=== PATIENT | female | born 1945 | race Caucasian/White ===

== ENCOUNTER → 2018-01-02 09:42 | Outpatient (CLI) | payer MEDICARE, BC, SELFPAY ==
--- NOTE | 2018-01-02 09:55 | RAD_ITS ---
STUDY: X-RAY CHEST REASON FOR EXAM: Female, 72 years old. COPD. TECHNIQUE: PA and lateral chest. COMPARISON: None. FINDINGS: Lungs are hyperinflated. No focal infiltrates or effusions. Normal size heart. Normal mediastinum and andre. Normal visualized pulmonary arteries. Normal visualized aortic arch and descending thoracic aorta. Normal visualized thoracic spine. Normal visualized ribs, clavicles, and shoulders. There is no demonstrated abnormality of the visualized soft tissue structures of the upper abdomen. RAD/Chest PA and Lateral IMPRESSION: COPD. Electronically Signed: Gabriel Etienne MD at 4:43 EDT , Service support ,
[2018-01-02 12:16] LABS: Hematocrit 40.8 % (37-47); Hemoglobin 13.5 g/dl (12.0-15.0); Mean Corp Hgb Conc 33.1 g/gl (32-36); Mean Corpuscular Hgb 34.2 pg (27.0-32.0); Mean Corpuscular Volume 103.3 fL (81-99); Mean Platelet Vol. 9.5 fl (6.2-12.0); Platelet Count 277 K/mm3 (150-450); RBC Distribution Width CV 14.7 % (11.6-14.6); RBC Distribution Width SD 56.4 fl (35.1-43.9); Red Blood Count 3.95 M/mm3 (4.2-5.4); White Blood Count 4.1 K/mm3 (4.4-11.0)
[2018-01-02 12:18] LABS: Scan Indicated on CBC? Y/N NO
[2018-01-02 12:36] LABS: Hemoglobin A1c 4.7 % (4.2-6.3)
[2018-01-02 12:43] LABS: ALB/GLOB Ratio 1.1 RATIO (0.9-2.4); AST(SGOT) 18 U/L (15-37); Alanine Aminotransfer ALT/SGPT 18 U/L (13-56); Albumin, Serum 3.5 g/dL (3.2-5.0); Alkaline Phosphatase 63 U/L (45-117); Anion Gap 11 (5-15); BUN 13 mg/dL (7-18); BUN/Creat Ratio 18.3 RATIO (10-20); Calcium,Total 8.7 mg/dL (8.5-10.1); Chloride 105 mmol/L (98-107); Cholesterol 204 mg/dL (200); Creatinine, Serum 0.71 mg/dL (0.55-1.02); EST Glomerular Filtration Rate 86 mL/min (>60); Est Glom Filt Rate - Afr Amer 104 mL/min (>60); Globulin 3.1 g/dL (2.2-4.2); Glucose 66 mg/dL (74-106); High Density Lipoprotein 94 mg/dL; Protein, Total 6.6 g/dL (6.4-8.2); Sodium Level 142 mmol/L (136-145); Thyroid Stim Hormone (TSH) 1.11 uIU/mL (0.358-3.74); Triglycerides 67 mg/dL; Very Low Density Lipoprotein 13 mg/dL (5-40)
[2018-01-03 08:19] LABS: Vitamin B12 357 pg/mL (211-911); Vitamin D,25 Hydroxy 17.4 ng/mL (29.95-100.01)
== END ==
PROVIDERS: Family Provider Internal Medicine; PCP Internal Medicine; Visit Provider Internal Medicine
DX: E11.9 Type 2 diabetes mellitus without complications (principal); E78.4 Other hyperlipidemia; E55.9 Vitamin D deficiency, unspecified; E03.9 Hypothyroidism, unspecified; E53.8 Deficiency of other specified B group vitamins; J44.9 Chronic obstructive pulmonary disease, unspecified
CPT/HCPCS: 36415; 71046; 80053; 80061; 82306; 82607; 82746; 83036; 84443; 85027

== ENCOUNTER 2018-01-16 13:24 | Emergency (ER) | payer MEDICARE, BC, SELFPAY ==
[2018-01-16 13:25] VITALS: BP 157/70; PULSE 140; RESP 22; TEMP 36.8; O2SAT 97; BMI 27.5
[2018-01-16 13:28] VITALS: PULSE 132; RESP 20; O2SAT 99
[2018-01-16] MEDS: MethylPREDNISolone 125 MG/2 ML Vial IV (14:01)
[2018-01-16] MEDS: DiphenhydrAMINE 50 MG/ML Syringe 25 MG IV (14:01)
--- NOTE | 2018-01-16 14:31 | ED.DCSUM_ITS ---
- ER Visit Summary Date of Service: 01/16/18 Chief Complaint: Bee sting History of Present Illness: The patient is a 72 F who got stung by a bee 30 minutes ago. She states that she took a prednisone pill and used her EpiPen afterwards. She felt shaky and found it hard to breathe so she came in. Her mouth also feels dry. She denies any other symptoms. No tongue swelling. Physical Examination: Vital signs reviewed. HEENT exam unremarkable. There is no tongue or uvular swelling. Heart is tachycardic and regular rhythm without murmurs. Lungs are clear to auscultation. Abdomen is soft and nontender. Extremities reveal no edema. Skin exam normal. Neurologic exam normal. Test Results: None indicated Emergency Department Course and Treatment: Patient was given Solu-Medrol, Benadryl and Pepcid. She feels much better. Her repeat heart rate is down to 95. We will give her a couple more days of prednisone to take at home. She will continue Benadryl. I will refill her EpiPen. She will follow up with her PCP Treatment Plan: [] Disposition: Discharge Impression: Bee sting reaction This note was generated with [employer] dictation software. It may contain incorrect words, spelling, and punctuation that were not noted in review of the chart prior to signing ED Disposition - Plan for ED Patient: Chief Complaint: Allergic Reaction Referrals: Ned Velazquez [Primary Care Provider] -
--- NOTE | 2018-01-16 14:31 | ED.DEP ---
ED Disposition - Plan for ED Patient: Disposition: Home or Assisted Living Chief Complaint: Allergic Reaction Instructions: ED Bite Sting Insect Gen Allergic React Prescriptions: Epinephrine [Epipen] 0.3 mg IJ X1 #2 auto.injct Prednisone [Deltasone] 40 mg PO DAILY #4 tab Referrals: Ned Velazquez [Primary Care Provider] -
[2018-01-16 14:52] VITALS: BP 132/74; PULSE 92; RESP 17; O2SAT 96
[2018-01-16 15:18] VITALS: BP 135/74; PULSE 75; RESP 18; O2SAT 95
== END 2018-01-16 15:32 | disposition home or self-care (01) ==
PROVIDERS: Emergency Provider Emergency Medicine; Family Provider Internal Medicine; PCP Internal Medicine
DX: T63.441A Toxic effect of venom of bees, accidental (unintentional), initial encounter (principal); R06.00 Dyspnea, unspecified; K21.9 Gastro-esophageal reflux disease without esophagitis; I10 Essential (primary) hypertension; Z72.0 Tobacco use; Z79.82 Long term (current) use of aspirin; Z79.899 Other long term (current) drug therapy; Y92.007 Garden or yard of unspecified non-institutional (private) residence as the place of occurrence of the external cause
CPT/HCPCS: 96365; 96375; 99282; J7030; A4216; J3490

== ENCOUNTER → 2018-06-02 10:45 | Outpatient (CLI) | payer MEDICARE, BC, SELFPAY ==
--- NOTE | 2018-06-02 10:52 | RAD_ITS ---
STUDY: X-RAY - RIGHT CLAVICLE REASON FOR EXAM: Female, 72 years old. Clavicle pain TECHNIQUE: 2 view(s) of the clavicle. COMPARISON: None. FINDINGS: Normal clavicle. Normal acromioclavicular articulation. Normal visualized sternoclavicular articulation. Normal visualized pulmonary apex. RAD/Clavicle IMPRESSION: Normal x-ray examination of the clavicle. Electronically Signed: Arun Samuel DO at 12:00 EDT Tel , Service support ,
--- NOTE | 2018-06-02 10:53 | RAD_ITS ---
STUDY: X-RAY STERNUM REASON FOR EXAM: Female, 72 years old. Chest pain with deep inspiration. No known injury TECHNIQUE: 3 view(s) of the sternum were obtained. COMPARISON: None. FINDINGS: On the true lateral radiograph, there is questionable cortical irregularity of the mid sternal region which could represent nondisplaced fracture. If there is high clinical concern, consider CT chest. Visualized lung chicas are clear RAD/Sternum min 2 Views IMPRESSION: As above Electronically Signed: Arun Samuel DO at 12:00 EDT Tel , Service support ,
--- NOTE | 2018-06-02 10:53 | RAD_ITS ---
STUDY: X-RAY - LEFT CLAVICLE REASON FOR EXAM: Female, 72 years old. Pain anterior chest pain hurts to breathe TECHNIQUE: 2 view(s) of the clavicle. COMPARISON: None. FINDINGS: Normal clavicle. There is degenerative arthrosis of the acromioclavicular joint without inferior osseous prominence. Normal visualized sternoclavicular articulation. There is a thickened appearance of the life apex. There is focal hazy appearance of the bilateral apices. RAD/Clavicle IMPRESSION: Degenerative change no visualized fracture. Recommend follow-up chest x-ray given clinical history. Electronically Signed: Smitha Talavera MD at 15:44 EDT Tel , Service support ,
== END ==
PROVIDERS: Family Provider Internal Medicine; PCP Internal Medicine; Visit Provider Internal Medicine
DX: R07.9 Chest pain, unspecified (principal)
CPT/HCPCS: 71120; 73000

== ENCOUNTER 2019-02-23 12:37 | Emergency (ER) | payer MEDICARE, BC, SELFPAY ==
[2019-02-23 12:38] VITALS: BP 133/71; PULSE 95; RESP 18; TEMP 36.3; O2SAT 96; BMI 22.7
[2019-02-23] MEDS: Famotidine 20 MG Tablet 40 MG PO (13:11)
[2019-02-23] MEDS: DiphenhydrAMINE 50 MG/ML Syringe 25 MG IV (13:12)
[2019-02-23] MEDS: MethylPREDNISolone 125 MG/2 ML Vial IV (13:12)
--- NOTE | 2019-02-23 14:38 | ED.VIS.GEN ---
History of Present Illness Chief Complaint: Allergic Reaction Informant: Patient, Family Onset: Today Context: Sudden Onset Timing: Continuous Quality: burning Location: right thigh Current Severity: Mild Maximum Severity: Severe Worsened by: nothing Relieved by: epi pen Narrative: 33-year-old female presents from home with allergic reaction. Patient was working outside in her garden was stung by bee on her right thigh began to feel short of breath lightheaded and began to choke her immediately gave her EpiPen right thigh symptoms resolved. On arrival she feels tired but has no other complaints. She did not pass out. She has no throat swelling chest pain shortness of breath or difficulty breathing or swallowing. She is not lightheaded or dizzy. She has not had any nausea or vomiting. No rash. She denies any other review of systems. Prior similar symptoms: Yes Recent Illness/Hospitalization: No Past Medical History - Allergies and Home Meds Allergies/Adverse Reactions: Allergies iodine Allergy (Verified 02/23/19 12:39) Hives venom-honey bee [bee venom (honey bee)] Allergy (Verified 02/23/19 12:39) Shortness of breath Primary Care Physician: Ned Velazquez [Primary Care Provider] - Prior records reviewed: Yes Smoking Status: Current every day smoker Review of Systems All systems negative except as indicated Skin: Reports: Rash Physical Exam Vital Signs/Narrative: Vital Signs Temp Pulse Resp BP Pulse Ox 02/23/19 12:38 97.4 F L 95 18 133/71 H 96 Inital Vital Signs reviewed: Yes General: Well nourished, Well developed, No Acute Distress Head: Normocephalic, Atraumatic Eyes: Perrl, EOMI ENT: Moist mucous membranes Neck: Supple, Nontender Cardiovascular: Regular rate, Regular rhythm Respiratory: No distress, CTA bilaterally Abdomen: Soft, Nontender, Nondistended, Normal bowel sounds, No masses Back: Nontender Extremities: Nontender, No edema Skin: Normal color, No rash, Trauma - Site right thigh with very mild surrounding redness. Patient does not have a rash. She has no hives. There is a puncture wound right thigh from EpiPen. Neurological: Alert, Oriented x3 Psychological: Normal affect Diagnostic/Tx/Re-eval - Medical Decision Making On arrival patient has no signs of anaphylaxis. Patient was given Pepcid Benadryl and Solu-Medrol. She was monitored for over 1 hour. She had no worsening of her symptoms. Patient is requesting discharge at this time. Her vital signs are stable. Repeat exam not unchanged. Will refill her EpiPen. She will follow-up with her primary care physician. We discussed return precautions and symptoms that should prompt EpiPen usage. She is agreeable. She was discharged. ED Disposition - Plan for ED Patient: Disposition: Home or Assisted Living Diagnosis: Allergic reaction to bee sting Instructions: ED Bite Sting Insect Gen Allergic React Prescriptions: Epi Pen (for allergic rxn) 0.3 mg IM X1 PRN #1 syringe PRN Reason: Allergies Referrals: Ned Velazquez [Primary Care Provider] -
[2019-02-23 14:52] VITALS: BP 141/79; PULSE 69; RESP 16; O2SAT 96
== END 2019-02-23 14:53 | disposition home or self-care (01) ==
PROVIDERS: Emergency Provider Physician Assistant Medical; Family Provider Internal Medicine; PCP Internal Medicine
DX: T63.441A Toxic effect of venom of bees, accidental (unintentional), initial encounter (principal); R06.02 Shortness of breath; R42 Dizziness and giddiness; F17.200 Nicotine dependence, unspecified, uncomplicated; K21.9 Gastro-esophageal reflux disease without esophagitis; I10 Essential (primary) hypertension; Z79.899 Other long term (current) drug therapy
CPT/HCPCS: 96361; 96374; 96375; 99282; J7030; J7040; A4216

== ENCOUNTER → 2019-04-25 13:24 | Outpatient (CLI) | payer MEDICARE, BC, SELFPAY ==
[2019-04-25 15:39] LABS: Hematocrit 40.8 % (37-47); Hemoglobin 14.1 g/dL (12.0-15.0); Mean Corp Hgb Conc 34.6 g/dL (32-36); Mean Corpuscular Hgb 34.7 pg (27.0-32.0); Mean Corpuscular Volume 100.5 fL (81-99); Platelet Count 234 K/mm3 (150-450); RBC Distribution Width CV 14.2 % (11.6-14.6); RBC Distribution Width SD 52.4 fl (35.1-43.9); Red Blood Count 4.06 M/mm3 (4.2-5.4); White Blood Count 5.3 K/mm3 (4.4-11.0)
[2019-04-25 15:52] LABS: Hemoglobin A1c 5.1 % (4.2-6.3)
[2019-04-25 15:54] LABS: Vitamin B12 566 pg/mL (211-911); Vitamin D,25 Hydroxy 15.4 ng/mL (29.95-100.01)
[2019-04-25 16:07] LABS: ALB/GLOB Ratio 1.3 RATIO (0.9-2.4); AST(SGOT) 19 U/L (15-37); Alanine Aminotransfer ALT/SGPT 25 U/L (13-56); Albumin, Serum 3.9 g/dL (3.2-5.0); Alkaline Phosphatase 66 U/L (45-117); Anion Gap 8 (5-15); BUN 7 mg/dL (7-18); BUN/Creat Ratio 11.7 RATIO (10-20); Chloride 100 mmol/L (98-107); Cholesterol 223 mg/dL (200); EST Glomerular Filtration Rate 105 mL/min (>60); Est Glom Filt Rate - Afr Amer 127 mL/min (>60); Glucose 90 mg/dL (74-106); High Density Lipoprotein 111 mg/dL; Potassium 3.7 mmol/L (3.5-5.1); Protein, Total 6.9 g/dL (6.4-8.2); Sodium Level 136 mmol/L (136-145); Thyroid Stim Hormone (TSH) 0.93 uIU/mL (0.358-3.74); Triglycerides 64 mg/dL; Very Low Density Lipoprotein 13 mg/dL (5-40)
== END ==
PROVIDERS: Family Provider Internal Medicine; PCP Internal Medicine; Referring Provider Internal Medicine; Visit Provider Internal Medicine
DX: E11.9 Type 2 diabetes mellitus without complications (principal); E55.9 Vitamin D deficiency, unspecified; E03.9 Hypothyroidism, unspecified; E53.8 Deficiency of other specified B group vitamins; E78.5 Hyperlipidemia, unspecified
CPT/HCPCS: 36415; 80053; 80061; 82306; 82607; 82746; 83036; 84443; 85027

== ENCOUNTER → 2019-10-28 | Outpatient (CLI) | payer MEDICARE, BC, SELFPAY ==
[2019-10-28 18:35] LABS: ALB/GLOB Ratio 1.3 RATIO (0.9-2.4); AST(SGOT) 19 U/L (15-37); Alanine Aminotransfer ALT/SGPT 29 U/L (13-56); Alkaline Phosphatase 60 U/L (45-117); Anion Gap 5 (5-15); BUN 8 mg/dL (7-18); Calcium,Total 9.5 mg/dL (8.5-10.1); Chloride 99 mmol/L (98-107); Creatinine, Serum 0.62 mg/dL (0.55-1.02); EST Glomerular Filtration Rate 101 mL/min (>60); Est Glom Filt Rate - Afr Amer 122 mL/min (>60); Globulin 3.1 g/dL (2.2-4.2); Glucose 77 mg/dL (74-106); Potassium 3.3 mmol/L (3.5-5.1); Protein, Total 7.1 g/dL (6.4-8.2); Sodium Level 134 mmol/L (136-145)
== END | disposition home or self-care (01) ==
LOC: MTLAB 16:00
PROVIDERS: PCP Internal Medicine; Referring Provider Internal Medicine; Visit Provider Internal Medicine
DX: I10 Essential (primary) hypertension (principal)
CPT/HCPCS: 36415; 80053

== ENCOUNTER → 2019-11-05 | Outpatient (CLI) | payer MEDICARE, BC, SELFPAY ==
--- NOTE | 2019-11-05 15:37 | CT_ITS ---
STUDY: CT ABDOMEN AND PELVIS WITHOUT CONTRAST REASON FOR EXAM: Female, 74 years old. RUQ PAIN -- KNOWN RIGHT SIDE RIB FX -- SURG-HYST -- HTN RADIATION DOSAGE (If Supplied By Facility): CTDIvol = ( 11.68 ) mGy, DLP = ( 534.80 ) mGycm TECHNIQUE: Transaxial images were obtained from the dome of the diaphragm to the symphysis pubis with oral contrast, and without intravenous contrast. Sagittal and coronal images were reconstructed. Individualized dose optimization techniques were used for this CT. COMPARISON: None. FINDINGS: The visualized lung bases are unremarkable. The visualized portions of the heart are within normal limits. Normal liver. Normal gallbladder and extrahepatic biliary system. Normal spleen. Normal pancreas. There is a small, circumscribed, smooth, low attenuation right adrenal mass, consistent with an adrenal adenoma. Normal left adrenal gland. Normal right kidney. There is 3.7 cm cyst of the left kidney. Normal visualized stomach. Normal small intestine. There are multiple colonic diverticula consistent with diverticulosis. There is moderate stool. The appendix is visualized and appears normal. There is diffuse atherosclerotic calcification of the abdominal aorta, without a demonstrated aneurysm. Normal inferior vena cava. Normal retroperitoneum. Normal urinary bladder. There is absence of the uterus consistent with a prior hysterectomy. Normal abdominal wall. There are diffuse degenerative changes of the visualized lumbar spine. Right sixth and seventh anterior rib fractures. CT/Abdomen/Pelvis without Cont IMPRESSION: Colonic diverticulosis. No obstruction or abscess. Right rib fractures. No solid organ injury. Electronically Signed: Alf Telles MD at 16:51 EST , Service support ,
== END | disposition home or self-care (01) ==
LOC: CT 15:26
PROVIDERS: PCP Internal Medicine; Referring Provider Internal Medicine; Visit Provider Internal Medicine
DX: R10.11 Right upper quadrant pain (principal)
CPT/HCPCS: 74176

== ENCOUNTER → 2020-05-12 | Outpatient (CLI) | payer MEDICARE, BC, SELFPAY ==
[2020-05-12 10:25] LABS: Hemoglobin 13.8 g/dL (12.0-15.0); Mean Corp Hgb Conc 33.7 g/dL (32-36); Mean Corpuscular Hgb 34.6 pg (27.0-32.0); Mean Corpuscular Volume 102.8 fL (81-99); Mean Platelet Vol. 9.9 fl (6.2-12.0); Platelet Count 297 K/mm3 (150-450); RBC Distribution Width SD 49.4 fl (35.1-43.9); Red Blood Count 3.99 M/mm3 (4.2-5.4); White Blood Count 5.9 K/mm3 (4.4-11.0)
[2020-05-12 10:50] LABS: Vitamin B12 659 pg/mL (211-911); Vitamin D,25 Hydroxy 21.4 ng/mL
[2020-05-12 11:09] LABS: Hemoglobin A1c 5.2 % (3.8-5.6)
[2020-05-12 11:58] LABS: ALB/GLOB Ratio 1.3 RATIO (0.9-2.4); AST(SGOT) 15 U/L (15-37); Alanine Aminotransfer ALT/SGPT 21 U/L (13-56); Albumin, Serum 3.9 g/dL (3.2-5.0); Alkaline Phosphatase 62 U/L (45-117); Anion Gap 5 (5-15); BUN 7 mg/dL (7-18); BUN/Creat Ratio 12.5 RATIO (10-20); Chloride 105 mmol/L (98-107); Cholesterol 209 mg/dL (200); Creatinine, Serum 0.56 mg/dL (0.55-1.02); EST Glomerular Filtration Rate 113 mL/min (>60); Est Glom Filt Rate - Afr Amer 136 mL/min (>60); Glucose 88 mg/dL (74-106); High Density Lipoprotein 108 mg/dL; Potassium 3.6 mmol/L (3.5-5.1); Protein, Total 6.9 g/dL (6.4-8.2); Sodium Level 139 mmol/L (136-145); Thyroid Stim Hormone (TSH) 1.21 uIU/mL (0.358-3.74); Triglycerides 69 mg/dL; Very Low Density Lipoprotein 14 mg/dL (5-40)
== END | disposition home or self-care (01) ==
LOC: MTLAB 08:46
PROVIDERS: PCP Internal Medicine; Referring Provider Internal Medicine; Visit Provider Internal Medicine
DX: E11.9 Type 2 diabetes mellitus without complications (principal); E55.9 Vitamin D deficiency, unspecified; E03.9 Hypothyroidism, unspecified; E53.8 Deficiency of other specified B group vitamins; E78.5 Hyperlipidemia, unspecified
CPT/HCPCS: 36415; 80053; 80061; 82306; 82607; 82746; 83036; 84443; 85027

== ENCOUNTER → 2021-05-21 08:40 | Outpatient (CLI) | payer MEDICARE, BC, SELFPAY ==
[2021-05-21 10:20] LABS: Hematocrit 40.1 % (37-47); Hemoglobin 13.5 g/dL (12.0-15.0); Mean Corp Hgb Conc 33.7 g/dL (32-36); Mean Corpuscular Hgb 34.2 pg (27.0-32.0); Mean Corpuscular Volume 101.5 fL (81-99); Mean Platelet Vol. 9.9 fl (6.2-12.0); Platelet Count 319 K/mm3 (150-450); RBC Distribution Width CV 14.4 % (11.6-14.6); RBC Distribution Width SD 54.3 fl (35.1-43.9); Red Blood Count 3.95 M/mm3 (4.2-5.4); White Blood Count 6.7 K/mm3 (4.4-11.0)
[2021-05-21 10:43] LABS: Vitamin B12 704 pg/mL (211-911); Vitamin D,25 Hydroxy 29.1 ng/mL
[2021-05-21 11:01] LABS: Hemoglobin A1c 4.9 % (3.8-5.6)
[2021-05-21 11:24] LABS: ALB/GLOB Ratio 1.1 RATIO (0.9-2.4); AST(SGOT) 11 U/L (15-37); Alanine Aminotransfer ALT/SGPT 14 U/L (13-56); Albumin, Serum 3.6 g/dL (3.2-5.0); Alkaline Phosphatase 55 U/L (45-117); Anion Gap 3 (5-15); BUN 15 mg/dL (7-18); BUN/Creat Ratio 30.6 RATIO (10-20); Calcium,Total 9.6 mg/dL (8.5-10.1); Chloride 106 mmol/L (98-107); Cholesterol 185 mg/dL (200); Creatinine, Serum 0.49 mg/dL (0.55-1.02); EST Glomerular Filtration Rate 131 mL/min (>60); Est Glom Filt Rate - Afr Amer 158 mL/min (>60); Globulin 3.4 g/dL (2.2-4.2); Glucose 95 mg/dL (74-106); High Density Lipoprotein 85 mg/dL; Potassium 3.4 mmol/L (3.5-5.1); Sodium Level 137 mmol/L (136-145); Thyroid Stim Hormone (TSH) 0.42 uIU/mL (0.358-3.74); Triglycerides 64 mg/dL; Very Low Density Lipoprotein 13 mg/dL (5-40)
== END ==
PROVIDERS: PCP Internal Medicine; Referring Provider Internal Medicine; Visit Provider Internal Medicine
DX: E03.9 Hypothyroidism, unspecified (principal); E11.9 Type 2 diabetes mellitus without complications; E55.9 Vitamin D deficiency, unspecified; E78.5 Hyperlipidemia, unspecified; E53.8 Deficiency of other specified B group vitamins
CPT/HCPCS: 36415; 80053; 80061; 82306; 82607; 82746; 83036; 84443; 85027

== ENCOUNTER → 2022-06-02 | Outpatient (CLI) | payer MEDICARE, BC, SELFPAY ==
--- NOTE | 2022-06-02 14:55 | CT_ITS ---
EXAM: CT CHEST, LUNG CANCER SCREENING WITHOUT INTRAVENOUS CONTRAST CLINICAL INDICATION: TOBACCO USE TECHNIQUE: Helically acquired images were obtained of the chest without intravenous contrast using low dose (LDCT) lung cancer screening protocol. This CT exam was performed using one or more of the following dose reduction techniques: automated exposure control, adjustment of the mA and/or kV according to patient size, and/or use of iterative reconstruction technique. This report was created using [employer] report generation technology. COMPARISON: None. FINDINGS: LUNGS AND PLEURAL SPACES: There is minimal scarring in the lung apices. There is a nodular opacity with minimal central cavitation in the right lower lobe that measures 9 x 5 mm. No mass. No pleural effusion or thickening. No pneumothorax. HEART: Unremarkable. Heart size is normal. No pericardial effusion. No significant coronary artery calcifications. MEDIASTINUM: Unremarkable. No mediastinal or hilar adenopathy. Esophagus is unremarkable. No hiatal hernia. THYROID: Unremarkable. No thyroid lesions. BONES/JOINTS: Unremarkable. No suspicious lytic or blastic abnormality. VASCULATURE: Unremarkable. Thoracic aorta is non-dilated. LYMPH NODES: Unremarkable. No enlarged lymph nodes. CT/Low Dose CT Lung Screening IMPRESSION: Slightly irregular nodule with central cavitation at the right base. This is compatible with Lung RADS category 4A. Three-month follow-up CT scan is recommended. Electronically Signed: Luisito You MD at 3:17 EDT ,
== END | disposition home or self-care (01) ==
PROVIDERS: PCP Internal Medicine; Visit Provider Family Medicine
DX: Z87.891 Personal history of nicotine dependence (principal)
CPT/HCPCS: 71271

== ENCOUNTER → 2022-08-10 | Outpatient (CLI) | payer MEDICARE, BC, SELFPAY ==
[2022-08-10 15:26] LABS: Absolute Lymphocyte Count 1.46 X10^3/uL (0.83-4.51); Basophil# 0.08 X10^3/uL; Basophil% 1.3 % (0-1); Eosinophil# 0.02 X10^3/uL; Eosinophils% 0.3 % (0-5); Hematocrit 42.7 % (37-47); Hemoglobin 14.9 g/dL (12.0-15.0); Lymphocyte # 1.46 X10^3/ul (0.83-4.51); Lymphocyte % 22.9 % (19-41); Mean Corp Hgb Conc 34.9 g/dL (32-36); Mean Corpuscular Hgb 35.5 pg (27.0-32.0); Mean Corpuscular Volume 101.7 fL (81-99); Mean Platelet Vol. 9.6 fl (6.2-12.0); Monocyte# 0.76 X10^3/uL; Monocyte% 11.9 % (0-10); NRBC Flagged by Analyzer 0 % (0-5); Neutrophil # 4.04 X10^3/uL (2.7-7.7); Neutrophil % 63.3 % (47-70); Platelet Count 328 K/mm3 (150-450); RBC Distribution Width CV 14.6 % (11.6-14.6); RBC Distribution Width SD 54.2 fl (35.1-43.9); White Blood Count 6.4 K/mm3 (4.4-11.0)
[2022-08-10 15:47] LABS: Vitamin D,25 Hydroxy 27.6 ng/mL
[2022-08-10 15:56] LABS: Anion Gap 6 (5-15); BUN 8 mg/dL (7-18); BUN/Creat Ratio 13.8 RATIO (10-20); Calcium,Total 9.5 mg/dL (8.5-10.1); Chloride 100 mmol/L (98-107); Creatinine, Serum 0.58 mg/dL (0.55-1.02); EST Glomerular Filtration Rate 108 mL/min (>60); Est Glom Filt Rate - Afr Amer 130 mL/min (>60); Glucose 134 mg/dL (74-106); Potassium 3.8 mmol/L (3.5-5.1); Sodium Level 135 mmol/L (136-145)
== END | disposition home or self-care (01) ==
LOC: MTLAB 12:58
PROVIDERS: PCP Internal Medicine; Referring Provider Family Medicine; Visit Provider Family Medicine
DX: I10 Essential (primary) hypertension (principal)
CPT/HCPCS: 36415; 80048; 82306; 85025

== ENCOUNTER → 2023-02-27 | Outpatient (CLI) | payer MEDICARE, BC, SELFPAY ==
--- NOTE | 2023-02-27 11:30 | RAD_ITS ---
EXAM: XR LUMBOSACRAL SPINE, 2 OR 3 VIEWS CLINICAL INDICATION: LOW BACK PAIN TECHNIQUE: Frontal and lateral views of the lumbar spine and sacrum. COMPARISON: No relevant prior studies available. FINDINGS: VERTEBRAE: Mild dextroscoliosis. Bilateral multilevel vertebral facet arthropathy. Preserved vertebral body height. No fracture. No spondylolisthesis. No lytic or sclerotic lesions identified. DISC SPACES: Diffuse disc space narrowing and marginal osteophytes. GASTROINTESTINAL TRACT: Unremarkable as visualized. Included bowel gas pattern is non-obstructive. OTHER FINDINGS: Hip joint space narrowing bilaterally. RAD/Lumbar Spine 2 or 3 Views IMPRESSION: 1. Diffuse degenerative changes. No lytic or sclerotic lesions identified. 2. Hip joint space narrowing bilaterally. Electronically Signed: Arron Hall MD at 1:51 EDT ,
[2023-02-27 11:50] LABS: Ammonia < 10.0 umol/L (11-32)
[2023-02-27 11:56] LABS: Hemoglobin A1c 4.9 % (3.8-5.6)
[2023-02-27 12:00] LABS: ALB/GLOB Ratio 1.1 RATIO (0.9-2.4); AST(SGOT) 21 U/L (15-37); Alanine Aminotransfer ALT/SGPT 26 U/L (13-56); Albumin, Serum 3.7 g/dL (3.2-5.0); Alkaline Phosphatase 65 U/L (45-117); Anion Gap 6 (5-15); BUN 11 mg/dL (7-18); BUN/Creat Ratio 16.8 RATIO (10-20); Calcium,Total 9.8 mg/dL (8.5-10.1); Chloride 101 mmol/L (98-107); Creatinine, Serum 0.66 mg/dL (0.55-1.02); EST Glomerular Filtration Rate 93 mL/min (>60); Est Glom Filt Rate - Afr Amer 113 mL/min (>60); Globulin 3.5 g/dL (2.2-4.2); Glucose 102 mg/dL (74-106); Potassium 3.6 mmol/L (3.5-5.1); Protein, Total 7.2 g/dL (6.4-8.2); Sodium Level 135 mmol/L (136-145); Thyroid Stim Hormone (TSH) 1.63 uIU/mL (0.358-3.74)
[2023-02-27 12:13] LABS: Vitamin B12 526 pg/mL (211-911)
== END | disposition home or self-care (01) ==
LOC: RAD 11:08
DX: I10 Essential (primary) hypertension (principal); L29.9 Pruritus, unspecified; M54.50 Low back pain, unspecified
CPT/HCPCS: 36415; 72100; 80053; 82140; 82607; 82746; 83036; 84443

== ENCOUNTER 2023-11-27 17:35 | Inpatient (IN) | payer MEDICARE, BC, SELFPAY ==
[2023-11-27] VITALS (10 sets, daily range): BP systolic 98–153; BP diastolic 76–110; PULSE 66–139; RESP 14–22; TEMP 36.4–36.6; O2SAT 94–98; BMI 27.1; BMI 25.7
--- NOTE | 2023-11-27 18:43 | EKG12_ITS ---
Test Reason : DYSRHYTHMIA Blood Pressure : / mmHG Vent. Rate : 129 BPM Atrial Rate : 000 BPM P-R Int : 000 ms QRS Dur : 098 ms QT Int : 272 ms P-R-T Axes : 000 002 001 degrees QTc Int : 398 ms Atrial fibrillation with rapid ventricular response Incomplete right bundle branch block Nonspecific T wave abnormality Abnormal ECG Confirmed by Arron Jay ([id number]), associate entertainment editor RADHA MEZA ([id number]) on 11/28/2023 11:19:36 AM Referred By: Confirmed By:Arron Jay
--- NOTE | 2023-11-27 18:52 | EDS_ITS ---
HPI <Meka Dougherty RN - Last Filed: 11/27/23 21:24> History of Present Illness Chief Complaint: Abn Labs Informant: patient and spouse/S.O. Onset/Context/Timing Onset: Today Narrative Narrative: Patient is a 78-year-old female with past medical history significant for hypertension, acid reflux, hearing and vision impairments, and lower back pain due to sciatic nerve issues. She presents to the ER after being contacted by the [facility] for abnormal lab work. Patient reports chronic fatigue. She reports she tires quicker now than she has in the past. She denie s chest pain. She reports chronic shortness of breath for the past 7 to 8 years which has become worse over the past few weeks. She does have a productive cough with clear sputum for the past year. She denies nausea, vomiting, or diarrhea. She denies pain. She denies any recent travel, hospitalizations, or surgeries. She reports she had been at the clinic for her usual check up and medication refill in which they bulmaro lab work. Today they contacted her telling her they were abnormal and she should report to the ED. when patient was seen by ED attending, she admitted she was at the clinic for shortness of breath and increased lower extremity weakness. She reports that she is unable to get out of her 's car unless he pulls her up. Prior similar symptoms: No Recent Illness/Hospitalization: No PFSH <Meka Dougherty RN - Last Filed: 11/27/23 21:24> PFSH Medical History Acid reflux Back pain Hearing difficulty Hypertension Vision impairment Home Medications epinephrine 0.3 mg/0.3 mL injection, auto-injector 0.3 mg (0.3 mL) IM X1 ##2 05/03/15 [Rx Last Taken 01/16/18] olmesartan 20 mg-hydrochlorothiazide 12.5 mg tablet (Benicar HCT) 1 tab PO DAILY 01/16/18 [History Last Taken 01/16/18] pantoprazole 40 mg tablet,delayed release 40 mg PO DAILY 01/16/18 [History Last Taken 01/16/18] epinephrine 0.3 mg/0.3 mL injection, auto-injector 0.3 mg (0.3 mL) IM X1 PRN Allergies ##1 02/23/19 [Rx Last Taken Unknown] Allergy/AdvReac Type Severity Reaction Status Date / Time iodine Allergy Hives Verified 11/27/23 17:40 venom-honey bee Allergy Shortness Verified 11/27/23 17:40 [bee venom (honey bee)] of breath Social History Smoking Status: Current every day smoker tobacco type: cigarettes ROS <Meka Dougherty RN - Last Filed: 11/27/23 21:24> ROS ED Constitutional Constitutional ED: Denies chills, fever(s) or sweats Eyes Eyes: Denies change in vision ENT ENT ED: Denies ear pain, rhinorrhea or sore throat Cardiovascular Cardiovascular: Denies chest pain, orthopnea or palpitations Respiratory/Chest Respiratory/Chest: Reports cough, dyspnea, dyspnea on exertion, sputum and other Details: Chronic cough with clear sputum x 1 year ; Denies orthopnea Gastrointestinal Gastrointestinal: Denies abdominal pain, constipation, diarrhea, melena, nausea or vomiting Genitourinary Genitourinary ED: Denies dysuria, hematuria or urinary frequency Musculoskeletal Musculoskeletal: Reports other Details: Chronic lower back pain ; Denies back pain Integumentary Denies rash Neurologic Neurologic: Denies headache(s), paresthesias or weakness Psychiatric Psychiatric: Denies anxiety or depression Hematologic/Lymphatic Hematologic/Lymphatic: Denies systems reviewed and no addt'l complaints, except as documented EXAM <Meka Dougherty RN - Last Filed: 11/27/23 21:24> Physical Exam Narrative Exam Narrative: Patient has been at bedside. Patient awake and alert. No acute distress. Const Vital Signs: 11/27/23 17:36 11/27/23 19:00 11/27/23 19:02 Temperature 97.7 F L Temperature Source Temporal Pulse Rate 66 139 H Respiratory Rate 14 20 H Respiratory Effort Normal Respiratory Pattern Normal Blood Pressure 103/86 H 153/110 H Blood Pressure Mean 91 124 Pulse Ox 98 96 Oxygen Delivery Method Room Air Room Air 11/27/23 20:33 11/27/23 21:06 Temperature 97.8 F Temperature Source Pulse Rate 118 H 117 H Respiratory Rate 18 22 H Respiratory Effort Respiratory Pattern Blood Pressure 120/90 H 129/76 H Blood Pressure Mean 100 93 Pulse Ox 96 97 Oxygen Delivery Method Room Air Positive well nourished and well developed General Appearance ED: well developed and NAD HEENT Reports moist mucous membranes Eyes PERRL and EOMs intact bilaterally Neck no lymphadenopathy, supple and no JVD Chest Wall inspection of chest normal and palpation of chest normal Resp normal respiratory effort Resp Narrative: Crackles to right lung base anterior. Auscultation: Negative for rales, wheezes or diminished lung sounds Cardio S1 normal heart sound and S2 normal heart sound Rate: tachycardic GI normal to inspection, nondistended, normoactive bowel sounds, non-tender and non-distended Auscultation: normoactive bowel sounds Palpation: soft Extremity Extremity Narrative: Mild nonpitting edema to right lower extremity. General Extremety ED: Yes edema General Extremity: edema Neuro oriented x3 Sensorium / Orientation: alert Sensory Exam: sensory level loss detected Motor Exam: strength 5/5 throughout Psych mental status grossly normal Skin no rashes or lesions noted, no wounds and skin turgor normal <Dr. Mell Koenig MD - Last Filed: 11/27/23 20:58> Physical Exam Const Vital Signs: 11/27/23 17:36 11/27/23 19:00 11/27/23 19:02 Temperature 97.7 F L Temperature Source Temporal Pulse Rate 66 139 H Respiratory Rate 14 20 H Respiratory Effort Normal Respiratory Pattern Normal Blood Pressure 103/86 H 153/110 H Blood Pressure Mean 91 124 Pulse Ox 98 96 Oxygen Delivery Method Room Air Room Air 11/27/23 20:33 11/27/23 21:06 Temperature 97.8 F Temperature Source Pulse Rate 118 H 117 H Respiratory Rate 18 22 H Respiratory Effort Respiratory Pattern Blood Pressure 120/90 H 129/76 H Blood Pressure Mean 100 93 Pulse Ox 96 97 Oxygen Delivery Method Room Air MDM <Meka Dougherty RN - Last Filed: 11/27/23 21:24> [facility] MDM Narrative Medical decision making narrative: Lab work that was ordered from [facility] was reviewed. CBC shows a normal white blood cell count of 7.1, normal hemoglobin 13.2, normal platelets at 194. D-dimer is elevated at 1.2. Chemistry shows a sodium that is 135 which is patient's baseline. Hypokalemia at 2.8. Total bilirubin is up to 1.4 from 0.8 in February 2023. BNP is elevated at 849. Repeat lab work is ordered to evaluate for leukocytosis, anemia, and electrolyte derangement. EKG obtained to evaluate for cardiac arrhythmia/ischemia. CTA of the chest is ordered to evaluate for pulmonary embolism. Patient reports an allergy to topical iodine only. She has had IV contrast prior to this visit without any signs or symptoms of an allergic reaction. History & Record Review Discussion w/independent historian: Patient and Significant other Lab Data Attestation: I reviewed the patient's lab results. Labs: Laboratory Results - last 24 hr 11/27/23 19:05 WBC 6.3 RBC 3.66 L Hgb 13.0 Hct 37.8 MCV 103.3 H MCH 35.5 H MCHC 34.4 RDW Std Deviation 56.1 H RDW Coeff of Bessie 15.0 H Plt Count 191 MPV 10.5 Immature Gran % (Auto) 0.200 Neut % (Auto) 55.2 Lymph % (Auto) 32.0 Benzie % (Auto) 10.3 H Eos % (Auto) 1.7 Baso % (Auto) 0.6 Absolute Neuts (auto) 3.5 Absolute Lymphs (auto) 2.02 Nucleated RBC % 0 Sodium 137 Potassium 2.7 L* Chloride 101 Carbon Dioxide 24.0 Anion Gap 12 BUN 16 Creatinine 0.64 Estim Creat Clear Calc 60.40 Est GFR (MDRD) Af Amer 116 Est GFR (MDRD) Non-Af 96 BUN/Creatinine Ratio 25.2 H Glucose 82 Calcium 9.1 Total Bilirubin 1.30 H AST 31 ALT 38 Alkaline Phosphatase 58 Troponin I High Sens 34 B-Natriuretic Peptide 1040.3 H Total Protein 5.9 L Albumin 3.3 Globulin 2.6 Albumin/Globulin Ratio 1.3 Radiography Diagnostic Testing: Clinical Impression(s) from Imaging Studies Chest CTA 11/27/23 19:02 IMPRESSION: 1. Bilateral pleural effusions and cardiomegaly suggest congestive heart failure exacerbation in the appropriate clinical setting. 2. No PE. AIDOC program was used to assist in the detection of abnormal findings. Electronically Signed: Bernard Navas MD at 20:39 EDT , EKG Initial EKG: Attestation: I personally reviewed and interpreted this EKG as follows: Interpretation: Atrial Fibrillation Comments: A-fib RVR with a rate of 129. Differential Diagnosis Chest pain/SOB: pulmonary embolism, ACS and CHF Management Discussion w/another healthcare provider: Other (Dr. Koenig, ED provider) Treatment and Re-Evaluation :: Repeat lab work and imaging reviewed. CBC shows a normal white blood cell count of 6.3 with neutrophils 55.2%. Chemistry shows hypokalemia at 2.7. Total bilirubin is 1.3. High-sensitivity troponin is 34. BNP is elevated at 1040.3. EKG shows A-fib RVR with a rate of 129. CTA of the chest showed bilateral pleural effusions and cardiomegaly suggesting congestive heart failure. CTA chest negative for PE. Patient did experience itching after CT dye. She was given Benadryl 25 mg with relief of symptoms. Patient was given 40 mill equivalents of potassium chloride IV for hypokalemia. She was given 40 mg furosemide IV for increased BNP of 1040.3. She was also given Cardizem bolus 10 mg each x 2 for increased heart rate. This decreased heart rate to low 100s. After Dr. Koenig discussed patient with hospitalist, it was determined that patient will be placed on Cardizem drip due to continued increased heart rate. Lab work and imaging reviewed with patient and her . Patient and her are both agreeable to admission for A-fib RVR, hypokalemia, and CHF. Patient seen and evaluated with DARYN student. I personally interviewed and examined the patient. I was involved in all aspects of patient's orders, interpretation of results, and treatment. Patient presents secondary to abnormal labs. [facility] states she told him that she had been having shortness of breath and leg weakness for quite some time. They did outpatient labs that revealed an elevated D-dimer and a low potassium level. They encouraged her to come to the emergency room. Patient denies any chest pain. She denies palpitations. She denies any recent fall or injury. Patient sitting upright in bed no acute distress. She is alert and talkative. Head and neck examination unremarkable. Heart is tachycardic and irregular. Lung sounds reveal diminished breath sounds at the bilateral bases. Abdomen is soft and nontender. Lower extremity examination reveals 2+ edema bilateral, symmetric. Patient placed on corporate administrative assistant. IV line initiated. Labs were repeated. EKG here reveals A-fib RVR with a ventricular rate of 129. She has nonspecific T wave changes noted. Patient denies any known history of atrial fibrillation. CBC significant for normal white count at 6.3 with a hemoglobin of 13. Chemistry studies significant for a potassium of 2.7. This is replaced with IV potassium chloride. LFTs significantly for a total bili of 1.3. BNP is 1040. Troponin is normal at 34. Patient is given 10 mg of IV Cardizem. Heart rate improved to around 118. She is given a second dose of Cardizem. Given her elevated D-dimer, CTA of the chest is obtained. Although patient has a documented allergy to iodine, she states this was topical iodine. She tells me that she has had IV contrast previously with no difficulty. CTA of the chest is obtained that reveals cardiomegaly and bilateral pleural effusions. No evidence of pulmonary embolism. After returning from CT patient does develop some itching but no throat tightness or shortness of breath. She is given a dose of Benadryl. At this time patient is receiving her potassium chloride. She has just been given her second dose of Cardizem and heart rate is still tween 110 and 120 at this time. A dose of Lovenox will be given and she has been given 40 mg of IV Lasix. I will speak with hospitalist regarding admission. <Dr. Mell Koenig MD - Last Filed: 11/27/23 20:58> [facility] Lab Data Labs: Laboratory Results - last 24 hr 11/27/23 19:05 WBC 6.3 RBC 3.66 L Hgb 13.0 Hct 37.8 MCV 103.3 H MCH 35.5 H MCHC 34.4 RDW Std Deviation 56.1 H RDW Coeff of Bessie 15.0 H Plt Count 191 MPV 10.5 Immature Gran % (Auto) 0.200 Neut % (Auto) 55.2 Lymph % (Auto) 32.0 Benzie % (Auto) 10.3 H Eos % (Auto) 1.7 Baso % (Auto) 0.6 Absolute Neuts (auto) 3.5 Absolute Lymphs (auto) 2.02 Nucleated RBC % 0 Sodium 137 Potassium 2.7 L* Chloride 101 Carbon Dioxide 24.0 Anion Gap 12 BUN 16 Creatinine 0.64 Estim Creat Clear Calc 60.40 Est GFR (MDRD) Af Amer 116 Est GFR (MDRD) Non-Af 96 BUN/Creatinine Ratio 25.2 H Glucose 82 Calcium 9.1 Total Bilirubin 1.30 H AST 31 ALT 38 Alkaline Phosphatase 58 Troponin I High Sens 34 B-Natriuretic Peptide 1040.3 H Total Protein 5.9 L Albumin 3.3 Globulin 2.6 Albumin/Globulin Ratio 1.3 Radiography Diagnostic Testing: Clinical Impression(s) from Imaging Studies Chest CTA 11/27/23 19:02 IMPRESSION: 1. Bilateral pleural effusions and cardiomegaly suggest congestive heart failure exacerbation in the appropriate clinical setting. 2. No PE. AIDOC program was used to assist in the detection of abnormal findings. Electronically Signed: Bernard Navas MD at 20:39 EDT , Treatment and Re-Evaluation :: Repeat lab work and imaging reviewed. CBC shows a normal white blood cell count of 6.3 with neutrophils 55.2%. Chemistry shows hypokalemia at 2.7. Total bilirubin is 1.3. High-sensitivity troponin is 34. BNP is elevated at 1040.3. EKG shows A-fib RVR with a rate of 129. CTA of the chest showed bilateral pleural effusions and cardiomegaly suggesting congestive heart failure. CTA chest negative for PE. Patient did experience itching after CT dye. She was given Benadryl 25 mg with relief of symptoms. Patient was given 40 mill equivalents of potassium chloride IV for hypokalemia. She was given 40 mg furosemide IV for increased BNP of 1040.3. She was also given Cardizem bolus 10 mg each x 2 for increased heart rate. This decreased heart rate to low 100s. Lab work and imaging reviewed with patient and her . Patient and her are both agreeable to admission for A-fib RVR, hypokalemia, and CHF. Patient seen and evaluated with DARYN student. I personally interviewed and examined the patient. I was involved in all aspects of patient's orders, interpretation of results, and treatment. Patient presents secondary to abnormal labs. She followed up with [facility] and states she told him that she had been having shortness of breath and leg weakness for quite some time. They did outpatient labs that revealed an elevated D-dimer and a low potassium level. They encouraged her to come to the emergency room. Patient denies any chest pain. She denies palpitations. She denies any recent fall or injury. Patient sitting upright in bed no acute distress. She is alert and talkative. Head and neck examination unremarkable. Heart is tachycardic and irregular. Lung sounds reveal diminished breath sounds at the bilateral bases. Abdomen is soft and nontender. Lower extremity examination reveals 2+ edema bilateral, symmetric. Patient placed on corporate administrative assistant. IV line initiated. Labs were repeated. EKG here reveals A-fib RVR with a ventricular rate of 129. She has nonspecific T w ave changes noted. Patient denies any known history of atrial fibrillation. CBC significant for normal white count at 6.3 with a hemoglobin of 13. Chemistry studies significant for a potassium of 2.7. This is replaced with IV potassium chloride. LFTs significantly for a total bili of 1.3. BNP is 1040. Troponin is normal at 34. Patient is given 10 mg of IV Cardizem. Heart rate improved to around 118. She is given a second dose of Cardizem. Given her elevated D-dimer, CTA of the chest is obtained. Although patient has a documented allergy to iodine, she states this was topical iodine. She tells me that she has had IV contrast previously with no difficulty. CTA of the chest is obtained that reveals cardiomegaly and bilateral pleural effusions. No evidence of pulmonary embolism. After returning from CT patient does develop some itching but no throat tightness or shortness of breath. She is given a dose of Benadryl. At this time patient is receiving her potassium chloride. She has just been given her second dose of Cardizem and heart rate is still tween 110 and 120 at this time. A dose of Lovenox will be given and she has been given 40 mg of IV Lasix. I will speak with hospitalist regarding admission. Discharge Plan Dx/Rx/DC Orders Clinical Impression: Congestive heart failure, Atrial fibrillation with RVR, Acute hypokalemia Disposition Disposition: Acute Care [facility]
--- NOTE | 2023-11-27 19:02 | CT_ITS ---
EXAM: CT ANGIOGRAPHY CHEST WITHOUT AND WITH INTRAVENOUS CONTRAST CLINICAL INDICATION: SOB, elevated d-dimer TECHNIQUE: Helically acquired angiography images were obtained of the chest without and with intravenous contrast. CTDIvol = ( 8.52 ) mGy, DLP = ( 171.65 ) mGycm This CT exam was performed using one or more of the following dose reduction techniques: automated exposure control, adjustment of the mA and/or kV according to patient size, and/or use of iterative reconstruction technique. MIP reconstructed images were created and reviewed. CONTRAST: IV 100mL [id number] COMPARISON: No relevant prior studies available. FINDINGS: PULMONARY ARTERIES: Unremarkable. No evidence of pulmonary embolism. No PE. No aortic aneurysm. AORTA: The aorta is not well opacified and therefore evaluation for dissection is difficult. GREAT VESSELS OF AORTIC ARCH: Unremarkable. Normal in caliber. No evidence of dissection. INFERIOR VENA CAVA: Reflux of contrast into the IVC and hepatic veins is indicative of cardiac pathology. LUNGS AND PLEURAL SPACES: Groundglass opacities at the posterior aspect of the right upper lobe may be infectious or inflammatory and do not have the typical appearance of dependent atelectasis. Moderate centrilobular emphysema. Bilateral pleural effusions, left larger than right. No mass. No pneumothorax. HEART: Cardiomegaly but no pericardial effusion. MEDIASTINUM: Esophagus and trachea unremarkable. No mediastinal or hilar adenopathy by CT size criteria. No hiatal hernia. THYROID: Thyroid is unremarkable. BONES/JOINTS: Unremarkable. No suspicious lytic or blastic abnormality. SOFT TISSUES: Anasarca. KIDNEYS AND URETERS: Exophytic left renal cys, t. CT/CTA Chest W/WO Contrast IMPRESSION: 1. Bilateral pleural effusions and cardiomegaly suggest congestive heart failure exacerbation in the appropriate clinical setting. 2. No PE. AIDOC program was used to assist in the detection of abnormal findings. Electronically Signed: Bernard Navas MD at 20:39 EDT ,
[2023-11-27] MEDS: dilTIAZem 25 MG/5 ML Vial 10 MG IV BOLUS ×2 (19:09→20:23)
[2023-11-27 19:17] LABS: Absolute Lymphocyte Count 2.02 X10^3/uL (0.83-4.51); Absolute Neutrophil Count 3.5 X10^3/uL (2.0-7.7); Basophil# 0.04 X10^3/uL; Basophil% 0.6 % (0-1); Eosinophil# 0.11 X10^3/uL; Eosinophils% 1.7 % (0-5); Hematocrit 37.8 % (37-47); Lymphocyte # 2.02 X10^3/ul (0.83-4.51); Mean Corp Hgb Conc 34.4 g/dL (32-36); Mean Corpuscular Hgb 35.5 pg (27.0-32.0); Mean Corpuscular Volume 103.3 fL (81-99); Mean Platelet Vol. 10.5 fl (6.2-12.0); Monocyte# 0.65 X10^3/uL; Monocyte% 10.3 % (0-10); NRBC Flagged by Analyzer 0 % (0-5); Neutrophil # 3.48 X10^3/uL (2.7-7.7); Neutrophil % 55.2 % (47-70); Platelet Count 191 K/mm3 (150-450); RBC Distribution Width SD 56.1 fl (35.1-43.9); Red Blood Count 3.66 M/mm3 (4.2-5.4); White Blood Count 6.3 K/mm3 (4.4-11.0)
[2023-11-27 19:42] LABS: BNP,B-Type NATRIURETIC PEPTIDE 1040.3 pg/mL (0-100)
[2023-11-27 19:47] LABS: ALB/GLOB Ratio 1.3 RATIO (0.9-2.4); AST(SGOT) 31 U/L (15-37); Alanine Aminotransfer ALT/SGPT 38 U/L (13-56); Albumin, Serum 3.3 g/dL (3.2-5.0); Alkaline Phosphatase 58 U/L (45-117); Anion Gap 12 (5-15); BUN 16 mg/dL (7-18); BUN/Creat Ratio 25.2 RATIO (10-20); Calcium,Total 9.1 mg/dL (8.5-10.1); Chloride 101 mmol/L (98-107); Creatinine, Serum 0.64 mg/dL (0.55-1.02); EST Glomerular Filtration Rate 96 mL/min (>60); Est Glom Filt Rate - Afr Amer 116 mL/min (>60); Globulin 2.6 g/dL (2.2-4.2); Glucose 82 mg/dL (74-106); Potassium 2.7 mmol/L (3.5-5.1); Protein, Total 5.9 g/dL (6.4-8.2); Sodium Level 137 mmol/L (136-145); Troponin-I HS (w/2H Reflex) 34 pg/mL (3.0-54.0)
[2023-11-27] MEDS: Furosemide 40 MG/4 ML Vial IV (20:17)
[2023-11-27] MEDS: Potassium Chloride 10mEq/100mL 10 MEQ/100 ML IV.SOLN. 100 MEQ IV BOLUS ×4 (20:17→23:28)
[2023-11-27] MEDS: DiphenhydrAMINE 50 MG/ML Syringe 25 MG IV (20:23)
[2023-11-27] MEDS: Enoxaparin 80 MG/0.8 ML Syringe 70 MG SC (21:02)
[2023-11-27 21:10] LABS: Reflex Troponin-HS? (from REC) Y
--- NOTE | 2023-11-27 21:19 | HP.PCM.HOS_ITS ---
[facility] - General General Date of Admission: 11/27/23 Date of Service: 11/27/23 Chief Complaint: SOB and Palpitations. HPI Narrative JULIO HERNANDEZ, is a 78 F with a past medical history of essential hypertension, overweight; with BMI of 27.2 this admission, GERD, chronic vision/hearing impairment and OA; with Chronic Low Back Pain and Sciatica who presents to [facility] ER complaining of SOB. Ms. Hernandez reports her symptoms began earlier today when she went to the [facility] for abnormal lab work done for chronic fatigue. She admits to NICE over the past 7-8 years that is worse over the past few weeks with her being unable to get out of the car unless her pulls her up. She also admits to a productive cough with clear sputum along with palpitations with an elevated BNP > 1K. She denies associated fever, chills, nausea, vomiting, diarrhea, constipation, history of atrial fibrillation or similar previous episodes but she does admit to increasing ~2+ LE edema. In the ER she was diagnosed with apparently new-onset Atrial Fibrillation with RVR complicated by an elevated BNP of 1,043 pg/mL pre sent on admission along with laboratory evidence of Severe Hypokalemia of 2.7 mmol/L present on admission compounded by clinical evidence of generalized weakness with ambulatory dysfunction and she was then admitted to the PCU for ongoing care for a stay that is expected to be greater than 48 hours. [facility] Medical History Acid reflux Back pain Hearing difficulty Hypertension Vision impairment Home Medications epinephrine 0.3 mg/0.3 mL injection, auto-injector 0.3 mg (0.3 mL) IM X1 BEE STINGS #2 syringes 05/03/15 [Rx Last Taken 01/16/18] olmesartan 20 mg-hydrochlorothiazide 12.5 mg tablet (Benicar HCT) 1 tab PO DAILY HTN 01/16/18 [History Last Taken 01/16/18] pantoprazole 40 mg tablet,delayed release 40 mg PO DAILY GERD 01/16/18 [History Last Taken 01/16/18] epinephrine 0.3 mg/0.3 mL injection, auto-injector 0.3 mg (0.3 mL) IM X1 PRN Allergies ##1 02/23/19 [Rx Last Taken Unknown] fexofenadine 60 mg tablet (Judith Allergy) 60 mg PO Q24H ALLERGY 11/27/23 [History Last Taken Unknown] Allergy/AdvReac Type Severity Reaction Status Date / Time iodine Allergy Hives Verified 11/27/23 17:40 venom-honey bee Allergy Shortness Verified 11/27/23 17:40 [bee venom (honey bee)] of breath Family History no significant family his Social History Smoking Status: Current every day smoker tobacco type: cigarettes ROS ROS Narrative Review of systems: Constitutional: Patient denies fever or chills. Eyes: Patient denies blurry vision, change in vision or diplopia. ENT: Patient denies runny nose, sore throat or ear pain but she is [id number]. Resp: Patient admits to SOB and cough with clear sputum production for the past year. CV: Patient admits to palpitations but she denies chest pain. GI: Patient denies abdominal pain, nausea or vomiting. : Patient denies dysuria, hematuria or urinary frequency. MSK: Patient admits to chronic low back pain. Skin: Patient denies abscess or rash. Neuro: Patient denies headache, paresthesias or focal neurologic weakness. Psych: Patient denies uncontrolled depression or anxiety. Endo: Patient denies polyuria, polydipsia or polyphagia. Hematology: Patient denies easy bleeding or easy bruisability. Allergic: Patient denies mouth swelling, tongue swelling or urticaria. 14 point ROS otherwise negative except for positives noted above in HPI. Vital Signs Vital Signs Vital Signs: 11/27/23 17:36 11/27/23 19:00 11/27/23 19:02 Temperature 97.7 F L Temperature Source Temporal Pulse Rate 66 139 H Respiratory Rate 14 20 H Respiratory Effort Normal Respiratory Pattern Normal Blood Pressure 103/86 H 153/110 H Blood Pressure Mean 91 124 Pulse Ox 98 96 Oxygen Delivery Method Room Air Room Air 11/27/23 20:33 11/27/23 21:06 Temperature 97.8 F Temperature Source Pulse Rate 118 H 117 H Respiratory Rate 18 22 H Respiratory Effort Respiratory Pattern Blood Pressure 120/90 H 129/76 H Blood Pressure Mean 100 93 Pulse Ox 96 97 Oxygen Delivery Method Room Air Weight Weight: 167 lb 12.348 oz Body Mass Index (BMI) 27.1 Physical Exam Const alert, oriented x3, no apparent distress and average body habitus General Appearance: cooperative HEENT normocephalic, head/scalp atraumatic, hearing grossly normal bilaterally and moist oral mucous membranes HEENT Narrative: [id number]. Eyes PERRL and EOMs intact bilaterally Neck no lymphadenopathy and supple Resp Resp Narrative: Diminished breath sounds throughout. Cardio Cardio Narrative: Irregularly irregular @ ~120-130 bpm. GI normal to inspection, nondistended, normoactive bowel sounds, soft to palpation, non-tender and non-distended Extremity Extremity Narrative: ~2+ LE pitting edema. Skin Skin Narrative: Patient has no evidence of rash. Neuro oriented x3, CN's II-XII intact bilaterally, moves all extremities and no focal motor deficits Sensorium / Orientation: awake, alert, oriented to person, oriented to place and oriented to time Speech: speech normal Motor Exam: strength 5/5 throughout Psych affect normal Results Medical Records Data Attestation: I reviewed the patient's medical records Lab / Micro Data Attestation: I reviewed the patient's lab results. 11/27/23 19:05 11/27/23 19:05 Labs: Laboratory Results - last 24 hr 11/27/23 19:05: WBC 6.3, RBC 3.66 L, Hgb 13.0, Hct 37.8, MCV 103.3 H, MCH 35.5 H , MCHC 34.4, RDW Std Deviation 56.1 H, RDW Coeff of Bessie 15.0 H, Plt Count 191, MPV 10.5, Immature Gran % (Auto) 0.200, Neut % (Auto) 55.2, Lymph % (Auto) 32.0, Mccone % (Auto) 10.3 H, Eos % (Auto) 1.7, Baso % (Auto) 0.6, Absolute Neuts (auto) 3.5, Absolute Lymphs (auto) 2.02, Nucleated RBC % 0, Sodium 137, Potassium 2.7 L*, Chloride 101, Carbon Dioxide 24.0, Anion Gap 12, BUN 16, Creatinine 0.64, Estim Creat Clear Calc 60.40, Est GFR (MDRD) Af Amer 116, Est GFR (MDRD) Non-Af 96, BUN/Creatinine Ratio 25.2 H, Glucose 82, Calcium 9.1, Total Bilirubin 1.30 H , AST 31, ALT 38, Alkaline Phosphatase 58, Troponin I High Sens 34, B- Natriuretic Peptide 1040.3 H, Total Protein 5.9 L, Albumin 3.3, Globulin 2.6, Albumin/Globulin Ratio 1.3 Imaging Radiology Impression Chest CTA 11/27/23 19:02 IMPRESSION: 1. Bilateral pleural effusions and cardiomegaly suggest congestive heart failure exacerbation in the appropriate clinical setting. 2. No PE. AIDOC program was used to assist in the detection of abnormal findings. Electronically Signed: Bernard Navas MD at 20:39 EDT , Assessment & Plan Assessment/Plan (1) Congestive heart failure: QUALIFIERS: Heart failure type: unspecified Heart failure chronicity: unspecified Qualified Code(s): I50.9 - Heart failure, unspecified (2) Atrial fibrillation with RVR: (3) Acute hypokalemia: (4) Generalized weakness: PLAN: Plan 1. AE CHF; evidenced by elevated BNP of 1,043 pg/mL with CXR + for pulmonary congestion - Admit to PCU. Continue IV Lasix begun in the ER along with supplemental KCl and magnesium. Check echocardiogram to evaluate LVEF and identify primary type of CHF. Serialize troponin. 2. New-onset Atrial Fibrillation with RVR likely causing #1 - Continue IV Cardizem and titrate to keep heart rate < 100 bpm. Check TSH. Finally, we will consult cardiology to see this patient on-rounds in the AM for further recommendations with help appreciated in advance. 3. Severe Hypokalemia of 2.7 mmol/L present on admission complicating #1 & #2 - Give supplemental KCl and recheck BMP in the AM to ensure improvement. 4. Generalized Weakness with Ambulatory Dysfunction arising from #1 - #3 in the setting of known OA; with Chronic Low Back Pain and Sciatica - PT/OT and Case Management to consult and treat. 5. Essential hypertension - Continue home regimen plus give IV Hydralazine prn for systolic blood pressure > 160 mm Hg. 6. Overweight; with BMI of 27.2 this admission - Weight loss will be recommended. 7. GERD - Continue PPI. 8. Chronic vision/hearing impairment - Stable. 9. DVT prophylaxis - Patient on full-dose Lovenox for #2. Total time: Approximately 55 minutes. Charges/Coding Visit Charges Inpatient E&M: 52229 Init Hosp L2
[2023-11-27 21:47] LABS: Troponin-I HS 37 pg/mL (3.0-54.0)
[2023-11-27] MEDS: Diltiazem 125 MG in Dextrose 5%-Water (100mL Bag) 100 ML CONT INF (21:53)
--- NOTE | 2023-11-27 22:52 | ECHOD_ITS ---
Reason For Study: CHF Procedure This was a 2D Doppler, Color Flow transthoracic echocardiogram. Exam performed portable in patient room. Left Ventricle Normal LV size. The estimated ejection fraction is 35 %. There is evidence of diastolic dysfunction. There is moderate to severe global hypokinesis of the left ventricle. Right Ventricle Mildly dilated right ventricle. Normal systolic function. Atria The left atrium is mildly enlarged. The right atrium is moderately enlarged. No doppler evidence for ASD. Mitral Valve There is no mitral valve stenosis. Moderate (2+) mitral valve insufficiency. Tricuspid Valve There is no tricuspid stenosis. Moderate (2+) tricuspid valve insufficiency. Pulmonary artery systolic pressure is 65 mmHg. Aortic Valve Trisinus/trileaflet aortic valve. There is no aortic stenosis. Trivial aortic valve insufficiency. Pulmonic Valve There is no pulmonic valvular stenosis. Trivial pulmonic valve insufficiency. Great Vessels Normal aortic root. Pericardium/Pleural No pericardial effusion. MMode/2D Measurements & Calculations LVIDd: 5.2 cm IVSd: 0.94 cm Ao root diam: 3.2 cm LVIDs: 4.1 cm LVPWd: 0.94 cm RVDd: 4.1 cm FS: 21.5 % LAV(MOD-bp): 61.4 ml LVAd ap4: 27.1 cm2 SV(MOD-sp4): 34.7 ml LAV(MOD-bp) Indexed: 33.1 ml/m2 LVLd ap4: 7.1 cm LAV(MOD-sp2): 60.0 ml EDV(MOD-sp4): 85.8 ml LAV(MOD-sp4): 59.0 ml EDV(sp4-el): 88.1 ml LVAs ap4: 19.6 cm2 LVLs ap4: 6.3 cm ESV(MOD-sp4): 51.1 ml ESV(sp4-el): 51.4 ml EF(MOD-sp4): 40.4 % EF(sp4-el): 41.6 % SV(sp4-el): 36.7 ml LA A4 area: 22.1 cm2 LA dimension(2D): 4.2 cm RA A4 area: 24.8 cm2 TAPSE: 1.8 cm Doppler Measurements & Calculations MV E max rashmi: 83.4 cm/sec Ao V2 max: 121.0 cm/sec LV V1 max: 103.9 cm/sec Ao max P.0 mmHg LV V1 max P.4 mmHg PA V2 max: 69.3 cm/sec TR max rashmi: 376.3 cm/sec TR max P.6 mmHg ECHO/Echo Complete Interpretation Summary The estimated ejection fraction is 35 %. There is evidence of diastolic dysfunction. Mildly dilated right ventricle. The left atrium is mildly enlarged. The right atrium is moderately enlarged. Moderate (2+) mitral valve insufficiency. Trivial aortic valve insufficiency. Ordering Physician: Macho Kimble Referring Physician: NICOLE MOORE Performed By: Alexia Mccain, CHATO
[2023-11-27] MEDS: Potassium Chloride Oral Tablet 20 MEQ 60 MEQ PO (23:29)
[2023-11-27] MEDS: Pravastatin 20 MG Tablet PO (23:32)
[2023-11-28] VITALS (22 sets, daily range): BP systolic 95–133; BP diastolic 59–98; PULSE 91–120; RESP 16–21; TEMP 36.1–36.7; O2SAT 90–96; BMI 25.7
[2023-11-28 00:09] LABS: Thyroid Stim Hormone (TSH) 0.67 uIU/mL (0.358-3.74)
[2023-11-28] MEDS: MELATONIN 3 MG TABLET 6 MG PO ×2 (00:16→20:25)
[2023-11-28 01:11] LABS: Troponin-I HS 36 pg/mL (3.0-54.0)
--- NOTE | 2023-11-28 05:55 | RAD_ITS ---
EXAM: XR CHEST, 1 VIEW CLINICAL INDICATION: AE CHF TECHNIQUE: Frontal view of the chest. COMPARISON: No relevant prior studies available. FINDINGS: LUNGS AND PLEURAL SPACES: Bilateral mild interstitial disease and hazy increased density in the right mid and lower lung likely due to interstitial edema. Small bilateral pleural effusions. No pneumothorax. HEART: Cardiomegaly. MEDIASTINUM: Central airways and mediastinal contour are unremarkable. BONES/JOINTS: Unremarkable. No acute fracture. SOFT TISSUES: Unremarkable. RAD/Chest 1 View (Portable) IMPRESSION: 1. Bilateral mild interstitial disease and hazy increased density in the right mid and lower lung likely due to interstitial edema. 2. Cardiomegaly. 3. Small bilateral pleural effusions. Electronically Signed: Arron Hall MD at 6:01 EDT ,
[2023-11-28 07:45] LABS: Absolute Lymphocyte Count 1.74 X10^3/uL (0.83-4.51); Absolute Neutrophil Count 3.4 X10^3/uL (2.0-7.7); Basophil# 0.08 X10^3/uL; Basophil% 1.3 % (0-1); Eosinophil# 0.11 X10^3/uL; Eosinophils% 1.8 % (0-5); Hematocrit 38.2 % (37-47); Hemoglobin 12.9 g/dL (12.0-15.0); Lymphocyte # 1.74 X10^3/ul (0.83-4.51); Lymphocyte % 28.1 % (19-41); Mean Corp Hgb Conc 33.8 g/dL (32-36); Mean Corpuscular Hgb 34.8 pg (27.0-32.0); Mean Platelet Vol. 10.6 fl (6.2-12.0); Monocyte# 0.86 X10^3/uL; Monocyte% 13.9 % (0-10); NRBC Flagged by Analyzer 0 % (0-5); Neutrophil # 3.39 X10^3/uL (2.7-7.7); Neutrophil % 54.6 % (47-70); Platelet Count 189 K/mm3 (150-450); RBC Distribution Width CV 15.2 % (11.6-14.6); RBC Distribution Width SD 57.4 fl (35.1-43.9); Red Blood Count 3.71 M/mm3 (4.2-5.4); White Blood Count 6.2 K/mm3 (4.4-11.0)
[2023-11-28 08:13] LABS: BNP,B-Type NATRIURETIC PEPTIDE 680.1 pg/mL (0-100)
[2023-11-28 08:21] LABS: ALB/GLOB Ratio 1.3 RATIO (0.9-2.4); AST(SGOT) 39 U/L (15-37); Alanine Aminotransfer ALT/SGPT 39 U/L (13-56); Albumin, Serum 3.1 g/dL (3.2-5.0); Alkaline Phosphatase 55 U/L (45-117); Anion Gap 7 (5-15); BUN 12 mg/dL (7-18); Calcium,Total 9.2 mg/dL (8.5-10.1); Chloride 100 mmol/L (98-107); Cholesterol 117 mg/dL (200); EST Glomerular Filtration Rate 103 mL/min (>60); Est Glom Filt Rate - Afr Amer 124 mL/min (>60); Estimated Creatinine Clearance 59.09 ml/min; Globulin 2.4 g/dL (2.2-4.2); Glucose 98 mg/dL (74-106); High Density Lipoprotein 42 mg/dL; Potassium 3.2 mmol/L (3.5-5.1); Protein, Total 5.5 g/dL (6.4-8.2); Sodium Level 135 mmol/L (136-145); Triglycerides 68 mg/dL; Very Low Density Lipoprotein 14 mg/dL (5-40)
[2023-11-28] MEDS: 0.9% Saline Lock 10 ML Syringe IV (08:59)
[2023-11-28] MEDS: Menthol/Lanolin/Calamine/Znox 113 GM Tube 1 APPLIC TOPICAL (08:59)
[2023-11-28] MEDS: Furosemide 40 MG/4 ML Vial IV (09:00)
[2023-11-28] MEDS: Pantoprazole Sodium 40 MG Tablet PO (09:00)
[2023-11-28] MEDS: Magnesium Chloride 64 MG Delay Rel.Tablet 128 MG PO (09:00)
[2023-11-28] MEDS: hydroCHLOROthiazide 12.5mg 12.5 MG PO (09:00)
[2023-11-28] MEDS: Aspirin E.C. 81 MG Tablet PO (09:00)
--- NOTE | 2023-11-28 09:44 | PN.HOSP_ITS ---
Reason for Visit Reason for Visit: Abnormal outpatient lab work Subjective Subjective Mrs. Hernandez is a 78-year-old female who presented to the emergency department at [facility] on 11/27/2023 after being contacted by the [facility] with regards to abnormal outpatient lab work. The patient complained of chronic fatigue but states that it is more significant now than it had been previously. She denied any chest pain but did complain of chronic shortness of breath for about 78 years. She indicated it had slowly worsened. She complained of a productive cough that was clear sputum for about a year. She denied nausea, vomiting, or diarrhea. She was seen as an outpatient for her shortness of breath and increased lower extremity weakness and was unable to get out of her car and thus he helps pull her up. Her outpatient lab work was reviewed and her D-dimer was noted to be elevated at 1.2 and she was markedly hypokalemic with a potassium of 2.8. Her bilirubin was up to 1.4 from 0.8 and her BNP was markedly elevated at 849. A CTA of the chest was performed and showed bilateral pleural effusions, cardiomegaly and no pulmonary embolism. EKG was done and showed atrial fibrillation with RVR and a rate of 128 bpm. Her high-sensitivity troponin was 34. She was given oral potassium, Lasix and a Cardizem bolus in the emergency department and admitted after being placed on a Cardizem drip. Her CBC was overall unremarkable and her renal function was normal. She has had no previous echocardiograms done here. Objective Data Objective Data Vital Signs: Vital Signs Temp Pulse Resp BP Pulse Ox O2 Del Method 97.8 F 95 18 116/81 H 95 Room Air 11/28/23 04:00 11/28/23 06:49 11/28/23 06:49 11/28/23 06:49 11/28/23 06:49 11/28/23 07:57 Oxygen Delivery Method Room Air Weight: 72.5 kg Body Mass Index (BMI) 25.7 Intake & Output: Intake and Output for Last 24 Hours 11/26/23 11/27/23 11/28/23 23:59 23:59 23:59 Intake Total 423.92 / 423.92 289.01 / 289.01 Output Total 800 / 800 Balance 423.92 / 423.92 -510.99 / -510.99 Lab / Micro Data 11/28/23 07:21 11/28/23 07:21 Labs: Laboratory Results - last 24 hr 11/27/23 19:05: WBC 6.3, RBC 3.66 L, Hgb 13.0, Hct 37.8, MCV 103.3 H, MCH 35.5 H , MCHC 34.4, RDW Std Deviation 56.1 H, RDW Coeff of Bessie 15.0 H, Plt Count 191, MPV 10.5, Immature Gran % (Auto) 0.200, Neut % (Auto) 55.2, Lymph % (Auto) 32.0, Creek % (Auto) 10.3 H, Eos % (Auto) 1.7, Baso % (Auto) 0.6, Absolute Neuts (auto) 3.5, Absolute Lymphs (auto) 2.02, Nucleated RBC % 0, Sodium 137, Potassium 2.7 L*, Chloride 101, Carbon Dioxide 24.0, Anion Gap 12, BUN 16, Creatinine 0.64, Estim Creat Clear Calc 60.40, Est GFR (MDRD) Af Amer 116, Est GFR (MDRD) Non-Af 96, BUN/Creatinine Ratio 25.2 H, Glucose 82, Calcium 9.1, Total Bilirubin 1.30 H , AST 31, ALT 38, Alkaline Phosphatase 58, Troponin I High Sens 34, B- Natriuretic Peptide 1040.3 H, Total Protein 5.9 L, Albumin 3.3, Globulin 2.6, Albumin/Globulin Ratio 1.3 11/27/23 21:19: Troponin I High Sens 37, TSH 0.67 11/28/23 00:39: Troponin I High Sens 36 11/28/23 07:21: WBC 6.2, RBC 3.71 L, Hgb 12.9, Hct 38.2, MCV 103.0 H, MCH 34.8 H , MCHC 33.8, RDW Std Deviation 57.4 H, RDW Coeff of Bessie 15.2 H, Plt Count 189, MPV 10.6, Immature Gran % (Auto) 0.300, Neut % (Auto) 54.6, Lymph % (Auto) 28.1, Creek % (Auto) 13.9 H, Eos % (Auto) 1.8, Baso % (Auto) 1.3 H, Absolute Neuts (auto) 3.4, Absolute Lymphs (auto) 1.74, Nucleated RBC % 0, Sodium 135 L, Potassium 3.2 L, Chloride 100, Carbon Dioxide 28.0, Anion Gap 7, BUN 12, Creatinine 0.60, Estim Creat Clear Calc 59.09, Est GFR (MDRD) Af Amer 124, Est GFR (MDRD) Non-Af 103, BUN/Creatinine Ratio 20.0, Glucose 98, Calcium 9.2, Total Bilirubin 1.30 H, AST 39 H, ALT 39, Alkaline Phosphatase 55, B-Natriuretic Peptide 680.1 H, Total Protein 5.5 L, Albumin 3.1 L, Globulin 2.4, Albumin/Gl obulin Ratio 1.3, Triglycerides 68, Cholesterol 117, LDL Cholesterol 61, VLDL Cholesterol 14, HDL Cholesterol 42 Radiography Diagnostic Testing: Radiology Impression Chest CTA 11/27/23 19:02 IMPRESSION: 1. Bilateral pleural effusions and cardiomegaly suggest congestive heart failure exacerbation in the appropriate clinical setting. 2. No PE. AIDOC program was used to assist in the detection of abnormal findings. Electronically Signed: Bernard Navas MD at 20:39 EDT , Chest X-Ray 11/28/23 05:55 IMPRESSION: 1. Bilateral mild interstitial disease and hazy increased density in the right mid and lower lung likely due to interstitial edema. 2. Cardiomegaly. 3. Small bilateral pleural effusions. Electronically Signed: Arron Hall MD at 6:01 EDT , Physical Exam Const alert, oriented x3, no apparent distress, average body habitus and well nourished; Negative for healthy appearing Constitutional Narrative: Older, white female, sitting up in bed watching television, appears comfortable, nontoxic appearing HEENT head/scalp atraumatic and moist oral mucous membranes HEENT Narrative: Dentures in place, Mallampati 2, no thrush Head and Scalp: normocephalic Eyes PERRL, EOMs intact bilaterally and conjunctivae normal Eyes Narrative: No scleral icterus Neck no lymphadenopathy, supple and No no JVD Neck Narrative: Positive JVD, trachea midline, no thyroid enlargement Resp normal respiratory effort, no retractions, no use of accessory muscles and No clear to auscultation bilaterally Resp Narrative: Diffusely diminished and few bibasilar crackles Auscultation: crackles; Negative for rhonchi or wheezes Cardio regular rate, S1 normal heart sound, S2 normal heart sound, no murmurs, no rub and no clicks; Negative for no gallops Cardio Narrative: S3 is present, rhythm is irregularly irregular GI normal to inspection, nondistended, normoactive bowel sounds, soft to palpation and non-tender Extremity Extremity Narrative: 2+ bilateral lower extremity pitting edema, pedal pulses are 2+ at dorsalis pedis, radial pulses are 2+, no cyanosis or clubbing Neuro oriented x3, moves all extremities and no focal motor deficits Speech: speech normal Psych affect normal Psych Narrative: Interacts appropriately, eye contact is good, patient is very pleasant Assessment & Plan Assessment/Plan (1) Generalized weakness: (2) Acute hypokalemia: (3) Atrial fibrillation with RVR: (4) Congestive heart failure: QUALIFIERS: Heart failure chronicity: unspecified Heart failure type: unspecified Qualified Code(s): I50.9 - Heart failure, unspecified (5) Hyperbilirubinemia: PLAN: Plan New onset A-fib with RVR -Will transition off Cardizem drip and start metoprolol 50 mg p.o. twice daily -Continue to monitor heart rate on telemetry -Patient was given Lovenox 70 mg subcu in the emergency department -Continue subcu Lovenox 70 twice daily until we have the results of the echoc ardiogram in case cardiac catheterization would be required -TSH is within normal limits -Correct electrolyte abnormalities -Echocardiogram is pending -Will consult cardiology if EF is abnormal Acute decompensated heart failure -Type unknown -Echocardiogram is pending -Cardiac enzymes have been normal -No history of cardiomyopathy -Potentially could be tachycardia mediated with the above -Discontinue Cardizem and start beta-stepan -Continue home ARB -Consider Aldactone depending on blood pressure trends -Consider Jardiance -Continue diuretics -Continue daily weights -Continue accurate I's and O's -Will sodium restrict diet and fluid restrict to 1750 cc daily Hypertension -Continue home ARB -Discontinue HCTZ -Continue Lasix -Add metoprolol and discontinue Cardizem drip Hypokalemia -Will give another 60 mill colons p.o. potassium -Continue to monitor with ongoing diuresis -Will check a magnesium level Hyperbilirubinemia -Trending down -Suspect related to passive congestion from heart failure Elevated D-dimer -CTA does not show PE Bilateral pleural effusions -These are small and not large enough volume for thoracentesis -Continue IV diuretics GERD -Continue PPI Allergies -Continue home Judith DVT prophylaxis -Full anticoagulation for atrial fibrillation CODE STATUS -DNR CCA with no intubation per discussion at the bedside which was witnessed by nursing Charges/Coding Visit Charges Inpatient E&M: 92400 Subs Hosp L3
[2023-11-28] MEDS: Metoprolol Tartrate 50 MG Tablet PO (10:10)
[2023-11-28] MEDS: Enoxaparin 80 MG/0.8 ML Syringe 70 MG SC (10:10)
[2023-11-28] MEDS: Potassium Chloride Oral Tablet 20 MEQ 60 MEQ PO (10:10)
--- NOTE | 2023-11-28 13:45 | CASEMGMT ---
RN CM Face to Face with patient for initial transition planning/care coordination assessment. RN CM introduced self and role at [facility]. Patient lying in bed, alert and oriented. Patient willing to participate in assessment and is able to answer all questions appropriately. Care providers, pharmacy, and demographics verified. PCP: Violetta Laird Specialists: LYNN Kim Preferred Pharmacy: [facility] Pres[facility] Benefit: yes Living Will/HPOA: no, interested in completing, SW notified LNOK: son, significant other Living Arrangements: Patient lives alone in a 2 story home with bed and bath on first floor. Patient states she is independent at home. Transportation: self, friend DME/HHC: Patient has shower chair, grab bars, walker at home. No previous HHC or SNF. Patient states PCP sent referral to [facility] for outpatient therapy. Patient wishes to discharge home with outpatient therapy. Patient states she has no further needs or concerns at this time. CM to follow for discharge planning needs that may arise. Disposition Plan: Patient to discharge home with family support, outpatient therapy, and follow-up plans in place. Purnima MOSES, RN, CM
--- NOTE | 2023-11-28 15:02 | CASEMGMT ---
Per RN R[place] patient would like to do advance directives, and she would like information on transportation resources and help with cleaning. SW met with patient. Introduced self and role at [facility]. Patient confirmed she would like to do Healthcare Power of Lead Printer (HCPOA) papers. SW started documents with patient, but she did not have addresses for the two people she listed. SW left the documents with patient so she can work on obtaining addresses. SW will check back with patient tomorrow to finish documents. Tiffanie BROTHERS
--- NOTE | 2023-11-28 17:17 | CON.PCM.CA_ITS ---
Assessment & Plan Assessment/Plan (1) Atrial fibrillation with RVR: PLAN: The patient's heart rate has been in the 95-120 range on telemetry. She remains in atrial fibrillation with a rapid ventricular sponsor. We will try to rate control her by splitting her Lopressor dose to 25 mg every 6 hours as the 50 mg dose dropped her blood pressure in the 90 systolic range. The patient may be getting closer to euvolemic state. Several other medication changes were made. We will institute Eliquis 5 mg twice daily she does have insurance that she feels will pay for most medications from through [facility]. Will need to get her a month supply with the starter card prior to discharge. (2) Heart failure with reduced ejection fraction: PLAN: The patient has a heart failure with an ejection fraction of 35%. She denies any previous history of any type of cardiac event. This may be heart failure with reduced ejection fraction mediated by tachycardia. Her heart rate was in the 130s and this has been episodic by her report since May. She is very difficult to get an accurate history about her symptoms. Her lower extremity edema has almost completely resolved she said is markedly improved since admission. Her hypokalemia is being replaced and I recommend we add spironolactone for guideline directed medical therapy for heart failure reduced ejection fraction and potassium sparing effect. Would also recommend that we switch her to oral Lasix. Will reduce her Cozaar to 25 mg daily and s plit her metoprolol to tartrate to 25 mg every 6. Ideally she should get her beta-stepan and lieu of the Cozaar if blood pressures are an issue. It is more important at this point in time to control her heart rate. If her heart rate continues to be a problem to control Lanoxin could be added. She should be loaded with 0.25 mg daily for 3 days and then switch to 0.125 mg daily long- term. Would prefer not to utilize Lanoxin in this given situation. He will take 24 to 48 hours to titrate her medications. We should increase her activities as tolerated. The patient will follow-up in our office following discharge. (3) Acute hypokalemia: PLAN: Continue to replace potassium slowly with oral potassium we will institute spironolactone starting tomorrow he will need to probably stop the oral potassium at that point in time. PLAN: Plan 1. Will DC the Lovenox and replace it with the Eliquis 5 mg twice daily. 2. Change metoprolol to every 6 hours 25 mg to try and get better heart rate control was low last blood pressure depression. 3. Decrease losartan to 25 mg every morning would hold this and lieu of holding the metoprolol for blood pressures less than 95. 4. Switch to IV Lasix to 40 mg p.o. Lasix 5. [place] spironolactone 25 mg daily. 6. Please call the [facility] if further assistance is needed. 7. Please have the patient follow-up with Dr. Jay or one of the DARYN's in the [facility] 1 week after discharge. HPI Consult Data Date of Consult: 11/28/23 HPI Narrative Reason for Consultation: CHF A.fib with RVR HPI Narrative: JULIO HERNANDEZ, is a 78 F who presents with a several month history of progressive dyspnea on exertion. She cannot really tell me when she first started to feel palpitations she thinks it was sometime around May 2023. They seem to be short-lived and were associated when she moved from [facility] to [facility]. The patient had been seen at the [facility] and [facility] clinic and some blood work was done. This apparently demonstrated hypokalemia and an elevated BNP. She had noted marked increase in her lower extremity edema recently. She came to the emergency department where she was diagnosed with atrial fibrillation with a rapid ventricular response. The patient was placed on Lovenox and Cardizem drip. The patient was on no vasoactive medications or heart failure meds in her home environment. She did tell me that she was on hydrochlorothiazide in the clinic thought that was the etiology of her hypokalemia. The patient denies any history of prior cardiac issues. She denies any anginal type symptoms she does have PND and orthopnea at times and the lower extremity edema noted. She denies any history of a previous PR she has not known anything about atrial fibrillation in the past. She is really not had much in way of health care since leaving [facility]. Echocardiogram done today revealed a left ventricular ejection fraction of 35% with global LV systolic dysfunction. Her left atrial enlargement was mild she had moderate right atrial enlargement there is 2+ mitral regurgitation 2+ tricuspid regurgitation with a right ventricular systolic pressure estimated at 65. The patient is diuresed 930 cc over the last 24 hours. The patient is a long-term smoker she denies a history of hypertension or diabetes mellitus. She has been on lipid therapy with pravastatin. The patient reports that she does have access to medications with [place] Medicare and some type of [facility] supplemental insurance. [facility] Medical History Acid reflux Back pain Hearing difficulty Hypertension Vision impairment Home Medications epinephrine 0.3 mg/0.3 mL injection, auto-injector 0.3 mg (0.3 mL) IM X1 BEE STINGS #2 syringes 05/03/15 [Rx Last Taken 01/16/18] olmesartan 20 mg-hydrochlorothiazide 12.5 mg tablet (Benicar HCT) 1 tab PO DAILY HTN 01/16/18 [History Last Taken 01/16/18] pantoprazole 40 mg tablet,delayed release 40 mg PO DAILY GERD 01/16/18 [History Last Taken 01/16/18] epinephrine 0.3 mg/0.3 mL injection, auto-injector 0.3 mg (0.3 mL) IM X1 PRN Allergies ##1 02/23/19 [Rx Last Taken Unknown] fexofenadine 60 mg tablet (Judith Allergy) 60 mg PO Q24H ALLERGY 11/27/23 [History Last Taken Unknown] Allergy/AdvReac Type Severity Reaction Status Date / Time iodine Allergy Hives Verified 11/27/23 17:40 venom-honey bee Allergy Shortness Verified 11/27/23 17:40 [bee venom (honey bee)] of breath Family History no significant family his Social History Smoking Status: Current every day smoker tobacco type: cigarettes ROS Constitutional Constitutional: Reports as per HPI Eyes Eyes: Reports systems reviewed and no addt'l complaints, except as documented ENT HEENT: Reports systems reviewed and no addt'l complaints, except as documented Cardiovascular Cardiovascular: Reports as per HPI Respiratory/Chest Respiratory/Chest: Reports as per HPI Gastrointestinal Gastrointestinal: Reports systems reviewed and no addt'l complaints, except as documented Genitourinary Genitourinary: Reports systems reviewed and no addt'l complaints, except as documented Musculoskeletal Musculoskeletal: Reports systems reviewed and no addt'l complaints, except as documented Integumentary Integumentary: Reports systems reviewed and no addt'l complaints, except as documented Neurologic Neurologic: Reports systems reviewed and no addt'l complaints, except as documented Psychiatric Psychiatric: Reports systems reviewed and no addt'l complaints, except as documented Endocrine Endocrinology: Reports as per HPI Hematologic/Lymphatic Hematologic/Lymphatic: Reports systems reviewed and no addt'l complaints, except as documented Allergic/Immunologic Allergic/Immunologic: Reports systems reviewed and no addt'l complaints, except as documented Physical Exam Const oriented x3 HEENT normocephalic Eyes EOMs intact bilaterally Neck no JVD Carotids: Negative for bruit Chest inspection of chest normal Resp normal respiratory effort Auscultation: rales bilateral base and wheezes expiratory wheezes and posterior Cardio regular rate Rhythm: abnormal rhythm irregularly irregular Heart Sounds: S1 normal, S2 normal, gallop S3 gallop and murmur systolic I/ soft right sternal border; Negative for click Bruits: Negative for carotid bruit GI soft to palpation and no bruits Extremity General Extremity: edema bilateral lower extremity Details: trace Skin no rashes or lesions noted Neuro Neuro Narrative: Alert and oriented x 3 she is a little slow to answer questions but is probably due to her hearing deficit. Psych mental status grossly normal Risk Stratification Risk Stratification Applicable: No Charges/Coding Visit Charges Inpatient E&M: 02188 Init Hosp L3 Objective Data Vital Signs: Vital Signs Temp Pulse Resp BP Pulse Ox O2 Del Method 98.1 F 91 18 99/59 L 95 Room Air 11/28/23 15:20 11/28/23 15:20 11/28/23 15:20 11/28/23 15:20 11/28/23 15:20 11/28/23 15:20 Oxygen Delivery Method Room Air Weight: 159 lb 13.362 oz Body Mass Index (BMI) 25.7 Intake & Output: Intake and Output for Last 24 Hours 11/26/23 11/27/23 11/28/23 23:59 23:59 23:59 Intake Total 423.92 / 423.92 565.84 / 565.84 Output Total 1500 / 1500 Balance 423.92 / 423.92 -934.16 / -934.16 Lab / Micro Data Attestation: I reviewed the patient's lab results. 11/28/23 07:21 11/28/23 07:21 Labs: Laboratory Results - last 24 hr 11/27/23 19:05: WBC 6.3, RBC 3.66 L, Hgb 13.0, Hct 37.8, MCV 103.3 H, MCH 35.5 H , MCHC 34.4, RDW Std Deviation 56.1 H, RDW Coeff of Bessie 15.0 H, Plt Count 191, MPV 10.5, Immature Gran % (Auto) 0.200, Neut % (Auto) 55.2, Lymph % (Auto) 32.0, [place] % (Auto) 10.3 H, Eos % (Auto) 1.7, Baso % (Auto) 0.6, Absolute Neuts (auto) 3.5, Absolute Lymphs (auto) 2.02, Nucleated RBC % 0, Sodium 137, Potassium 2.7 L*, Chloride 101, Carbon Dioxide 24.0, Anion Gap 12, BUN 16, Creatinine 0.64, Estim Creat Clear Calc 60.40, Est GFR (MDRD) Af Amer 116, Est GFR (MDRD) Non-Af 96, BUN/Creatinine Ratio 25.2 H, Glucose 82, Calcium 9.1, Total Bilirubin 1.30 H , AST 31, ALT 38, Alkaline Phosphatase 58, Troponin I High Sens 34, B- Natriuretic Peptide 1040.3 H, Total Protein 5.9 L, Albumin 3.3, Globulin 2.6, Albumin/Globulin Ratio 1.3 11/27/23 21:19: Troponin I High Sens 37, TSH 0.67 11/28/23 00:39: Troponin I High Sens 36 11/28/23 07:21: WBC 6.2, RBC 3.71 L, Hgb 12.9, Hct 38.2, MCV 103.0 H, MCH 34.8 H , MCHC 33.8, RDW Std Deviation 57.4 H, RDW Coeff of Bessie 15.2 H, Plt Count 189, MPV 10.6, Immature Gran % (Auto) 0.300, Neut % (Auto) 54.6, Lymph % (Auto) 28.1, [place] % (Auto) 13.9 H, Eos % (Auto) 1.8, Baso % (Auto) 1.3 H, Absolute Neuts (auto) 3.4, Absolute Lymphs (auto) 1.74, Nucleated RBC % 0, Sodium 135 L, Potassium 3.2 L, Chloride 100, Carbon Dioxide 28.0, Anion Gap 7, BUN 12, Creatinine 0.60, Estim Creat Clear Calc 59.09, Est GFR (MDRD) Af Amer 124, Est GFR (MDRD) Non-Af 103, BUN/Creatinine Ratio 20.0, Glucose 98, Calcium 9.2, Total Bilirubin 1.30 H, AST 39 H, ALT 39, Alkaline Phosphatase 55, B-Natriuretic Peptide 680.1 H, Total Protein 5.5 L, Albumin 3.1 L, Globulin 2.4, Albumin/Globulin Ratio 1.3, Triglycerides 68, Cholesterol 117, LDL Cholesterol 61, VLDL Cholesterol 14, HDL Cholesterol 42 Rhythm Strip Rhythm Strip: A-fib Rate: 96 Cardiology Labs/Tests 11/27/23 19:05: WBC 6.3, RBC 3.66 L, Hgb 13.0, Hct 37.8, MCV 103.3 H, MCH 35.5 H , MCHC 34.4, Plt Count 191, MPV 10.5, Immature Gran % (Auto) 0.200, Neut % (Auto) 55.2, Lymph % (Auto) 32.0, [place] % (Auto) 10.3 H, Eos % (Auto) 1.7, Baso % (Auto) 0.6, Absolute Neuts (auto) 3.5, Nucleated RBC % 0, Sodium 137, Potassium 2.7 L*, Chloride 101, Carbon Dioxide 24.0, Anion Gap 12, BUN 16, Creatinine 0.64, Est GFR (MDRD) Af Amer 116, Est GFR (MDRD) Non-Af 96, BUN/Creatinine Ratio 25.2 H, Glucose 82, Calcium 9.1, Total Bilirubin 1.30 H, B-Natriuretic Peptide 1040.3 H 11/28/23 07:21: WBC 6.2, RBC 3.71 L, Hgb 12.9, Hct 38.2, MCV 103.0 H, MCH 34.8 H , MCHC 33.8, Plt Count 189, MPV 10.6, Immature Gran % (Auto) 0.300, Neut % (Auto) 54.6, Lymph % (Auto) 28.1, [place] % (Auto) 13.9 H, Eos % (Auto) 1.8, Baso % (Auto) 1.3 H, Absolute Neuts (auto) 3.4, Nucleated RBC % 0, Sodium 135 L, Potassium 3.2 L, Chloride 100, Carbon Dioxide 28.0, Anion Gap 7, BUN 12, Creatinine 0.60, Est GFR (MDRD) Af Amer 124, Est GFR (MDRD) Non-Af 103, BUN/Creatinine Ratio 20.0, Glucose 98, Calcium 9.2, Total Bilirubin 1.30 H, B-Natriuretic Peptide 680.1 H, Triglycerides 68, Cholesterol 117, LDL Cholesterol 61, VLDL Cholesterol 14, HDL Cholesterol 42 Rhythm: EKG: ECHO: Stress Test: Cardiac Cath: PCI: CT Surgery: Holter monitor: EPS: PPM: CXR: Chest CT Scan: Radiography Diagnostic Testing: Radiology Impression Chest CTA 11/27/23 19:02 IMPRESSION: 1. Bilateral pleural effusions and cardiomegaly suggest congestive heart failure exacerbation in the appropriate clinical setting. 2. No PE. AIDOC program was used to assist in the detection of abnormal findings. Electronically Signed: Bernard Navas MD at 20:39 EDT Reading Location ID and State: [address] [place] [address] Tel , Service support , Echocardiogram 11/27/23 22:52 Interpretation Summary The estimated ejection fraction is 35 %. There is evidence of diastolic dysfunction. Mildly dilated right ventricle. The left atrium is mildly enlarged. The right atrium is moderately enlarged. Moderate (2+) mitral valve insufficiency. Trivial aortic valve insufficiency. Ordering Physician: Macho Kimble Referring Physician: NICOLE MOORE Performed By: Alexia Mccain, CHATO Chest X-Ray 11/28/23 05:55 IMPRESSION: 1. Bilateral mild interstitial disease and hazy increased density in the right mid and lower lung likely due to interstitial edema. 2. Cardiomegaly. 3. Small bilateral pleural effusions. Electronically Signed: Arron Hall MD at 6:01 EDT ,
[2023-11-28] MEDS: Metoprolol Tartrate 25 MG Tablet PO ×2 (17:35→23:53)
[2023-11-28] MEDS: Pravastatin 20 MG Tablet PO (20:25)
[2023-11-28] MEDS: APIXABAN 5 MG TABLET PO (20:26)
[2023-11-29] VITALS (10 sets, daily range): BP systolic 111–138; BP diastolic 72–112; PULSE 113–120; RESP 16–20; TEMP 35.6–36.6; O2SAT 93–96; BMI 25.0
[2023-11-29] MEDS: Metoprolol Tartrate 25 MG Tablet PO ×2 (05:14→12:14)
[2023-11-29 07:06] LABS: Hematocrit 41.2 % (37-47); Mean Corpuscular Hgb 35.1 pg (27.0-32.0); Mean Corpuscular Volume 103.3 fL (81-99); Mean Platelet Vol. 11.2 fl (6.2-12.0); Platelet Count 216 K/mm3 (150-450); RBC Distribution Width CV 15.3 % (11.6-14.6); RBC Distribution Width SD 58.5 fl (35.1-43.9); Red Blood Count 3.99 M/mm3 (4.2-5.4); White Blood Count 8.4 K/mm3 (4.4-11.0)
[2023-11-29 07:07] LABS: ALB/GLOB Ratio 1.2 RATIO (0.9-2.4); AST(SGOT) 77 U/L (15-37); Alanine Aminotransfer ALT/SGPT 65 U/L (13-56); Albumin, Serum 3.2 g/dL (3.2-5.0); Alkaline Phosphatase 74 U/L (45-117); Anion Gap 8 (5-15); BUN 22 mg/dL (7-18); Calcium,Total 9.2 mg/dL (8.5-10.1); Chloride 101 mmol/L (98-107); Creatinine, Serum 0.96 mg/dL (0.55-1.02); EST Glomerular Filtration Rate 60 mL/min (>60); Est Glom Filt Rate - Afr Amer 72 mL/min (>60); Estimated Creatinine Clearance 45.21 ml/min; Globulin 2.6 g/dL (2.2-4.2); Glucose 116 mg/dL (74-106); Magnesium 1.7 mg/dL (1.6-2.6); Phosphorus 3.9 mg/dL (2.5-4.9); Protein, Total 5.8 g/dL (6.4-8.2); Sodium Level 135 mmol/L (136-145)
[2023-11-29] MEDS: Digoxin 250 MCG/ML Ampul IV (08:25)
[2023-11-29] MEDS: 0.9% Saline Lock 10 ML Syringe IV ×2 (08:25→14:52)
[2023-11-29] MEDS: Furosemide 40 MG/4 ML Vial IV (08:25)
[2023-11-29] MEDS: Menthol/Lanolin/Calamine/Znox 113 GM Tube 1 APPLIC TOPICAL (08:32)
[2023-11-29] MEDS: Spironolactone 25 MG Tablet PO (08:32)
[2023-11-29] MEDS: Magnesium Chloride 64 MG Delay Rel.Tablet 128 MG PO (08:33)
[2023-11-29] MEDS: Pantoprazole Sodium 40 MG Tablet PO ×2 (08:33→20:13)
[2023-11-29] MEDS: APIXABAN 5 MG TABLET PO ×2 (08:33→20:14)
[2023-11-29] MEDS: Docusate Sodium 100 MG Capsule PO ×2 (08:35→20:13)
[2023-11-29] MEDS: Losartan Potassium 25 MG Tablet PO (12:15)
--- NOTE | 2023-11-29 13:40 | PN.HOSP_ITS ---
Reason for Visit Reason for Visit: Abnormal outpatient lab work Subjective Subjective Patient states she was pretty fatigued earlier despite a good nights rest h owever she is feeling better now. Heart rates were higher with the decrease in metoprolol to 25 every 6 so we did add digoxin. I did explain her heart failure to her with regards to her left-sided heart failure due to reduced ejection fraction and having some right-sided heart failure related to her tobacco abuse history and elevated pulmonary pressures. She states she has had good urine output and feels like her legs are much less swollen. Denies any shortness of breath. Is anxious to go home but totally willing to stay until she is medically stable. Objective Data Objective Data Vital Signs: Vital Signs Temp Pulse Resp BP Pulse Ox O2 Del Method 97.8 F 117 H 18 138/72 H 96 Room Air 11/29/23 12:13 11/29/23 12:14 11/29/23 12:13 11/29/23 12:13 11/29/23 12:13 11/29/23 12:13 Oxygen Delivery Method Room Air Weight: 70.4 kg Body Mass Index (BMI) 25.0 Intake & Output: Intake and Output for Last 24 Hours 11/27/23 11/28/23 11/29/23 23:59 23:59 23:59 Intake Total 423.92 / 423.92 1045.84 / 1045.84 480 / 480 Output Total 1900 / 1900 Balance 423.92 / 423.92 -854.16 / -854.16 480 / 480 Lab / Micro Data 11/29/23 06:10 11/29/23 06:10 Labs: Laboratory Results - last 24 hr 11/29/23 06:10: WBC 8.4, RBC 3.99 L, Hgb 14.0, Hct 41.2, MCV 103.3 H, MCH 35.1 H , MCHC 34.0, RDW Std Deviation 58.5 H, RDW Coeff of Bessie 15.3 H, Plt Count 216, MPV 11.2, Sodium 135 L, Potassium 4.0, Chloride 101, Carbon Dioxide 26.0, Anion Gap 8, BUN 22 H, Creatinine 0.96, Estim Creat Clear Calc 45.21, Est GFR (MDRD) Af Amer 72, Est GFR (MDRD) Non-Af 60, BUN/Creatinine Ratio 23.0 H, Glucose 116 H , Calcium 9.2, Phosphorus 3.9, Magnesium 1.7, Total Bilirubin 1.90 H, AST 77 H, ALT 65 H, Alkaline Phosphatase 74, Total Protein 5.8 L, Albumin 3.2, Globulin 2.6, Albumin/Globulin Ratio 1.2 Radiography Diagnostic Testing: Radiology Impression Echocardiogram 11/27/23 22:52 Interpretation Summary The estimated ejection fraction is 35 %. There is evidence of diastolic dysfunction. Mildly dilated right ventricle. The left atrium is mildly enlarged. The right atrium is moderately enlarged. Moderate (2+) mitral valve insufficiency. Trivial aortic valve insufficiency. Ordering Physician: Macho Kimble Referring Physician: NICOLE MOORE Performed By: Alexia Mccain RDCS Rhythm Strip Rhythm Strip: A-fib Rate: 96 Physical Exam Const alert, oriented x3, no apparent distress, average body habitus and well nourished; Negative for healthy appearing Constitutional Narrative: Older, white female, sitting up in bed watching television, appears comfortable, nontoxic appearing, nursing at bedside General Appearance: cooperative HEENT normocephalic, head/scalp atraumatic, hearing grossly normal bilaterally and moist oral mucous membranes HEENT Narrative: Dentition is poor, Mallampati is 2, no thrush Resp normal respiratory effort, no retractions, no use of accessory muscles and clear to auscultation bilaterally Resp Narrative: Diffusely diminished but adventitious sounds have resolved Auscultation: Negative for crackles, rhonchi or wheezes Cardio S1 normal heart sound, S2 normal heart sound, no murmurs, no rub, no gallops and no clicks Cardio Narrative: Mild tachycardia, rhythm is irregularly irregular GI normal to inspection, nondistended, normoactive bowel sounds, soft to palpation and non-tender Extremity Extremity Narrative: Trace to 1+ + bilateral lower extremity pitting edema, pedal pulses are 2+ at dorsalis pedis, radial pulses are 2+, no cyanosis or clubbing Skin Skin Narrative: Patient has no evidence of rash. Neuro oriented x3 and moves all extremities Speech: speech normal Psych affect normal Psych Narrative: Interacts appropriately, eye contact is good, patient is very pleasant Assessment & Plan Assessment/Plan (1) Generalized weakness: (2) Acute hypokalemia: (3) Atrial fibrillation with RVR: (4) Congestive heart failure: QUALIFIERS: Heart failure type: unspecified Heart failure chronicity: unspecified Qualified Code(s): I50.9 - Heart failure, unspecified (5) Hyperbilirubinemia: PLAN: Plan New onset A-fib with RVR -Heart rates are still elevated and blood pressures improved -Will transition metoprolol to 50 twice daily as her heart rates were better co ntrolled on this -Add Lanoxin 250 mcg x 1 dose today and consider repeating -Continue Eliquis 5 mg BID -TSH is within normal limits Acute decompensated heart failure with reduced ejection fraction -Echocardiogram was performed on 11/28/2023 and demonstrated an EF of 35%, elisabeth stolic dysfunction, mildly dilated RV with a right ventricular systolic pressure of 65 mmHg, mild left atrial enlargement and moderate right atrial enlargement, moderate mitral valve insufficiency and trivial aortic valve insufficiency -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 but will give 1 dose of IV today -Continue daily weights -Continue accurate I's and O's -Continue sodium restrict diet and fluid restrict to 1750 cc daily -Weight is down about 2 kg and swelling is much better Hypertension -Continue home ARB -Continue Lasix -Continue metoprolol but changed to 50 twice daily -Continue Aldactone Hypokalemia -Resolved -Monitor with ongoing diuresis Hyperbilirubinemia -Slight trend up -Suspect related to passive congestion from heart failure Elevated D-dimer -CTA does not show PE Bilateral pleural effusions -These are small and not large enough volume for thoracentesis -Continue diuresis GERD -Continue PPI Allergies -Continue home Judith DVT prophylaxis -Full anticoagulation for atrial fibrillation CODE STATUS -DNR CCA with no intubation per discussion at the bedside which was witnessed by nursing Charges/Coding Visit Charges Inpatient E&M: 77048 Subs Hosp L2
[2023-11-29] MEDS: Furosemide 40 MG Tablet PO (14:52)
[2023-11-29] MEDS: Metoprolol Tartrate 5 MG/5 ML Vial IV (14:52)
--- NOTE | 2023-11-29 17:32 | CASEMGMT ---
Addendum entered by Arias Nathan 11/29/23 23:02: 1745: BALJIT BOJORQUEZ to room. Pt sitting on edge of bed. Introduced self and role. Pt made aware [facility] has orders for OP therapy from her PCP's office. Pt states she would prefer to have HHC initially upon return to home. Discussed HHC and homebound requirements and pt states she feels she will be homebound at least for awhile after returning home. She was made aware HHC and OP therapy cannot occur at the same time, but once HHC discharges her, if she needs further therapy after that, then OP therapy @ [facility] may be an option. She voices understanding. Pt states she would like [facility] and declines wanting list of other HHC options, unless [facility]. Per therapy, pt only has a standard walker and she would like a WW. BALJIT BOJORQUEZ discussed this w/pt. Pt states she actually would prefer to have a rollator instead of a WW. Made aware insurance does not cover entire cost of a rollator and she states she would be willing to pay the difference. Verbal discussion of local DME companies and made aware [employer] affiliated w/[facility]. She states her preference [employer]. BALJIT BOJORQUEZ to f/u re: HHC and rollator tomorrow. Original Note: BALJIT BOJORQUEZ NOTE: Call placed to January @ [facility], who verified that they did receive and order from pt's PCP for OP therapy. She states they will contact pt to set up this appt. Marion HESTER
[2023-11-29] MEDS: Metoprolol Tartrate 50 MG Tablet PO (20:11)
[2023-11-29] MEDS: MELATONIN 3 MG TABLET 6 MG PO (20:12)
[2023-11-29] MEDS: Pravastatin 20 MG Tablet PO (20:13)
[2023-11-30] VITALS (7 sets, daily range): BP systolic 103–120; BP diastolic 67–93; PULSE 95–116; RESP 16–18; TEMP 36.1–36.7; O2SAT 93–102; BMI 25.0; BMI 24.9
[2023-11-30 07:03] LABS: Hemoglobin 14.7 g/dL (12.0-15.0); Mean Corpuscular Hgb 36.3 pg (27.0-32.0); Mean Corpuscular Volume 103.7 fL (81-99); Mean Platelet Vol. 10.5 fl (6.2-12.0); Platelet Count 213 K/mm3 (150-450); RBC Distribution Width CV 15.4 % (11.6-14.6); RBC Distribution Width SD 59.3 fl (35.1-43.9); Red Blood Count 4.05 M/mm3 (4.2-5.4); White Blood Count 6.1 K/mm3 (4.4-11.0)
[2023-11-30 07:30] LABS: Anion Gap 11 (5-15); BUN 22 mg/dL (7-18); BUN/Creat Ratio 23.4 RATIO (10-20); Chloride 98 mmol/L (98-107); Creatinine, Serum 0.94 mg/dL (0.55-1.02); EST Glomerular Filtration Rate 61 mL/min (>60); Est Glom Filt Rate - Afr Amer 74 mL/min (>60); Estimated Creatinine Clearance 46.17 ml/min; Glucose 85 mg/dL (74-106); Potassium 2.8 mmol/L (3.5-5.1); Sodium Level 136 mmol/L (136-145)
[2023-11-30] MEDS: Potassium Chloride Oral Tablet 20 MEQ 60 MEQ PO (09:19)
[2023-11-30] MEDS: Docusate Sodium 100 MG Capsule PO ×2 (09:20→20:45)
[2023-11-30] MEDS: Furosemide 40 MG Tablet PO (09:20)
[2023-11-30] MEDS: Metoprolol Tartrate 50 MG Tablet PO ×2 (09:21→20:46)
[2023-11-30] MEDS: Losartan Potassium 25 MG Tablet PO (09:21)
[2023-11-30] MEDS: Digoxin 125 MCG Tablet PO (09:22)
[2023-11-30] MEDS: Magnesium Chloride 64 MG Delay Rel.Tablet 128 MG PO (09:22)
[2023-11-30] MEDS: Spironolactone 25 MG Tablet PO (09:23)
[2023-11-30] MEDS: Menthol/Lanolin/Calamine/Znox 113 GM Tube 1 APPLIC TOPICAL ×2 (09:23→20:48)
[2023-11-30] MEDS: APIXABAN 5 MG TABLET PO ×2 (09:23→20:46)
[2023-11-30] MEDS: Hydrocortisone 2.5% Crm 1 APPLIC TOPICAL (11:00)
[2023-11-30] MEDS: DiphenhydrAMINE 25 MG Capsule PO ×2 (11:01→20:44)
[2023-11-30] MEDS: dilTIAZem CD 120 MG Capsule PO ×2 (11:01→20:45)
--- NOTE | 2023-11-30 11:04 | CASEMGMT ---
Addendum entered by Arias Nathan 11/30/23 13:11: Pt made aware [facility] her. She voices appreciation. Anticipate pt will discharge home on Eliquis. She states she thinks she may have been on that a long time ago but she is not sure and states even if she was, she does not recall ever using a savings card/trial-offer card. She verifies she would like to get her meds from [facility] retail pharmacy @ discharge and made aware they will apply the 30-day savings card. She was also made aware to f/u with her PCP if refills are not affordable. She voices understanding. Script obtained for rollator and per Sonal @ [employer], [id number] cost will be $77.13. Pt states this is affordable. Plan: Home w/[facility] HHC and rollator. Original Note: BALJIT BOJORQUEZ NOTE: Referral made for HHC w/[facility]. They are able to accept pt. SOC to be determined once discharge date known. Marion MOSES RN CM
--- NOTE | 2023-11-30 14:03 | PN.HOSP_ITS ---
Reason for Visit Reason for Visit: Abnormal outpatient lab work Subjective Subjective Patient states she is feeling much better overall. She is very anxious to go home however heart rates are still between 100-120. I discussed the case with cardiology and they will go ahead and add some Cardizem and hold her losartan to see if we can have bigger impact on her heart rates. I did give her an extra dose of digoxin as well today. Objective Data Objective Data Vital Signs: Vital Signs Temp Pulse Resp BP Pulse Ox O2 Del Method 98 F 116 H 17 103/93 H 93 Room Air 11/30/23 09:16 11/30/23 09:22 11/30/23 09:16 11/30/23 09:16 11/30/23 09:16 11/30/23 10:00 Oxygen Delivery Method Room Air Weight: 70.1 kg Body Mass Index (BMI) 24.9 Intake & Output: Intake and Output for Last 24 Hours 11/28/23 11/29/23 11/30/23 23:59 23:59 23:59 Intake Total 1045.84 / 1045.84 1080 / 1080 120 / 120 Output Total 1900 / 1900 Balance -854.16 / -854.16 1080 / 1080 120 / 120 Lab / Micro Data 11/30/23 06:25 11/30/23 06:25 Labs: Laboratory Results - last 24 hr 11/30/23 06:25: WBC 6.1, RBC 4.05 L, Hgb 14.7, Hct 42.0, MCV 103.7 H, MCH 36.3 H , MCHC 35.0, RDW Std Deviation 59.3 H, RDW Coeff of Bessie 15.4 H, Plt Count 213, MPV 10.5, Sodium 136, Potassium 2.8 L, Chloride 98, Carbon Dioxide 27.0, Anion Gap 11, BUN 22 H, Creatinine 0.94, Estim Creat Clear Calc 46.17, Est GFR (MDRD) Af Amer 74, Est GFR (MDRD) Non-Af 61, BUN/Creatinine Ratio 23.4 H, Glucose 85, Calcium 9.0 Rhythm Strip Rhythm Strip: A-fib Rate: 96 Physical Exam Const alert, oriented x3, no apparent distress, average body habitus and well nourished; Negative for healthy appearing Constitutional Narrative: Older, white female, sitting up in bed watching television, appears comfortable, nontoxic General Appearance: cooperative HEENT normocephalic, head/scalp atraumatic and moist oral mucous membranes; Negative for hearing grossly normal bilaterally HEENT Narrative: Dentition is poor, Mallampati is 2, no thrush, marked hearing loss Resp normal respiratory effort, no retractions, no use of accessory muscles and clear to auscultation bilaterally Auscultation: Negative for crackles, rhonchi or wheezes Cardio S1 normal heart sound, S2 normal heart sound, no murmurs, no rub, no gallops and no clicks Cardio Narrative: Mild tachycardia, rhythm is irregularly irregular GI normal to inspection, nondistended, normoactive bowel sounds, soft to palpation and non-tender Extremity Extremity Narrative: Edema has resolved, pedal pulses are 2+, no cyanosis or clubbing Neuro oriented x3, moves all extremities and no focal motor deficits Speech: speech normal Psych affect normal Psych Narrative: Interacts appropriately, eye contact is good, patient is very pleasant Assessment & Plan Assessment/Plan (1) Generalized weakness: (2) Acute hypokalemia: (3) Atrial fibrillation with RVR: (4) Congestive heart failure: QUALIFIERS: Heart failure type: unspecified Heart failure chronicity: unspecified Qualified Code(s): I50.9 - Heart failure, unspecified (5) Hyperbilirubinemia: PLAN: Plan New onset A-fib with RVR -Heart rates are still elevated and blood pressures improved -Continue metoprolol 50 mg p.o. 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 Hyperbilirubinemia -Likely related to passive congestion from heart failure -No need to reevaluate Elevated D-dimer -CTA does not show PE Bilateral pleural effusions -These are small and not large enough volume for thoracentesis -Continue diuresis GERD -Continue PPI Allergies -Continue home Judith DVT prophylaxis -Full anticoagulation for atrial fibrillation CODE STATUS -DNR CCA with no intubation per discussion at the bedside which was witnessed by nursing Disposition: -Clinically patient is doing much better anticipate discharge in the next 24 hours as long as we can get her heart rate consistently between 55 and 100 while at rest Charges/Coding Visit Charges Inpatient E&M: 85366 Subs Hosp L2
--- NOTE | 2023-11-30 14:41 | CASEMGMT ---
THELMA spoke with patient and she still has not obtained addresses for individuals she is naming in her Healthcare Power of Securities Counselor papers. THELMA told patient THELMA will check back tomorrow. Tiffanie Stein CHECK EXAMINER DENEEN
[2023-11-30] MEDS: MELATONIN 3 MG TABLET 6 MG PO (20:47)
[2023-11-30] MEDS: Pravastatin 20 MG Tablet PO (20:47)
[2023-12-01 03:17] VITALS: BP 122/94; PULSE 80; RESP 18; TEMP 36.7; O2SAT 94
[2023-12-01 05:39] VITALS: BMI 24.3
[2023-12-01 07:09] LABS: Anion Gap 7 (5-15); BUN 21 mg/dL (7-18); BUN/Creat Ratio 28.2 RATIO (10-20); Chloride 102 mmol/L (98-107); Creatinine, Serum 0.74 mg/dL (0.55-1.02); EST Glomerular Filtration Rate 80 mL/min (>60); Est Glom Filt Rate - Afr Amer 97 mL/min (>60); Estimated Creatinine Clearance 54.26 ml/min; Glucose 96 mg/dL (74-106); Potassium 3.2 mmol/L (3.5-5.1); Sodium Level 136 mmol/L (136-145)
[2023-12-01 09:03] VITALS: BP 113/93; PULSE 90; RESP 18; TEMP 36.1; O2SAT 96
[2023-12-01] MEDS: Potassium Chloride Oral Tablet 20 MEQ 60 MEQ PO (09:11)
[2023-12-01] MEDS: dilTIAZem CD 120 MG Capsule PO (09:11)
[2023-12-01] MEDS: Spironolactone 25 MG Tablet PO (09:11)
[2023-12-01] MEDS: DiphenhydrAMINE 25 MG Capsule PO (09:11)
[2023-12-01] MEDS: APIXABAN 5 MG TABLET PO (09:11)
[2023-12-01 09:12] VITALS: PULSE 90
[2023-12-01] MEDS: Docusate Sodium 100 MG Capsule PO (09:12)
[2023-12-01] MEDS: Furosemide 40 MG Tablet PO (09:12)
[2023-12-01] MEDS: Magnesium Chloride 64 MG Delay Rel.Tablet 128 MG PO (09:12)
[2023-12-01] MEDS: Metoprolol Tartrate 50 MG Tablet PO (09:12)
[2023-12-01] MEDS: Pantoprazole Sodium 40 MG Tablet PO (09:12)
[2023-12-01] MEDS: Menthol/Lanolin/Calamine/Znox 113 GM Tube 1 APPLIC TOPICAL (09:12)
[2023-12-01] MEDS: Glycerin/Hypromellose/PEG400 15 ml Bottle 1 DRP EACH EYE (09:22)
--- NOTE | 2023-12-01 10:49 | CASEMGMT ---
SW checked in yesterday and again today with patient to see if she got addresses for the individuals she named on her Healthcare Power of [employer] papers. Patient said she has not. Patient said her significant other will be in later. SW will check back as able. Tiffanie BROTHERS
--- NOTE | 2023-12-01 11:05 | CASEMGMT ---
Addendum entered by Arias Nathan 12/01/23 14:33: Meds have been e-scribed to [facility] retail, one of which is Eliquis. BALJIT BOJORQUEZ spoke w/Chuyita in [facility] retail pharmacy. Eliquis 30-day free trial has been applied and there is no charge for pt today. Pt made aware and voices appreciation. BALJIT BOJORQUEZ reminded her to f/u with her PCP or cash applications coordinator if refills are not affordable. She voices understanding. Addendum entered by Arias Nathan 12/01/23 14:09: Per Donna @ [facility], SOC slated for tomorrow. Addendum entered by Arias Nathan 12/01/23 13:15: Rollator has been delivered to pt's room. Call to [facility]. left informed them that pt is discharging home today. Original Note: BALJIT BOJORQUEZ NOTE: Per Dr Beasley, pt is discharging home today. Script for rollator sent to [facility] via [facility]. Call to Becky @ [facility] and she was made aware to deliver to pt's room today. Marion MOSES RN, CM
[2023-12-01] MEDS: dilTIAZem 60 MG CAP.SR.12H PO (12:37)
--- NOTE | 2023-12-01 13:41 | DS.PCM_ITS ---
Providers Date of Admission: 11/27/23 Date of Discharge: 12/01/23 Primary Care Physician: Violetta [facility] Consultations 11/28/23 16:21 Consult: Cardiology Routine Consulting Provider: Arron Jay Reason for Consult: Acute Heart Failure/A-fib with RVR EMERGENT Consult: No MD Notified: Yes Date Notified: 11/28/23 Time Notified: 16:21 Method of Notification: Text Reason For Visit: AFIB WITH RVR + AE CHF WITH HYPOKALEMIA OF 2.7 POA Diagnosis Discharge Diagnosis (1) Generalized weakness: Status: Acute Code(s): R53.1 - Weakness (2) Acute hypokalemia: Status: Acute Code(s): E87.6 - Hypokalemia (3) Atrial fibrillation with RVR: Status: Acute Code(s): I48.91 - Unspecified atrial fibrillation (4) Congestive heart failure: Status: Acute Code(s): I50.9 - Heart failure, unspecified Qualifiers: Heart failure type: unspecified Heart failure chronicity: unspecified Qualified Code(s): I50.9 - Heart failure, unspecified (5) Hyperbilirubinemia: Status: Acute Code(s): E80.6 - Other disorders of bilirubin metabolism Medications at Discharge Home Medications epinephrine 0.3 mg/0.3 mL injection, auto-injector 0.3 mg (0.3 mL) IM X1 BEE STINGS #2 syringes 05/03/15 pantoprazole 40 mg tablet,delayed release 40 mg PO DAILY GERD 01/16/18 epinephrine 0.3 mg/0.3 mL injection, auto-injector 0.3 mg (0.3 mL) IM X1 PRN Allergies ##1 02/23/19 fexofenadine 60 mg tablet (Judith Allergy) 60 mg PO Q24H ALLERGY 11/27/23 apixaban 5 mg tablet (Eliquis) 5 mg PO BID #30 tabs 12/01/23 diltiazem HCl 180 mg capsule,extended release 24 hr 180 mg PO BID #60 caps 12/01/23 furosemide 40 mg tablet 40 mg PO DAILY #30 tabs 12/01/23 magnesium chloride 64 mg (magnesium chloride) tablet,delayed release (Mag 64) 128 mg (2 x 64 mg) PO DAILY #30 tabs 12/01/23 metoprolol tartrate 50 mg tablet 50 mg PO BID #60 tabs 12/01/23 potassium chloride 20 mEq tablet,extended release(part/cryst) 20 meq PO DAILYCM #30 tabs 12/01/23 pravastatin 20 mg tablet 20 mg PO QHS #30 tabs 12/01/23 spironolactone 25 mg tablet 25 mg PO DAILY #30 tabs 12/01/23 Hospital Course Operations None Procedures 2-D Echocardiogram and - (CTA chest/chest x-ray) Summary of Care Provided Minutes Spent on Discharge: 39 Hospital Course: Mrs. Hernandez is a 78-year-old female who presented to the emergency department at [facility] on 11/27/2023 after being contacted by the [facility] with regards to abnormal outpatient lab work. The patient complained of chronic fatigue but states that it had been more significant at presentation than it had been previously. She denied any chest pain but did com plain of chronic shortness of breath for about 7-8 years. She indicated it had slowly worsened. She complained of a productive cough that was clear sputum for about a year. She denied nausea, vomiting, or diarrhea. She is a smoker and has been educated on smoking cessation during her hospital course. She was seen as an outpatient for her shortness of breath and increased lower extremity weakn ess and was unable to get out of her car. Her outpatient lab work was reviewed and her D-dimer was noted to be elevated at 1.2 and she was markedly hypokalemic with a potassium of 2.8. Her bilirubin was up to 1.4 from 0.8 and her BNP was markedly elevated at 849. A CTA of the chest was performed and showed bilateral pleural effusions, cardiomegaly and no pulmonary embolism. EKG was done and showed atrial fibrillation with RVR and a rate of 128 bpm. Her high-sensitivity troponin was 34. She was given oral potassium, Lasix and a Cardizem bolus in the emergency department and admitted after being placed on a Cardizem drip. Her CBC was overall unremarkable and her renal function was normal. She has had no previous echocardiograms done here. She was admitted to the medical floor where treatment was continued in addition to scheduled diuretics. An echocardiogram was performed and showed an EF of 35% with diastolic dysfunction as well as a mildly dilated RV, biatrial enlargement, global LV dysfunction with moderate mitral valve insufficiency and trivial aortic valve insufficiency. Given these findings, cardiology was consulted. 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 She had improved heart rates on the Cardizem drip and we transitioned her over to oral metoprolol. This did help however she remained somewhat tachycardic in the low 100s so she was not as rate controlled as we had desired. We did try to add some digoxin which did not help her much so I rediscussed the case with cardiology and they did add some Cardizem which we uptitrated to 180 mg twice daily at the time of discharge. Her blood pressure was tolerating the beta- stepan and metoprolol combination well in addition to the Aldactone. We did have to discontinue her ARB for the time being and at her follow-up evaluation she can be reassessed for addition of low-dose ARB versus REGINA inhibitor. She diuresed well and the swelling in her lower extremities was resolved at the time of discharge. The dietitian met with her with regards to heart failure and she was educated on a low-sodium diet. We also have asked her to weigh herself on a daily basis and call the cardiology office if she has a weight gain of more than 3 pounds in a 24-hour period. She does have close follow-up with cardiology and has an appointment to see Dr. Arron Jay on 12/11/2023. I have asked that she obtain a BMP to be drawn at that time to reassess her renal function and potassium with her new medications. At discharge she has been transition from Lovenox to apixaban 5 mg p.o. and a prescription was sent for this. Also, prescriptions for p.o. daily diltiazem 180 mg p.o. twice daily, metoprolol 50 mg p.o. twice daily, Lasix 40 mg daily, magnesium 120 mg daily, potassium 20 mEq daily, pravastatin 20 mg nightly, and Aldactone 25 mg daily were sent to the local pharmacy for her to continue at discharge. I have asked her to follow-up with Dr. Jya as noted above and her primary care physician at the [facility] within the next week. She was discharged home in stable condition on room air on 12/01/2023. Again, we have educated her extensively on the importance of her footing smoking. I would recommend at some point in the future she follow-up with pulmonary medicine as I do suspect she has COPD at baseline from her long-term tobacco use history. She will have home health at discharge. Discharge diagnoses: New onset A-fib with RVR Acute decompensated heart failure with reduced ejection fraction Hypertension Hypokalemia-resolved Hyperbilirubinemia Elevated D-dimer-CT negative Small bilateral pleural effusions GERD Allergies Tobacco abuse Suspected COPD Physical Exam Narrative Patient states she is feeling much better and anxious to go home today if possible. Const alert, oriented x3, no apparent distress, average body habitus and well nourished; Negative for healthy appearing Constitutional Narrative: Older, white female, lying in bed resting comfortably, appears comfortable, nontoxic General Appearance: cooperative, comfortable, well kempt and well developed Orientation / Consciousness: awake, oriented to person, oriented to place and oriented to time Exam Limitations: no limitations HEENT normocephalic, head/scalp atraumatic and moist oral mucous membranes; Negative for hearing grossly normal bilaterally HEENT Narrative: Dentition is poor, Mallampati is 2, no thrush Eyes PERRL, EOMs intact bilaterally and conjunctivae normal Eyes Narrative: No scleral icterus Neck no lymphadenopathy, supple and no JVD Neck Narrative: trachea midline, no thyroid enlargement Resp normal respiratory effort, no retractions, no use of accessory muscles and clear to auscultation bilaterally Resp Narrative: Diffusely diminished Auscultation: Negative for crackles, rhonchi or wheezes Cardio S1 normal heart sound, S2 normal heart sound, no murmurs, no rub, no gallops and no clicks Cardio Narrative: Rate controlled irregularly irregular rhythm GI normal to inspection, nondistended, normoactive bowel sounds, soft to palpation and non-tender Extremity no clubbing, cyanosis or edema Skin Skin Narrative: Patient has no evidence of rash. Neuro oriented x3, CN's II-XII intact bilaterally, moves all extremities and no focal motor deficits Neuro Narrative: Generalized weakness noted Sensorium / Orientation: awake, alert, oriented to person, oriented to place and oriented to time Speech: speech normal Psych affect normal Psych Narrative: Interacts appropriately, eye contact is good, patient is very pleasant Weight / BMI Weight Weight: 68.4 kg Body Mass Index (BMI) 24.3 ABG / Lab / Microbiology Data 11/30/23 06:25 12/01/23 05:55 Laboratory: Laboratory Results - last 24 hr 12/01/23 05:55: Sodium 136, Potassium 3.2 L, Chloride 102, Carbon Dioxide 27.0, Anion Gap 7, BUN 21 H, Creatinine 0.74, Estim Creat Clear Calc 54.26, Est GFR (MDRD) Af Amer 97, Est GFR (MDRD) Non-Af 80, BUN/Creatinine Ratio 28.2 H, Glucose 96, Calcium 9.0 D/C Instructions Discharge Diet: Low fat / Low cholesterol (Do not drink more than 2 L of fluid daily) and 2000 mg Sodium Diet Discharge Activity: Return to Normal Activity (As tolerated) Meaningful Use Info Meaningful Use Diagnoses (Choose all that apply): None applicable Discharge Plan Admission Admit Date/Time: 11/27/23 21:38 Primary Reason for Your Visit: Abnormal labs Attending Provider: Randa Beasley [facility] Providers: Macho Kimble; Arron Jay Instructions Patient Instructions: Low-Salt Choices, Coping with Heart Failure, Low Salt Diet Dc, AFib Preventing Stroke, My Heart Failure Symptoms Chart, AFib, Heart Failure Post Hospital, What is Ejection Fraction? Additional Instructions / Restrictions: 1. Please weigh yourself daily and if you gain more than 3 pounds in a 24-hour period please call the cardiology office 2. Please ask Dr. Jay to order a basic metabolic profile when you see him in his office on 12/11/2023. It is very important that you follow-up for this appointment. Discharge Orders/Prescriptions Prescriptions: New Eliquis 5 mg Tablet 5 mg PO BID Qty: 30 0RF diltiazem HCl 180 mg Capsule,Extended Release 24hr 180 mg PO BID Qty: 60 0RF furosemide 40 mg Tablet 40 mg PO DAILY Qty: 30 0RF metoprolol tartrate 50 mg Tablet 50 mg PO BID Qty: 60 0RF pravastatin 20 mg Tablet 20 mg PO QHS Qty: 30 0RF spironolactone 25 mg Tablet 25 mg PO DAILY Qty: 30 0RF potassium chloride 20 mEq Tablet,Er Particles/Crystals 20 meq PO DAILYCM Qty: 30 0RF Mag 64 64 mg Tablet,Delayed Release (Dr/Ec) 128 mg PO DAILY Qty: 30 0RF Continued epinephrine 0.3 MG syringe 0.3 mg IM X1 Qty: 2 0RF pantoprazole 40 MG tablet 40 mg PO DAILY epinephrine 0.3 MG syringe 0.3 mg IM X1 PRN (Reason: Allergies) Qty: 1 0RF fexofenadine [Judith Allergy] 60 mg tablet 60 mg PO Q24H Discontinued olmesartan-hydrochlorothiazide [Benicar HCT] 1 TAB tablet 1 tab PO DAILY Referrals / Follow Up: Arron Jay MD [Med Staff - Active Staff] - 12/11/23 2:30 pm [facility],Violetta Laird [Primary Care Provider] - Within 1 Week Disposition Disposition (needs filled in before D/C Order can be placed): Home Health Service Charges/Coding Visit Charges Inpatient E&M: 77151 Disch Hosp >30min
[2023-12-01 14:00] VITALS: BP 110/88; PULSE 88; RESP 18; TEMP 36.2; O2SAT 94
--- NOTE | 2023-12-01 14:32 | PHA.DC.MC.R ---
Pharmacy [facility] has performed discharge medication reconciliation and counseling for this patient. The patient's discharge medication list was reviewed for discrepancies and discrepancies were resolved. The patient was counseled on the following discharge medications and changes in medications for homegoing were reviewed. The Reason for Use, instructions for use, and potential side effects were reviewed for all new medications. The patient's questions regarding all of their medications were answered. 1. Apixaban 5 mg PO BID 2. Diltiazem 180 mg PO BID 3. Furosemide 40 mg PO daily 4. Magnesium chloride 128 mg daily 5. Metoprolol tartrate 50 PO BID 6. Potassium chloride 20 mEq tablet daily 7. Pravastatin 20 mg PO daily at bedtime 8. Spironolactone 25 mg PO daily The patient was able to verbally demonstrate an understanding of their discharge medications. Medications at Discharge Home Medications epinephrine 0.3 mg/0.3 mL injection, auto-injector 0.3 mg (0.3 mL) IM X1 BEE STINGS #2 syringes 05/03/15 pantoprazole 40 mg tablet,delayed release 40 mg PO DAILY GERD 01/16/18 epinephrine 0.3 mg/0.3 mL injection, auto-injector 0.3 mg (0.3 mL) IM X1 PRN Allergies ##1 02/23/19 fexofenadine 60 mg tablet (Judith Allergy) 60 mg PO Q24H ALLERGY 11/27/23 apixaban 5 mg tablet (Eliquis) 5 mg PO BID #30 tabs 12/01/23 diltiazem HCl 180 mg capsule,extended release 24 hr 180 mg PO BID #60 caps 12/01/23 furosemide 40 mg tablet 40 mg PO DAILY #30 tabs 12/01/23 magnesium chloride 64 mg (magnesium chloride) tablet,delayed release (Mag 64) 128 mg (2 x 64 mg) PO DAILY #30 tabs 12/01/23 metoprolol tartrate 50 mg tablet 50 mg PO BID #60 tabs 12/01/23 potassium chloride 20 mEq tablet,extended release(part/cryst) 20 meq PO DAILYCM #30 tabs 12/01/23 pravastatin 20 mg tablet 20 mg PO QHS #30 tabs 12/01/23 spironolactone 25 mg tablet 25 mg PO DAILY #30 tabs 12/01/23
== END 2023-12-01 15:30 | disposition home health service (06) | DRG 291 ==
LOC: ED 21:38 → PCU 23:43
PROVIDERS: Admitting Provider Internal Medicine; Emergency Provider Emergency Medicine; Visit Provider Internal Medicine
DX: I11.0 Hypertensive heart disease with heart failure (principal); I50.23 Acute on chronic systolic (congestive) heart failure; E66.3 Overweight; J44.9 Chronic obstructive pulmonary disease, unspecified; I48.91 Unspecified atrial fibrillation; I08.0 Rheumatic disorders of both mitral and aortic valves; E87.6 Hypokalemia; K21.9 Gastro-esophageal reflux disease without esophagitis; F17.210 Nicotine dependence, cigarettes, uncomplicated; H53.8 Other visual disturbances; E80.6 Other disorders of bilirubin metabolism; Z66 Do not resuscitate; R53.1 Weakness; R60.0 Localized edema; R06.02 Shortness of breath; Z68.27 Body mass index [BMI] 27.0-27.9, adult; Z79.899 Other long term (current) drug therapy; R53.82 Chronic fatigue, unspecified
CPT/HCPCS: 36415; 71045; 71275; 80048; 80053; 80061; 83735; 83880; 84100; 84443; 84484; 85025; 85027; 85379; 93005; 93306; 97116; 97162; 97166; 97535; 97802; 99285; J7030; Q9967; A4216; J1940

== ENCOUNTER → 2023-11-27 | Outpatient (CLI) | payer MEDICARE, BC, SELFPAY ==
[2023-11-27 16:01] LABS: Hematocrit 38.8 % (37-47); Hemoglobin 13.2 g/dL (12.0-15.0); Mean Corpuscular Hgb 35.4 pg (27.0-32.0); Mean Platelet Vol. 10.9 fl (6.2-12.0); Platelet Count 194 K/mm3 (150-450); RBC Distribution Width CV 15.4 % (11.6-14.6); RBC Distribution Width SD 59.1 fl (35.1-43.9); Red Blood Count 3.73 M/mm3 (4.2-5.4); White Blood Count 7.1 K/mm3 (4.4-11.0)
[2023-11-27 16:35] LABS: ALB/GLOB Ratio 1.4 RATIO (0.9-2.4); AST(SGOT) 35 U/L (15-37); Alanine Aminotransfer ALT/SGPT 38 U/L (13-56); Albumin, Serum 3.6 g/dL (3.2-5.0); Alkaline Phosphatase 68 U/L (45-117); Anion Gap 8 (5-15); BUN 17 mg/dL (7-18); Calcium,Total 9.7 mg/dL (8.5-10.1); Chloride 99 mmol/L (98-107); Creatinine, Serum 0.85 mg/dL (0.55-1.02); EST Glomerular Filtration Rate 69 mL/min (>60); Est Glom Filt Rate - Afr Amer 83 mL/min (>60); Globulin 2.6 g/dL (2.2-4.2); Glucose 104 mg/dL (74-106); Potassium 2.8 mmol/L (3.5-5.1); Protein, Total 6.2 g/dL (6.4-8.2); Sodium Level 135 mmol/L (136-145); Thyroid Stim Hormone (TSH) 1.07 uIU/mL (0.358-3.74)
--- OUTSIDE RECORDS SUMMARY | 2023-11-27 20:40 | XMS RPT_ITS | CCD ---
Author Name Unknown Address [address] [place] [address] Organization [facility] Care Team Providers Care Equipment Records Supervisor Name Role Phone Ned Velazquez Unavailable Unavailable Marcus, Ned Unavailable Unavailable Marcus, Ned Unavailable Unavailable Velazquez, Ned Unavailable Unavailable Velazquez, Ned Unavailable Unavailable Velazquez, Ned Unavailable Unavailable Problems Active Problems Problem Classification Problem Date Documented Da te Episodic/Chronic Substance-related disorders (2 sources) Nicotine dependence, unspecified, uncomplicated; Translations: [Nicotine dependence, unspecified, uncomplicated] Onset: 05-03-2017 Chronic Unclassified (2 sources) Spinal stenosis, lumbar region without neurogenic claudication; Translations: [Spinal stenosis, lumbar region without neurogenic armond] Onset: 10-12-2017 Past or Other Problems Problem Classification Problem Date Documented Da te Episodic/Chronic Unclassified (2 sources) Encounter for screening mammogram for malignant neoplasm of breast; Translations: [Encntr screen mammogram for malignant neoplasm of breast] Onset: 05-03-2017 Episodic Unclassified (2 sources) Asymptomatic menopausal state; Translations: [Asymptomatic menopausal state] Onset: 05-03-2017 Episodic Results Test Name Value Interpretation Reference Range Facil ity Encounters Encounter Date Encounter Type Care Provider Facility Start: 10-12-2017 Patient encounter [facility] Start: 05-03-2017 Patient encounter [facility] Payers Date Payer Category Payer Policy ID Medicare Summary Purpose Family History No Family History Records Found Advance Directives No Advanced Directives Records Found Additional Source Comments INFORMATION SOURCE (unrecogn ized section and content) FOR RECORDS PERTAINING TO PATIENTS WHO ARE OR HAVE BEEN ENROLLED IN A CHEMICAL DEPENDENCY/SUBSTANCEABUSE PROGRAM, SOME INFORMATION MAY BE OMITTED. This clinical summary was aggregated from multiple sources. Caution should be exercised in using it in the provision of clinical care. This summary normalizes information from multiple sources, and as a consequence, information in this document may materially change the coding, format and clinical context of patient data. In addition, data may be omitted in some cases. CLINICAL DECISIONS SHOULD BE BASED ON THE PRIMARY CLINICAL RECORDS. [facility] [employer] [facility]. provides no warranty or guarantee of the accuracy or completeness of information in this document.
== END | disposition home or self-care (01) ==
LOC: LAB 15:30
PROVIDERS: Referring Provider Nurse Practitioner Family; Visit Provider Nurse Practitioner Family
DX: R60.0 Localized edema (principal)
CPT/HCPCS: 36415; 80053; 83880; 84443; 85027; 85379

== ENCOUNTER 2024-01-07 12:42 | Inpatient (IN) | payer MEDICARE, BC, OTHER, SELFPAY ==
[2024-01-07] VITALS (26 sets, daily range): BP systolic 73–163; BP diastolic 48–122; PULSE 49–151; RESP 17–25; TEMP 36–37; O2SAT 93–98; BMI 22.7; BMI 24.3
--- NOTE | 2024-01-07 13:04 | EKG12_ITS ---
Test Reason : SOB Blood Pressure : / mmHG Vent. Rate : 153 BPM Atrial Rate : 000 BPM P-R Int : 000 ms QRS Dur : 096 ms QT Int : 296 ms P-R-T Axes : 000 000 070 degrees QTc Int : 472 ms Critical Test Result: High HR Atrial fibrillation with rapid ventricular response Incomplete right bundle branch block Nonspecific ST and T wave abnormality Abnormal ECG Confirmed by Arron Jay ([id number]), commissioning editor RADHA MEZA ([id number]) on 01/08/2024 9:59:33 AM Referred By: SHAISTA Confirmed By:Arron Jay
--- NOTE | 2024-01-07 13:09 | EDS_ITS ---
HPI <KAREN Puente - Last Filed: 01/07/24 15:16> History of Present Illness Chief Complaint: Shortness of Breath Narrative Narrative: 78-year-old female with past medical history of hypertension, A-fib states she woke up with a coughing fit and had chest tightness and shortness of breath. She reports feeling tired this week but not having the other symptoms before this morning. She does not wear home oxygen. She is on HCTZ for congestive heart failure. She states about a month ago she was hospitalized due to abnormal blood work and diagnosed with congestive heart failure. She is not sure if she had arrhythmias. [facility] <KAREN Puente - Last Filed: 01/07/24 15:16> [facility] Medical History (Updated 01/07/24 @ 14:42 by KAREN Puente) Acid reflux Atrial fibrillation with RVR Back pain Hearing difficulty Heart failure with reduced ejection fraction Hypertension Vision impairment Home Medications epinephrine 0.3 mg/0.3 mL injection, auto-injector 0.3 mg (0.3 mL) IM X1 BEE STINGS #2 syringes 05/03/15 [Rx Last Taken 01/16/18] pantoprazole 40 mg tablet,delayed release 40 mg PO DAILY GERD 01/16/18 [History Last Taken 01/16/18] epinephrine 0.3 mg/0.3 mL injection, auto-injector 0.3 mg (0.3 mL) IM X1 PRN Allergies ##1 02/23/19 [Rx Last Taken Unknown] fexofenadine 60 mg tablet (Judith Allergy) 60 mg PO Q24H ALLERGY 11/27/23 [History Last Taken Unknown] apixaban 5 mg tablet (Eliquis) 5 mg PO BID #30 tabs 12/01/23 [Rx Last Taken Unknown] diltiazem HCl 180 mg capsule,extended release 24 hr 180 mg PO BID #60 caps 12/01/23 [Rx Last Taken Unknown] furosemide 40 mg tablet 40 mg PO DAILY #30 tabs 12/01/23 [Rx Last Taken Unknown] magnesium chloride 64 mg (magnesium chloride) tablet,delayed release (Mag 64) 128 mg (2 x 64 mg) PO DAILY #30 tabs 12/01/23 [Rx Last Taken Unknown] metoprolol tartrate 50 mg tablet 50 mg PO BID #60 tabs 12/01/23 [Rx Last Taken Unknown] potassium chloride 20 mEq tablet,extended release(part/cryst) 20 meq PO DAILYCM #30 tabs 12/01/23 [Rx Last Taken Unknown] pravastatin 20 mg tablet 20 mg PO QHS #30 tabs 12/01/23 [Rx Last Taken Unknown] spironolactone 25 mg tablet 25 mg PO DAILY #30 tabs 12/01/23 [Rx Last Taken Unknown] Allergy/AdvReac Type Severity Reaction Status Date / Time iodine Allergy Hives Verified 11/27/23 17:40 venom-honey bee Allergy Shortness Verified 11/27/23 17:40 [bee venom (honey bee)] of breath Social History Smoking Status: Current every day smoker tobacco type: cigarettes ROS <KAREN Puente - Last Filed: 01/07/24 15:16> ROS ED ROS Narrative Constitutional: Negative for fever, chills, malaise. CVS: Positive for chest tightness. No syncope. Respiratory: Positive for shortness of breath, cough. GI: Negative for abdominal pain, nausea, vomiting. EXAM <KAREN Puente - Last Filed: 01/07/24 15:16> Physical Exam Narrative Exam Narrative: CONST: Patient sitting in no acute distress. EYES: Normal inspection. NECK: Normal inspection. RESP: No respiratory distress, CTAB. CVS: Tachycardic irregularly irregular rhythm, no murmur, no gallop. ABD: Soft and nontender, no guarding or rebound, nondistended. SKIN: Color normal, no rash, warm, dry, intact. EXTREMITIES: Normal appearance, no pedal edema. NEURO: Alert and answering questions appropriately. PSYCH: Normal affect. Const Vital Signs: 01/07/24 12:44 01/07/24 13:21 01/07/24 13:23 Temperature 97.6 F L Temperature Source Oral Pulse Rate 149 H 147 H Respiratory Rate 25 H Respiratory Effort Normal Non-Labored Respiratory Depth Normal Respiratory Pattern Normal Blood Pressure 163/115 H 136/109 H Blood Pressure Mean 131 118 Pulse Ox 96 Oxygen Delivery Method Room Air Nasal Cannula Oxygen Flow Rate (L/min) 2 Fraction of Inspired Oxygen (FIO2) 91 01/07/24 14:16 01/07/24 14:23 01/07/24 14:32 Temperature 98.6 F Temperature Source Temporal Pulse Rate 141 H 127 H 127 H Respiratory Rate 19 H 23 H 21 H Respiratory Effort Respiratory Depth Respiratory Pattern Blood Pressure 155/113 H 155/113 H 126/96 H Blood Pressure Mean 127 127 106 Pulse Ox 95 95 94 Oxygen Delivery Method Nasal Cannula Nasal Cannula Oxygen Flow Rate (L/min) 2 2 2 Fraction of Inspired Oxygen (FIO2) 01/07/24 14:45 Temperature Temperature Source Pulse Rate 129 H Respiratory Rate Respiratory Effort Respiratory Depth Respiratory Pattern Blood Pressure Blood Pressure Mean Pulse Ox Oxygen Delivery Method Oxygen Flow Rate (L/min) Fraction of Inspired Oxygen (FIO2) <Dr. Alf Bolton MD - Last Filed: 01/07/24 14:15> Physical Exam Const Vital Signs: 01/07/24 12:44 01/07/24 13:21 01/07/24 13:23 Temperature 97.6 F L Temperature Source Oral Pulse Rate 149 H 147 H Respiratory Rate 25 H Respiratory Effort Normal Non-Labored Respiratory Depth Normal Respiratory Pattern Normal Blood Pressure 163/115 H 136/109 H Blood Pressure Mean 131 118 Pulse Ox 96 Oxygen Delivery Method Room Air Nasal Cannula Oxygen Flow Rate (L/min) 2 Fraction of Inspired Oxygen (FIO2) 91 01/07/24 14:16 01/07/24 14:23 01/07/24 14:32 Temperature 98.6 F Temperature Source Temporal Pulse Rate 141 H 127 H 127 H Respiratory Rate 19 H 23 H 21 H Respiratory Effort Respiratory Depth Respiratory Pattern Blood Pressure 155/113 H 155/113 H 126/96 H Blood Pressure Mean 127 127 106 Pulse Ox 95 95 94 Oxygen Delivery Method Nasal Cannula Nasal Cannula Oxygen Flow Rate (L/min) 2 2 2 Fraction of Inspired Oxygen (FIO2) 01/07/24 14:45 Temperature Temperature Source Pulse Rate 129 H Respiratory Rate Respiratory Effort Respiratory Depth Respiratory Pattern Blood Pressure Blood Pressure Mean Pulse Ox Oxygen Delivery Method Oxygen Flow Rate (L/min) Fraction of Inspired Oxygen (FIO2) MDM <KAREN Puente - Last Filed: 01/07/24 15:16> MDM MDM Narrative Medical decision making narrative: History gathered from: patient, family member Differential: A fib RVR, CHF, ACS, electrolyte derangement Patient reports acute chest tightness, shortness of breath, and cough this morning. She is hypertensive and is in A-fib RVR in the 140s. She states she has congestive heart failure but is not aware of the A-fib diagnosis. During her last hospital visit the discharge summary on 12/01/2023 states she had new onset A fib and was discharged on Eliquis, diltiazem, metoprolol, Lasix, Aldactone, magnesium, potassium, and pravastatin. She did not seem familiar with Eliquis or most of these medications and states her dog got into her medical bag where all the new pills were and she never started taking them. CBC is WNL. Electrolytes and renal function are unremarkable other than mild hypomagnesemia at 1.4. BNP 970.9. CXR shows small bilateral pleural effusions. After IV diltiazem 20 mg bolus there was no change in her heart rate. She was given an additional 50 mg bolus and started on a diltiazem drip. She still in A- fib RVR around the 120s. Case was discussed with the hospitalist for the admission to PCU. Lab Data Attestation: I reviewed the patient's lab results. Labs: Laboratory Results - last 24 hr 01/07/24 12:55 WBC 6.8 RBC 3.84 L Hgb 13.4 Hct 38.7 MCV 100.8 H MCH 34.9 H MCHC 34.6 RDW Std Deviation 58.7 H RDW Coeff of Bessie 15.9 H Plt Count 259 MPV 9.7 Immature Gran % (Auto) 0.300 Neut % (Auto) 77.2 H Lymph % (Auto) 11.9 L Starke % (Auto) 8.4 Eos % (Auto) 1.3 Baso % (Auto) 0.9 Absolute Neuts (auto) 5.2 Absolute Lymphs (auto) 0.81 L Nucleated RBC % 0 Sodium 134 L Potassium 3.7 Chloride 98 Carbon Dioxide 24.0 Anion Gap 12 BUN 13 Creatinine 0.59 Est GFR (MDRD) Af Amer 128 Est GFR (MDRD) Non-Af 106 BUN/Creatinine Ratio 22.2 H Glucose 111 H Calcium 10.0 Magnesium 1.4 L Troponin I High Sens 50 B-Natriuretic Peptide 970.9 H Radiography Diagnostic Testing: Clinical Impression(s) from Imaging Studies Chest X-Ray 01/07/24 13:20 IMPRESSION: Atelectatic changes in the lower lungs. Small bilateral pleural effusions. Electronically Signed: Carlos Moore MD at 14:17 EDT , ED attending interpretation of 1-view chest x-ray shows normal heart size, small bilateral pleural effusions. <Dr. Alf Bolton MD - Last Filed: 01/07/24 14:15> [facility] Lab Data Labs: Laboratory Results - last 24 hr 01/07/24 12:55 WBC 6.8 RBC 3.84 L Hgb 13.4 Hct 38.7 MCV 100.8 H MCH 34.9 H MCHC 34.6 RDW Std Deviation 58.7 H RDW Coeff of Bessie 15.9 H Plt Count 259 MPV 9.7 Immature Gran % (Auto) 0.300 Neut % (Auto) 77.2 H Lymph % (Auto) 11.9 L Starke % (Auto) 8.4 Eos % (Auto) 1.3 Baso % (Auto) 0.9 Absolute Neuts (auto) 5.2 Absolute Lymphs (auto) 0.81 L Nucleated RBC % 0 Sodium 134 L Potassium 3.7 Chloride 98 Carbon Dioxide 24.0 Anion Gap 12 BUN 13 Creatinine 0.59 Est GFR (MDRD) Af Amer 128 Est GFR (MDRD) Non-Af 106 BUN/Creatinine Ratio 22.2 H Glucose 111 H Calcium 10.0 Magnesium 1.4 L Troponin I High Sens 50 B-Natriuretic Peptide 970.9 H Radiography Diagnostic Testing: Clinical Impression(s) from Imaging Studies Chest X-Ray 01/07/24 13:20 IMPRESSION: Atelectatic changes in the lower lungs. Small bilateral pleural effusions. Electronically Signed: Carlos Moore MD at 14:17 EDT , Additional Tests and Interventions Additional Tests or Interventions: I have personally performed a face to face assessment of the patient and have reviewed the DARYN Note. I performed a substantive portion of the visit including all aspects of the following. My curiel findings include: History is episodic dyspnea and chest pressure last couple weeks, worse and more persistent today as she awakened. Discharged with medications for A-fib about a month ago, but lost all of her pills about 3 weeks ago and has not sought to get them back. No syncope. Exam is rapid irregularly irregular heart rate. Lungs clear, no respiratory distress, speaking full sentences. No significant pedal edema. Medical Decison Making workup for ACS & acute CHF as we provide AV dian blockers in order to try to get her rate under control. Likely admit. Other additions or changes: [None] Discharge Plan Triage Chief Complaint: Shortness of Breath ED Midlevel Provider: Ronda Sims ED Provider: Alf Bolton Dx/Rx/DC Orders Clinical Impression: Atrial fibrillation with RVR, Chest pain, Hypomagnesemia, Noncompliance with medication regimen, Bilateral pleural effusion Prescriptions: No Action epinephrine 0.3 MG syringe 0.3 mg IM X1 Qty: 2 0RF pantoprazole 40 MG tablet 40 mg PO DAILY epinephrine 0.3 MG syringe 0.3 mg IM X1 PRN (Reason: Allergies) Qty: 1 0RF fexofenadine [Judith Allergy] 60 mg tablet 60 mg PO Q24H Eliquis 5 mg Tablet 5 mg PO BID Qty: 30 0RF diltiazem HCl 180 mg Capsule,Extended Release 24hr 180 mg PO BID Qty: 60 0RF furosemide 40 mg Tablet 40 mg PO DAILY Qty: 30 0RF metoprolol tartrate 50 mg Tablet 50 mg PO BID Qty: 60 0RF pravastatin 20 mg Tablet 20 mg PO QHS Qty: 30 0RF spironolactone 25 mg Tablet 25 mg PO DAILY Qty: 30 0RF potassium chloride 20 mEq Tablet,Er Particles/Crystals 20 meq PO DAILYCM Qty: 30 0RF magnesium chloride [Mag 64] 64 mg Tablet,Delayed Release (Dr/Ec) 128 mg PO DAILY Qty: 30 0RF Primary Care Provider: [facility] Violetta Pillai Referrals: [facility] Violetta Pillai [Primary Care Provider] -
--- NOTE | 2024-01-07 13:20 | RAD_ITS ---
INDICATION: dyspnea EXAMINATION/TECHNIQUE: X-RAY - XR Chest 1 View COMPARISON: Prior study dated: 11/28/2023 FINDINGS: LINES/DEVICES: None. LUNGS: Patchy opacity/atelectasis and lower lung zones. Small bilateral pleural effusions. MEDIASTINUM AND CARDIOVASCULAR STRUCTURES: Borderline enlargement of the cardiac silhouette. BONES AND SOFT TISSUES: Unchanged osseous structures. RAD/Chest 1 View (Portable) IMPRESSION: Atelectatic changes in the lower lungs. Small bilateral pleural effusions. Electronically Signed: Carlos Moore MD at 14:17 EDT ,
[2024-01-07 13:22] LABS: Absolute Lymphocyte Count 0.81 X10^3/uL (0.83-4.51); Absolute Neutrophil Count 5.2 X10^3/uL (2.0-7.7); Basophil# 0.06 X10^3/uL; Basophil% 0.9 % (0-1); Eosinophil# 0.09 X10^3/uL; Eosinophils% 1.3 % (0-5); Hematocrit 38.7 % (37-47); Hemoglobin 13.4 g/dL (12.0-15.0); Lymphocyte # 0.81 X10^3/ul (0.83-4.51); Lymphocyte % 11.9 % (19-41); Mean Corp Hgb Conc 34.6 g/dL (32-36); Mean Corpuscular Hgb 34.9 pg (27.0-32.0); Mean Corpuscular Volume 100.8 fL (81-99); Mean Platelet Vol. 9.7 fl (6.2-12.0); Monocyte# 0.57 X10^3/uL; Monocyte% 8.4 % (0-10); NRBC Flagged by Analyzer 0 % (0-5); Neutrophil # 5.23 X10^3/uL (2.7-7.7); Neutrophil % 77.2 % (47-70); Platelet Count 259 K/mm3 (150-450); RBC Distribution Width CV 15.9 % (11.6-14.6); RBC Distribution Width SD 58.7 fl (35.1-43.9); Red Blood Count 3.84 M/mm3 (4.2-5.4); White Blood Count 6.8 K/mm3 (4.4-11.0)
[2024-01-07] MEDS: dilTIAZem 25 MG/5 ML Vial 20 MG IV BOLUS (13:27)
[2024-01-07 13:44] LABS: Anion Gap 12 (5-15); BUN 13 mg/dL (7-18); BUN/Creat Ratio 22.2 RATIO (10-20); Chloride 98 mmol/L (98-107); Creatinine, Serum 0.59 mg/dL (0.55-1.02); EST Glomerular Filtration Rate 106 mL/min (>60); Est Glom Filt Rate - Afr Amer 128 mL/min (>60); Glucose 111 mg/dL (74-106); Magnesium 1.4 mg/dL (1.6-2.6); Potassium 3.7 mmol/L (3.5-5.1); Sodium Level 134 mmol/L (136-145); Troponin-I HS 50 pg/mL (3.0-54.0)
[2024-01-07 13:48] LABS: BNP,B-Type NATRIURETIC PEPTIDE 970.9 pg/mL (0-100)
[2024-01-07] MEDS: dilTIAZem 25 MG/5 ML Vial 15 MG IV BOLUS (14:14)
[2024-01-07] MEDS: Diltiazem 125 MG in Dextrose 5%-Water (100mL Bag) 100 ML CONT INF (14:23)
--- NOTE | 2024-01-07 15:13 | NURSING ---
HOSPITALIST FOR [facility]
--- NOTE | 2024-01-07 15:17 | NURSING ---
DAVON BROOKS RVR
--- NOTE | 2024-01-07 15:20 | PCM.HP.STD ---
[facility] - General General Date of Admission: 01/07/24 Date of Service: 01/07/24 Chief Complaint: Shortness of breath [facility] Narrative JULIO HERNANDEZ, is a 78 F with past medical history of A-fib, HFrEF, hypertension, chronic vision/hearing impairment, osteoarthritis who presents to the ED with concerns regarding worsening shortness of breath and palpitations since last 2 days. Recent admission: The patient was recently admitted 11/27/2023 to 12/01/2023. At the time she was admitted for abnormal labs, and had concerns regarding chronic fatigue and chronic shortness of breath for the last 7 to 8 years. Her potassium at the time was 2.8 and BNP was 849. CTA chest showed bilateral pleural effusions, cardiomegaly and no pulm embolism. She was noted to have A-fib with RVR and rate was 128/min, high-sensitivity troponin was 34 initially you started on a Cardizem drip and echocardiogram showed an EF of 35% with diastolic dysfunction dilated RV, bilaterally biatrial enlargement, global LV dysfunction with moderate mitral valve insufficiency and aortic valve insufficiency. 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 Her ARB was discontinued at the time of admission. He was also started on diuretics. Follows up with Dr. Arron Jay as an outpatient. At the time of discharge she was transition from Lovenox to apixaban 5 mg p.o. and diltiazem 180 mg twice daily, metoprolol 50 mg twice daily, Lasix 40 daily, magnesium 120 mg daily, potassium 20 mg daily pravastatin 20 mg daily and Aldactone 25 daily. Today: She did not continue her home medications, notes that she had visitors at home and her dog messed up her medications. Denies any fever, cough, nausea or vomiting with [facility] Medical History (Updated 01/07/24 @ 14:42 by KAREN Puente) Acid reflux Atrial fibrillation with RVR Back pain Hearing difficulty Heart failure with reduced ejection fraction Hypertension Vision impairment Home Medications epinephrine 0.3 mg/0.3 mL injection, auto-injector 0.3 mg (0.3 mL) IM X1 BEE STINGS #2 syringes 05/03/15 [Rx Last Taken 01/16/18] pantoprazole 40 mg tablet,delayed release 40 mg PO DAILY GERD 01/16/18 [History Last Taken 01/16/18] epinephrine 0.3 mg/0.3 mL injection, auto-injector 0.3 mg (0.3 mL) IM X1 PRN Allergies ##1 02/23/19 [Rx Last Taken Unknown] fexofenadine 60 mg tablet (Judith Allergy) 60 mg PO Q24H ALLERGY 11/27/23 [History Last Taken Unknown] apixaban 5 mg tablet (Eliquis) 5 mg PO BID #30 tabs 12/01/23 [Rx Last Taken Unknown] diltiazem HCl 180 mg capsule,extended release 24 hr 180 mg PO BID #60 caps 12/01/23 [Rx Last Taken Unknown] furosemide 40 mg tablet 40 mg PO DAILY #30 tabs 12/01/23 [Rx Last Taken Unknown] magnesium chloride 64 mg (magnesium chloride) tablet,delayed release (Mag 64) 128 mg (2 x 64 mg) PO DAILY #30 tabs 12/01/23 [Rx Last Taken Unknown] metoprolol tartrate 50 mg tablet 50 mg PO BID #60 tabs 12/01/23 [Rx Last Taken Unknown] potassium chloride 20 mEq tablet,extended release(part/cryst) 20 meq PO DAILYCM #30 tabs 12/01/23 [Rx Last Taken Unknown] pravastatin 20 mg tablet 20 mg PO QHS #30 tabs 12/01/23 [Rx Last Taken Unknown] spironolactone 25 mg tablet 25 mg PO DAILY #30 tabs 12/01/23 [Rx Last Taken Unknown] Allergy/AdvReac Type Severity Reaction Status Date / Time iodine Allergy Hives Verified 11/27/23 17:40 venom-honey bee Allergy Shortness Verified 11/27/23 17:40 [bee venom (honey bee)] of breath Social History Smoking Status: Current every day smoker tobacco type: cigarettes ROS Review of Systems ROS Unobtainable: Denies due to encephalopathy, due to endotracheal tube, due to mental condition, due to mental status or other Constitutional Constitutional: Reports change in weight and weakness Eyes Eyes: Denies blurry vision, change in eye color, change in vision, discharge from eye(s), double vision, erythema, eye pain, loss of vision or other ENT HEENT: Reports abnormal hearing; Denies dysphagia, ear pain, epistaxis, headache(s), hearing loss, nasal congestion, nasal discharge, post nasal drip, sinus pressure, sore throat or other Cardiovascular Cardiovascular: Reports chest pain, claudication and dyspnea on exertion Respiratory/Chest Respiratory/Chest: Reports shortness of breath at rest and shortness of breath with exertion; Denies cough, dyspnea, excessive phlegm production, hemoptysis, productive cough, wheezing or other Gastrointestinal Gastrointestinal: Denies abdominal pain, coffee ground emesis, constipation, diarrhea, dyspepsia, hematemesis, hematochezia, loose stools, melena, nausea, vomiting or other Genitourinary Genitourinary: Denies burning urination, difficulty urinating, dysuria, hematuria, nocturia, urinary frequency, urinary hesitancy, urinary incontinence, urinary urgency or other Musculoskeletal Musculoskeletal: Reports arthralgias and back pain; Denies joint pain, joint stiffness, joint swelling, myalgias, neck pain or other Neurologic Neurologic: Denies abnormal gait, abnormal speech, confusion, disequilibrium, dizziness, focal weakness, headache(s), numbness, paresthesias, seizure-like activity, seizures, syncope, tingling, tremor(s) or other Psychiatric Psychiatric: Denies anxiety, depression, homicidal ideation, suicidal ideation or other Endocrine Endocrinology: Denies change in body appearance, cold intolerance, excessive sweating, heat intolerance, polydipsia, polyuria or other Hematologic/Lymphatic Hematologic/Lymphatic: Denies anemia, easy bleeding, easy bruising, lymphadenopathy or other Allergic/Immunologic Allergic/Immunologic: Denies rhinitis, hives, eczemia, asthma or other Vital Signs Vital Signs Vital Signs: 01/07/24 12:44 01/07/24 13:21 01/07/24 13:23 Temperature 97.6 F L Temperature Source Oral Pulse Rate 149 H 147 H Respiratory Rate 25 H Respiratory Effort Normal Non-Labored Respiratory Depth Normal Respiratory Pattern Normal Blood Pressure 163/115 H 136/109 H Blood Pressure Mean 131 118 Pulse Ox 96 Oxygen Delivery Method Room Air Nasal Cannula Oxygen Flow Rate (L/min) 2 Fraction of Inspired Oxygen (FIO2) 91 01/07/24 14:16 01/07/24 14:23 01/07/24 14:32 Temperature 98.6 F Temperature Source Temporal Pulse Rate 141 H 127 H 127 H Respiratory Rate 19 H 23 H 21 H Respiratory Effort Respiratory Depth Respiratory Pattern Blood Pressure 155/113 H 155/113 H 126/96 H Blood Pressure Mean 127 127 106 Pulse Ox 95 95 94 Oxygen Delivery Method Nasal Cannula Nasal Cannula Oxygen Flow Rate (L/min) 2 2 2 Fraction of Inspired Oxygen (FIO2) 01/07/24 14:45 Temperature Temperature Source Pulse Rate 129 H Respiratory Rate Respiratory Effort Respiratory Depth Respiratory Pattern Blood Pressure Blood Pressure Mean Pulse Ox Oxygen Delivery Method Oxygen Flow Rate (L/min) Fraction of Inspired Oxygen (FIO2) Weight Weight: 145 lb Body Mass Index (BMI) 22.7 Physical Exam Const alert and oriented x3 HEENT normocephalic Eyes PERRL Neck no lymphadenopathy Resp Auscultation: crackles Cardio regular rate and regular rhythm GI normal to inspection, nondistended, normoactive bowel sounds Extremity Extremity Narrative: Bilateral pitting pedal edema Neuro oriented x3 and CN's II-XII intact bilaterally Sensorium / Orientation: awake and alert Results Medical Records Data Attestation: I reviewed the patient's medical records Lab / Micro Data Attestation: I reviewed the patient's lab results. 01/07/24 12:55 01/07/24 12:55 Labs: Laboratory Results - last 24 hr 01/07/24 12:55: WBC 6.8, RBC 3.84 L, Hgb 13.4, Hct 38.7, MCV 100.8 H, MCH 34.9 H, MCHC 34.6, RDW Std Deviation 58.7 H, RDW Coeff of Bessie 15.9 H, Plt Count 259, MPV 9.7, Immature Gran % (Auto) 0.300, Neut % (Auto) 77.2 H, Lymph % (Auto) 11.9 L, Alexander % (Auto) 8.4, Eos % (Auto) 1.3, Baso % (Auto) 0.9, Absolute Neuts (auto) 5.2, Absolute Lymphs (auto) 0.81 L, Nucleated RBC % 0, Sodium 134 L, Potassium 3.7, Chloride 98, Carbon Dioxide 24.0, Anion Gap 12, BUN 13, Creatinine 0.59, Est GFR (MDRD) Af Amer 128, Est GFR (MDRD) Non-Af 106, BUN/Creatinine Ratio 22.2 H, Glucose 111 H, Calcium 10.0, Magnesium 1.4 L, Troponin I High Sens 50, B-Natriuretic Peptide 970.9 H Imaging Radiology Impression Chest X-Ray 01/07/24 13:20 IMPRESSION: Atelectatic changes in the lower lungs. Small bilateral pleural effusions. Electronically Signed: Carlos Moore MD at 14:17 EDT , Assessment & Plan Assessment/Plan (1) Noncompliance with medication regimen: PLAN: Plan 78-year-old female with history of recently diagnosed A-fib, HFrEF, hypertension, obesity, GERD, presents to the ED with concerns regarding worsening shortness of breath and chest pain since the last 2 days. She has associated A-fib and RVR, and the likely reason for her decompensation is medication noncompliance. Based on examination she has features of volume overload also. # A-fib with RVR: Hemodynamically stable, not on anticoagulation at this time, likely reason #noncompliance -IV diltiazem gtt. will transition to oral Cardizem after rate controlled -Tab metoprolol 50 mg twice daily as before -Injection Lasix 40 mg stat -Spironolactone plus Lasix 40 as before -Tab Eliquis 5 mg as prescribed before for anticoagulation # HFrEF with EF 35%: Presenting with features of acute decompensation, proBNP is higher than before. Likely in the setting of medication noncompliance -IV Lasix as above, continue oral Lasix plus spironolactone as before -Low-salt heart healthy diet -Continue beta-stepan as before -Follow-up with cardiology outpatient for rehabilitation, completion of GDMT #GERD: Continue pantoprazole. #Nicotine abuse: Nicotine patches as needed #Dyslipidemia: Pravastatin 20 mg at bedtime #DVT prophylaxis: Already on anticoagulation so low risk
[2024-01-07 16:55] LABS: Troponin-I HS 55 pg/mL (3.0-54.0)
[2024-01-07] MEDS: Furosemide 40 MG Tablet PO (17:43)
[2024-01-07] MEDS: Ondansetron 4 MG/2 ML Vial IV (17:44)
[2024-01-07] MEDS: 0.9% Saline Lock 10 ML Syringe IV (17:44)
[2024-01-07] MEDS: Metoprolol Tartrate 50 MG Tablet PO (18:34)
[2024-01-07 19:15] LABS: Troponin-I HS 59 pg/mL (3.0-54.0)
[2024-01-07] MEDS: Pravastatin 20 MG Tablet PO (21:11)
[2024-01-07] MEDS: APIXABAN 5 MG TABLET PO (21:12)
[2024-01-07] MEDS: Magnesium Sulfate 4gm/100mL 4 GM/100 ML IV.SOLN. IV (21:12)
[2024-01-07] MEDS: LORazepam 0.5 MG Tablet PO (21:12)
[2024-01-08] VITALS (16 sets, daily range): BP systolic 95–135; BP diastolic 62–104; PULSE 55–526; RESP 16–23; TEMP 35.9–36.7; O2SAT 91–100; BMI 24.5
[2024-01-08] MEDS: Ondansetron 4 MG/2 ML Vial IV (01:03)
--- NOTE | 2024-01-08 05:55 | EKG12_ITS ---
Test Reason : AM EKG Blood Pressure : / mmHG Vent. Rate : 081 BPM Atrial Rate : 000 BPM P-R Int : 000 ms QRS Dur : 104 ms QT Int : 462 ms P-R-T Axes : 000 007 078 degrees QTc Int : 536 ms Atrial fibrillation with a competing junctional pacemaker Incomplete right bundle branch block T wave abnormality, consider anterior ischemia Prolonged QT Abnormal ECG Confirmed by LENNOX BIRD, JOSÉ LUIS ([id number]), graphics editor ANGIE NIELSON ([id number]) on 01/15/2024 1:08:40 PM Referred By: Confirmed By:TERRIE HIGH MD
[2024-01-08 07:04] LABS: Absolute Lymphocyte Count 1.56 X10^3/uL (0.83-4.51); Absolute Neutrophil Count 3.4 X10^3/uL (2.0-7.7); Basophil# 0.06 X10^3/uL; Eosinophil# 0.02 X10^3/uL; Eosinophils% 0.3 % (0-5); Hematocrit 36.3 % (37-47); Hemoglobin 12.4 g/dL (12.0-15.0); Lymphocyte # 1.56 X10^3/ul (0.83-4.51); Lymphocyte % 26.5 % (19-41); Mean Corp Hgb Conc 34.2 g/dL (32-36); Mean Corpuscular Hgb 34.7 pg (27.0-32.0); Mean Corpuscular Volume 101.7 fL (81-99); Mean Platelet Vol. 10.1 fl (6.2-12.0); Monocyte# 0.83 X10^3/uL; Monocyte% 14.1 % (0-10); NRBC Flagged by Analyzer 0 % (0-5); Neutrophil # 3.41 X10^3/uL (2.7-7.7); Neutrophil % 57.9 % (47-70); Platelet Count 192 K/mm3 (150-450); RBC Distribution Width SD 59.5 fl (35.1-43.9); Red Blood Count 3.57 M/mm3 (4.2-5.4); White Blood Count 5.9 K/mm3 (4.4-11.0)
[2024-01-08 07:18] LABS: International Normalized Ratio 1.7; Prothrombin Time (Protime)PT. 19.7 SECONDS (11.7-14.9)
[2024-01-08 07:49] LABS: ALB/GLOB Ratio 1.2 RATIO (0.9-2.4); AST(SGOT) 50 U/L (15-37); Alanine Aminotransfer ALT/SGPT 28 U/L (13-56); Alkaline Phosphatase 72 U/L (45-117); Anion Gap 9 (5-15); BUN 16 mg/dL (7-18); BUN/Creat Ratio 20.5 RATIO (10-20); Bilirubin, Direct 0.99 mg/dL (0.00-0.30); Calcium,Total 8.8 mg/dL (8.5-10.1); Chloride 97 mmol/L (98-107); Creatinine, Serum 0.78 mg/dL (0.55-1.02); EST Glomerular Filtration Rate 76 mL/min (>60); Est Glom Filt Rate - Afr Amer 92 mL/min (>60); Estimated Creatinine Clearance 56.36 ml/min; Globulin 2.5 g/dL (2.2-4.2); Glucose 91 mg/dL (74-106); Magnesium 2.3 mg/dL (1.6-2.6); Phosphorus 4.6 mg/dL (2.5-4.9); Potassium 3.5 mmol/L (3.5-5.1); Protein, Total 5.5 g/dL (6.4-8.2); Sodium Level 133 mmol/L (136-145); Thyroid Stim Hormone (TSH) 0.73 uIU/mL (0.358-3.74)
[2024-01-08 08:08] LABS: BNP,B-Type NATRIURETIC PEPTIDE 1351.4 pg/mL (0-100)
[2024-01-08] MEDS: Potassium Chloride Oral Tablet 20 MEQ PO ×2 (09:55→17:47)
[2024-01-08] MEDS: Furosemide 40 MG Tablet PO (09:56)
[2024-01-08] MEDS: APIXABAN 5 MG TABLET PO ×2 (09:56→21:47)
[2024-01-08] MEDS: Metoprolol Tartrate 50 MG Tablet PO ×2 (09:56→23:46)
[2024-01-08] MEDS: Spironolactone 25 MG Tablet PO (09:56)
[2024-01-08] MEDS: Pantoprazole Sodium 40 MG Tablet PO (09:56)
[2024-01-08] MEDS: Loratadine 10 MG Tablet PO (09:56)
--- NOTE | 2024-01-08 11:00 | CASEMGMT ---
BALJIT BOJORQUEZ Face to Face with patient for initial transition planning/care coordination assessment. BALJIT BOJORQUEZ introduced self and role at [facility]. Patient lying in bed, alert and oriented. Patient willing to participate in assessment and is able to answer all questions appropriately. Care providers, pharmacy, and demographics verified. PCP: Violetta Laird Specialists: none Preferred Pharmacy: [facility] Insurance: [facility], [place], [facility] Prescription Benefit: yes Living Will/HPOA: none, interested in completing, SW notified LNOK: sons, significant other Living Arrangements: Patient lives alone in a 2 story home with bed and bath on first floor. 1-3 steps and railing to enter the home. Patient is independent at home. Transportation: self, significant other Vlad DME/HHC: Patient has shower chair, grab bars, walker, and rollator. Patient has had [facility] HHC in the past and prefers to have them again at discharge. Patient declined HHC list. BALJIT BOJORQUEZ made referral to [facility], awaiting acceptacne. Patient wishes to discharge home with [facility]. Patient states she has no further needs or concerns at this time. CM to follow for discharge planning needs that may arise. Disposition Plan: Patient to discharge home with [facility], family support and follow-up plans in place. Purnima MOSES, RN, CM
--- NOTE | 2024-01-08 13:30 | CASEMGMT ---
RN CM received call back from [facility] and they are able to accept the patient. RN CM updated patient regarding [facility] acceptance. CM will continue to follow this patient and plan for a safe discharge.
--- NOTE | 2024-01-08 16:24 | CHAPLAIN ---
Type of Pastoral Visit _x__ Initial Visit ___ Follow-up Visit ___ On-call Visit ___ General Patient Visit ___ Spiritual Assessment ___ Family Conference ___ Bereavement ___ Rapid Response ___ Code Blue ___ Other (describe below) Pastoral Care Referral From _x__ Patient ___ Family ___ Nurse ___ Physician ___ Packaging Tech ___ Manufacturing Technology Analyst ___ Other (describe below) Sacrament/Intervention _x__ Active listening ___ Anointing ___ Yarsanism ___ Bereavement ___ Communion ___ Larissa exploration ___ ___ Life review _x__ Prayer ___ Reconciliation ___ Sacrament of Sick _x__ Supportive presence ___ Wedding ___ Other (describe below) Pastoral Comments patient welcomed the visit but admitted that she would really like something spiritual to read; pt is offered a Bible and devotional which she gladly accepted; offer of support given and a prayer
--- NOTE | 2024-01-08 16:42 | PCM.PN.HOSP ---
Reason for Visit Reason for Visit: Diagnoses Patient's other noncompliance with medication regimen for other reason (01/07/24) Subjective Subjective Patient was seen and examined today, she remains in atrial fibrillation. Patient denies any history of atrial fibrillation although it is charted in November that she was in atrial fibrillation. It does not appear the patient followed up with cardiology as directed after her discharge. Patient also stated that she got her medicines filled after that hospitalization but a dog ate them. Patient is difficult to communicate with due to the fact that she is very hard of hearing. Objective Data Objective Data Vital Signs: Vital Signs Temp Pulse Resp BP Pulse Ox O2 Del Method O2 Flow Rate 98.0 F 68 18 108/79 97 Nasal Cannula 2 01/08/24 15:55 01/08/24 15:55 01/08/24 15:55 01/08/24 15:55 01/08/24 15:55 01/08/24 15:55 01/08/24 15:55 FiO2 91 01/07/24 13:23 Oxygen Flow Rate (L/min) 2 Oxygen Delivery Method Nasal Cannula Weight: 70.9 kg Body Mass Index (BMI) 24.5 Intake & Output: Intake and Output for Last 24 Hours 01/06/24 01/07/24 01/08/24 23:59 23:59 23:59 Intake Total 220.33 / 227.83 347.5 / 347.5 Balance 220.33 / 227.83 347.5 / 347.5 Lab / Micro Data 01/08/24 06:20 01/08/24 06:20 Labs: Laboratory Results - last 24 hr 01/07/24 16:26: Troponin I High Sens 55 H 01/07/24 18:46: Troponin I High Sens 59 H 01/08/24 06:20: WBC 5.9, RBC 3.57 L, Hgb 12.4, Hct 36.3 L, MCV 101.7 H, MCH 34.7 H, MCHC 34.2, RDW Std Deviation 59.5 H, RDW Coeff of Bessie 16.0 H, Plt Count 192, MPV 10.1, Immature Gran % (Auto) 0.200, Neut % (Auto) 57.9, Lymph % (Auto) 26.5, [place] % (Auto) 14.1 H, Eos % (Auto) 0.3, Baso % (Auto) 1.0, Absolute Neuts (auto) 3.4, Absolute Lymphs (auto) 1.56, Nucleated RBC % 0, PT 19.7 H, INR 1.7, Sodium 133 L, Potassium 3.5, Chloride 97 L, Carbon Dioxide 27.0, Anion Gap 9, BUN 16, Creatinine 0.78, Estim Creat Clear Calc 56.36, Est GFR (MDRD) Af Amer 92, Est GFR (MDRD) Non-Af 76, BUN/Creatinine Ratio 20.5 H, Glucose 91, Calcium 8.8, Phosphorus 4.6, Magnesium 2.3, Total Bilirubin 2.50 H, Direct Bilirubin 0.99 H, AST 50 H, ALT 28, Alkaline Phosphatase 72, B-Natriuretic Peptide 1351.4 H, Total Protein 5.5 L, Albumin 3.0 L, Globulin 2.5, Albumin/Globulin Ratio 1.2, TSH 0.73 Physical Exam Const alert, oriented x3 and no apparent distress Constitutional Narrative: Patient is extremely hard of hearing General Appearance: cooperative, well kempt and well developed Orientation / Consciousness: awake, oriented to person, oriented to place and oriented to time HEENT normocephalic, head/scalp atraumatic and moist oral mucous membranes Eyes PERRL, EOMs intact bilaterally and conjunctivae normal Neck supple, no JVD, thyroid normal and no carotid bruits General: trachea midline Resp normal respiratory effort, no retractions and no use of accessory muscles Auscultation: rales bilateral base; Negative for rhonchi or wheezes Cardio S1 normal heart sound, S2 normal heart sound, no murmurs, no rub and no gallops Cardio Narrative: Heart rate and rhythm is irregular GI normal to inspection, nondistended, normoactive bowel sounds, soft to palpation, non-tender and non-distended Extremity no clubbing, cyanosis or edema Skin no rashes or lesions noted General Skin Exam: no breakdown Neuro oriented x3, CN's II-XII intact bilaterally, moves all extremities, no focal motor deficits and no sensory deficits noted Sensorium / Orientation: awake and alert Speech: speech normal Psych affect normal Assessment & Plan Assessment/Plan (1) Atrial fibrillation with RVR: PLAN: Plan 1. Atrial fibrillation with RVR-patient remains on rate limiting medications at this time, she is also on Eliquis #2 acute congestive heart failure with reduced ejection fraction-patient will be given IV Lasix #3 chronic obstructive pulmonary disease-complicates care, management, recovery, and prognosis #4 hypoxia secondary to #2 and #3-pulse ox will be monitored, patient is on low-flow nasal cannula oxygen #5 moderate pulmonary hypertension-patient will be given IV Lasix #6 noncompliance with medications-complicates care, management, recovery, and prognosis Total clinical time spent by myself addressing patient's medical issues, reviewing all of her data, and collaborating with patient's care team: 50 minutes Charges/Coding Visit Charges Inpatient E&M: 57262 Subs Hosp L3
[2024-01-08] MEDS: Furosemide 20 MG/2 ML VIAL IV (17:47)
[2024-01-08] MEDS: 0.9% Saline Lock 10 ML Syringe IV (17:58)
[2024-01-08] MEDS: Pravastatin 20 MG Tablet PO (21:47)
[2024-01-09] VITALS (10 sets, daily range): BP systolic 93–119; BP diastolic 63–96; PULSE 100–125; RESP 16–18; TEMP 36.2–36.6; O2SAT 92–97; BMI 24.5
[2024-01-09] MEDS: LORazepam 0.5 MG Tablet PO ×2 (00:14→20:52)
[2024-01-09] MEDS: Pantoprazole Sodium 40 MG Tablet PO (09:09)
[2024-01-09] MEDS: Potassium Chloride Oral Tablet 20 MEQ PO ×2 (09:09→17:36)
[2024-01-09] MEDS: Spironolactone 25 MG Tablet PO (09:09)
[2024-01-09] MEDS: APIXABAN 5 MG TABLET PO ×2 (09:10→20:52)
[2024-01-09] MEDS: Loratadine 10 MG Tablet PO (09:10)
[2024-01-09] MEDS: Metoprolol Tartrate 50 MG Tablet PO ×2 (09:10→13:29)
[2024-01-09] MEDS: Furosemide 20 MG/2 ML VIAL IV ×2 (11:24→17:36)
[2024-01-09] MEDS: 0.9% Saline Lock 10 ML Syringe IV (11:24)
--- NOTE | 2024-01-09 19:13 | PN.HOSP_ITS ---
Reason for Visit Reason for Visit: Diagnoses Unspecified atrial fibrillation (01/07/24) Patient's other noncompliance with medication regimen for other reason (01/07/24) Subjective Subjective Patient was seen and examined today, I increased her metoprolol dosage due to her tachycardia today. Patient does not complain of any shortness of breath at this time Objective Data Objective Data Vital Signs: Vital Signs Temp Pulse Resp BP Pulse Ox O2 Del Method O2 Flow Rate 97.1 F L 114 H 18 97/78 92 Room Air 2 01/09/24 15:00 01/09/24 15:00 01/09/24 15:00 01/09/24 15:00 01/09/24 16:00 01/09/24 16:00 01/09/24 00:00 FiO2 91 01/07/24 13:23 Oxygen Flow Rate (L/min) 2 Oxygen Delivery Method Room Air Weight: 71 kg Body Mass Index (BMI) 24.5 Intake & Output: Intake and Output for Last 24 Hours 01/07/24 01/08/24 01/09/24 23:59 23:59 23:59 Intake Total 220.33 / 227.83 587.5 / 587.5 460 / 460 Balance 220.33 / 227.83 587.5 / 587.5 460 / 460 Lab / Micro Data 01/08/24 06:20 01/08/24 06:20 Physical Exam Narrative alert, oriented x3 and no apparent distress Constitutional Narrative: Patient is extremely hard of hearing General Appearance: cooperative, well kempt and well developed Orientation / Consciousness: awake, oriented to person, oriented to place and oriented to time HEENT normocephalic, head/scalp atraumatic and moist oral mucous membranes Eyes PERRL, EOMs intact bilaterally and conjunctivae normal Neck supple, no JVD, thyroid normal and no carotid bruits General: trachea midline Resp normal respiratory effort, no retractions and no use of accessory muscles Auscultation: rales bilateral base; Negative for rhonchi or wheezes Cardio S1 normal heart sound, S2 normal heart sound, no murmurs, no rub and no gallops Cardio Narrative: Heart rate and rhythm is irregular GI normal to inspection, nondistended, normoactive bowel sounds, soft to palpation, non-tender and non-distended Extremity no clubbing, cyanosis or edema Skin no rashes or lesions noted General Skin Exam: no breakdown Neuro oriented x3, CN's II-XII intact bilaterally, moves all extremities, no focal motor deficits and no sensory deficits noted Sensorium / Orientation: awake and alert Speech: speech normal Psych affect normal Assessment & Plan Assessment/Plan (1) Noncompliance with medication regimen: (2) Atrial fibrillation with RVR: PLAN: Plan 1. Atrial fibrillation with RVR-patient remains on rate limiting medications at this time, she is also on Eliquis #2 acute congestive heart failure with reduced ejection fraction-patient will be given IV Lasix #3 chronic obstructive pulmonary disease-complicates care, management, recovery, and prognosis #4 hypoxia secondary to #2 and #3-pulse ox will be monitored, patient is on low- flow nasal cannula oxygen #5 moderate pulmonary hypertension-patient will be given IV Lasix #6 noncompliance with medications-complicates care, management, recovery, and prognosis Total clinical time spent by myself addressing patient's medical issues, reviewing all of her data, and collaborating with patient's care team: 35 minutes Charges/Coding Visit Charges Inpatient E&M: 20781 Subs Hosp L2
[2024-01-09] MEDS: Pravastatin 20 MG Tablet PO (20:52)
[2024-01-09] MEDS: Metoprolol Tartrate 100 MG Tablet PO (20:53)
[2024-01-10] VITALS (9 sets, daily range): BP systolic 94–132; BP diastolic 74–89; PULSE 74–107; RESP 14–20; TEMP 36.3–36.6; O2SAT 93–98; BMI 24.4
[2024-01-10] MEDS: 0.9% Saline Lock 10 ML Syringe IV ×3 (00:23→17:29)
[2024-01-10] MEDS: Ondansetron 4 MG/2 ML Vial IV (00:25)
[2024-01-10 07:40] LABS: Anion Gap 8 (5-15); BUN 27 mg/dL (7-18); Chloride 99 mmol/L (98-107); EST Glomerular Filtration Rate 57 mL/min (>60); Est Glom Filt Rate - Afr Amer 69 mL/min (>60); Estimated Creatinine Clearance 45.09 ml/min; Glucose 95 mg/dL (74-106); Potassium 4.1 mmol/L (3.5-5.1); Sodium Level 132 mmol/L (136-145)
[2024-01-10] MEDS: APIXABAN 5 MG TABLET PO ×2 (09:14→22:21)
[2024-01-10] MEDS: Potassium Chloride Oral Tablet 20 MEQ PO ×2 (09:15→17:28)
[2024-01-10] MEDS: Pantoprazole Sodium 40 MG Tablet PO (09:15)
[2024-01-10] MEDS: Loratadine 10 MG Tablet PO (09:15)
[2024-01-10] MEDS: Spironolactone 25 MG Tablet PO (09:16)
[2024-01-10] MEDS: Furosemide 20 MG/2 ML VIAL IV ×2 (09:16→17:28)
[2024-01-10] MEDS: Metoprolol Tartrate 100 MG Tablet PO ×2 (09:16→22:03)
[2024-01-10] MEDS: dilTIAZem CD 180 MG Capsule PO ×2 (12:22→22:00)
--- NOTE | 2024-01-10 18:52 | PN.HOSP_ITS ---
Reason for Visit Reason for Visit: Diagnoses Unspecified atrial fibrillation (01/07/24) Patient's other noncompliance with medication regimen for other reason (01/07/24) Subjective Subjective Patient was seen and examined today, her heart rate still is not under good control with rate limiting medications at this time. I have decided to leave h er on IV Lasix at this time and increase her Cardizem CD, I gave her 1 dose this morning but it did not have much effect on her heart rate, I increased the medicine to twice daily. Objective Data Objective Data Vital Signs: Vital Signs Temp Pulse Resp BP Pulse Ox O2 Del Method O2 Flow Rate 97.8 F 98 14 113/89 H 96 Room Air 2 01/10/24 17:18 01/10/24 17:18 01/10/24 17:18 01/10/24 17:18 01/10/24 17:18 01/10/24 17:18 01/10/24 06:00 FiO2 91 01/07/24 13:23 Oxygen Flow Rate (L/min) 2 Oxygen Delivery Method Room Air Weight: 70.7 kg Body Mass Index (BMI) 24.4 Intake & Output: Intake and Output for Last 24 Hours 01/08/24 01/09/24 01/10/24 23:59 23:59 23:59 Intake Total 587.5 / 587.5 460 / 460 1175 / 1175 Balance 587.5 / 587.5 460 / 460 1175 / 1175 Lab / Micro Data 01/08/24 06:20 01/10/24 05:35 Labs: Laboratory Results - last 24 hr 01/10/24 05:35: Sodium 132 L, Potassium 4.1, Chloride 99, Carbon Dioxide 25.0, Anion Gap 8, BUN 27 H, Creatinine 1.00, Estim Creat Clear Calc 45.09, Est GFR (MDRD) Af Amer 69, Est GFR (MDRD) Non-Af 57 L, BUN/Creatinine Ratio 27.0 H, Glucose 95, Calcium 9.0 Physical Exam Narrative alert, oriented x3 and no apparent distress Constitutional Narrative: Patient is extremely hard of hearing General Appearance: cooperative, well kempt and well developed Orientation / Consciousness: awake, oriented to person, oriented to place and oriented to time, patient is extremely hard of hearing HEENT normocephalic, head/scalp atraumatic and moist oral mucous membranes Eyes PERRL, EOMs intact bilaterally and conjunctivae normal Neck supple, no JVD, thyroid normal and no carotid bruits General: trachea midline Resp normal respiratory effort, no retractions and no use of accessory muscles Auscultation: rales bilateral base; Negative for rhonchi or wheezes Cardio S1 normal heart sound, S2 normal heart sound, no murmurs, no rub and no gallops Cardio Narrative: Heart rate and rhythm is irregular GI normal to inspection, nondistended, normoactive bowel sounds, soft to palpation, non-tender and non-distended Extremity no clubbing, cyanosis or edema Skin no rashes or lesions noted General Skin Exam: no breakdown Neuro oriented x3, CN's II-XII intact bilaterally, moves all extremities, no focal motor deficits and no sensory deficits noted Sensorium / Orientation: awake and alert Speech: speech normal Psych affect normal Assessment & Plan Assessment/Plan (1) Noncompliance with medication regimen: (2) Atrial fibrillation with RVR: PLAN: Plan 1. Atrial fibrillation with RVR-patient remains on rate limiting medications at this time, again I placed her on Cardizem CD, she is also on Eliquis and metoprolol #2 acute congestive heart failure with reduced ejection fraction-patient will be given IV Lasix #3 chronic obstructive pulmonary disease-complicates care, management, recovery, and prognosis #4 hypoxia secondary to #2 and #3-resolved at this time, patient is on room air #5 moderate pulmonary hypertension-patient will be given IV Lasix #6 noncompliance with medications-complicates care, management, recovery, and prognosis Total clinical time spent by myself addressing patient's medical issues, reviewing all of her data, and collaborating with patient's care team: 35 minutes Charges/Coding Visit Charges Inpatient E&M: 77613 Subs Hosp L2
[2024-01-10] MEDS: Pravastatin 20 MG Tablet PO (22:03)
[2024-01-10] MEDS: LORazepam 0.5 MG Tablet PO (22:08)
[2024-01-11] VITALS (23 sets, daily range): BP systolic 50–130; BP diastolic 31–91; PULSE 41–98; RESP 14–26; TEMP 35.8–36.4; O2SAT 90–100; BMI 24.1
[2024-01-11] MEDS: Furosemide 20 MG/2 ML VIAL IV (09:51)
[2024-01-11] MEDS: Metoprolol Tartrate 100 MG Tablet PO (09:51)
[2024-01-11] MEDS: Pantoprazole Sodium 40 MG Tablet PO (09:51)
[2024-01-11] MEDS: Potassium Chloride Oral Tablet 20 MEQ PO (09:52)
[2024-01-11] MEDS: Acetaminophen 500 MG Tablet 1000 MG PO (09:52)
[2024-01-11] MEDS: Spironolactone 25 MG Tablet PO (09:52)
[2024-01-11] MEDS: Loratadine 10 MG Tablet PO (09:52)
[2024-01-11] MEDS: dilTIAZem CD 180 MG Capsule PO (09:52)
[2024-01-11] MEDS: APIXABAN 5 MG TABLET PO (09:53)
--- NOTE | 2024-01-11 11:47 | PCM.DC ---
Discharge Instructions Diet Discharge Diet: No restrictions Activity Discharge Activity: Return to Normal Activity Weight Bearing Status: Full weight bearing Follow Up Care Test Results: Test results from this visit will be discussed in further detail at your follow-up appointment, if applicable. Discharge Plan Admission Admit Date/Time: 01/07/24 17:26 Primary Reason for Your Visit: CHF, a-fib Attending Provider: Ned Valdovinos [facility] Providers: Abhi Espinosa Discharge Orders/Prescriptions Prescriptions: New diltiazem HCl 180 mg Capsule,Extended Release 24hr 180 mg PO BID Qty: 60 0RF metoprolol tartrate 100 mg Tablet 100 mg PO BID Qty: 60 0RF spironolactone 25 mg Tablet 25 mg PO DAILY Qty: 30 0RF pantoprazole 40 mg Tablet,Delayed Release (Dr/Ec) 40 mg PO DAILY Qty: 30 0RF pravastatin 20 mg Tablet 20 mg PO QHS Qty: 30 0RF potassium chloride 20 mEq Tablet,Er Particles/Crystals 20 meq PO DAILY Qty: 30 0RF furosemide [Lasix] 40 mg tablet 40 mg PO BID Qty: 60 0RF lisinopril 5 mg tablet 5 mg PO DAILY Qty: 30 0RF Xarelto 20 mg tablet 20 mg PO DAILY Qty: 30 0RF Rx Instructions: must administer with evening meal Continued epinephrine 0.3 MG syringe 0.3 mg IM X1 Qty: 2 0RF epinephrine 0.3 MG syringe 0.3 mg IM X1 PRN (Reason: Allergies) Qty: 1 0RF fexofenadine [Judith Allergy] 60 mg tablet 60 mg PO Q24H magnesium chloride [Mag 64] 64 mg Tablet,Delayed Release (Dr/Ec) 128 mg PO DAILY Qty: 30 0RF Discontinued pantoprazole 40 MG tablet 40 mg PO DAILY diltiazem HCl 180 mg Capsule,Extended Release 24hr 180 mg PO BID Qty: 60 0RF furosemide 40 mg Tablet 40 mg PO DAILY Qty: 30 0RF pravastatin 20 mg Tablet 20 mg PO QHS Qty: 30 0RF spironolactone 25 mg Tablet 25 mg PO DAILY Qty: 30 0RF No Action Eliquis 5 mg Tablet 5 mg PO BID Qty: 30 0RF metoprolol tartrate 50 mg Tablet 50 mg PO BID Qty: 60 0RF potassium chloride 20 mEq Tablet,Er Particles/Crystals 20 meq PO DAILYCM Qty: 30 0RF [facility] [Primary Care Provider] - Within 2 Weeks Disposition Disposition (needs filled in before D/C Order can be placed): Home Health Service
--- NOTE | 2024-01-11 12:15 | PCM.DC.SUM ---
Providers Date of Admission: 01/07/24 Date of Discharge: 01/11/24 Primary Care Physician: [facility] Reason For Visit: A-FIB WITH RVR Diagnosis Discharge Diagnosis (1) Noncompliance with medication regimen: Status: Acute Code(s): Z91.148 - Patient's other noncompliance with medication regimen for other reason (2) Atrial fibrillation with RVR: Status: Acute Code(s): I48.91 - Unspecified atrial fibrillation Plan 1. Atrial fibrillation with RVR-patient remains on rate limiting medications at this time, again I placed her on Cardizem CD, she is also on Eliquis and metoprolol #2 acute congestive heart failure with reduced ejection fraction-patient will be given IV Lasix #3 chronic obstructive pulmonary disease-complicates care, management, recovery, and prognosis #4 hypoxia secondary to #2 and #3-resolved at this time, patient is on room air #5 moderate pulmonary hypertension-patient will be given IV Lasix #6 noncompliance with medications-complicates care, management, recovery, and prognosis Total clinical time spent by myself addressing patient's medical issues, reviewing all of her data, and collaborating with patient's care team: 35 minutes Medications at Discharge Home Medications epinephrine 0.3 mg/0.3 mL injection, auto-injector 0.3 mg (0.3 mL) IM X1 BEE STINGS #2 syringes 05/03/15 epinephrine 0.3 mg/0.3 mL injection, auto-injector 0.3 mg (0.3 mL) IM X1 PRN Allergies ##1 02/23/19 fexofenadine 60 mg tablet (Judith Allergy) 60 mg PO Q24H ALLERGY 11/27/23 lisinopril 5 mg tablet 5 mg PO DAILY #30 tabs 01/11/24 pantoprazole 40 mg tablet,delayed release 40 mg PO DAILY #30 tabs 01/11/24 pravastatin 20 mg tablet 20 mg PO QHS #30 tabs 01/11/24 rivaroxaban 20 mg tablet (Xarelto) 20 mg PO DAILY #30 tabs 01/11/24 spironolactone 25 mg tablet 25 mg PO DAILY #30 tabs 01/11/24 metoprolol tartrate 25 mg tablet 12.5 mg (1/2 x 25 mg) PO BID #30 tabs 01/12/24 Hospital Course Operations None Procedures 2-D Echocardiogram Summary of Care Provided Minutes Spent on Discharge: 31 Hospital Course: This 78-year-old white female was seen in the emergency room at [facility] with complaints of shortness of breath and chest tightness. She had been hospitalized in November 2023 for congestive heart failure, it appears that the patient did not follow-up with a physician regarding staying on her medications, she also gave a story that a dog ate my medication. Workup in the emergency room included a chest x-ray which showed evidence of CHF, patient was in atrial fibrillation with a rapid ventricular response. Patient was admitted to PCU, she was placed on rate limiting agents and anticoagulated, echocardiogram was performed which showed a reduced EF of 35%. Patient's heart rate stabilized on a combination of metoprolol and Cardizem, however, the day she was scheduled to be discharged, her blood pressure dropped and she went into a junctional rhythm. She was transferred to ICU and with minimal therapy, her heart rate rebounded and her blood pressure stabilized. She was not kept on any rate limiting medications however and at the time of discharge her pulse rate was 80-90. I made the decision at the time of discharge to keep the patient on a small dose of beta-stepan as an outpatient and an REGINA inhibitor due to her reduced ejection fraction. On 01/12/2024, patient was seen and examined: On examination she appeared in good health and spirits, she does not appear to be in any distress. Vital signs as documented. Skin warm and dry and without overt rashes. Neck without JVD, thyroid appears normal, trachea is midline, neck is supple. Lungs clear, normal air movement was noted. Heart exam notable for irregular rhythm, normal sounds and absence of murmurs, rubs or gallops. Abdomen unremarkable and without evidence of organomegaly, masses, or abdominal aortic enlargement, bowel sounds are present in all 4 quadrants, no abdominal tenderness was noted. Extremities nonedematous, no cyanosis was noted, no clubbing was noted. Neuro: Cranial nerves II through XII are grossly intact, no focal motor deficits were noted, sensation to light touch and pinprick is intact, motor exam 5/5 throughout. Psych: Patient is alert and oriented x3, she does not appear anxious or depressed, she does not appear agitated. Patient appears stable for discharge home on 01/12/2024. Weight / BMI Weight Weight: 70 kg Body Mass Index (BMI) 24.1 ABG / Lab / Microbiology Data 01/11/24 16:04 01/12/24 10:25 D/C Instructions Discharge Diet: No restrictions Weight Bearing Status: Full weight bearing Meaningful Use Info Meaningful Use Meaningful Use Diagnoses (Choose all that apply): CHF CHF REGINA/ARB ordered at discharge?: Yes Documented LVEF (%): 35 Ischemic Stroke Statin Dosing Therapy Reference: STATIN DOSE THERAPY REFERENCE: * Patients > 75 years receive moderate or high dose statin therapy. * Patients 75 years or YOUNGER should receive HIGH intensity statin dose unless contraindicated. You will be required to document reason for non-treatment if statin daily dose does not meet guidelines. HIGH DOSE STATIN THERAPY DAILY Atorvastatin > than or = to 40 mg Rosuvastatin > than or = to 20 mg Amlodipine + Atorvastatin > than or = to 2.5/40 mg Ezetimibe + Simvastatin 10/80 mg Simvastatin 80mg Discharge Plan Admission Admit Date/Time: 01/07/24 17:26 Primary Reason for Your Visit: CHF, a-fib Attending Provider: Ned Valdovinos [facility] Providers: Abhi Espinosa Discharge Orders/Prescriptions Prescriptions: New spironolactone 25 mg Tablet 25 mg PO DAILY Qty: 30 0RF pantoprazole 40 mg Tablet,Delayed Release (Dr/Ec) 40 mg PO DAILY Qty: 30 0RF pravastatin 20 mg Tablet 20 mg PO QHS Qty: 30 0RF lisinopril 5 mg tablet 5 mg PO DAILY Qty: 30 0RF Xarelto 20 mg tablet 20 mg PO DAILY Qty: 30 0RF Rx Instructions: must administer with evening meal metoprolol tartrate 25 mg tablet 12.5 mg PO BID Qty: 30 0RF Continued epinephrine 0.3 MG syringe 0.3 mg IM X1 Qty: 2 0RF epinephrine 0.3 MG syringe 0.3 mg IM X1 PRN (Reason: Allergies) Qty: 1 0RF fexofenadine [Judith Allergy] 60 mg tablet 60 mg PO Q24H Discontinued pantoprazole 40 MG tablet 40 mg PO DAILY Eliquis 5 mg Tablet 5 mg PO BID Qty: 30 0RF diltiazem HCl 180 mg Capsule,Extended Release 24hr 180 mg PO BID Qty: 60 0RF furosemide 40 mg Tablet 40 mg PO DAILY Qty: 30 0RF metoprolol tartrate 50 mg Tablet 50 mg PO BID Qty: 60 0RF pravastatin 20 mg Tablet 20 mg PO QHS Qty: 30 0RF spironolactone 25 mg Tablet 25 mg PO DAILY Qty: 30 0RF potassium chloride 20 mEq Tablet,Er Particles/Crystals 20 meq PO DAILYCM Qty: 30 0RF magnesium chloride [Mag 64] 64 mg Tablet,Delayed Release (Dr/Ec) 128 mg PO DAILY Qty: 30 0RF [facility] - In 1 Week (Call the office on 01/15/2024 to schedule appointment for next week) Disposition Disposition (needs filled in before D/C Order can be placed): Home Health Service Charges/Coding Visit Charges Inpatient E&M: 61846 Disch Hosp >30min
--- NOTE | 2024-01-11 14:55 | CASEMGMT ---
Patient has order for discharge. BALJIT BOJORQUEZ called [facility] to inquire about Xarelto copay. Copay is $30, savings coupon provided to patient. BALJIT BOJORQUEZ called and updated [facility] regarding discharge today. Start of care planned for tomorrow. BALJIT BOJORQUEZ updated discharge plan. BALJIT BOJORQUEZ in to update patient regarding copay and HHC. Boyfriend at bedside. Patient denied further needs at this time. Patient had no further questions or concerns.
--- NOTE | 2024-01-11 15:37 | NURSING ---
This RN called and informed Dr. Valdovinos pt became diaphoretic, clammy and pale. HR in 40's bp 73/56. Happened upon discharge. To give bolus of fluid per NOV.
[2024-01-11] MEDS: 0.9% Normal Saline (1000mL) 1,000 ML 999 ML IV (15:52)
[2024-01-11] MEDS: Ondansetron 4 MG/2 ML Vial IV (15:55)
--- NOTE | 2024-01-11 16:05 | EKG12_ITS ---
Test Reason : CP/SOB Blood Pressure : / mmHG Vent. Rate : 140 BPM Atrial Rate : 000 BPM P-R Int : 000 ms QRS Dur : 094 ms QT Int : 318 ms P-R-T Axes : 000 -11 -01 degrees QTc Int : 485 ms Critical Test Result: High HR Atrial fibrillation with rapid ventricular response Incomplete right bundle branch block Nonspecific ST abnormality Abnormal ECG Confirmed by Arron Jay ([id number]), international editorial producer RADHA MEZA ([id number]) on 03/12/2024 7:58:11 AM Referred By: Confirmed By:Arron Jay
--- NOTE | 2024-01-11 16:09 | NURSING ---
Dr. Valdovinos in to acess pt at bedside. Notified of pt feeling bloated, abdominal pain and feeling like she has to have a bm. Bp continues to drop and pt remains bradycardic.
[2024-01-11 16:15] LABS: Absolute Lymphocyte Count 2.54 X10^3/uL (0.83-4.51); Absolute Neutrophil Count 4.4 X10^3/uL (2.0-7.7); Basophil# 0.06 X10^3/uL; Basophil% 0.7 % (0-1); Eosinophil# 0.11 X10^3/uL; Eosinophils% 1.3 % (0-5); Hematocrit 40.5 % (37-47); Hemoglobin 13.6 g/dL (12.0-15.0); Lymphocyte # 2.54 X10^3/ul (0.83-4.51); Lymphocyte % 31.1 % (19-41); Mean Corp Hgb Conc 33.6 g/dL (32-36); Mean Corpuscular Hgb 35.1 pg (27.0-32.0); Mean Corpuscular Volume 104.4 fL (81-99); Mean Platelet Vol. 9.9 fl (6.2-12.0); Monocyte# 1.01 X10^3/uL; Monocyte% 12.4 % (0-10); NRBC Flagged by Analyzer 0.2 % (0-5); Neutrophil % 53.9 % (47-70); Platelet Count 171 K/mm3 (150-450); RBC Distribution Width CV 16.7 % (11.6-14.6); RBC Distribution Width SD 62.7 fl (35.1-43.9); Red Blood Count 3.88 M/mm3 (4.2-5.4); White Blood Count 8.2 K/mm3 (4.4-11.0)
[2024-01-11] MEDS: Glucagon 1 MG/ML Syringe IV (16:26)
[2024-01-11] MEDS: Norepinephrine 8 MG in 0.9% Normal Saline (250mL Bag) 242 ML 9.4 MG CONT INF (16:31)
[2024-01-11 16:32] LABS: Anion Gap 10 (5-15); BUN 30 mg/dL (7-18); BUN/Creat Ratio 20.3 RATIO (10-20); Calcium,Total 8.4 mg/dL (8.5-10.1); Chloride 101 mmol/L (98-107); Creatinine, Serum 1.48 mg/dL (0.55-1.02); EST Glomerular Filtration Rate 36 mL/min (>60); Est Glom Filt Rate - Afr Amer 44 mL/min (>60); Estimated Creatinine Clearance 30.46 ml/min; Glucose 119 mg/dL (74-106); Potassium 4.9 mmol/L (3.5-5.1); Sodium Level 133 mmol/L (136-145)
[2024-01-11] MEDS: DOPamine IV 800 MG/250 ML IV.SOLN. 6.6 MG CONT INF (17:00)
[2024-01-11] MEDS: 0.9% Normal Saline (500mL Bag) 500 ML 999 ML IV (17:15)
--- NOTE | 2024-01-11 17:37 | RAD_ITS ---
EXAM: XR CHEST, 1 VIEW CLINICAL INDICATION: Right IJ CVC insertion TECHNIQUE: Frontal view of the chest. COMPARISON: January 07, 2024 FINDINGS: LUNGS AND PLEURAL SPACES: Unchanged appearance of airspace disease involving the retrocardiac region left lower lobe. Small pleural effusions with adjacent passive atelectasis bilaterally. No pneumothorax. Mild improvement in aeration at the medial right lower lung. HEART: Unremarkable. Cardiac silhouette not enlarged. MEDIASTINUM: Central airways and mediastinal contour are unremarkable. BONES/JOINTS: Unremarkable. No acute fracture. SOFT TISSUES: Unremarkable. TUBES, LINES AND DEVICES: New right transjugular central venous catheter with tip in the SVC, suprahilar. OTHER FINDINGS: No other interval changes. RAD/CXR for Line Placement IMPRESSION: 1. New right transjugular central venous catheter with tip in the SVC, suprahilar. No pneumothorax. 2. Remaining chest is unchanged. Electronically Signed: Bernard Navas MD at 19:23 EDT ,
--- NOTE | 2024-01-11 17:50 | PCM.OP.PRO ---
Procedure Report Date of Procedure: 01/11/24 R IJ TLC Indication: Emergent procedure for severe bradycardia and cardiogenic shock. Procedure: Area prepped and draped in sterile fashion. Using US guidance the the Right IJ was identified and using modified seldinger technique TLC was advanced over guidewire and sutured in place. Findings: non pulsatile blood noted. All ports flushed and bulmaro easily. CXR showed no pneumothorax. Terminated above the atrium. Patient tolerated the procedure well. Complications it took 3 attempts as pt would move her head after access was obtained, so access was lost 2 times. Procedures Hospitalists Procedures: 09328 US Guide Vascular Access
--- NOTE | 2024-01-11 18:21 | PN.HOSP_ITS ---
Reason for Visit Reason for Visit: Diagnoses Unspecified atrial fibrillation (01/07/24) Patient's other noncompliance with medication regimen for other reason (01/07/24) Subjective Subjective Patient was seen and examined today, she appears stable for discharge today, this afternoon when she was preparing to get discharged, her blood pressure miguel ttomed out and she became lightheaded and almost passed out. She was noted to be in a junctional rhythm at approximately 45 with a blood pressure of 60. She was transferred to the ICU, she did have [address] and her blood pressure was improving somewhat about she pulled one of her IV lines out and Dr. Mahmood was able to insert a right central line into the patient. Her pressure and hear t rate soon improved on IV medications, at this time her beta-stepan and Cardizem CD is being held, it may be necessary to reinstitute a beta-stepan tonight if her heart rate increases. Objective Data Objective Data Vital Signs: Vital Signs Temp Pulse Resp BP Pulse Ox O2 Del Method O2 Flow Rate 96.5 F L 44 L 15 66/46 L 100 Nasal Cannula 2 01/11/24 16:40 01/11/24 16:45 01/11/24 16:40 01/11/24 16:45 01/11/24 16:40 01/11/24 17:25 01/11/24 17:25 FiO2 91 01/07/24 13:23 Oxygen Flow Rate (L/min) 2 Oxygen Delivery Method Nasal Cannula Weight: 70 kg Body Mass Index (BMI) 24.1 Intake & Output: Intake and Output for Last 24 Hours 01/09/24 01/10/24 01/11/24 23:59 23:59 23:59 Intake Total 460 / 460 1535 / 1535 502.19 / 502.19 Balance 460 / 460 1535 / 1535 502.19 / 502.19 Lab / Micro Data 01/11/24 16:04 01/11/24 16:04 Labs: Laboratory Results - last 24 hr 01/11/24 16:04: WBC 8.2, RBC 3.88 L, Hgb 13.6, Hct 40.5, MCV 104.4 H, MCH 35.1 H , MCHC 33.6, RDW Std Deviation 62.7 H, RDW Coeff of Bessie 16.7 H, Plt Count 171, MPV 9.9, Immature Gran % (Auto) 0.600, Neut % (Auto) 53.9, Lymph % (Auto) 31.1, [place] % (Auto) 12.4 H, Eos % (Auto) 1.3, Baso % (Auto) 0.7, Absolute Neuts (auto) 4.4, Absolute Lymphs (auto) 2.54, Nucleated RBC % 0.2, Sodium 133 L, Potassium 4.9, Chloride 101, Carbon Dioxide 22.0, Anion Gap 10, BUN 30 H, Creatinine 1.48 H, Estim Creat Clear Calc 30.46, Est GFR (MDRD) Af Amer 44 L, Est GFR (MDRD) Non-Af 36 L, BUN/Creatinine Ratio 20.3 H, Glucose 119 H, Calcium 8.4 L Physical Exam Const alert, oriented x3 and no apparent distress General Appearance: cooperative, well kempt and well developed Orientation / Consciousness: awake, oriented to person, oriented to place and oriented to time HEENT normocephalic, head/scalp atraumatic and moist oral mucous membranes Eyes PERRL, EOMs intact bilaterally and conjunctivae normal Neck supple, no JVD, thyroid normal and no carotid bruits General: trachea midline Resp normal respiratory effort, no retractions, no use of accessory muscles and clear to auscultation bilaterally Auscultation: Negative for rales, rhonchi or wheezes Cardio S1 normal heart sound, S2 normal heart sound, no murmurs, no rub and no gallops Cardio Narrative: Heart rate and rhythm is irregular GI normal to inspection, nondistended, normoactive bowel sounds, soft to palpation, non-tender and non-distended Extremity no clubbing, cyanosis or edema Skin no rashes or lesions noted General Skin Exam: no breakdown Neuro oriented x3, CN's II-XII intact bilaterally, moves all extremities, no focal motor deficits and no sensory deficits noted Sensorium / Orientation: awake and alert Speech: speech normal Psych affect normal Assessment & Plan Assessment/Plan (1) Noncompliance with medication regimen: PLAN: Plan 1. Junctional rhythm and hypotension secondary to use of rate control agents on a possible underlying sick sinus syndrome-for now patient's Cardizem CD and metoprolol will be held, patient is given IV fluids, she will be reevaluated tomorrow for discharge #2 chronic atrial fibrillation with rapid ventricular response-again patient's rate control agents were held due to her junctional rhythm and hypotension. #3 noncompliance with medication regimen-complicates care, management, recovery, and prognosis #4 chronic obstructive pulmonary disease-complicates care, management, recovery, and prognosis #5 moderate pulmonary hypertension-patient will need discharged on Lasix, is being held at this time due to possible effects on blood pressure Total clinical time spent by myself addressing the patient's medical issues, reviewing all of her data, and collaborating with patient's care team: 50 minutes Charges/Coding Visit Charges Inpatient E&M: 39516 [facility] Hosp L3
[2024-01-12] VITALS (36 sets, daily range): BP systolic 75–154; BP diastolic 35–114; PULSE 54–111; RESP 14–20; TEMP 36.1–36.4; O2SAT 88–98; BMI 24.2
[2024-01-12] MEDS: 0.9% Normal Saline (1000mL) 1,000 ML 75 ML IV (05:20)
--- NOTE | 2024-01-12 08:49 | ECHOL_ITS ---
Reason For Study: Arrhythmia Procedure This was a limited 2D transthoracic echocardiogram. Exam performed portable in ICU/CCU. Left Ventricle Normal left ventricle. The estimated ejection fraction is 35 %. There is evidence of diastolic dysfunction. There is moderate to severe global hypokinesis of the left ventricle. Right Ventricle Mildly dilated right ventricle. Normal systolic function. Atria The left atrium is moderately enlarged. The right atrium is moderately enlarged. Mitral Valve There is no mitral valve stenosis. Trivial mitral valve insufficiency. Tricuspid Valve There is no tricuspid stenosis. Moderate (2+) tricuspid valve insufficiency. Pulmonary artery systolic pressure is 40 mmHg. Aortic Valve Trisinus/trileaflet aortic valve. There is no aortic stenosis. Trivial aortic valve insufficiency. Pulmonic Valve There is no pulmonic valvular stenosis. No pulmonic valve insufficiency. Great Vessels Normal aortic root. Pericardium/Pleural No pericardial effusion. MMode/2D Measurements & Calculations LVIDd: 5.1 cm IVSd: 1.2 cm LA dimension: 4.3 cm LVIDs: 4.2 cm LVPWd: 1.00 cm RVDd: 4.2 cm FS: 17.5 % LAV(MOD-bp): 84.4 ml LVAd ap4: 24.8 cm2 SV(MOD-sp4): 24.1 ml LAV(MOD-bp) Indexed: 46.6 ml/m2 LVLd ap4: 6.8 cm LAV(MOD-sp2): 92.7 ml EDV(MOD-sp4): 75.9 ml LAV(MOD-sp4): 69.9 ml EDV(sp4-el): 77.4 ml LVAs ap4: 19.3 cm2 LVLs ap4: 6.1 cm ESV(MOD-sp4): 51.8 ml ESV(sp4-el): 51.8 ml EF(MOD-sp4): 31.7 % EF(sp4-el): 33.1 % SV(sp4-el): 25.6 ml LA A4 area: 22.6 cm2 RA A4 area: 24.5 cm2 Doppler Measurements & Calculations TR max rashmi: 288.8 cm/sec TR max P.4 mmHg ECHO/Echo, Limited Study Interpretation Summary The estimated ejection fraction is 35 %. There is evidence of diastolic dysfunction. Mildly dilated right ventricle. The left atrium is moderately enlarged. The right atrium is moderately enlarged. Trivial mitral valve insufficiency. Trivial aortic valve insufficiency. There is moderate to severe global hypokinesis of the left ventricle. Ordering Physician: Ned Valdovinos Performed By: Mauro Bennett RCS
[2024-01-12] MEDS: Loratadine 10 MG Tablet PO (09:43)
--- NOTE | 2024-01-12 10:58 | CASEMGMT ---
Pt SOC was set for today. However, pt was transferred to ICU for hypotension. TC to Melissa at [facility]. Melissa updated that the pt is still here and that we will keep them posted on anticipated DC date. Green sheet filled out and placed on chart in the case that the pt DC over the weekend.
[2024-01-12 11:11] LABS: Anion Gap 8 (5-15); BUN 29 mg/dL (7-18); BUN/Creat Ratio 26.6 RATIO (10-20); Calcium,Total 8.4 mg/dL (8.5-10.1); Chloride 103 mmol/L (98-107); Creatinine, Serum 1.09 mg/dL (0.55-1.02); EST Glomerular Filtration Rate 52 mL/min (>60); Est Glom Filt Rate - Afr Amer 62 mL/min (>60); Estimated Creatinine Clearance 41.36 ml/min; Glucose 126 mg/dL (74-106); Potassium 3.9 mmol/L (3.5-5.1); Sodium Level 135 mmol/L (136-145)
--- NOTE | 2024-01-12 12:12 | CASEMGMT ---
SW met with patient. Introduced self and role at [facility]. SW asked patient about Healthcare Power of [employer] (HCPOA) papers. SW explained to patient that without HCPOA any medical decisions would go to her son (if she were unable to make decisions). Patient stated she does not want him to make decisions. SW asked patient who she would want to make medical decisions. Patient said she would want her friend Vlad. Patient did not want to do documents yet as she would like to talk with Vlad first. Tiffanie Stein [employer]PORATE CLAIMS EXAMINER DENEEN
--- NOTE | 2024-01-12 15:39 | CASEMGMT ---
Order for DC placed. TC to [facility]. Melissa updated that the pt is planned for DC today. Melissa states that the SOC will be tomorrow 01/12. DC plan updated.
== END 2024-01-12 17:43 | disposition home health service (06) | DRG 308 ==
LOC: ED 13:24 → PCU 15:29 → ICU 01-11 17:18
PROVIDERS: Physician Assistant; Admitting Provider Internal Medicine; Emergency Provider Emergency Medicine; Visit Provider Internal Medicine
DX: I48.20 Chronic atrial fibrillation, unspecified (principal); I50.23 Acute on chronic systolic (congestive) heart failure; I27.20 Pulmonary hypertension, unspecified; I49.5 Sick sinus syndrome; I11.0 Hypertensive heart disease with heart failure; J44.9 Chronic obstructive pulmonary disease, unspecified; I08.0 Rheumatic disorders of both mitral and aortic valves; I95.2 Hypotension due to drugs; E83.42 Hypomagnesemia; E78.5 Hyperlipidemia, unspecified; K21.9 Gastro-esophageal reflux disease without esophagitis; F17.210 Nicotine dependence, cigarettes, uncomplicated; R00.1 Bradycardia, unspecified; H91.90 Unspecified hearing loss, unspecified ear; R09.02 Hypoxemia; Z79.01 Long term (current) use of anticoagulants; Z91.148 Patient's other noncompliance with medication regimen for other reason
CPT/HCPCS: 36415; 71045; 80048; 80053; 82248; 83735; 83880; 84100; 84443; 84484; 85025; 85610; 93005; 93308; 99252; 99284; 99406; J7030; J7040; J7050; A4216; G0463; J1610; J1940; J2405

== ENCOUNTER 2024-01-18 14:11 | Inpatient (IN) | payer MEDICARE, BC, OTHER, SELFPAY ==
[2024-01-18] VITALS (18 sets, daily range): BP systolic 86–152; BP diastolic 53–140; PULSE 95–139; RESP 16–35; TEMP 36.1–36.7; O2SAT 86–99; BMI 27.3; BMI 26.8
--- NOTE | 2024-01-18 14:22 | ED.RN ---
bilat edema to feet and ankles
--- NOTE | 2024-01-18 14:33 | EKG12_ITS ---
Test Reason : A FIB Blood Pressure : / mmHG Vent. Rate : 141 BPM Atrial Rate : 000 BPM P-R Int : 000 ms QRS Dur : 096 ms QT Int : 306 ms P-R-T Axes : 000 006 027 degrees QTc Int : 468 ms Critical Test Result: High HR Atrial fibrillation with rapid ventricular response Incomplete right bundle branch block Abnormal ECG Confirmed by SRIDHAR BIRD, RAKESH ([id number]), photographic editor RADHA MEZA ([id number]) on 01/19/2024 10:27:00 AM Referred By: ROSALIE/RENNY Confirmed By:RAKESH WALLER MD
--- NOTE | 2024-01-18 14:33 | RAD_ITS ---
STUDY: X-RAY CHEST REASON FOR EXAM: Female, 78 years old. Chest pain TECHNIQUE: Single AP portable view of the chest. COMPARISON: Comparison is made with prior study January 11, 2024. FINDINGS: EKG electrodes are seen. Mild degree of vascular congestion and CHF. Findings suggestive of bibasilar atelectasis more prominent the left lung base. Blunting of the left costophrenic angle. There is moderate cardiac enlargement. Normal mediastinum and andre. Normal visualized pulmonary arteries. There is atherosclerotic tortuosity of the aortic arch and descending thoracic aorta. Normal visualized thoracic spine. Normal visualized ribs, clavicles, and shoulders. There is no demonstrated abnormality of the visualized soft tissue structures of the upper abdomen. RAD/Chest 1 View (Portable) IMPRESSION: Cardiomegaly. Mild degree of CHF. Blunting of left costophrenic angle with bibasilar atelectasis Electronically Signed: Arun Weems MD at 15:00 EDT ,
[2024-01-18 14:45] LABS: Absolute Lymphocyte Count 1.24 X10^3/uL (0.83-4.51); Absolute Neutrophil Count 5.7 X10^3/uL (2.0-7.7); Basophil# 0.05 X10^3/uL; Basophil% 0.6 % (0-1); Eosinophil# 0.02 X10^3/uL; Eosinophils% 0.3 % (0-5); Hematocrit 40.6 % (37-47); Hemoglobin 13.8 g/dL (12.0-15.0); Lymphocyte # 1.24 X10^3/ul (0.83-4.51); Lymphocyte % 15.5 % (19-41); Mean Corpuscular Hgb 35.1 pg (27.0-32.0); Mean Corpuscular Volume 103.3 fL (81-99); Monocyte# 0.95 X10^3/uL; Monocyte% 11.9 % (0-10); NRBC Flagged by Analyzer 0 % (0-5); Neutrophil % 71.4 % (47-70); Platelet Count 238 K/mm3 (150-450); RBC Distribution Width CV 16.8 % (11.6-14.6); RBC Distribution Width SD 63.7 fl (35.1-43.9); Red Blood Count 3.93 M/mm3 (4.2-5.4)
--- NOTE | 2024-01-18 14:47 | EDS_ITS ---
HPI History of Present Illness Chief Complaint: Dizziness Detail of Chief Complaint: Accelerated heart rate with shortness of breath and nausea and vomiting. Informant: patient Onset/Context/Timing Onset: Today Context: Sudden Onset Timing: Continuous Current Severity: Moderate Maximum Severity: Moderate Narrative Narrative: 70-year-old female recently diagnosed with A-fib, RVR and CHF was hospitalized about a week ago. She is on the blood thinner Xarelto. Says today she had nausea and vomiting. No diarrhea. Accelerated heart rate with shortness of breath. She has chronic chest discomfort which is lower sternum. That is not new today. She denies any hematemesis or melena. Prior similar symptoms: Yes Recent Illness/Hospitalization: Yes [facility] Medical History Acid reflux Atrial fibrillation with RVR Back pain Hearing difficulty Heart failure with reduced ejection fraction Hypertension Vision impairment Home Medications epinephrine 0.3 mg/0.3 mL injection, auto-injector 0.3 mg (0.3 mL) IM X1 BEE STINGS #2 syringes 05/03/15 [Rx Last Taken 01/16/18] epinephrine 0.3 mg/0.3 mL injection, auto-injector 0.3 mg (0.3 mL) IM X1 PRN Allergies ##1 02/23/19 [Rx Last Taken Unknown] fexofenadine 60 mg tablet (Judith Allergy) 60 mg PO Q24H ALLERGY 11/27/23 [History Last Taken Unknown] lisinopril 5 mg tablet 5 mg PO DAILY #30 tabs 01/11/24 [Rx Last Taken Unknown] pantoprazole 40 mg tablet,delayed release 40 mg PO DAILY #30 tabs 01/11/24 [Rx Last Taken Unknown] pravastatin 20 mg tablet 20 mg PO QHS #30 tabs 01/11/24 [Rx Last Taken Unknown] rivaroxaban 20 mg tablet (Xarelto) 20 mg PO DAILY #30 tabs 01/11/24 [Rx Last Taken Unknown] spironolactone 25 mg tablet 25 mg PO DAILY #30 tabs 01/11/24 [Rx Last Taken Unknown] metoprolol tartrate 25 mg tablet 12.5 mg (1/2 x 25 mg) PO BID #30 tabs 01/12/24 [Rx Last Taken Unknown] Allergy/AdvReac Type Severity Reaction Status Date / Time iodine Allergy Hives Verified 11/27/23 17:40 venom-honey bee Allergy Shortness Verified 11/27/23 17:40 [bee venom (honey bee)] of breath Social History Smoking Status: Current every day smoker tobacco type: cigarettes ROS ROS ED ROS Narrative Nausea and vomiting today. Shortness of breath. Chronic chest pain. Accelerated heart rate. Review of Systems ROS Unobtainable: Denies due to encephalopathy Constitutional Constitutional ED: Denies chills or fever(s) Eyes Eyes: Denies blurry vision ENT ENT ED: Denies ear pain Cardiovascular Cardiovascular: Reports chest pain and racing heartbeat Respiratory/Chest Respiratory/Chest: Reports dyspnea and dyspnea on exertion; Denies cough Gastrointestinal Gastrointestinal: Reports nausea and vomiting; Denies abdominal pain, constipation, diarrhea or melena Genitourinary Genitourinary ED: Denies dysuria or hematuria Musculoskeletal Musculoskeletal: Denies arthralgias, back pain or myalgias Integumentary Denies abscess or Abrasions Neurologic Neurologic: Denies headache(s) Psychiatric Psychiatric: Denies anxiety or depression Endocrine Endocrinology: Denies cold intolerance Hematologic/Lymphatic Hematologic/Lymphatic: Reports none Allergic/Immunologic Allergic/Immunologic ED: Denies mouth swelling, tongue swelling or urticaria EXAM Physical Exam Narrative Exam Narrative: 78-year-old female vital signs show A-fib RVR tachycardia 139. Initial pressure 151/87. Pulse ox 90% on room air no hypoxia. H EENT exam unremarkable. Neck nontender JVD. Lungs clear to auscultation bilaterally. Heart A-fib RVR rate about 145. Abdomen soft, nontender, nondistended normal bowel sounds no peritoneal signs. Moving all 4 extremities. Trace ankle edema bilaterally. Neurologically she is awake alert. Answer questions following commands. No focal motor deficits. Const Vital Signs: 01/18/24 14:12 01/18/24 14:19 01/18/24 14:12 Temperature 97 F L Temperature Source Temporal Pulse Rate 139 H 131 H Respiratory Rate 27 H 28 H Respiratory Effort Non-Labored Blood Pressure 151/87 H 116/101 H Blood Pressure Mean 108 106 Pulse Ox 98 96 Oxygen Delivery Method Room Air Room Air 01/18/24 14:34 Temperature Temperature Source Pulse Rate Respiratory Rate Respiratory Effort Blood Pressure Blood Pressure Mean Pulse Ox 94 Oxygen Delivery Method Room Air Positive well nourished and well developed; Negative for cachectic, contractures or unkempt General Appearance ED: well developed; Negative for unkempt, cachectic, contr actures, cyanotic, diaphoretic, NAD or pallor Nutritional Appearance: Negative for cachectic HEENT Reports moist mucous membranes Negative for trauma or tenderness Eyes PERRL and EOMs intact bilaterally General Eye ED: Negative for pale conjunctiva or scleral icterus Neck no lymphadenopathy, supple and no JVD General: Negative for tenderness Lymph Lymphatic: Negative for other Chest Wall inspection of chest normal and palpation of chest normal Chest: Negative for other Resp normal respiratory effort and clear to auscultation bilaterally Effort and Inspection: Negative for retractions Auscultation: Negative for rales, rhonchi, wheezes or diminished lung sounds Cardio Negative for regular rate or regular rhythm Rate: tachycardic Rhythm: abnormal rhythm irregularly irregular GI normal to inspection, nondistended, normoactive bowel sounds, non-tender, non- distended and no masses Inspection: Negative for abdominal distention Auscultation: normoactive bowel sounds Palpation: soft; Negative for tender, guarding or rebound tenderness present Back/Spine no CVA tenderness General Back: Negative for CVA tenderness Extremity Negative for normal to inspection Extremity Narrative: Bilateral trace ankle edema. General Extremety ED: Yes edema; Negative for tenderness General Extremity: edema Neuro oriented x3 and CN's II-XII intact bilaterally Sensorium / Orientation: alert; Negative for orientation impaired, lethargic or stuporous Motor Exam: strength 5/5 throughout; Negative for general weakness Psych mental status grossly normal Appearance: Negative for unkempt Attitude: No agitated Mood & Affect: Negative for depressed, anxious or tearful Skin no rashes or lesions noted and no wounds General Skin Exam: Negative for jaundice or pallor Rashes: No rashes noted Trauma: Negative for abrasion Wounds: Negative for wounds noted MDM MDM MDM Narrative Medical decision making narrative: Only female history of A-fib and CHF currently in A-fib RVR will be given IV Cardizem and may need to be started on Cardizem drip. Also Zofran for nausea. Cardiac labs will be obtained along with a chest x-ray. Repeat exam at 3:26 PM patient doing well. Her A-fib is improving but heart rate still 105-1 20. She was started on a Cardizem drip. I have the hospitalist on page for admission for A-fib RVR and CHF. Patient is comfortable with the plan. History & Record Review Discussion w/independent historian: Patient Additional record(s) reviewed:: Prior inpatient record, Prior outpatient record, Prior ED visit and Prior labs Lab Data Attestation: I reviewed the patient's lab results. Lab results narrative: CBC shows a white count 8. H&H of 13.8 and 40. Platelets 238. Electrolytes show sodium 135 gap 10. Normal BUN and creatinine. Glucose 122. Troponin normal at 28. TSH normal at 1.7. Labs: Laboratory Results - last 24 hr 01/18/24 14:30 WBC 8.0 RBC 3.93 L Hgb 13.8 Hct 40.6 MCV 103.3 H MCH 35.1 H MCHC 34.0 RDW Std Deviation 63.7 H RDW Coeff of Bessie 16.8 H Plt Count 238 MPV 11.0 Immature Gran % (Auto) 0.300 Neut % (Auto) 71.4 H Lymph % (Auto) 15.5 L [place] % (Auto) 11.9 H Eos % (Auto) 0.3 Baso % (Auto) 0.6 Absolute Neuts (auto) 5.7 Absolute Lymphs (auto) 1.24 Nucleated RBC % 0 PT Cancelled INR Cancelled Sodium 135 L Potassium 4.9 Chloride 104 Carbon Dioxide 21.0 Anion Gap 10 BUN 16 Creatinine 0.71 Estim Creat Clear Calc 62.80 Est GFR (MDRD) Af Amer 103 Est GFR (MDRD) Non-Af 85 BUN/Creatinine Ratio 22.7 H Glucose 122 H Calcium 8.5 Troponin I High Sens 28 TSH 1.73 Radiography Chest X-Ray - ED: 1 View, Read by ED Physician, Read by Radiologist, Bony Structures, Chronic Changes and CHF Diagnostic Testing: Clinical Impression(s) from Imaging Studies Chest X-Ray 01/18/24 14:33 IMPRESSION: Cardiomegaly. Mild degree of CHF. Blunting of left costophrenic angle with bibasilar atelectasis Electronically Signed: Arun Weems MD at 15:00 EDT , Chest x-ray, portable, single view interpreted by myself and the radiologist shows cardiomegaly. Mild pulmonary edema. No effusions. No pneumonia. Rhythm Strip Rhythm Strip: A-fib Rate: 141 Ectopy: None EKG Initial EKG: Attestation: I personally reviewed and interpreted this EKG as follows: Interpretation: Atrial Fibrillation Comments: A-fib RVR rate of 141 no acute signs of MN or ischemia. Discharge Plan Triage Chief Complaint: Dizziness ED Provider: Edgar Her Dx/Rx/DC Orders Clinical Impression: Congestive heart failure, Chronic anticoagulation, Nausea & vomiting, Atrial fibrillation with RVR Prescriptions: No Action epinephrine 0.3 MG syringe 0.3 mg IM X1 Qty: 2 0RF epinephrine 0.3 MG syringe 0.3 mg IM X1 PRN (Reason: Allergies) Qty: 1 0RF fexofenadine [Judith Allergy] 60 mg tablet 60 mg PO Q24H spironolactone 25 mg Tablet 25 mg PO DAILY Qty: 30 0RF pantoprazole 40 mg Tablet,Delayed Release (Dr/Ec) 40 mg PO DAILY Qty: 30 0RF pravastatin 20 mg Tablet 20 mg PO QHS Qty: 30 0RF lisinopril 5 mg tablet 5 mg PO DAILY Qty: 30 0RF Xarelto 20 mg tablet 20 mg PO DAILY Qty: 30 0RF Rx Instructions: must administer with evening meal metoprolol tartrate 25 mg tablet 12.5 mg PO BID Qty: 30 0RF Primary Care Provider: [facility] Violetta Pillai Referrals: [facility] Violetta Pillai [Primary Care Provider] - Disposition Disposition: Acute Care Hospital [facility]
[2024-01-18] MEDS: dilTIAZem 25 MG/5 ML Vial 20 MG IV BOLUS (14:53)
[2024-01-18] MEDS: Ondansetron 4 MG/2 ML Vial IV (14:53)
[2024-01-18 15:12] LABS: Anion Gap 10 (5-15); BUN 16 mg/dL (7-18); BUN/Creat Ratio 22.7 RATIO (10-20); Calcium,Total 8.5 mg/dL (8.5-10.1); Chloride 104 mmol/L (98-107); Creatinine, Serum 0.71 mg/dL (0.55-1.02); EST Glomerular Filtration Rate 85 mL/min (>60); Est Glom Filt Rate - Afr Amer 103 mL/min (>60); Glucose 122 mg/dL (74-106); Potassium 4.9 mmol/L (3.5-5.1); Sodium Level 135 mmol/L (136-145); Thyroid Stim Hormone (TSH) 1.73 uIU/mL (0.358-3.74); Troponin-I HS 28 pg/mL (3.0-54.0)
--- NOTE | 2024-01-18 15:43 | PCM.HP.STD ---
HPI - General General Date of Admission: 01/18/24 Date of Service: 01/18/24 Chief Complaint: Shortness of breath, chest pressure, dizziness lower extremity edema palpitation., HPI Narrative JULIO HERNANDEZ, is a 78 F with multiple comorbidities including heart failure COPD not on oxygen came to ED with acute on chronic shortness of breath, lower chest pressure, dizziness and palpitation. She stated that usually she gets short of breath on exertion but today in the morning she was short of breath even at rest. She also felt a lot lower chest pressure but was localized without radiation, aggravating or relieving factor. Blood pressure was elevated in the ED. Besides that she has chronic nausea and vomiting after she has bout of cough from COPD. Denies fever, change in severity of cough, sputum production. She also has chronic mild right lower extremity abdominal pain/pressure which has not changed in severity, frequency or acuity. Denies change in bowel movement. Twelve-lead EKG in ER shows A-fib with RVR 141 beats. BP 170s/96, 139/26. Patient was given Cardizem 20 mg IV bolus but is still heart rate high therefore started on Cardizem drip. [facility] Medical History Acid reflux Atrial fibrillation with RVR Back pain Hearing difficulty Heart failure with reduced ejection fraction Hypertension Vision impairment Home Medications epinephrine 0.3 mg/0.3 mL injection, auto-injector 0.3 mg (0.3 mL) IM X1 BEE STINGS #2 syringes 05/03/15 [Rx Last Taken 01/16/18] fexofenadine 60 mg tablet (Judith Allergy) 60 mg PO Q24H ALLERGY 11/27/23 [History Last Taken Unknown] lisinopril 5 mg tablet 5 mg PO DAILY #30 tabs 01/11/24 [Rx Last Taken Unknown] pantoprazole 40 mg tablet,delayed release 40 mg PO DAILY #30 tabs 01/11/24 [Rx Last Taken Unknown] pravastatin 20 mg tablet 20 mg PO QHS #30 tabs 01/11/24 [Rx Last Taken Unknown] rivaroxaban 20 mg tablet (Xarelto) 20 mg PO DAILY #30 tabs 01/11/24 [Rx Last Taken Unknown] spironolactone 25 mg tablet 25 mg PO DAILY #30 tabs 01/11/24 [Rx Last Taken Unknown] metoprolol tartrate 25 mg tablet 12.5 mg (1/2 x 25 mg) PO BID #30 tabs 01/12/24 [Rx Last Taken Unknown] diltiazem HCl 180 mg capsule,extended release 24 hr 180 mg PO BID 01/18/24 [History Last Taken Unknown] potassium chloride 20 mEq tablet,extended release(part/cryst) 20 meq PO DAILY 01/18/24 [History Last Taken Unknown] Allergy/AdvReac Type Severity Reaction Status Date / Time iodine Allergy Hives Verified 11/27/23 17:40 venom-honey bee Allergy Shortness Verified 11/27/23 17:40 [bee venom (honey bee)] of breath Social History Smoking Status: Current every day smoker tobacco type: cigarettes ROS ROS Narrative Constitutional: Reports fatigue and weakness. No fever. HEENT: Reports systems reviewed and no addt'l complaints, except as documented Respiratory/Chest: COPD. Currently smoker. Mild shortness of breath as described in HPI. CVS: Localized chest pain/pressure probably from A-fib with RVR. Gastrointestinal: Chronic nausea and vomiting from cough. Denies GI bleed. Genitourinary: Denies burning urination or new urinary tract symptoms Musculoskeletal: Denies acute joint pain or limited range of motion. No acute injury Neurologic: Denies seizure-like symptoms. skin: No ulcer. No rash Endocrinology: Reports systems reviewed and no addt'l complaints, except as documented Hematologic/Lymphatic: Reports systems reviewed and no addt'l complaints, except as documented Rest 14 ROS are negative except as mentioned in HPI Vital Signs Vital Signs Vital Signs: 01/18/24 14:12 01/18/24 14:19 01/18/24 14:12 Temperature 97 F L Temperature Source Temporal Pulse Rate 139 H 131 H Respiratory Rate 27 H 28 H Respiratory Effort Non-Labored Blood Pressure 151/87 H 116/101 H Blood Pressure Mean 108 106 Pulse Ox 98 96 Oxygen Delivery Method Room Air Room Air Oxygen Flow Rate (L/min) 01/18/24 14:34 01/18/24 15:26 01/18/24 15:26 Temperature Temperature Source Pulse Rate Respiratory Rate Respiratory Effort Blood Pressure Blood Pressure Mean Pulse Ox 94 86 98 Oxygen Delivery Method Room Air Room Air Nasal Cannula Oxygen Flow Rate (L/min) 2 Weight Weight: 174 lb 9.698 oz Body Mass Index (BMI) 27.3 Physical Exam Narrative General: Alert, Oriented x3, Cooperative HEENT: Very hard of hearing more on right ear atraumatic, PERRLA, EOMI, Normocephalic Oral: Oral mucosa dry. No Gingival or Mucosal Lesions/ Ulcerations Neck: Supple, No JVD, Negative Carotid Bruits Chest wall/Lungs: Air entry severely diminished bilaterally. Bilateral expiratory rhonchi. Cardiovascular: A-fib with RVR. No M/G/R Abdomen: Bowel Sounds Present, Soft, mild chronic right lower quadrant tenderness. Nondistended. : No dysuria. No renal angle tenderness. No suprapubic tenderness. Extremities: Mild pitting edema, Capillary Refill Less than 3 Seconds Skin: No rashes, No breakdown Musculoskeletal: No Tenderness to Palpation of Joints or Extremities. ROM full and elevated Neurological: Cranial nerves II-XII grossly intact, DTR 2+/4. No acute focal neurological deficit. Psych/Mental Status: Flat affect. Results Lab / Micro Data 01/18/24 14:30 01/18/24 14:30 Labs: Laboratory Results - last 24 hr 01/18/24 14:30: WBC 8.0, RBC 3.93 L, Hgb 13.8, Hct 40.6, MCV 103.3 H, MCH 35.1 H, MCHC 34.0, RDW Std Deviation 63.7 H, RDW Coeff of Bessie 16.8 H, Plt Count 238, MPV 11.0, Immature Gran % (Auto) 0.300, Neut % (Auto) 71.4 H, Lymph % (Auto) 15.5 L, Jones % (Auto) 11.9 H, Eos % (Auto) 0.3, Baso % (Auto) 0.6, Absolute Neuts (auto) 5.7, Absolute Lymphs (auto) 1.24, Nucleated RBC % 0, PT Cancelled, INR Cancelled, Sodium 135 L, Potassium 4.9, Chloride 104, Carbon Dioxide 21.0, Anion Gap 10, BUN 16, Creatinine 0.71, Estim Creat Clear Calc 62.80, Est GFR (MDRD) Af Amer 103, Est GFR (MDRD) Non-Af 85, BUN/Creatinine Ratio 22.7 H, Glucose 122 H, Calcium 8.5, Troponin I High Sens 28, TSH 1.73 Rhythm Strip Rhythm Strip: A-fib Rate: 141 Ectopy: None Imaging Radiology Impression Chest X-Ray 01/18/24 14:33 IMPRESSION: Cardiomegaly. Mild degree of CHF. Blunting of left costophrenic angle with bibasilar atelectasis Electronically Signed: Arun Weems MD at 15:00 EDT , Assessment & Plan Assessment/Plan (1) Atrial fibrillation with RVR: PLAN: Plan This is 78-year-old female being admitted for mild chest pressure, increasing shortness of breath and palpitation consistent with A-fib with RVR. 1. Chronic A-fib with RVR: Patient is being admitted in PCU. Did not get converted with Cardizem 20 mg IV bolus. Patient was admitted 1 week ago for junctional rhythm/hypotension due to rate control medications. Continue IV Cardizem drip. 2. Atypical lower chest pain with shortness of breath probably from A-fib with RVR: First troponin is negative. Cycle troponin enzymes. Shortness of breath very from A-fib with RVR along with COPD on chronic physical deconditioning. 3. COPD, not on home oxygen: Patient denies any increase in severity of cough or sputum production but short of breath. Continue with scheduled ipratropium inhaler, Mucinex DM, incentive spirometry. Does not seem to be an exacerbation. 4. Moderate pulmonary hypertension: Chest x-ray individually reviewed and shows fluid congestion and mild left CP with bibasilar atelectasis. During last discharge, Lasix was held therefore Lasix 20 mg IV now and then 40 mg from tomorrow morning. 5. Chronic right lower quadrant abdominal pain: She states it is more with touching or pushing. Her last CT scan of October 2019 she has colonic diverticulosis with normal small intestine. Moderate is to appendix. Normal. Normal kidney with 3.7 cm cyst of left kidney. Patient does not have acute abdominal pain and is nonvitamin concerned but will need to monitor VTE prophylaxis: On Xarelto 20 mg daily. Living will/advanced directive/end of life care: Patient does not have living will or advanced directive. Her son and daughter is next of kin and power of keno manager for health. After discussion of benefits/risks procedures involved with full code, DNR CC arrest and DNR CC, the patient opted for full code. Patient does want artificial life support including intubation, tube feed, ventilator and/chest compression, central venous catheter, vasopressor and DC shock if needed Total time spent in [id number] encounter in discussion of advanced directive 17 minutes. Laboratory Results 01/18/24 14:30: WBC 8.0, RBC 3.93 L, Hgb 13.8, Hct 40.6, MCV 103.3 H, MCH 35.1 H, MCHC 34.0, RDW Std Deviation 63.7 H, RDW Coeff of Bessie 16.8 H, Plt Count 238, MPV 11.0, Immature Gran % (Auto) 0.300, Neut % (Auto) 71.4 H, Lymph % (Auto) 15.5 L, Jones % (Auto) 11.9 H, Eos % (Auto) 0.3, Baso % (Auto) 0.6, Absolute Neuts (auto) 5.7, Absolute Lymphs (auto) 1.24, Nucleated RBC % 0, PT Cancelled, INR Cancelled, Sodium 135 L, Potassium 4.9, Chloride 104, Carbon Dioxide 21.0, Anion Gap 10, BUN 16, Creatinine 0.71, Estim Creat Clear Calc 62.80, Est GFR (MDRD) Af Amer 103, Est GFR (MDRD) Non-Af 85, BUN/Creatinine Ratio 22.7 H, Glucose 122 H, Calcium 8.5, Troponin I High Sens 28, TSH 1.73 01/18/24 15:15: PT 18.2 H, INR 1.5 Clinical Impression(s) from Imaging Studies Chest X-Ray 01/18/24 14:33 IMPRESSION: Cardiomegaly. Mild degree of CHF. Blunting of left costophrenic angle with bibasilar atelectasis Charges/Coding Visit Charges Inpatient E&M: 74902 Init Hosp L3 Procedures Hospitalists Procedures: 33943 Advncd Care Plan 30 Min
[2024-01-18 15:48] LABS: International Normalized Ratio 1.5; Prothrombin Time (Protime)PT. 18.2 SECONDS (11.7-14.9)
[2024-01-18] MEDS: Diltiazem 125 MG in Dextrose 5%-Water (100mL Bag) 100 ML CONT INF (15:48)
[2024-01-18 17:56] LABS: Magnesium 1.4 mg/dL (1.6-2.6)
[2024-01-18] MEDS: Furosemide 20 MG/2 ML VIAL IV (18:00)
[2024-01-18 18:54] LABS: Troponin-I HS 29 pg/mL (3.0-54.0)
[2024-01-18] MEDS: Ipratropium 0.5 MG/2.5 ML SOLUTION INHALATION (19:17)
[2024-01-18 21:21] LABS: Troponin-I HS 28 pg/mL (3.0-54.0)
[2024-01-18] MEDS: Senna/Docusate Sodium 1 Tablet 2 TABLET PO (21:46)
[2024-01-18] MEDS: Pravastatin 20 MG Tablet PO (21:47)
[2024-01-18] MEDS: Metoprolol Tartrate 25 MG Tablet PO (21:47)
[2024-01-18] MEDS: guaiFENesin/D-Methorphan TAB.SR.12H 1 TABLET PO (21:48)
[2024-01-18] MEDS: Diltiazem 125 MG in Dextrose 5%-Water (100mL Bag) 100 ML 15 MG CONT INF ×2 (23:31→23:34)
[2024-01-19] VITALS (17 sets, daily range): BP systolic 102–122; BP diastolic 62–80; PULSE 66–99; RESP 16–23; TEMP 36.4–36.6; O2SAT 91–97
[2024-01-19 06:29] LABS: Absolute Lymphocyte Count 1.65 X10^3/uL (0.83-4.51); Absolute Neutrophil Count 4.6 X10^3/uL (2.0-7.7); Basophil# 0.06 X10^3/uL; Basophil% 0.8 % (0-1); Eosinophils% 1.3 % (0-5); Hematocrit 38.4 % (37-47); Hemoglobin 12.7 g/dL (12.0-15.0); Lymphocyte # 1.65 X10^3/ul (0.83-4.51); Lymphocyte % 21.7 % (19-41); Mean Corp Hgb Conc 33.1 g/dL (32-36); Mean Corpuscular Hgb 34.3 pg (27.0-32.0); Mean Corpuscular Volume 103.8 fL (81-99); Mean Platelet Vol. 10.1 fl (6.2-12.0); Monocyte# 1.17 X10^3/uL; Monocyte% 15.4 % (0-10); NRBC Flagged by Analyzer 0.3 % (0-5); Neutrophil # 4.59 X10^3/uL (2.7-7.7); Neutrophil % 60.5 % (47-70); Platelet Count 200 K/mm3 (150-450); RBC Distribution Width CV 16.7 % (11.6-14.6); RBC Distribution Width SD 63.4 fl (35.1-43.9); White Blood Count 7.6 K/mm3 (4.4-11.0)
[2024-01-19] MEDS: Ipratropium 0.5 MG/2.5 ML SOLUTION INHALATION ×4 (06:38→20:19)
[2024-01-19 08:32] LABS: Anion Gap 10 (5-15); BUN 18 mg/dL (7-18); BUN/Creat Ratio 19.2 RATIO (10-20); Calcium,Total 8.8 mg/dL (8.5-10.1); Chloride 101 mmol/L (98-107); Cholesterol 113 mg/dL (200); Creatinine, Serum 0.94 mg/dL (0.55-1.02); EST Glomerular Filtration Rate 61 mL/min (>60); Est Glom Filt Rate - Afr Amer 74 mL/min (>60); Estimated Creatinine Clearance 52.95 ml/min; Glucose 103 mg/dL (74-106); High Density Lipoprotein 57 mg/dL; Phosphorus 3.6 mg/dL (2.5-4.9); Sodium Level 135 mmol/L (136-145); Triglycerides 79 mg/dL; Very Low Density Lipoprotein 16 mg/dL (5-40)
[2024-01-19] MEDS: Magnesium Sulfate 4gm/100mL 4 GM/100 ML IV.SOLN. IV (09:19)
[2024-01-19] MEDS: 0.9% Saline Lock 10 ML Syringe IV (09:23)
[2024-01-19] MEDS: Loratadine 10 MG Tablet 5 MG PO (09:28)
[2024-01-19] MEDS: guaiFENesin/D-Methorphan TAB.SR.12H 1 TABLET PO ×2 (09:28→20:36)
[2024-01-19] MEDS: Pantoprazole Sodium 40 MG Tablet PO (09:28)
[2024-01-19] MEDS: Senna/Docusate Sodium 1 Tablet 2 TABLET PO (09:52)
[2024-01-19] MEDS: dilTIAZem CD 120 MG Capsule PO (09:52)
[2024-01-19] MEDS: Furosemide 20 MG Tablet PO (09:52)
--- NOTE | 2024-01-19 10:05 | PCM.CONS.C ---
Assessment & Plan Assessment/Plan (1) Congestive heart failure: PLAN: She does have evidence of congestive heart failure. She has reduced ejection fraction her last echocardiogram apparently demonstrated global reduction in ejection fraction less than 35%. My recommendation will be as follows: Switch beta-stepan to carvedilol. Continue with REGINA inhibitor Additional rate control with diltiazem Diuretics with Lasix and spironolactone Consider SGLT2 inhibitor. (2) Atrial fibrillation with RVR: PLAN: She is on anticoagulation which will be continued I suspect that some of her reduction ejection fraction can be tachycardia mediated. Will continue with beta-stepan as outlined above. At some point she may need to have DC cardioversion. HPI Consult Data Date of Consult: 01/19/24 HPI Narrative HPI Narrative: JULIO HERNANDEZ, is a 78 F who presents [facility] Medical History Acid reflux Atrial fibrillation with RVR Back pain Hearing difficulty Heart failure with reduced ejection fraction Hypertension Vision impairment Home Medications epinephrine 0.3 mg/0.3 mL injection, auto-injector 0.3 mg (0.3 mL) IM X1 BEE STINGS #2 syringes 05/03/15 [Rx Last Taken 01/16/18] fexofenadine 60 mg tablet (Judith Allergy) 60 mg PO Q24H ALLERGY 11/27/23 [History Last Taken Unknown] lisinopril 5 mg tablet 5 mg PO DAILY #30 tabs 01/11/24 [Rx Last Taken Unknown] pantoprazole 40 mg tablet,delayed release 40 mg PO DAILY #30 tabs 01/11/24 [Rx Last Taken Unknown] pravastatin 20 mg tablet 20 mg PO QHS #30 tabs 01/11/24 [Rx Last Taken Unknown] rivaroxaban 20 mg tablet (Xarelto) 20 mg PO DAILY #30 tabs 01/11/24 [Rx Last Taken Unknown] spironolactone 25 mg tablet 25 mg PO DAILY #30 tabs 01/11/24 [Rx Last Taken Unknown] metoprolol tartrate 25 mg tablet 12.5 mg (1/2 x 25 mg) PO BID #30 tabs 01/12/24 [Rx Last Taken Unknown] diltiazem HCl 180 mg capsule,extended release 24 hr 180 mg PO BID 01/18/24 [History Last Taken Unknown] potassium chloride 20 mEq tablet,extended release(part/cryst) 20 meq PO DAILY 01/18/24 [History Last Taken Unknown] Allergy/AdvReac Type Severity Reaction Status Date / Time iodine Allergy Hives Verified 11/27/23 17:40 venom-honey bee Allergy Shortness Verified 11/27/23 17:40 [bee venom (honey bee)] of breath Social History Smoking Status: Current every day smoker tobacco type: cigarettes ROS Constitutional Constitutional: Denies fever(s) or weight loss Eyes Eyes: Reports systems reviewed and no addt'l complaints, except as documented ENT HEENT: Reports systems reviewed and no addt'l complaints, except as documented Cardiovascular Cardiovascular: Reports dyspnea at rest, dyspnea on exertion and palpitations; Denies chest pain at rest, chest pain with activity, edema or paroxysmal nocturnal dyspnea Respiratory/Chest Respiratory/Chest: Reports shortness of breath at rest and shortness of breath with exertion; Denies dyspnea on exertion or productive cough Gastrointestinal Gastrointestinal: Denies change in bowel habits, nausea, vomiting or weight changes Genitourinary Genitourinary: Denies difficulty urinating Musculoskeletal Musculoskeletal: Denies joint stiffness or muscle weakness Integumentary Integumentary: Denies lesions Neurologic Neurologic: Denies dizziness or syncope Psychiatric Psychiatric: Denies anxiety Endocrine Endocrinology: Denies excessive sweating or fatigue Hematologic/Lymphatic Hematologic/Lymphatic: Denies anemia Allergic/Immunologic Allergic/Immunologic: Denies seasonal rhinorrhea Physical Exam Const alert, oriented x3 and no apparent distress General Appearance: cooperative HEENT hearing grossly normal bilaterally Head and Scalp: atraumatic Eyes EOMs intact bilaterally Neck General: normal visual inspection Chest inspection of chest normal and palpation of chest normal Resp normal respiratory effort Auscultation: diminished lung sounds Cardio S1 normal heart sound and S2 normal heart sound Jugular Venous Distention: JVD Rhythm: abnormal rhythm irregularly irregular GI normal to inspection, nondistended, normoactive bowel sounds Extremity normal capillary refill and no pedal edema General Extremity: edema Peripheral Pulses: Yes pulses 2+ throughout and femoral pulses present Skin no rashes or lesions noted Neuro oriented x3 and CN's II-XII intact bilaterally Psych Appearance: grossly normal and appropriate Risk Stratification Risk Stratification Applicable: No Objective Data Vital Signs: Vital Signs Temp Pulse Resp BP Pulse Ox O2 Del Method O2 Flow Rate 97.7 F L 74 21 H 102/62 93 Room Air 2 01/18/24 17:53 01/19/24 09:45 01/19/24 09:45 01/19/24 09:45 01/19/24 09:45 01/19/24 09:45 01/19/24 08:00 Oxygen Flow Rate (L/min) 2 Oxygen Delivery Method Room Air Weight: 171 lb 1.259 oz Body Mass Index (BMI) 26.8 Intake & Output: Intake and Output for Last 24 Hours 01/17/24 01/18/24 01/19/24 23:59 23:59 23:59 Intake Total 87.75 / 87.75 163.00 / 163.00 Output Total 300 / 300 Balance 87.75 / -212.25 -137.00 / -137.00 Lab / Micro Data 01/19/24 06:00 01/19/24 06:00 Labs: Laboratory Results - last 24 hr 01/18/24 14:30: WBC 8.0, RBC 3.93 L, Hgb 13.8, Hct 40.6, MCV 103.3 H, MCH 35.1 H, MCHC 34.0, RDW Std Deviation 63.7 H, RDW Coeff of Bessie 16.8 H, Plt Count 238, MPV 11.0, Immature Gran % (Auto) 0.300, Neut % (Auto) 71.4 H, Lymph % (Auto) 15.5 L, Burnett % (Auto) 11.9 H, Eos % (Auto) 0.3, Baso % (Auto) 0.6, Absolute Neuts (auto) 5.7, Absolute Lymphs (auto) 1.24, Nucleated RBC % 0, PT Cancelled, INR Cancelled, Sodium 135 L, Potassium 4.9, Chloride 104, Carbon Dioxide 21.0, Anion Gap 10, BUN 16, Creatinine 0.71, Estim Creat Clear Calc 62.80, Est GFR (MDRD) Af Amer 103, Est GFR (MDRD) Non-Af 85, BUN/Creatinine Ratio 22.7 H, Glucose 122 H, Calcium 8.5, Magnesium 1.4 L, Troponin I High Sens 28, B-Natriuretic Peptide 710.0 H, TSH 1.73 01/18/24 15:15: PT 18.2 H, INR 1.5 01/18/24 18:24: Troponin I High Sens 29 01/18/24 20:45: Troponin I High Sens 28 01/19/24 06:00: WBC 7.6, RBC 3.70 L, Hgb 12.7, Hct 38.4, MCV 103.8 H, MCH 34.3 H, MCHC 33.1, RDW Std Deviation 63.4 H, RDW Coeff of Bessie 16.7 H, Plt Count 200, MPV 10.1, Immature Gran % (Auto) 0.300, Neut % (Auto) 60.5, Lymph % (Auto) 21.7, Burnett % (Auto) 15.4 H, Eos % (Auto) 1.3, Baso % (Auto) 0.8, Absolute Neuts (auto) 4.6, Absolute Lymphs (auto) 1.65, Nucleated RBC % 0.3, Sodium 135 L, Potassium 4.0, Chloride 101, Carbon Dioxide 24.0, Anion Gap 10, BUN 18, Creatinine 0.94, Estim Creat Clear Calc 52.95, Est GFR (MDRD) Af Amer 74, Est GFR (MDRD) Non-Af 61, BUN/Creatinine Ratio 19.2, Glucose 103, Calcium 8.8, Phosphorus 3.6, Triglycerides 79, Cholesterol 113, LDL Cholesterol 40, VLDL Cholesterol 16, HDL Cholesterol 57 Rhythm Strip Rhythm Strip: A-fib Rate: 141 Ectopy: None Cardiology Labs/Tests 01/18/24 14:30: WBC 8.0, RBC 3.93 L, Hgb 13.8, Hct 40.6, MCV 103.3 H, MCH 35.1 H, MCHC 34.0, Plt Count 238, MPV 11.0, Immature Gran % (Auto) 0.300, Neut % (Auto) 71.4 H, Lymph % (Auto) 15.5 L, Burnett % (Auto) 11.9 H, Eos % (Auto) 0.3, Baso % (Auto) 0.6, Absolute Neuts (auto) 5.7, Nucleated RBC % 0, PT Cancelled, INR Cancelled, Sodium 135 L, Potassium 4.9, Chloride 104, Carbon Dioxide 21.0, Anion Gap 10, BUN 16, Creatinine 0.71, Est GFR (MDRD) Af Amer 103, Est GFR (MDRD) Non-Af 85, BUN/Creatinine Ratio 22.7 H, Glucose 122 H, Calcium 8.5, Magnesium 1.4 L, B-Natriuretic Peptide 710.0 H 01/18/24 15:15: PT 18.2 H, INR 1.5 01/19/24 06:00: WBC 7.6, RBC 3.70 L, Hgb 12.7, Hct 38.4, MCV 103.8 H, MCH 34.3 H, MCHC 33.1, Plt Count 200, MPV 10.1, Immature Gran % (Auto) 0.300, Neut % (Auto) 60.5, Lymph % (Auto) 21.7, Burnett % (Auto) 15.4 H, Eos % (Auto) 1.3, Baso % (Auto) 0.8, Absolute Neuts (auto) 4.6, Nucleated RBC % 0.3, Sodium 135 L, Potassium 4.0, Chloride 101, Carbon Dioxide 24.0, Anion Gap 10, BUN 18, Creatinine 0.94, Est GFR (MDRD) Af Amer 74, Est GFR (MDRD) Non-Af 61, BUN/Creatinine Ratio 19.2, Glucose 103, Calcium 8.8, Phosphorus 3.6, Triglycerides 79, Cholesterol 113, LDL Cholesterol 40, VLDL Cholesterol 16, HDL Cholesterol 57 Rhythm: EKG: ECHO: Stress Test: Cardiac Cath: PCI: CT Surgery: Holter monitor: EPS: PPM: CXR: Chest CT Scan: Radiography Diagnostic Testing: Radiology Impression Chest X-Ray 01/18/24 14:33 IMPRESSION: Cardiomegaly. Mild degree of CHF. Blunting of left costophrenic angle with bibasilar atelectasis Electronically Signed: Arun Weems MD at 15:00 EDT ,
--- NOTE | 2024-01-19 11:44 | PCM.PN.HOSP ---
Reason for Visit Reason for Visit: Diagnoses Unspecified atrial fibrillation (01/18/24) Subjective Subjective Patient was admitted yesterday afternoon for recurrent A-fib with RVR. Was recently hospitalized here from 01/06 through 01/11 for A-fib with RVR. Notably her echo showed an EF of 35% with global LV dysfunction concerning for tachycardia mediated cardiomyopathy. During that hospitalization, patient's rate was developed control and she was started on both Lopressor and Cardizem. While on both medications she actually had an episode of junctional bradycardia with rate in the 40s with hypotension requiring short ICU stay. Her heart rate and blood pressure rebounded well off of her rate control medications. On presentation to ED yesterday she was found to again be in A-fib with RVR with heart rate in the 140s. She was started on a Cardizem drip and admitted for further management. I saw patient at the bedside this morning. Patient noted to me today that she had not been compliant with the Lopressor or Cardizem after discharge, had not taken any doses between discharge and readmission. Patient had improvement in heart rate to the 70s to 80s on the Cardizem drip with home p.o. Lopressor reinitiated as well. I transitioned her off the Cardizem drip this morning. Patient denies any chest pain or palpitations currently. She denied any lightheadedness or dizziness. Does report dyspnea on exertion but no cough or shortness of breath at rest. Discussed with Dr. Cao with cardiology. He added several medications for patient's new heart failure and transition patient from Lopressor to Coreg. Decision was made to discontinue p.o. Cardizem given concern for overblockade of AV node. Objective Data Objective Data Vital Signs: Vital Signs Temp Pulse Resp BP Pulse Ox O2 Del Method O2 Flow Rate 97.7 F L 88 20 H 102/62 93 Room Air 2 01/18/24 17:53 01/19/24 10:49 01/19/24 10:49 01/19/24 09:45 01/19/24 09:45 01/19/24 09:45 01/19/24 08:00 Oxygen Flow Rate (L/min) 2 Oxygen Delivery Method Room Air Weight: 77.6 kg Body Mass Index (BMI) 26.8 Intake & Output: Intake and Output for Last 24 Hours 01/17/24 01/18/2424 23:59 23:59 23:59 Intake Total 87.75 / 87.75 163.00 / 163.00 Output Total 300 / 300 Balance 87.75 / -212.25 -137.00 / -137.00 Lab / Micro Data 01/19/24 06:00 01/19/24 06:00 Labs: Laboratory Results - last 24 hr 01/18/24 14:30: WBC 8.0, RBC 3.93 L, Hgb 13.8, Hct 40.6, MCV 103.3 H, MCH 35.1 H, MCHC 34.0, RDW Std Deviation 63.7 H, RDW Coeff of Bessie 16.8 H, Plt Count 238, MPV 11.0, Immature Gran % (Auto) 0.300, Neut % (Auto) 71.4 H, Lymph % (Auto) 15.5 L, Irwin % (Auto) 11.9 H, Eos % (Auto) 0.3, Baso % (Auto) 0.6, Absolute Neuts (auto) 5.7, Absolute Lymphs (auto) 1.24, Nucleated RBC % 0, PT Cancelled, INR Cancelled, Sodium 135 L, Potassium 4.9, Chloride 104, Carbon Dioxide 21.0, Anion Gap 10, BUN 16, Creatinine 0.71, Estim Creat Clear Calc 62.80, Est GFR (MDRD) Af Amer 103, Est GFR (MDRD) Non-Af 85, BUN/Creatinine Ratio 22.7 H, Glucose 122 H, Calcium 8.5, Magnesium 1.4 L, Troponin I High Sens 28, B-Natriuretic Peptide 710.0 H, TSH 1.73 01/18/24 15:15: PT 18.2 H, INR 1.5 01/18/24 18:24: Troponin I High Sens 29 01/18/24 20:45: Troponin I High Sens 28 01/19/24 06:00: WBC 7.6, RBC 3.70 L, Hgb 12.7, Hct 38.4, MCV 103.8 H, MCH 34.3 H, MCHC 33.1, RDW Std Deviation 63.4 H, RDW Coeff of Bessie 16.7 H, Plt Count 200, MPV 10.1, Immature Gran % (Auto) 0.300, Neut % (Auto) 60.5, Lymph % (Auto) 21.7, Irwin % (Auto) 15.4 H, Eos % (Auto) 1.3, Baso % (Auto) 0.8, Absolute Neuts (auto) 4.6, Absolute Lymphs (auto) 1.65, Nucleated RBC % 0.3, Sodium 135 L, Potassium 4.0, Chloride 101, Carbon Dioxide 24.0, Anion Gap 10, BUN 18, Creatinine 0.94, Estim Creat Clear Calc 52.95, Est GFR (MDRD) Af Amer 74, Est GFR (MDRD) Non-Af 61, BUN/Creatinine Ratio 19.2, Glucose 103, Calcium 8.8, Phosphorus 3.6, Triglycerides 79, Cholesterol 113, LDL Cholesterol 40, VLDL Cholesterol 16, HDL Cholesterol 57 Radiography Diagnostic Testing: Radiology Impression Chest X-Ray 01/18/24 14:33 IMPRESSION: Cardiomegaly. Mild degree of CHF. Blunting of left costophrenic angle with bibasilar atelectasis Electronically Signed: Arun Weems MD at 15:00 EDT , Rhythm Strip Rhythm Strip: A-fib Rate: 141 Ectopy: None Physical Exam Const alert, oriented x3, no apparent distress and average body habitus Constitutional Narrative: Elderly female, sitting up comfortably in bed, conversing normally, in no acute distress. General Appearance: cooperative and comfortable HEENT normocephalic, head/scalp atraumatic, hearing grossly normal bilaterally and nasal mucous membranes and turbinates normal Eyes PERRL, EOMs intact bilaterally and conjunctivae normal Neck full ROM Chest inspection of chest normal Resp normal respiratory effort and no use of accessory muscles Resp Narrative: Breathing comfortably on room air. Mildly decreased breath sounds bilaterally with mild crackles noted in bilateral lung bases. No wheezing noted. Cardio no murmurs and peripheral pulses 2+ throughout Cardio Narrative: A-fib, rate controlled. GI normal to inspection, nondistended, normoactive bowel sounds, soft to palpation, non-tender and non-distended Back/Spine normal ROM Extremity normal to inspection, full ROM and no pedal edema Skin no rashes or lesions noted Neuro moves all extremities and no focal motor deficits Speech: speech normal Psych mental status grossly normal Assessment & Plan Assessment/Plan (1) Atrial fibrillation with RVR: (2) Noncompliance with medication regimen: (3) Congestive heart failure: PLAN: Plan Patient is a 78-year-old female who presented [facility] ED on 01/18/2024 with recurrent A-fib with RVR. 1. 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 Echo showed EF 35% with global LV dysfunction concerning for tachycardia mediated cardiomyopathy. Rate was difficult to control during that hospitalization, was on both beta-stepan and Cardizem; unfortunately had episode of junctional bradycardia prior to that discharge. Was still discharged on Lopressor 25 mg twice daily and Cardizem 180 mg twice daily. Patient reports noncompliance with his medications. Presented 01/17 with A-fib RVR to the 140s again. BNP 710 on admit, slightly lower than previous. Chest x-ray showed cardiomegaly with mild degree of CHF. ? Cardiology following. Good improvement in rate on Cardizem drip, transitioned off drip on 01/18. Treating with the following regimen per cardiology recs: Coreg 12.5 mg twice daily, empagliflozin 10 mg daily, Lasix 40 mg twice daily, Entresto 24-26 mg twice daily. Monitor closely. Continue home Xarelto and statin. Continue cardiac monitoring. If remains stable on this regimen, likely okay for discharge home tomorrow. Chronic medical conditions: ? GERD: Stable. Continue home PPI. ? Allergies: Continue home fexofenadine. DVT prophylaxis: Xarelto CODE STATUS: Full code, verified Expected disposition: Home, 1 to 2 days Total clinical time spent by myself addressing the patient's medical issues, reviewing all the data, and collaborating with patient's care team: 35 minutes. Charges/Coding Visit Charges Inpatient E&M: 27547 Subs Hosp L2
--- NOTE | 2024-01-19 15:45 | CASEMGMT ---
BALJIT BOJORQUEZ readmission note: Index admission: 01/06- 01/11 w/AFib/RVR. D/c'd w/[facility] and several rx's sent to [facility], including Xarelto. Pt did not qualify for home O2 @ d/c. Current admission: Admitted 01/18/24 w/A-Fib/RVR. BALJIT BOJORQUEZ to room to discuss readmission and discharge planning/needs. Introduced self and role. Pt states she is doing well and feeling good today, stating I feel better today than I have in a long time. Pt states she did get all of her medications from [facility] @ discharge last admission and is taking them as prescribed. She was made aware to f/u with PCP re: refills on Eliquis and to have PCP work on prior auth, if required. She states [facility] has been seeing pt and they noted the significant weight gain. She had a f/u appt scheduled w/PCP, but d/t the increase in weight gain, she contacted PCP and was instructed to come to [facility] prior to her scheduled appt. She plans to re-schedule appt w/PCP after discharge. Pt wishes to discharge home w/SAUL w/[facility] and declines wanting list of other [facility] agencies. SAUL order placed and Green sheet placed on chart w/instructions for staff to notify [facility] if pt is d/c'd home over the weekend. BALJIT BOJORQUEZ placed call to Melissa @ [facility]. She is aware pt has been admitted to [facility] and anticpate pt will be ready to d/c home over the weekend. Pt states she is not sure how she will get home tomorrow, stating her neighbor, Kylee, may be able to take her, but she does not have Kylee's phone # w/her d/t she left her cell phone @ home. She plans to call her friend, Vlad, this evening to get Kylee's # from him. Pt denies having any further discharge planning needs/concerns. BALJIT BOJORQUEZ advised her to ask for CM if any needs arise. She voices appreciation. Marion MOSES RN, CM
[2024-01-19] MEDS: Furosemide 40 MG Tablet PO (18:02)
[2024-01-19] MEDS: Rivaroxaban 20 MG Tablet PO (18:03)
[2024-01-19] MEDS: Glycerin/Hypromellose/PEG400 15 ml Bottle 1 DRP EACH EYE (18:05)
[2024-01-19] MEDS: Pravastatin 20 MG Tablet PO (20:36)
[2024-01-19] MEDS: Carvedilol 12.5 MG Tablet PO (20:36)
[2024-01-19] MEDS: SACUBITRIL/VALSARTAN 24/26 MG TABLET 1 EACH PO (20:37)
[2024-01-20] VITALS: BP 122/90; PULSE 70; RESP 18; TEMP 35.9; O2SAT 94
[2024-01-20 05:05] LABS: Absolute Lymphocyte Count 1.76 X10^3/uL (0.83-4.51); Absolute Neutrophil Count 4.9 X10^3/uL (2.0-7.7); Basophil# 0.08 X10^3/uL; Eosinophil# 0.15 X10^3/uL; Eosinophils% 1.9 % (0-5); Lymphocyte # 1.76 X10^3/ul (0.83-4.51); Lymphocyte % 22.1 % (19-41); Mean Corp Hgb Conc 33.3 g/dL (32-36); Mean Corpuscular Hgb 34.7 pg (27.0-32.0); Monocyte# 1.06 X10^3/uL; Monocyte% 13.3 % (0-10); NRBC Flagged by Analyzer 0 % (0-5); Neutrophil # 4.88 X10^3/uL (2.7-7.7); Neutrophil % 61.3 % (47-70); Platelet Count 198 K/mm3 (150-450); Red Blood Count 3.46 M/mm3 (4.2-5.4)
[2024-01-20 05:37] VITALS: BP 118/82; PULSE 84; RESP 18; TEMP 36.6; O2SAT 92
[2024-01-20 05:46] LABS: Anion Gap 6 (5-15); BUN 18 mg/dL (7-18); BUN/Creat Ratio 21.6 RATIO (10-20); Calcium,Total 8.2 mg/dL (8.5-10.1); Chloride 100 mmol/L (98-107); Creatinine, Serum 0.83 mg/dL (0.55-1.02); EST Glomerular Filtration Rate 70 mL/min (>60); Est Glom Filt Rate - Afr Amer 85 mL/min (>60); Estimated Creatinine Clearance 59.97 ml/min; Glucose 103 mg/dL (74-106); Potassium 3.4 mmol/L (3.5-5.1); Sodium Level 134 mmol/L (136-145)
[2024-01-20 07:12] VITALS: PULSE 103; RESP 19; O2SAT 93
[2024-01-20] MEDS: Ipratropium 0.5 MG/2.5 ML SOLUTION INHALATION ×2 (07:12→11:11)
[2024-01-20 07:47] LABS: Magnesium 1.7 mg/dL (1.6-2.6)
[2024-01-20 08:57] VITALS: BP 123/79; PULSE 127
[2024-01-20] MEDS: Carvedilol 12.5 MG Tablet PO (09:00)
[2024-01-20] MEDS: SACUBITRIL/VALSARTAN 24/26 MG TABLET 1 EACH PO (09:00)
[2024-01-20] MEDS: Pantoprazole Sodium 40 MG Tablet PO (09:00)
[2024-01-20] MEDS: Loratadine 10 MG Tablet 5 MG PO (09:00)
[2024-01-20] MEDS: Furosemide 40 MG Tablet PO (09:00)
[2024-01-20] MEDS: guaiFENesin/D-Methorphan TAB.SR.12H 1 TABLET PO (09:00)
[2024-01-20] MEDS: Potassium Chloride Oral Tablet 20 MEQ 40 MEQ PO (09:00)
[2024-01-20] MEDS: Empagliflozin 10 MG Tablet PO (09:01)
--- NOTE | 2024-01-20 09:30 | DCINST_ITS ---
Discharge Instructions Diet Discharge Diet: No restrictions Activity Discharge Activity: No Restrictions Follow Up Care Test Results: Test results from this visit will be discussed in further detail at your follow-up appointment, if applicable. Discharge Plan Admission Admit Date/Time: 01/18/24 17:21 Primary Reason for Your Visit: rapid heart rate and shortness of breath Attending Provider: Bebo Waite Primary Care Provider: [facility] Violetta Pillai Consulting Providers: Mahin Rothman Instructions Additional Instructions / Restrictions: Please start taking carvedilol, Entresto, Lasix and Jardiance for your atrial fibrillation and heart failure. Stop taking Lopressor, diltiazem, lisinopril and spironolactone. Start taking trazodone at night as needed for sleep assistance. The cardiology office will call you to schedule a follow-up appointment for you in the next few weeks. Discharge Orders/Prescriptions Prescriptions: New carvedilol 12.5 mg Tablet 12.5 mg PO BID 30 Days Qty: 60 2RF Jardiance 10 mg Tablet 10 mg PO DAILY 30 Days Qty: 30 2RF Entresto 24-26 mg Tablet 1 tab PO BID 30 Days Qty: 60 2RF trazodone 50 mg tablet 50 mg PO QHS PRN (Reason: sleep) 30 Days Qty: 30 0RF furosemide [Lasix] 20 mg tablet 20 mg PO DAILY 30 Days Qty: 30 0RF Continued epinephrine 0.3 MG syringe 0.3 mg IM X1 Qty: 2 0RF fexofenadine [Judith Allergy] 60 mg tablet 60 mg PO Q24H pantoprazole 40 mg Tablet,Delayed Release (Dr/Ec) 40 mg PO DAILY Qty: 30 0RF pravastatin 20 mg Tablet 20 mg PO QHS Qty: 30 0RF Xarelto 20 mg tablet 20 mg PO DAILY Qty: 30 0RF Rx Instructions: must administer with evening meal potassium chloride 20 mEq tablet,ER particles/crystals 20 meq PO DAILY Discontinued spironolactone 25 mg Tablet 25 mg PO DAILY Qty: 30 0RF lisinopril 5 mg tablet 5 mg PO DAILY Qty: 30 0RF metoprolol tartrate 25 mg tablet 12.5 mg PO BID Qty: 30 0RF diltiazem HCl 180 mg capsule,extended release 24hr 180 mg PO BID [facility] - Disposition Disposition (needs filled in before D/C Order can be placed): Home, Self Care
[2024-01-20] MEDS: Lactated Ringers 1,000 ML 250 ML IV (09:46)
[2024-01-20] MEDS: 0.9% Saline Lock 10 ML Syringe IV (09:48)
--- NOTE | 2024-01-20 09:49 | DS.PCM_ITS ---
Providers Date of Admission: 01/18/24 Date of Discharge: 01/20/24 Primary Care Physician: Violetta [facility] Reason For Visit: AFIB Diagnosis Discharge Diagnosis (1) Atrial fibrillation with RVR: Status: Acute Code(s): I48.91 - Unspecified atrial fibrillation (2) Noncompliance with medication regimen: Status: Acute Code(s): Z91.148 - Patient's other noncompliance with medication regimen for other reason (3) Congestive heart failure: Status: Acute Code(s): I50.9 - Heart failure, unspecified Medications at Discharge Home Medications epinephrine 0.3 mg/0.3 mL injection, auto-injector 0.3 mg (0.3 mL) IM X1 BEE STINGS #2 syringes 05/03/15 fexofenadine 60 mg tablet (Judith Allergy) 60 mg PO Q24H ALLERGY 11/27/23 pantoprazole 40 mg tablet,delayed release 40 mg PO DAILY #30 tabs 01/11/24 pravastatin 20 mg tablet 20 mg PO QHS #30 tabs 01/11/24 rivaroxaban 20 mg tablet (Xarelto) 20 mg PO DAILY #30 tabs 01/11/24 potassium chloride 20 mEq tablet,extended release(part/cryst) 20 meq PO DAILY 01/18/24 carvedilol 12.5 mg tablet 12.5 mg PO BID 30 days #60 tabs 01/20/24 empagliflozin 10 mg tablet (Jardiance) 10 mg PO DAILY 30 days #30 tabs 01/20/24 furosemide 20 mg tablet (Lasix) 20 mg PO DAILY 30 days #30 tabs 01/20/24 sacubitril 24 mg-valsartan 26 mg tablet (Entresto) 1 tab PO BID 30 days #60 tabs 01/20/24 trazodone 50 mg tablet 50 mg PO QHS PRN sleep 30 days #30 tabs 01/20/24 Hospital Course Operations None Procedures EKG and - (Chest x-ray) Summary of Care Provided Minutes Spent on Discharge: 35 Hospital Course: Patient is a 78-year-old female who presented [facility] ED on 01/18/2024 with recurrent A-fib with RVR. Short hospital course as noted below. Patient discharged home with no therapy needs in stable condition on 01/19. 1. Recurrent A-fib with RVR; recent diagnosed HFrEF suspected due to tac hycardia mediated cardiomyopathy Recent admission from 01/06-01/11 for Afib with RVR. Echo 01/11 showed EF 35% with global LV dysfunction concerning for tachycardia mediated cardiomyopathy. Rate was difficult to control during that hospitalization, was on both beta-stepan and Cardizem; unfortunately had episode of junctional bradycardia prior to that discharge. Was still discharged on Lopressor 25 mg twice daily and Cardizem 180 mg twice daily. Patient reports noncompliance with those medications. Presented 01/17 with A-fib RVR to the 140s again. BNP 710 on admit, slightly lower than previous. Chest x-ray showed cardiomegaly with mild degree of CHF. ? Cardiology followed. Good improvement in rate on Cardizem drip, transitioned off drip on 01/18. Initiated on Coreg, empagliflozin, Lasix and Entresto while inpatient with control HR and BP control. Became slightly dry on morning of 01/19 with worsening heart, requiring small fluid bolus with good improvement. Will discharge on Coreg 12.5 mg twice daily, Lasix 20 mg daily, Entresto 24-26 mg twice daily, empagliflozin 10 mg daily. Continued home Xarelto and statin on discharge. Patient will follow-up with cardiology in the office in the next few weeks. 2. Insomnia ? Started trazodone 50 mg at night as needed on discharge per patient request. Chronic medical conditions: ? GERD: Stable. Continue home PPI. ? Allergies: Continue home fexofenadine. Total clinical time spent by myself addressing the patient's medical issues, r eviewing all the data, and collaborating with patient's care team: 35 minutes. Physical Exam Const alert, oriented x3, no apparent distress and average body habitus Constitutional Narrative: Elderly female, sitting up comfortably in bed, conversing normally, in no acute distress. General Appearance: cooperative and comfortable HEENT normocephalic, head/scalp atraumatic, hearing grossly normal bilaterally and nasal mucous membranes and turbinates normal Eyes PERRL, EOMs intact bilaterally and conjunctivae normal Neck full ROM Chest inspection of chest normal Resp normal respiratory effort and no use of accessory muscles Resp Narrative: Breathing comfortably on room air. Good breath sounds bilaterally, no wheezing or crackles noted. Cardio no murmurs and peripheral pulses 2+ throughout Cardio Narrative: A-fib, rate controlled. GI normal to inspection, nondistended, normoactive bowel sounds, soft to palpation, non-tender and non-distended Back/Spine normal ROM Extremity normal to inspection, full ROM and no pedal edema Skin no rashes or lesions noted Neuro moves all extremities and no focal motor deficits Speech: speech normal Psych mental status grossly normal Weight / BMI Weight Weight: 77.6 kg Body Mass Index (BMI) 26.8 ABG / Lab / Microbiology Data 01/20/24 04:30 01/20/24 04:30 Laboratory: Laboratory Results - last 24 hr 01/20/24 04:30: WBC 8.0, RBC 3.46 L, Hgb 12.0, Hct 36.0 L, MCV 104.0 H, MCH 34.7 H, MCHC 33.3, RDW Std Deviation 64.0 H, RDW Coeff of Bessie 17.0 H, Plt Count 198, MPV 10.0, Immature Gran % (Auto) 0.400, Neut % (Auto) 61.3, Lymph % (Auto) 22.1, Gregory % (Auto) 13.3 H, Eos % (Auto) 1.9, Baso % (Auto) 1.0, Absolute Neuts (auto) 4.9, Absolute Lymphs (auto) 1.76, Nucleated RBC % 0, Sodium 134 L, Potassium 3.4 L, Chloride 100, Carbon Dioxide 28.0, Anion Gap 6, BUN 18, Creatinine 0.83, Estim Creat Clear Calc 59.97, Est GFR (MDRD) Af Amer 85, Est GFR (MDRD) Non-Af 70, BUN/Creatinine Ratio 21.6 H, Glucose 103, Calcium 8.2 L, Magnesium 1.7 D/C Instructions Discharge Diet: No restrictions Meaningful Use Info Meaningful Use Meaningful Use Diagnoses (Choose all that apply): None applicable Ischemic Stroke Statin Dosing Therapy Reference: STATIN DOSE THERAPY REFERENCE: * Patients > 75 years receive moderate or high dose statin therapy. * Patients 75 years or YOUNGER should receive HIGH intensity statin dose unless contraindicated. You will be required to document reason for non-treatment if statin daily dose does not meet guidelines. HIGH DOSE STATIN THERAPY DAILY Atorvastatin > than or = to 40 mg Rosuvastatin > than or = to 20 mg Amlodipine + Atorvastatin > than or = to 2.5/40 mg Ezetimibe + Simvastatin 10/80 mg Simvastatin 80mg Discharge Plan Admission Admit Date/Time: 01/18/24 17:21 Primary Reason for Your Visit: rapid heart rate and shortness of breath Attending Provider: Bebo Waite [facility] Providers: Mahin Rothman Instructions Additional Instructions / Restrictions: Please start taking carvedilol, Entresto, Lasix and Jardiance for your atrial fibrillation and heart failure. Stop taking Lopressor, diltiazem, lisinopril and spironolactone. Start taking trazodone at night as needed for sleep assistance. The cardiology office will call you to schedule a follow-up appointment for you in the next few weeks. Discharge Orders/Prescriptions Prescriptions: New carvedilol 12.5 mg Tablet 12.5 mg PO BID 30 Days Qty: 60 2RF Jardiance 10 mg Tablet 10 mg PO DAILY 30 Days Qty: 30 2RF Entresto 24-26 mg Tablet 1 tab PO BID 30 Days Qty: 60 2RF trazodone 50 mg tablet 50 mg PO QHS PRN (Reason: sleep) 30 Days Qty: 30 0RF furosemide [Lasix] 20 mg tablet 20 mg PO DAILY 30 Days Qty: 30 0RF Continued epinephrine 0.3 MG syringe 0.3 mg IM X1 Qty: 2 0RF fexofenadine [Judith Allergy] 60 mg tablet 60 mg PO Q24H pantoprazole 40 mg Tablet,Delayed Release (Dr/Ec) 40 mg PO DAILY Qty: 30 0RF pravastatin 20 mg Tablet 20 mg PO QHS Qty: 30 0RF Xarelto 20 mg tablet 20 mg PO DAILY Qty: 30 0RF Rx Instructions: must administer with evening meal potassium chloride 20 mEq tablet,ER particles/crystals 20 meq PO DAILY Discontinued spironolactone 25 mg Tablet 25 mg PO DAILY Qty: 30 0RF lisinopril 5 mg tablet 5 mg PO DAILY Qty: 30 0RF metoprolol tartrate 25 mg tablet 12.5 mg PO BID Qty: 30 0RF diltiazem HCl 180 mg capsule,extended release 24hr 180 mg PO BID [facility] - Disposition Disposition (needs filled in before D/C Order can be placed): Home, Self Care Charges/Coding Visit Charges Inpatient E&M: 92663 Disch Hosp >30min
[2024-01-20 11:11] VITALS: PULSE 104; RESP 18
[2024-01-20 12:00] VITALS: BP 98/78; PULSE 114; RESP 18; TEMP 36.7; O2SAT 92
--- NOTE | 2024-01-20 15:26 | NURSING ---
Patient called PCU stating [facility] was closed and she wouldn't be able to get her medications until Monday. Offered to send new scripts to [facility] which was open at the time. Dr. Waite notified and sent meds to [facility]. This RN called patient to inform her that medications could be picked up at [facility]; and that they were open until 1899. Patient angry; wanting permission to wait until Monday to make changes to her medications. Advised that RN could not give this permission and advised patient follow discharge orders. Patient angry that scrips are at [facility]. She wants them back to [facility] in [place] for pickup on Monday. Advised patient she would need to call the pharmacy and have this done. Patient angry and hung up on nurse.
== END 2024-01-20 12:26 | disposition home or self-care (01) | DRG 308 ==
LOC: ED 15:34 → PCU 16:03
PROVIDERS: Admitting Provider Internal Medicine; Emergency Provider Emergency Medicine; Visit Provider Hospitalist
DX: I48.20 Chronic atrial fibrillation, unspecified (principal); I50.23 Acute on chronic systolic (congestive) heart failure; I27.20 Pulmonary hypertension, unspecified; I11.0 Hypertensive heart disease with heart failure; J44.9 Chronic obstructive pulmonary disease, unspecified; F17.210 Nicotine dependence, cigarettes, uncomplicated; R11.2 Nausea with vomiting, unspecified; K21.9 Gastro-esophageal reflux disease without esophagitis; Z79.01 Long term (current) use of anticoagulants; Z91.148 Patient's other noncompliance with medication regimen for other reason; G47.00 Insomnia, unspecified; Z79.899 Other long term (current) drug therapy; R53.81 Other malaise; R10.31 Right lower quadrant pain
CPT/HCPCS: 36415; 71045; 80048; 80061; 83735; 83880; 84100; 84443; 84484; 85025; 85610; 93005; 94640; 94668; 97162; 97166; 97802; 99285; A4216; J1938; J2405

== ENCOUNTER 2024-01-25 12:33 | Inpatient (IN) | payer MEDICARE, BC, OTHER, SELFPAY ==
[2024-01-25] VITALS (37 sets, daily range): BP systolic 79–145; BP diastolic 43–116; PULSE 85–154; RESP 12–27; TEMP 36.2–36.8; O2SAT 88–100; BMI 27.3; BMI 27.4
--- NOTE | 2024-01-25 13:18 | RAD_ITS ---
STUDY: X-RAY CHEST REASON FOR EXAM: Female, 78 years old. Chest pain TECHNIQUE: AP and lateral views of the chest. COMPARISON: Comparison is made with prior study of January 18, 2012. FINDINGS: EKG electrodes are seen. There is evidence of vascular congestion and CHF. Small bilateral pleural effusions slightly more prominent on the left side with bibasilar atelectasis and/or infiltrate worse at the left lung base. There is mild cardiac enlargement. Normal mediastinum and andre. Normal visualized pulmonary arteries. There is atherosclerotic tortuosity of the aortic arch and descending thoracic aorta. There is demineralization of the osseous structures. Normal visualized ribs, clavicles, and shoulders. There is no demonstrated abnormality of the visualized soft tissue structures of the upper abdomen. RAD/Chest PA and Lateral IMPRESSION: Thyromegaly and mild degree of CHF with small bilateral effusions left greater than right and bibasilar atelectasis worse at the left lung base. There has been progression as compared to prior study. Electronically Signed: Arun Weems MD at 14:16 EDT ,
--- NOTE | 2024-01-25 13:29 | EDS_ITS ---
<Statement entered by Mell Koenig MD - 01/25/24 16:51> I have personally performed a face to face assessment of the patient and have reviewed the DARYN Note. Patient present secondary palpitations and shortness of breath. She is a history of A-fib and has been hospitalized multiple times recently with A-fib RVR. Patient reports that she is compliant with her medications. Symptoms started early this morning when she felt nauseated and had difficulty sleeping. Patient sitting upright in bed no acute distress. Head and neck examination unremarkable. Heart is tachycardic and irregular. Lung sounds are grossly clear. Abdomen is soft and nontender. Patient's EKG does confirm A-fib RVR. Normal QTc. She is given Zofran for nausea as well as Cardizem for rate control. Lab work is reviewed and does reveal elevated troponin at 124. Patient's heart rate was initially controlled to about 100 but then increased again to 120. She started on a Cardizem drip she has required this with multiple prior admissions. Hospitalist has been contacted for admission. HPI History of Present Illness Chief Complaint: Shortness of Breath Narrative Narrative: Patient presenting today due to shortness of breath that started around 2 AM. She reports that she is also nauseous and has substernal chest pain and epigastric abdominal pain. She has a history of atrial fibrillation and was recently admitted to the hospital from 01/06-01/11 due to A-fib RVR. She reports that she has been compliant with her medications at home and has been doing fine up until this morning. She denies any fevers, chills, vomiting. [facility] Medical History Acid reflux Atrial fibrillation with RVR Back pain Chest pain Hearing difficulty Heart failure with reduced ejection fraction Hypertension Hypomagnesemia Vision impairment Home Medications epinephrine 0.3 mg/0.3 mL injection, auto-injector 0.3 mg (0.3 mL) IM X1 BEE STINGS #2 syringes 05/03/15 [Rx Last Taken 01/16/18] fexofenadine 60 mg tablet (Judith Allergy) 60 mg PO Q24H ALLERGY 11/27/23 [History Last Taken Unknown] pantoprazole 40 mg tablet,delayed release 40 mg PO DAILY reflux #30 tabs 01/11/24 [Rx Last Taken Unknown] pravastatin 20 mg tablet 20 mg PO QHS cholesterol #30 tabs 01/11/24 [Rx Last Taken Unknown] rivaroxaban 20 mg tablet (Xarelto) 20 mg PO DAILY blood thinner #30 tabs 01/11/24 [Rx Last Taken Unknown] potassium chloride 20 mEq tablet,extended release(part/cryst) 20 meq PO DAILY supplment 01/18/24 [History Last Taken Unknown] carvedilol 12.5 mg tablet 12.5 mg PO BID 30 days #60 tabs 01/20/24 [Rx Last Taken Unknown] empagliflozin 10 mg tablet (Jardiance) 10 mg PO DAILY 30 days #30 tabs 01/20/24 [Rx Last Taken Unknown] furosemide 20 mg tablet (Lasix) 20 mg PO DAILY 30 days #30 tabs 01/20/24 [Rx Last Taken Unknown] sacubitril 24 mg-valsartan 26 mg tablet (Entresto) 1 tab PO BID 30 days #60 tabs 01/20/24 [Rx Last Taken Unknown] trazodone 50 mg tablet 50 mg PO QHS PRN sleep 30 days #30 tabs 01/20/24 [Rx Last Taken Unknown] lisinopril 5 mg tablet 5 mg PO DAILY 01/25/24 [History Last Taken Unknown] metoprolol tartrate 25 mg tablet 12.5 mg PO BID 01/25/24 [History Last Taken Unknown] spironolactone 25 mg tablet 25 mg PO DAILY 01/25/24 [History Last Taken Unknown] Allergy/AdvReac Type Severity Reaction Status Date / Time iodine Allergy Hives Verified 01/25/24 12:44 venom-honey bee Allergy Shortness Verified 01/25/24 12:44 [bee venom (honey bee)] of breath Family History no significant family his Social History household members: none Smoking Status: Current every day smoker tobacco type: cigarettes ROS ROS ED Constitutional Constitutional ED: Denies chills or fever(s) Cardiovascular Cardiovascular: Reports chest pain; Denies palpitations Respiratory/Chest Respiratory/Chest: Reports dyspnea and dyspnea on exertion; Denies cough Gastrointestinal Gastrointestinal: Reports abdominal pain and nausea; Denies vomiting Genitourinary Genitourinary ED: Denies dysuria, hematuria or urinary urgency Musculoskeletal Musculoskeletal: Denies arthralgias or myalgias Integumentary Denies rash Neurologic Neurologic: Denies weakness EXAM Physical Exam Const Vital Signs: 01/25/24 12:39 01/25/24 12:42 01/25/24 12:52 Temperature 97.2 F L 97.2 F L Temperature Source Temporal Temporal Pulse Rate 147 H 154 H Respiratory Rate 26 H 19 H Respiratory Effort Short of Breath Blood Pressure 138/108 H 138/108 H Blood Pressure Mean 118 118 Pulse Ox 95 94 Oxygen Delivery Method Room Air Room Air Room Air Oxygen Flow Rate (L/min) 01/25/24 13:45 01/25/24 14:37 Temperature 97.5 F L Temperature Source Temporal Pulse Rate 103 H 103 H Respiratory Rate 13 22 H Respiratory Effort Blood Pressure 106/76 98/68 Blood Pressure Mean 86 78 Pulse Ox 95 95 Oxygen Delivery Method Nasal Cannula Oxygen Flow Rate (L/min) 2 Positive well nourished, well developed and no apparent distress General Appearance ED: well developed HEENT Reports normocephalic and head/scalp atraumatic Mouth ED: Yes moist mucous membranes normal Eyes PERRL and EOMs intact bilaterally Neck full ROM and supple Chest Wall inspection of chest normal Resp normal respiratory effort and clear to auscultation bilaterally Cardio Rate: tachycardic Rhythm: abnormal rhythm irregularly irregular GI soft to palpation, non-tender, non-distended and no masses Back/Spine normal ROM and normal to inspection Extremity normal to inspection and full ROM Neuro oriented x3, CN's II-XII intact bilaterally, moves all extremities, no focal motor deficits and no sensory deficits noted Sensorium / Orientation: awake and alert Psych mental status grossly normal and thought process normal Skin no rashes or lesions noted and no wounds MDM MDM MDM Narrative Medical decision making narrative: Patient presenting due to shortness of breath. Patient is in A-fib RVR. She was recently admitted to the hospital twice, the last being 01/06-01/11. She was discharged home on carvedilol, Entresto, she is on Xarelto. She does have a history of noncompliance but states she has been compliant with her medication since being discharged. She reports a substernal chest pain/epigastric abdominal pain, she has had this substernal pain during previous visits. Her heart rate now is in the 140s to 150s, she will be given 20 mg Cardizem IV bolus. Patient's troponin is 124. Chest x-ray shows small bilateral pleural effusions. On reexamination patient is still tachycardic around 120 bpm, she will be started on a Cardizem drip, I will speak with the hospitalist for admission and she will be admitted in stable condition. Lab Data Attestation: I reviewed the patient's lab results. Lab results narrative: Troponin 124, BUN 3, bilirubin 1.3 Labs: Laboratory Results - last 24 hr 01/25/24 13:30 WBC 7.5 RBC 4.34 Hgb 14.8 Hct 44.2 MCV 101.8 H MCH 34.1 H MCHC 33.5 RDW Std Deviation 64.1 H RDW Coeff of Bessie 17.1 H Plt Count 253 MPV 9.8 Immature Gran % (Auto) 0.400 Neut % (Auto) 78.0 H Lymph % (Auto) 10.6 L [place] % (Auto) 9.8 Eos % (Auto) 0.3 Baso % (Auto) 0.9 Absolute Neuts (auto) 5.8 Absolute Lymphs (auto) 0.79 L Nucleated RBC % 0 Sodium 137 Potassium 4.3 Chloride 106 Carbon Dioxide 26.0 Anion Gap 5 BUN 17 Creatinine 0.82 Estim Creat Clear Calc 61.30 Est GFR (MDRD) Af Amer 87 Est GFR (MDRD) Non-Af 72 BUN/Creatinine Ratio 20.8 H Glucose 123 H Calcium 8.3 L Total Bilirubin 1.30 H AST 36 ALT 22 Alkaline Phosphatase 95 Troponin I High Sens 124 H* Total Protein 6.4 Albumin 3.0 L Globulin 3.4 Albumin/Globulin Ratio 0.9 Lipase 18 Radiography X-Ray: Read by ED Physician Diagnostic Testing: Clinical Impression(s) from Imaging Studies Chest X-Ray 01/25/24 13:18 IMPRESSION: Thyromegaly and mild degree of CHF with small bilateral effusions left greater than right and bibasilar atelectasis worse at the left lung base. There has been progression as compared to prior study. Electronically Signed: Arun Weems MD at 14:16 EDT , EKG Initial EKG: Comments: 142 bpm, atrial fibrillation with RVR, no ST elevation, reviewed and interpreted by attending ED physician Discharge Plan Triage Chief Complaint: Shortness of Breath ED Midlevel Provider: Vianney Delcid ED Provider: Mell Koenig Dx/Rx/DC Orders [facility]
[2024-01-25] MEDS: dilTIAZem 25 MG/5 ML Vial 20 MG IV BOLUS (13:42)
[2024-01-25] MEDS: Ondansetron 4 MG/2 ML Vial IV (13:44)
[2024-01-25 13:45] LABS: Absolute Lymphocyte Count 0.79 X10^3/uL (0.83-4.51); Absolute Neutrophil Count 5.8 X10^3/uL (2.0-7.7); Basophil# 0.07 X10^3/uL; Basophil% 0.9 % (0-1); Eosinophil# 0.02 X10^3/uL; Eosinophils% 0.3 % (0-5); Hematocrit 44.2 % (37-47); Hemoglobin 14.8 g/dL (12.0-15.0); Lymphocyte # 0.79 X10^3/ul (0.83-4.51); Lymphocyte % 10.6 % (19-41); Mean Corp Hgb Conc 33.5 g/dL (32-36); Mean Corpuscular Hgb 34.1 pg (27.0-32.0); Mean Corpuscular Volume 101.8 fL (81-99); Mean Platelet Vol. 9.8 fl (6.2-12.0); Monocyte# 0.73 X10^3/uL; Monocyte% 9.8 % (0-10); NRBC Flagged by Analyzer 0 % (0-5); Neutrophil # 5.84 X10^3/uL (2.7-7.7); Platelet Count 253 K/mm3 (150-450); RBC Distribution Width CV 17.1 % (11.6-14.6); RBC Distribution Width SD 64.1 fl (35.1-43.9); Red Blood Count 4.34 M/mm3 (4.2-5.4); White Blood Count 7.5 K/mm3 (4.4-11.0)
[2024-01-25 14:01] LABS: ALB/GLOB Ratio 0.9 RATIO (0.9-2.4); AST(SGOT) 36 U/L (15-37); Alanine Aminotransfer ALT/SGPT 22 U/L (13-56); Alkaline Phosphatase 95 U/L (45-117); Anion Gap 5 (5-15); BUN 17 mg/dL (7-18); BUN/Creat Ratio 20.8 RATIO (10-20); Calcium,Total 8.3 mg/dL (8.5-10.1); Chloride 106 mmol/L (98-107); Creatinine, Serum 0.82 mg/dL (0.55-1.02); EST Glomerular Filtration Rate 72 mL/min (>60); Est Glom Filt Rate - Afr Amer 87 mL/min (>60); Globulin 3.4 g/dL (2.2-4.2); Glucose 123 mg/dL (74-106); Lipase 18 U/L (13-75); Potassium 4.3 mmol/L (3.5-5.1); Protein, Total 6.4 g/dL (6.4-8.2); Sodium Level 137 mmol/L (136-145); Troponin-I HS (w/2H Reflex) 124 pg/mL (3.0-54.0)
--- NOTE | 2024-01-25 14:48 | HP.PCM.HOS_ITS ---
[facility] - General General Date of Admission: 01/25/24 Date of Service: 01/25/24 Chief Complaint: Palpitations and shortness of breath [facility] Narrative JULIO HERNANDEZ, is a 78 F who presented to [facility] ED on 01/25/2024 with recurrent palpitations and shortness of breath. Patient was recently hospitalized here from 01/06-01/11 and again from 01/17-01/19. Was found on first admit to have new onset A-fib with RVR. Cardiology followed during both admissions. During first admission, A-fib improved on Cardizem drip but then worsened with patient only on p.o. beta-stepan so p.o. Cardizem was added. Patient did have an episode of junctional bradycardia on his medications but improved quickly, and she was discharged on 01/11 on both Lopressor and Cardizem. She returned on 01/17 with recurrent A-fib with RVR. She admitted to not taking her home Lopressor and Cardizem after discharge. Her heart rate again improved on the Cardizem drip. Notably patient had an echo done during first admission that showed a newly reduced EF of 35% with moderate to severe global hypokinesis of the LV, mildly dilated RV, moderately enlarged LA and RA, no significant valve disease. She was noted to be mild to moderately volume overloaded during the second hospitalization. She was initiated on several new medications at that time including Coreg, Entresto, Lasix, spironolactone, and empagliflozin. She was given 2 doses of IV Lasix here with good urine output and mild line depletion with worsening of A-fib with RVR that responded to a small fluid bolus. She was discharged home on low doses of all of these medications. I saw patient at bedside in the ED. Patient was fairly dry appearing. She stated that she had been taking her medications as instructed since the prior discharge. She was not sure if she had increased urine output from normal. She did note that she felt dry especially over the last day or so. She drank a whole glass of water on arrival to the ED and still felt thirsty. She was started on a Cardizem drip on arrival and heart rate was in the 100s to low 110s when I saw her. Blood pressure was stable in the 120s over 80s. She was sitting up comfortably in bed at that time and denied any chest pain or palp itations. She denied any shortness of breath at rest. She was on 2 L nasal cannula but had oxygen saturations in the high 90s and had no increased work of breathing noted. Vitals in ED as noted above. CBC with hemoglobin 14.8, up from baseline around 12-13. BMP was benign with creatinine at baseline around 0.8. Troponin trend 124 > 121. BNP 1997, increased from previous. Chest x-ray showed mild degree of CHF with small bilateral effusions left greater than right, mildly worsened from previous chest x-ray; also showed thyromegaly. Patient will be admitted for further management. [facility] Medical History Acid reflux Atrial fibrillation with RVR Back pain Chest pain Hearing difficulty Heart failure with reduced ejection fraction Hypertension Hypomagnesemia Vision impairment Home Medications epinephrine 0.3 mg/0.3 mL injection, auto-injector 0.3 mg (0.3 mL) IM X1 BEE STINGS #2 syringes 05/03/15 [Rx Last Taken 01/16/18] fexofenadine 60 mg tablet (Judith Allergy) 60 mg PO Q24H ALLERGY 11/27/23 [History Last Taken 01/25/24] pantoprazole 40 mg tablet,delayed release 40 mg PO DAILY reflux #30 tabs 01/11/24 [Rx Last Taken 01/25/24] pravastatin 20 mg tablet 20 mg PO QHS cholesterol #30 tabs 01/11/24 [Rx Last Taken Unknown] rivaroxaban 20 mg tablet (Xarelto) 20 mg PO DAILY blood thinner #30 tabs 01/11/24 [Rx Last Taken 01/24/24 21:00] potassium chloride 20 mEq tablet,extended release(part/cryst) 20 meq PO DAILY supplment 01/18/24 [History Last Taken 01/25/24] carvedilol 12.5 mg tablet 12.5 mg PO BID 30 days #60 tabs 01/20/24 [Rx Last Taken 01/25/24] empagliflozin 10 mg tablet (Jardiance) 10 mg PO DAILY 30 days #30 tabs 01/20/24 [Rx Last Taken 01/25/24] furosemide 20 mg tablet (Lasix) 20 mg PO DAILY 30 days #30 tabs 05/04/24 [Rx Last Taken 01/25/24] sacubitril 24 mg-valsartan 26 mg tablet (Entresto) 1 tab PO BID 30 days #60 tabs 01/20/24 [Rx Last Taken Unknown] trazodone 50 mg tablet 50 mg PO QHS PRN sleep 30 days #30 tabs 01/20/24 [Rx Last Taken 01/24/24] lisinopril 5 mg tablet 5 mg PO DAILY blood pressure 01/25/24 [History Last Taken 01/25/24] metoprolol tartrate 25 mg tablet 12.5 mg PO BID heart rate 01/25/24 [History Last Taken 01/25/24] spironolactone 25 mg tablet 25 mg PO DAILY diuretic 01/25/24 [History Last Taken 01/25/24] Allergy/AdvReac Type Severity Reaction Status Date / Time iodine Allergy Hives Verified 01/25/24 12:44 venom-honey bee Allergy Shortness Verified 01/25/24 12:44 [bee venom (honey bee)] of breath Family History no significant family his Social History household members: none Smoking Status: Current every day smoker tobacco type: cigarettes ROS Constitutional Constitutional: Denies chills, fatigue, fever(s) or weakness Cardiovascular Cardiovascular: Reports dyspnea on exertion and palpitations; Denies chest pain, edema, lightheadedness or syncope Respiratory/Chest Respiratory/Chest: Reports productive cough and shortness of breath with exertion; Denies shortness of breath at rest or wheezing Gastrointestinal Gastrointestinal: Denies abdominal pain Genitourinary Genitourinary: Denies dysuria Musculoskeletal Musculoskeletal: Denies back pain Neurologic Neurologic: Denies dizziness, focal weakness or headache(s) Vital Signs Vital Signs Vital Signs: 01/25/24 12:39 01/25/24 12:42 01/25/24 12:52 Temperature 97.2 F L 97.2 F L Temperature Source Temporal Temporal Pulse Rate 147 H 154 H Respiratory Rate 26 H 19 H Respiratory Effort Short of Breath Blood Pressure 138/108 H 138/108 H Blood Pressure Mean 118 118 Pulse Ox 95 94 Oxygen Delivery Method Room Air Room Air Room Air Oxygen Flow Rate (L/min) 01/25/24 13:45 Temperature 97.5 F L Temperature Source Temporal Pulse Rate 103 H Respiratory Rate 13 Respiratory Effort Blood Pressure 106/76 Blood Pressure Mean 86 Pulse Ox 95 Oxygen Delivery Method Nasal Cannula Oxygen Flow Rate (L/min) 2 Weight Weight: 79.3 kg Body Mass Index (BMI) 27.3 Physical Exam Const alert, oriented x3, no apparent distress and average body habitus Constitutional Narrative: Elderly female, somewhat chronically ill-appearing, otherwise sitting up comfortably in bed, conversing normally, in no acute distress. General Appearance: cooperative and comfortable HEENT normocephalic, head/scalp atraumatic, hearing grossly normal bilaterally and nasal mucous membranes and turbinates normal Eyes PERRL, EOMs intact bilaterally and conjunctivae normal Neck full ROM Chest inspection of chest normal Resp normal respiratory effort and no use of accessory muscles Resp Narrative: Mildly decreased breath sounds bilaterally with crackles noted in bilateral lung bases. Breathing comfortably with good oxygen saturations on 2 L nasal cannula at rest. No wheezing noted. Cardio no murmurs and peripheral pulses 2+ throughout Cardio Narrative: A-fib with RVR. GI normal to inspection, nondistended, normoactive bowel sounds, soft to palpation, non-tender and non-distended Back/Spine normal ROM Extremity normal to inspection and no pedal edema Skin no rashes or lesions noted Neuro moves all extremities and no focal motor deficits Speech: speech normal Psych mental status grossly normal Results Lab / Micro Data 01/25/24 13:30 01/25/24 13:30 Labs: Laboratory Results - last 24 hr 01/25/24 13:30: WBC 7.5, RBC 4.34, Hgb 14.8, Hct 44.2, MCV 101.8 H, MCH 34.1 H, MCHC 33.5, RDW Std Deviation 64.1 H, RDW Coeff of Bessie 17.1 H, Plt Count 253, MPV 9.8, Immature Gran % (Auto) 0.400, Neut % (Auto) 78.0 H, Lymph % (Auto) 10.6 L, [place] % (Auto) 9.8, Eos % (Auto) 0.3, Baso % (Auto) 0.9, Absolute Neuts (auto) 5.8, Absolute Lymphs (auto) 0.79 L, Nucleated RBC % 0, Sodium 137, Potassium 4.3, Chloride 106, Carbon Dioxide 26.0, Anion Gap 5, BUN 17, Creatinine 0.82, Estim Creat Clear Calc 61.30, Est GFR (MDRD) Af Amer 87, Est GFR (MDRD) Non-Af 72, BUN/Creatinine Ratio 20.8 H, Glucose 123 H, Calcium 8.3 L, Total Bilirubin 1.30 H, AST 36, ALT 22, Alkaline Phosphatase 95, Troponin I High Sens 124 H*, Total Protein 6.4, Albumin 3.0 L, Globulin 3.4, Albumin/Globulin Ratio 0.9, Lipase 18 Imaging Radiology Impression Chest X-Ray 01/25/24 13:18 IMPRESSION: Thyromegaly and mild degree of CHF with small bilateral effusions left greater than right and bibasilar atelectasis worse at the left lung base. There has been progression as compared to prior study. Electronically Signed: Arun Weems MD at 14:16 EDT , Assessment & Plan Assessment/Plan (1) Atrial fibrillation with RVR: (2) Infestation by bed bug: PLAN: Plan Patient is a 78-year-old female who presented [facility] ED on 01/25/2024 with recurrent A-fib with RVR. 1. Recurrent A-fib with RVR, HFrEF exacerbation with mild hypoxia ? Admit under inpatient status to PCU. Cardiology consulted. Suspect patient became dry due to overdiuresis with the medications on previous discharge, leading to recurrence of A-fib with RVR and resultant fluid backup into the lungs from the A-fib with RVR. Continue Cardizem drip started in the ED. Resume Coreg at decreased dose of 6.25 mg twice daily. Will hold home Entresto, Lasix, spironolactone and empagliflozin for now. Continue home Eliquis. Mild hypoxia presumed secondary to volume overload in the lungs. Will restart diuretics when able. 2. Bedbug infestation ? Noted in the ED. Precautions in place. Chronic medical conditions: ? Insomnia: Continue trazodone at night as needed. ? GERD: Stable. Continue home PPI. ? Allergies: Continue home fexofenadine. DVT prophylaxis: Eliquis CODE STATUS: Full code, verified Expected disposition: Home, 2 to 3 days Total clinical time spent by myself addressing the patient's medical issues, reviewing all the data, and collaborating with patient's care team: 55 minutes. Charges/Coding Visit Charges Inpatient E&M: 96522 Init Hosp L2
[2024-01-25 15:24] LABS: Magnesium 1.6 mg/dL (1.6-2.6)
[2024-01-25] MEDS: Diltiazem 125 MG in Dextrose 5%-Water (100mL Bag) 100 ML CONT INF (15:28)
[2024-01-25] MEDS: 0.9% Normal Saline (1000mL) 1,000 ML 999 ML IV (15:28)
[2024-01-25 15:36] LABS: Reflex Troponin-HS? (from REC) Y
[2024-01-25 16:47] LABS: Troponin-I HS 121 pg/mL (3.0-54.0)
[2024-01-25] MEDS: Pravastatin 20 MG Tablet PO (19:59)
[2024-01-25] MEDS: traZODone 50 MG Tablet PO (20:51)
[2024-01-25] MEDS: Diltiazem 125 MG in Dextrose 5%-Water (100mL Bag) 100 ML 15 MG CONT INF (23:35)
[2024-01-26] VITALS (24 sets, daily range): BP systolic 84–109; BP diastolic 48–84; PULSE 71–97; RESP 6–21; TEMP 36.1–37.2; O2SAT 88–99
[2024-01-26 06:13] LABS: Hematocrit 37.9 % (37-47); Hemoglobin 12.8 g/dL (12.0-15.0); Mean Corp Hgb Conc 33.8 g/dL (32-36); Mean Corpuscular Hgb 34.6 pg (27.0-32.0); Mean Corpuscular Volume 102.4 fL (81-99); Mean Platelet Vol. 10.1 fl (6.2-12.0); Platelet Count 207 K/mm3 (150-450); RBC Distribution Width CV 17.1 % (11.6-14.6); RBC Distribution Width SD 63.9 fl (35.1-43.9); White Blood Count 5.7 K/mm3 (4.4-11.0)
[2024-01-26 06:37] LABS: AST(SGOT) 20 U/L (15-37); Alanine Aminotransfer ALT/SGPT 14 U/L (13-56); Albumin, Serum 2.3 g/dL (3.2-5.0); Alkaline Phosphatase 64 U/L (45-117); Anion Gap 6 (5-15); BUN 16 mg/dL (7-18); BUN/Creat Ratio 26.8 RATIO (10-20); Calcium,Total 8.2 mg/dL (8.5-10.1); Chloride 102 mmol/L (98-107); EST Glomerular Filtration Rate 103 mL/min (>60); Est Glom Filt Rate - Afr Amer 125 mL/min (>60); Estimated Creatinine Clearance 62.91 ml/min; Globulin 2.4 g/dL (2.2-4.2); Glucose 87 mg/dL (74-106); Potassium 3.8 mmol/L (3.5-5.1); Protein, Total 4.7 g/dL (6.4-8.2); Sodium Level 135 mmol/L (136-145)
--- NOTE | 2024-01-26 08:19 | PCM.PN.HOSP ---
Reason for Visit Reason for Visit: Diagnoses Other specified infestations (01/25/24) Unspecified atrial fibrillation (01/25/24) Subjective Subjective Feeling well. Objective Data Objective Data Vital Signs: Vital Signs Temp Pulse Resp BP Pulse Ox O2 Del Method O2 Flow Rate 36.4 C L 97 19 H 90/57 L 94 Nasal Cannula 2 01/25/24 17:00 01/26/24 07:00 01/26/24 07:00 01/26/24 06:00 01/26/24 07:00 01/26/24 07:00 01/26/24 07:00 Oxygen Flow Rate (L/min) 2 Oxygen Delivery Method Nasal Cannula Weight: 79.5 kg Body Mass Index (BMI) 27.4 Intake & Output: Intake and Output for Last 24 Hours 01/24/24 01/25/24 01/26/24 23:59 23:59 23:59 Intake Total 1470.91 / 1477.16 111.25 / 111.25 Output Total 300 / 300 Balance 1470.91 / 1477.16 -188.75 / -188.75 Lab / Micro Data 01/26/24 03:38 01/26/24 03:38 Labs: Laboratory Results - last 24 hr 01/25/24 13:30: WBC 7.5, RBC 4.34, Hgb 14.8, Hct 44.2, MCV 101.8 H, MCH 34.1 H, MCHC 33.5, RDW Std Deviation 64.1 H, RDW Coeff of Bessie 17.1 H, Plt Count 253, MPV 9.8, Immature Gran % (Auto) 0.400, Neut % (Auto) 78.0 H, Lymph % (Auto) 10.6 L, [place] % (Auto) 9.8, Eos % (Auto) 0.3, Baso % (Auto) 0.9, Absolute Neuts (auto) 5.8, Absolute Lymphs (auto) 0.79 L, Nucleated RBC % 0, Sodium 137, Potassium 4.3, Chloride 106, Carbon Dioxide 26.0, Anion Gap 5, BUN 17, Creatinine 0.82, Estim Creat Clear Calc 61.30, Est GFR (MDRD) Af Amer 87, Est GFR (MDRD) Non-Af 72, BUN/Creatinine Ratio 20.8 H, Glucose 123 H, Calcium 8.3 L, Magnesium 1.6, Total Bilirubin 1.30 H, AST 36, ALT 22, Alkaline Phosphatase 95, Troponin I High Sens 124 H*, B-Natriuretic Peptide 1998.0 H, Total Protein 6.4, Albumin 3.0 L, Globulin 3.4, Albumin/Globulin Ratio 0.9, Lipase 18 01/25/24 15:55: Troponin I High Sens 121 H* 01/26/24 03:38: WBC 5.7, RBC 3.70 L, Hgb 12.8, Hct 37.9, MCV 102.4 H, MCH 34.6 H, MCHC 33.8, RDW Std Deviation 63.9 H, RDW Coeff of Bessie 17.1 H, Plt Count 207, MPV 10.1, Sodium 135 L, Potassium 3.8, Chloride 102, Carbon Dioxide 27.0, Anion Gap 6, BUN 16, Creatinine 0.60, Estim Creat Clear Calc 62.91, Est GFR (MDRD) Af Amer 125, Est GFR (MDRD) Non-Af 103, BUN/Creatinine Ratio 26.8 H, Glucose 87, Calcium 8.2 L, Total Bilirubin 1.60 H, AST 20, ALT 14, Alkaline Phosphatase 64, Total Protein 4.7 L, Albumin 2.3 L, Globulin 2.4, Albumin/Globulin Ratio 1.0 Radiography Diagnostic Testing: Radiology Impression Chest X-Ray 01/25/24 13:18 IMPRESSION: Thyromegaly and mild degree of CHF with small bilateral effusions left greater than right and bibasilar atelectasis worse at the left lung base. There has been progression as compared to prior study. Electronically Signed: Arun Weems MD at 14:16 EDT , Physical Exam Const alert and no apparent distress Constitutional Narrative: Up in chair doing crossword. HEENT head/scalp atraumatic and moist oral mucous membranes Resp normal respiratory effort, no retractions, no use of accessory muscles and clear to auscultation bilaterally Cardio regular rate, regular rhythm, S1 normal heart sound and S2 normal heart sound GI normal to inspection, nondistended, normoactive bowel sounds, soft to palpation, non-tender and non-distended Extremity General Extremity: edema bilateral lower extremity Details: mild Neuro no focal motor deficits Sensorium / Orientation: awake and alert Assessment & Plan Assessment/Plan (1) Atrial fibrillation with RVR: (2) Infestation by bed bug: PLAN: Plan Recurrent A-fib with RVR, Diltiazem drip discontinued and changed over to diltiazem 60 mg every 6 hours. on carvedilol anticoagulated with rivaroxaban Cardiology on consult. This is now the patient's 4th admission since November at [facility]. D-dimer elevated and CT angiogram of the chest is ordered. Acute HFrEF exacerbation with mild hypoxia CXR reviewed and shows pulmonary vascular congestion holding off on diuretics given low BP. Valsartan/sacubitril held given low BP. EF 35% on echocardiogram from 01/12/2024. Moderate-severe global hypokinesis. Bedbugs no treatment. Precautions Debility Multifactorial given multiple recent hospitalizations, multiple severe medical comorbidities, poor performance status. PT OT Chronic medical conditions: Insomnia: Continue trazodone at night as needed. GERD: Stable. Continue home PPI. Allergies: Continue home fexofenadine. DVT prophylaxis: not indicated as already anticoagulated. CODE STATUS: Full code, verified Disposition: To be determined. Charges/Coding Visit Charges Inpatient E&M: 55070 Subs Hosp L2
[2024-01-26] MEDS: Diltiazem 125 MG in Dextrose 5%-Water (100mL Bag) 100 ML 15 MG CONT INF (08:52)
[2024-01-26] MEDS: Pantoprazole Sodium 40 MG Tablet PO (09:29)
[2024-01-26] MEDS: Carvedilol 6.25 MG Tablet PO (09:29)
[2024-01-26] MEDS: Loratadine 10 MG Tablet 5 MG PO (09:30)
--- NOTE | 2024-01-26 09:51 | CON.PCM.CA_ITS ---
Assessment & Plan Assessment/Plan (1) Atrial fibrillation with RVR: PLAN: Continue beta-blockers and calcium channel stepan for heart rate control. Switch to p.o. diltiazem. Rivaroxaban for anticoagulation. (2) Congestive heart failure: PLAN: LVEF estimated to be 35% on echocardiogram in November of this year. Likely tachycardia induced cardiomyopathy. However given her risk factors, will check a Lexiscan stress Myoview to rule out ischemia. (3) Chest pain: PLAN: Pleuritic. Atypical. However with her risk factors, check Lexiscan stress Myoview. (4) Elevated troponin: PLAN: Likely type II with atrial fibrillation with rapid ventricular response. See #2 above. (5) Noncompliance with medication regimen: PLAN: We will try to contact the patient's pharmacy and see if he has filled in her prescriptions. (6) COPD (chronic obstructive pulmonary disease): PLAN: Decreased breath sounds bilaterally. History of nicotine dependence. Consider emphysema. Follow as per internal medicine. HPI Consult Data Date of Consult: 01/26/24 HPI Narrative Reason for Consultation: Atrial fibrillation with rapid ventricular response HPI Narrative: This is this lady's third hospital admission within the last 3 weeks. She was initially admitted last month with complaints of palpitations and dyspnea. She was noted to have atrial fibrillation with rapid ventricular response. Started on medications. After discharge home, she again presented earlier this month with similar complaints. She was not taking her medications at home. She was only discharged home last week but again presented yesterday with similar complaints of shortness of breath and with palpitations. Again she was noted to be in atrial fibrillation with rapid ventricular response. Patient says that she was taking her medications but seems to be greatly confused about those. Patient also complains of some chest discomfort with her palpitations. Per her, it was worse with coughing. No radiation to the arm neck or jaw. No diaphoresis. Denies any exertional chest pain. [facility] Medical History (Updated 01/26/24 @ 09:[address] Hilario Soria MD) Acid reflux Atrial fibrillation with RVR Back pain Chest pain Hearing difficulty Heart failure with reduced ejection fraction Hypertension Hypomagnesemia Vision impairment Home Medications epinephrine 0.3 mg/0.3 mL injection, auto-injector 0.3 mg (0.3 mL) IM X1 BEE STINGS #2 syringes 08/16/15 [Rx Last Taken 01/16/18] fexofenadine 60 mg tablet (Judith Allergy) 60 mg PO Q24H ALLERGY 11/27/23 [History Last Taken 01/25/24] pantoprazole 40 mg tablet,delayed release 40 mg PO DAILY reflux #30 tabs 01/11/24 [Rx Last Taken 01/25/24] pravastatin 20 mg tablet 20 mg PO QHS cholesterol #30 tabs 01/11/24 [Rx Last Taken Unknown] rivaroxaban 20 mg tablet (Xarelto) 20 mg PO DAILY blood thinner #30 tabs 01/11/24 [Rx Last Taken 01/24/24 21:00] potassium chloride 20 mEq tablet,extended release(part/cryst) 20 meq PO DAILY supplment 01/18/24 [History Last Taken 01/25/24] carvedilol 12.5 mg tablet 12.5 mg PO BID 30 days #60 tabs 01/20/24 [Rx Last Taken 01/25/24] empagliflozin 10 mg tablet (Jardiance) 10 mg PO DAILY 30 days #30 tabs 01/20/24 [Rx Last Taken 01/25/24] furosemide 20 mg tablet (Lasix) 20 mg PO DAILY 30 days #30 tabs 01/20/24 [Rx Last Taken 01/25/24] sacubitril 24 mg-valsartan 26 mg tablet (Entresto) 1 tab PO BID 30 days #60 tabs 01/20/24 [Rx Last Taken Unknown] trazodone 50 mg tablet 50 mg PO QHS PRN sleep 30 days #30 tabs 01/20/24 [Rx Last Taken 01/24/24] lisinopril 5 mg tablet 5 mg PO DAILY blood pressure 01/25/24 [History Last Taken 01/25/24] metoprolol tartrate 25 mg tablet 12.5 mg PO BID heart rate 01/25/24 [History Last Taken 01/25/24] spironolactone 25 mg tablet 25 mg PO DAILY diuretic 01/25/24 [History Last Taken 01/25/24] Allergy/AdvReac Type Severity Reaction Status Date / Time iodine Allergy Hives Verified 01/25/24 12:44 venom-honey bee Allergy Shortness Verified 01/25/24 12:44 [bee venom (honey bee)] of breath Family History no significant family his Social History household members: none Smoking Status: Current every day smoker tobacco type: cigarettes Physical Exam Narrative Comfortable. No apparent distress. Heart sounds 1 and 2 are noted. Irregularly irregular. Chest examination reveals decreased breath sounds bilaterally. Alert oriented x 3. No ankle edema noted. Risk Stratification Risk Stratification Applicable: No Objective Data Vital Signs: Vital Signs Temp Pulse Resp BP Pulse Ox O2 Del Method O2 Flow Rate 97.5 F L 95 21 H 103/66 97 Nasal Cannula 2 01/25/24 17:00 01/26/24 09:00 01/26/24 09:00 01/26/24 09:00 01/26/24 09:00 01/26/24 09:01 01/26/24 09:01 Oxygen Flow Rate (L/min) 2 Oxygen Delivery Method Nasal Cannula Weight: 175 lb 4.28 oz Body Mass Index (BMI) 27.4 Intake & Output: Intake and Output for Last 24 Hours 01/24/24 01/25/24 01/26/24 23:59 23:59 23:59 Intake Total 1470.91 / 1477.16 127.00 / 127.00 Output Total 300 / 300 Balance 1470.91 / 1477.16 -173.00 / -173.00 Lab / Micro Data 01/26/24 03:38 01/26/24 03:38 Labs: Laboratory Results - last 24 hr 01/25/24 13:30: WBC 7.5, RBC 4.34, Hgb 14.8, Hct 44.2, MCV 101.8 H, MCH 34.1 H, MCHC 33.5, RDW Std Deviation 64.1 H, RDW Coeff of Bessie 17.1 H, Plt Count 253, MPV 9.8, Immature Gran % (Auto) 0.400, Neut % (Auto) 78.0 H, Lymph % (Auto) 10.6 L, [place] % (Auto) 9.8, Eos % (Auto) 0.3, Baso % (Auto) 0.9, Absolute Neuts (auto) 5 .8, Absolute Lymphs (auto) 0.79 L, Nucleated RBC % 0, Sodium 137, Potassium 4.3, Chloride 106, Carbon Dioxide 26.0, Anion Gap 5, BUN 17, Creatinine 0.82, Estim Creat Clear Calc 61.30, Est GFR (MDRD) Af Amer 87, Est GFR (MDRD) Non-Af 72, BUN/Creatinine Ratio 20.8 H, Glucose 123 H, Calcium 8.3 L, Magnesium 1.6, Total Bilirubin 1.30 H, AST 36, ALT 22, Alkaline Phosphatase 95, Troponin I High Sens 124 H*, B-Natriuretic Peptide 1998.0 H, Total Protein 6.4, Albumin 3.0 L, Globulin 3.4, Albumin/Globulin Ratio 0.9, Lipase 18 01/25/24 15:55: Troponin I High Sens 121 H* 01/26/24 03:38: WBC 5.7, RBC 3.70 L, Hgb 12.8, Hct 37.9, MCV 102.4 H, MCH 34.6 H , MCHC 33.8, RDW Std Deviation 63.9 H, RDW Coeff of Bessie 17.1 H, Plt Count 207, MPV 10.1, Sodium 135 L, Potassium 3.8, Chloride 102, Carbon Dioxide 27.0, Anion Gap 6, BUN 16, Creatinine 0.60, Estim Creat Clear Calc 62.91, Est GFR (MDRD) Af Amer 125, Est GFR (MDRD) Non-Af 103, BUN/Creatinine Ratio 26.8 H, Glucose 87, Calcium 8.2 L, Total Bilirubin 1.60 H, AST 20, ALT 14, Alkaline Phosphatase 64, Total Protein 4.7 L, Albumin 2.3 L, Globulin 2.4, Albumin/Globulin Ratio 1.0 Rhythm Strip Rhythm Strip: A-fib Cardiology Labs/Tests 01/25/24 13:30: WBC 7.5, RBC 4.34, Hgb 14.8, Hct 44.2, MCV 101.8 H, MCH 34.1 H, MCHC 33.5, Plt Count 253, MPV 9.8, Immature Gran % (Auto) 0.400, Neut % (Auto) 78.0 H, Lymph % (Auto) 10.6 L, [place] % (Auto) 9.8, Eos % (Auto) 0.3, Baso % (Auto) 0.9, Absolute Neuts (auto) 5.8, Nucleated RBC % 0, Sodium 137, Potassium 4.3, Chloride 106, Carbon Dioxide 26.0, Anion Gap 5, BUN 17, Creatinine 0.82, Est GFR (MDRD) Af Amer 87, Est GFR (MDRD) Non-Af 72, BUN/Creatinine Ratio 20.8 H , Glucose 123 H, Calcium 8.3 L, Magnesium 1.6, Total Bilirubin 1.30 H, B- Natriuretic Peptide 1998.0 H 01/26/24 03:38: WBC 5.7, RBC 3.70 L, Hgb 12.8, Hct 37.9, MCV 102.4 H, MCH 34.6 H , MCHC 33.8, Plt Count 207, MPV 10.1, Sodium 135 L, Potassium 3.8, Chloride 102, Carbon Dioxide 27.0, Anion Gap 6, BUN 16, Creatinine 0.60, Est GFR (MDRD) Af Amer 125, Est GFR (MDRD) Non-Af 103, BUN/Creatinine Ratio 26.8 H, Glucose 87, Calcium 8.2 L, Total Bilirubin 1.60 H Rhythm: EKG: Admission ECG shows atrial fibrillation with rapid ventricular response. ECHO: Stress Test: Cardiac Cath: PCI: CT Surgery: Holter monitor: EPS: PPM: CXR: Chest CT Scan: Radiography Diagnostic Testing: Radiology Impression Chest X-Ray 01/25/24 13:18 IMPRESSION: Thyromegaly and mild degree of CHF with small bilateral effusions left greater than right and bibasilar atelectasis worse at the left lung base. There has been progression as compared to prior study. Electronically Signed: Arun Weems MD at 14:16 EDT ,
[2024-01-26] MEDS: 0.9% Saline Lock 10 ML Syringe IV (10:58)
[2024-01-26 11:49] LABS: D-Dimer Quantitative (DVT/PE) 1.18 FEU/ug/m (0.27-0.49)
--- NOTE | 2024-01-26 13:18 | STRESSREP ---
Stress Test Report Date: 01/26/2024 Procedure: Pharmacologic stress nuclear imaging study Indications: Chest pain Consent: Per the patient Procedure: The patient underwent pharmacologic (Regadenoson 0.4mg ) evaluation with a peak heart rate of 96 beats per minute (67%predicted maximal heart rate) and a peak blood pressure of 110/68 mmHg. The baseline ECG demonstrated atrial fibrillation with nonspecific ST?T wave changes. The peak pharmacologic ECG demonstrated no diagnostic ischemic changes. There were no cardiac dysrhythmias pretest, during pharmacologic infusion, or recovery. There was no complaint of chest discomfort during pharmacologic infusion or recovery. The patient was injected with 12.0 millicuries of technetium 99m Cardiolite and subsequently rest SPECT Cardiolite nuclear imaging was obtained in the horizontal long, vertical long, and short axis views. The patient underwent pharmacologic (Regadenoson) evaluation. The patient was injected with 36.0 millicuries of technetium 99m Cardiolite and subsequently stress SPECT Cardiolite nuclear imaging was obtained in the horizontal long, vertical long, and short axis views. A gated Cardiolite study at peak stress was obtained. The examination was stopped secondary to completion of protocol. Rest and stress SPECT Cardiolite nuclear imaging status post realignment and normalization demonstrate no fixed or reversible perfusion defects. The gated Cardiolite study demonstrates mild LV dilatation with estimated LV systolic ejection fraction 35%. Impression: 1. Pharmacologic (Regadenoson) evaluation 2. Peak pharmacologic ECG with no diagnostic ischemic changes. 3. Baseline atrial fibrillation. 5. Rest and stress SPECT Cardiolite nuclear imaging demonstrate relative uniform tracer uptake and myocardial perfusion appearing within normal limits. 6. The gated Cardiolite study reports an LVEF of 35%. Dilated LV. This note was generated with [employer] software. It may contain incorrect words, spelling, and punctuation that were not noted in checking the note before signing.
[2024-01-26] MEDS: Empagliflozin 10 MG Tablet PO (13:35)
[2024-01-26] MEDS: dilTIAZem 60 MG Tablet PO (13:35)
[2024-01-26] MEDS: Furosemide 20 MG Tablet PO (13:35)
--- NOTE | 2024-01-26 14:30 | CASEMGMT ---
BALJIT BOJORQUEZ chart review: Patient was admitted 01/17-01/20/24 and 01/06-01/12/24 for afib with rvr. See assessment from 01/08/24. Patient was discharged to home with resumption of [facility]. Patient returned 01/25/24 for shortness of breath. Patient admitted for recurrent Afib with RVR. BALJIT BOJORQUEZ in to discuss readmission and needs at discharge. Patient states she was to see her PCP on 01/25/24 but returned to ED prior to appointment. Patient states she was taking her medications as prescribed. Patient states [facility] had been seeing patient. Patient is currently on oxygen, no on at home. Will monitor for home oxygen, patient prefers [employer]. Patient wishes to return home with [facility]. Patient had no further needs or concerns. BALJIT BOJORQUEZ updated [facility] of resumption of care. CM will continue to follow this patient and plan for a safe discharge.
[2024-01-26] MEDS: Rivaroxaban 20 MG Tablet PO (16:56)
[2024-01-26] MEDS: Pravastatin 20 MG Tablet PO (22:44)
[2024-01-26] MEDS: traZODone 50 MG Tablet PO (22:48)
[2024-01-27] VITALS (10 sets, daily range): BP systolic 100–130; BP diastolic 68–84; PULSE 92–118; RESP 17–18; TEMP 36.1–36.9; O2SAT 92–98
[2024-01-27] MEDS: dilTIAZem 60 MG Tablet PO ×4 (00:30→18:20)
--- NOTE | 2024-01-27 07:52 | PN.HOSP_ITS ---
Reason for Visit Reason for Visit: Diagnoses Other specified infestations (01/25/24) Unspecified atrial fibrillation (01/25/24) Heart failure, unspecified (01/25/24) Chronic obstructive pulmonary disease, unspecified (01/25/24) Chest pain, unspecified (01/25/24) Other specified abnormal findings of blood chemistry (01/25/24) Patient's other noncompliance with medication regimen for other reason (01/25/24) Subjective Subjective Feels well. Denies complaints. Objective Data Objective Data Vital Signs: Vital Signs Temp Pulse Resp BP Pulse Ox O2 Del Method O2 Flow Rate 36.6 C 104 H 18 124/81 H 98 Nasal Cannula 2 01/27/24 05:10 01/27/24 05:10 01/27/24 05:10 01/27/24 05:10 01/27/24 07:30 01/27/24 07:30 01/27/24 07:30 Oxygen Flow Rate (L/min) 2 Oxygen Delivery Method Nasal Cannula Weight: 79.5 kg Body Mass Index (BMI) 27.4 Intake & Output: Intake and Output for Last 24 Hours 01/25/24 01/26/24 01/27/24 23:59 23:59 23:59 Intake Total 1470.91 / 1477.16 155.16 / 155.16 Output Total 300 / 300 Balance 1470.91 / 1477.16 -144.84 / -144.84 Lab / Micro Data 01/27/24 06:09 01/27/24 06:09 Labs: Laboratory Results - last 24 hr 01/26/24 10:56: D-Dimer Quant (PE/DVT) 1.18 H* Rhythm Strip Rhythm Strip: A-fib Physical Exam Const alert and no apparent distress HEENT head/scalp atraumatic and moist oral mucous membranes Resp normal respiratory effort and no retractions Cardio regular rate, regular rhythm, S1 normal heart sound and S2 normal heart sound Neuro Sensorium / Orientation: awake and alert Psych affect normal Assessment & Plan Assessment/Plan (1) Atrial fibrillation with RVR: (2) Infestation by bed bug: PLAN: Plan Recurrent A-fib with RVR, * Diltiazem drip discontinued and changed over to diltiazem 60 mg every 6 hours. on carvedilol * anticoagulated with rivaroxaban * Cardiology on consult. * This is now the patient's 4th admission since November at [facility]. * D-dimer elevated and VQ ordered (allergic reaction with iodine) Acute HFrEF exacerbation with mild hypoxia * CXR reviewed and shows pulmonary vascular congestion * holding off on diuretics given low BP. Valsartan/sacubitril held given low BP. * EF 35% on echocardiogram from 01/12/2024. Moderate-severe global hypokinesis. * furosemide Bedbugs * no treatment. Precautions Debility * Multifactorial given multiple recent hospitalizations, multiple severe medical comorbidities, poor performance status. * PT OT * Therapy recommending additional therapy. Chronic medical conditions: * Insomnia: Continue trazodone at night as needed. * GERD: Stable. Continue home PPI. * Allergies: Continue home fexofenadine. DVT prophylaxis: not indicated as already anticoagulated. CODE STATUS: Full code, verified Disposition: To be determined. Charges/Coding Visit Charges Inpatient E&M: 28539 Subs Hosp L2
[2024-01-27 08:04] LABS: Absolute Lymphocyte Count 1.57 X10^3/uL (0.83-4.51); Absolute Neutrophil Count 3.6 X10^3/uL (2.0-7.7); Basophil# 0.05 X10^3/uL; Basophil% 0.8 % (0-1); Eosinophil# 0.19 X10^3/uL; Eosinophils% 3.1 % (0-5); Hematocrit 38.4 % (37-47); Hemoglobin 12.9 g/dL (12.0-15.0); Lymphocyte # 1.57 X10^3/ul (0.83-4.51); Lymphocyte % 25.8 % (19-41); Mean Corp Hgb Conc 33.6 g/dL (32-36); Mean Corpuscular Hgb 34.7 pg (27.0-32.0); Mean Corpuscular Volume 103.2 fL (81-99); Mean Platelet Vol. 10.2 fl (6.2-12.0); Monocyte# 0.67 X10^3/uL; NRBC Flagged by Analyzer 0 % (0-5); Neutrophil # 3.58 X10^3/uL (2.7-7.7); POSITIVE MORPHOLOGY YES; Platelet Count 206 K/mm3 (150-450); RBC Distribution Width CV 17.1 % (11.6-14.6); RBC Distribution Width SD 65.1 fl (35.1-43.9); Red Blood Count 3.72 M/mm3 (4.2-5.4); White Blood Count 6.1 K/mm3 (4.4-11.0)
[2024-01-27 08:44] LABS: Anion Gap 6 (5-15); BUN 17 mg/dL (7-18); BUN/Creat Ratio 24.4 RATIO (10-20); Calcium,Total 8.6 mg/dL (8.5-10.1); Chloride 101 mmol/L (98-107); EST Glomerular Filtration Rate 86 mL/min (>60); Est Glom Filt Rate - Afr Amer 104 mL/min (>60); Estimated Creatinine Clearance 62.91 ml/min; Glucose 84 mg/dL (74-106); Potassium 3.9 mmol/L (3.5-5.1); Sodium Level 134 mmol/L (136-145)
[2024-01-27 08:58] LABS: Differential Indicated SCAN CRITERIA MET
[2024-01-27] MEDS: Pantoprazole Sodium 40 MG Tablet PO (09:56)
[2024-01-27] MEDS: Empagliflozin 10 MG Tablet PO (09:56)
[2024-01-27] MEDS: Lisinopril 2.5 MG Tablet PO (09:56)
[2024-01-27] MEDS: Carvedilol 6.25 MG Tablet PO ×2 (09:56→17:00)
[2024-01-27] MEDS: Potassium Chloride Oral Tablet 10 MEQ PO (09:56)
[2024-01-27] MEDS: Loratadine 10 MG Tablet 5 MG PO (09:57)
[2024-01-27] MEDS: Furosemide 20 MG Tablet PO (09:57)
[2024-01-27 10:01] LABS: Differential Comment SCANNED
[2024-01-27] MEDS: Rivaroxaban 20 MG Tablet PO (16:59)
[2024-01-27] MEDS: traZODone 50 MG Tablet PO (21:19)
[2024-01-27] MEDS: Pravastatin 20 MG Tablet PO (21:20)
[2024-01-27] MEDS: Acetaminophen 325 MG Tablet 650 MG PO (21:20)
[2024-01-28] VITALS (7 sets, daily range): BP systolic 106–130; BP diastolic 63–76; PULSE 67–84; RESP 16–18; TEMP 36.4–36.7; O2SAT 91–96
[2024-01-28] MEDS: dilTIAZem 60 MG Tablet PO ×2 (00:31→05:48)
--- NOTE | 2024-01-28 08:10 | PN.HOSP_ITS ---
Reason for Visit Reason for Visit: Diagnoses Other specified infestations (01/25/24) Unspecified atrial fibrillation (01/25/24) Heart failure, unspecified (01/25/24) Chronic obstructive pulmonary disease, unspecified (01/25/24) Chest pain, unspecified (01/25/24) Other specified abnormal findings of blood chemistry (01/25/24) Patient's other noncompliance with medication regimen for other reason (01/25/24) Objective Data Objective Data Vital Signs: Vital Signs Temp Pulse Resp BP Pulse Ox O2 Del Method O2 Flow Rate 97.6 F L 84 18 120/71 91 Room Air 2 01/28/24 05:45 01/28/24 05:45 01/28/24 05:45 01/28/24 05:45 01/28/24 08:00 01/28/24 08:00 01/27/24 09:51 Oxygen Flow Rate (L/min) 2 Oxygen Delivery Method Room Air Weight: 175 lb 4.28 oz Body Mass Index (BMI) 27.4 Intake & Output: Intake and Output for Last 24 Hours 01/26/24 01/27/24 01/28/24 23:59 23:59 23:59 Intake Total 155.16 / 155.16 1000 / 1000 Output Total 300 / 300 Balance -144.84 / -144.84 1000 / 1000 Lab / Micro Data 01/27/24 06:09 01/27/24 06:09 Labs: Laboratory Results - last 24 hr 01/27/24 06:09: WBC 6.1, RBC 3.72 L, Hgb 12.9, Hct 38.4, MCV 103.2 H, MCH 34.7 H , MCHC 33.6, RDW Std Deviation 65.1 H, RDW Coeff of Bessie 17.1 H, Plt Count 206, MPV 10.2, Immature Gran % (Auto) 0.300, Neut % (Auto) 59.0, Lymph % (Auto) 25.8, [place] % (Auto) 11.0 H, Eos % (Auto) 3.1, Baso % (Auto) 0.8, Absolute Neuts (auto) 3.6, Absolute Lymphs (auto) 1.57, Nucleated RBC % 0, Differential Comment SCANNED, Sodium 134 L, Potassium 3.9, Chloride 101, Carbon Dioxide 27.0, Anion Gap 6, BUN 17, Creatinine 0.70, Estim Creat Clear Calc 62.91, Est GFR (MDRD) Af Amer 104, Est GFR (MDRD) Non-Af 86, BUN/Creatinine Ratio 24.4 H, Glucose 84, Calcium 8.6 Rhythm Strip Rhythm Strip: A-fib Physical Exam Narrative Patient states she feels intermittent chest pain mild sharp pain, 6-7/10 intensity without radiation. Shortness of breath is better. Heart rate controlled in 50s, A-fib. Blood pressure normal. Physical exam General: Alert, Oriented x3, Cooperative HEENT: Atraumatic, PERRLA, EOMI, Normocephalic Oral: No Gingival or Mucosal Lesions/ Ulcerations Neck: Supple, No JVD, Negative Carotid Bruits Chest wall/Lungs: Air entry diminished in bilateral lung bases. No crepitation/rhonchi Cardiovascular: Mild tenderness present around xiphisternum. A-fib low 50s, No M/G/R Abdomen: Bowel Sounds Present, Soft, Non Tender, Non-Distended : No dysuria. No renal angle tenderness. No suprapubic tenderness. Extremities: No edema, Capillary Refill Less than 3 Seconds Skin: No rashes, No breakdown Musculoskeletal: No Tenderness to Palpation of Joints or Extremities Neurological: Cranial nerves II-XII grossly intact, DTR 2+/4. No acute focal neurological deficit. Psych/Mental Status: Normal Affect, Appropriate. Assessment & Plan Assessment/Plan (1) Atrial fibrillation with RVR: (2) Infestation by bed bug: PLAN: Plan Recurrent A-fib with RVR, * Diltiazem drip discontinued and changed over to diltiazem 60 mg every 6 hours. on carvedilol * anticoagulated with rivaroxaban * This is now the patient's 4th admission since November at [facility]. * D-dimer elevated and VQ ordered (allergic reaction with iodine) 01/27: Heart rate is controlled 70 to 80/min. Still in A-fib. Holistic Specialist is consulted.Carvedilol increased to 12.5 mg twice daily. Diltiazem changed to extended release, 20 to 40 mg daily. Empagliflozin 10 mg daily. Lisinopril 2.5 mg daily. On Pravachol. Acute HFrEF exacerbation with mild hypoxia * CXR reviewed and shows pulmonary vascular congestion * EF 35% on echocardiogram from 01/12/2024. Moderate-severe global hypokinesis. * furosemide 01/27: Blood pressure is required 120/76. Will hold diuretic. Continue holding Entresto. Bedbugs * no treatment. Precautions Debility * Multifactorial given multiple recent hospitalizations, multiple severe medical comorbidities, poor performance status. * PT OT * Therapy recommending additional therapy. Chronic medical conditions: * Insomnia: Continue trazodone at night as needed. * GERD: Stable. Continue home PPI. * Allergies: Continue home fexofenadine. DVT prophylaxis: not indicated as already anticoagulated. CODE STATUS: Full code, verified Disposition: To be determined. Charges/Coding Visit Charges Inpatient E&M: 75804 Subs Hosp L2
[2024-01-28] MEDS: Potassium Chloride Oral Tablet 10 MEQ PO (09:00)
[2024-01-28] MEDS: Carvedilol 6.25 MG Tablet PO (09:00)
[2024-01-28] MEDS: Loratadine 10 MG Tablet 5 MG PO (09:01)
[2024-01-28] MEDS: Empagliflozin 10 MG Tablet PO (09:02)
[2024-01-28] MEDS: Pantoprazole Sodium 40 MG Tablet PO (09:02)
[2024-01-28] MEDS: Furosemide 20 MG Tablet PO (09:03)
[2024-01-28] MEDS: 0.9% Saline Lock 10 ML Syringe IV (09:03)
[2024-01-28] MEDS: Lisinopril 2.5 MG Tablet PO (09:03)
--- NOTE | 2024-01-28 10:33 | PCM.PN.CARD ---
Subjective Subjective Denies any complaints. Objective Data Vital Signs: Vital Signs Temp Pulse Resp BP Pulse Ox O2 Del Method O2 Flow Rate 97.6 F L 84 18 120/71 91 Room Air 2 01/28/24 05:45 01/28/24 05:45 01/28/24 05:45 01/28/24 05:45 01/28/24 08:00 01/28/24 08:00 01/27/24 09:51 Oxygen Flow Rate (L/min) 2 Oxygen Delivery Method Room Air Weight: 175 lb 4.28 oz Body Mass Index (BMI) 27.4 Intake & Output: Intake and Output for Last 24 Hours 01/26/24 01/27/24 01/28/24 23:59 23:59 23:59 Intake Total 155.16 / 155.16 1000 / 1000 Output Total 300 / 300 Balance -144.84 / -144.84 1000 / 1000 Lab / Micro Data 01/27/24 06:09 01/27/24 06:09 Rhythm Strip Rhythm Strip: A-fib Cardiology Labs/Tests Rhythm: EKG: ECHO: Stress Test: Cardiac Cath: PCI: CT Surgery: Holter monitor: EPS: PPM: CXR: Chest CT Scan: Physical Exam Narrative Comfortable. No apparent distress. Heart sounds 1 and 2 are noted. Irregularly irregular. Chest examination reveals decreased breath sounds bilaterally. Alert oriented x 3. No ankle edema noted. Assessment & Plan Assessment/Plan (1) Atrial fibrillation with RVR: PLAN: Increase carvedilol to 12.5 mg twice daily. Change diltiazem to extended release formulation. Rivaroxaban for anticoagulation. (2) Congestive heart failure: PLAN: LVEF estimated to be 35% on echocardiogram in November of this year. Likely tachycardia induced cardiomyopathy. Stress Myoview negative for ischemia. (3) Chest pain: PLAN: Pleuritic. Atypical. Resolved. Negative stress Myoview. (4) Elevated troponin: PLAN: Likely type II with atrial fibrillation with rapid ventricular response. See #2 above. (5) Noncompliance with medication regimen: PLAN: Compliance with medications and medical follow-up emphasized. (6) COPD (chronic obstructive pulmonary disease): PLAN: Decreased breath sounds bilaterally. History of nicotine dependence. Consider emphysema. Follow as per internal medicine.
[2024-01-28] MEDS: dilTIAZem CD 240 MG Capsule PO (14:47)
[2024-01-28] MEDS: Carvedilol 12.5 MG Tablet PO (17:44)
[2024-01-28] MEDS: Rivaroxaban 20 MG Tablet PO (17:44)
[2024-01-28] MEDS: Acetaminophen 325 MG Tablet 650 MG PO (17:45)
[2024-01-28] MEDS: traZODone 50 MG Tablet PO (21:02)
[2024-01-28] MEDS: Pravastatin 20 MG Tablet PO (21:02)
[2024-01-28] MEDS: Famotidine 20 MG Tablet PO (21:02)
[2024-01-29 03:04] VITALS: BP 157/96; PULSE 84; RESP 18; TEMP 36.6; O2SAT 95
[2024-01-29 05:55] LABS: Anion Gap 8 (5-15); BUN 12 mg/dL (7-18); BUN/Creat Ratio 23.6 RATIO (10-20); Calcium,Total 9.3 mg/dL (8.5-10.1); Chloride 101 mmol/L (98-107); Creatinine, Serum 0.51 mg/dL (0.55-1.02); EST Glomerular Filtration Rate 124 mL/min (>60); Est Glom Filt Rate - Afr Amer 151 mL/min (>60); Estimated Creatinine Clearance 62.91 ml/min; Glucose 96 mg/dL (74-106); Potassium 3.2 mmol/L (3.5-5.1); Sodium Level 136 mmol/L (136-145)
[2024-01-29 07:28] VITALS: O2SAT 92
[2024-01-29] MEDS: Ondansetron 4 MG/2 ML Vial IV (07:50)
[2024-01-29 08:43] VITALS: BP 108/90; PULSE 109; RESP 17; TEMP 36.6; O2SAT 93
[2024-01-29] MEDS: Potassium Chloride Oral Tablet 10 MEQ PO (08:45)
[2024-01-29] MEDS: Carvedilol 12.5 MG Tablet PO (08:45)
[2024-01-29] MEDS: Pantoprazole Sodium 40 MG Tablet PO (08:45)
[2024-01-29] MEDS: Empagliflozin 10 MG Tablet PO (08:46)
[2024-01-29] MEDS: Loratadine 10 MG Tablet 5 MG PO (08:46)
[2024-01-29] MEDS: Lisinopril 2.5 MG Tablet PO (08:46)
--- NOTE | 2024-01-29 10:07 | PCM.DC ---
Discharge Instructions Diet Discharge Diet: 2000 mg Sodium Diet Activity Discharge Activity: Return to Normal Activity Weight Bearing Status: Weight bearing as tolerated Dressing / Incision Call your doctor if you observe: Fever of 101 or Higher, Coldness, Increased Pain, Numbness or Tingling, Change in Color, Inability to urinate, Inability to have a bowel movement, Using more than 1 pad per hour, Shortness of breath, Dizziness, Fainting spells, Swelling in the ankles, Chest pain, Prolonged hiccupping, Increased palpitations (irregular heartbeat) and Calf discomfort Follow Up Care When: IN 2 WEEKS Test Results: Test results from this visit will be discussed in further detail at your follow-up appointment, if applicable. Discharge Plan Admission Admit Date/Time: 01/25/24 14:51 Primary Reason for Your Visit: New onset A-fib with RVR Attending Provider: Mahin Rothman [facility] Providers: Ed Cao; Bebo Waite; Jesse Mahmood Instructions Additional Instructions / Restrictions: Advised to watch out for bleeding bruise patient on Xarelto and diltiazem. Discharge Orders/Prescriptions Prescriptions: New diltiazem HCl 240 mg Capsule,Extended Release 24hr 240 mg PO DAILY 30 Days Qty: 30 3RF Rx Instructions: Hold for heart less than 50 or systolic blood pressure less than 120 mmHg. furosemide 20 mg Tablet 20 mg PO DAILY 30 Days Qty: 30 0RF Continued epinephrine 0.3 MG syringe 0.3 mg IM X1 Qty: 2 0RF pantoprazole 40 mg Tablet,Delayed Release (Dr/Ec) 40 mg PO DAILY Qty: 30 0RF pravastatin 20 mg Tablet 20 mg PO QHS Qty: 30 0RF Xarelto 20 mg tablet 20 mg PO DAILY Qty: 30 0RF Patient Comments: pt states was not taking at right time so adjusted to taking at bedtime Rx Instructions: must administer with evening meal carvedilol 12.5 mg Tablet 12.5 mg PO BID 30 Days Qty: 60 2RF Jardiance 10 mg Tablet 10 mg PO DAILY 30 Days Qty: 30 2RF trazodone 50 mg tablet 50 mg PO QHS PRN (Reason: sleep) 30 Days Qty: 30 0RF spironolactone 25 mg tablet 25 mg PO DAILY Changed Entresto 24-26 mg Tablet 0.5 tab PO BID 30 Days Qty: 60 2RF Discontinued fexofenadine [Judith Allergy] 60 mg tablet 60 mg PO Q24H potassium chloride 20 mEq tablet,ER particles/crystals 20 meq PO DAILY furosemide [Lasix] 20 mg tablet 20 mg PO DAILY 30 Days Qty: 30 0RF lisinopril 5 mg tablet 5 mg PO DAILY metoprolol tartrate 25 mg tablet 12.5 mg PO BID Referrals / Follow Up: [facility] [Primary Care Provider] - 02/05/24 4:00 pm (It is very important that you show up to this appointment, they will not schedule with you again if you miss this appointment. ) Hilario Soria MD [Med Staff - Active Staff] - Within 1 Month Disposition Disposition (needs filled in before D/C Order can be placed): Home, Self Care
--- NOTE | 2024-01-29 11:00 | NM_ITS ---
CLINICAL: 78-year-old female with history of shortness of breath. VENTILATION-PERFUSION LUNG SCINTIGRAPHY COMPARISON: Plain film chest radiograph 01/25/2024 FINDINGS: The patient was administered 50.0 mCi 99m Tc DTPA aerosol. The aerosol ventilation study demonstrates heterogeneous ventilation identified throughout the bilateral lung chicas without corresponding radiographic changes defined on plain film chest x-ray dated 01/25/2024. Central clumping of the aerosol is noted in the bilateral hemithorax. Following the intravenous administration of 5.7 mCi of 99m Tc MAA the pulmonary perfusion study reveals relatively uniform perfusion throughout both lung chicas. There are no segmental or subsegmental perfusion defects identified. There are no ventilation-perfusion mismatches observed. NM/Lung Scan Vent/Perf IMPRESSION: 1. NORMAL 99m Tc MAA pulmonary perfusion imaging examination, according to PIOPED II interpretive criteria. (Sotsman et al, Radiology 246: 941, 2008 Sotsazam et al, J Nucl Med 49: 1741, 2008). 2. Central clumping of the aerosol may be secondary to obstructive airway mechanics and or clinical tachypnea. Electronically Signed: Mitchel Alejandre DO at 12:23 EDT ,
[2024-01-29 11:17] VITALS: BP 100/61; PULSE 100; O2SAT 95
[2024-01-29] MEDS: dilTIAZem CD 240 MG Capsule PO (11:25)
[2024-01-29 11:27] VITALS: O2SAT 92; O2SAT 95
--- NOTE | 2024-01-29 14:36 | PCM.DC.SUM ---
Providers Date of Admission: 01/25/24 Date of Discharge: 01/29/24 Primary Care Physician: [facility] Consultations 01/25/24 15:43 Consult: Cardiology Routine Consulting Provider: Ed Cao Reason for Consult: recurrent afib w/ rvr EMERGENT Consult: No MD Notified: Yes Date Notified: 01/25/24 Time Notified: 16:37 Method of Notification: Text Reason For Visit: RECURRENT AFIB WITH RVR Diagnosis Discharge Diagnosis (1) Atrial fibrillation with RVR: Status: Resolved Code(s): I48.91 - Unspecified atrial fibrillation (2) Infestation by bed bug: Status: Acute Code(s): B88.8 - Other specified infestations Plan 70-year-old female came to ED with palpitation and shortness of breath with history of A-fib. She was also nauseated and difficulty sleeping. Recurrent A-fib with RVR, Diltiazem drip discontinued and changed over to diltiazem 60 mg every 6 hours. on carvedilol anticoagulated with rivaroxaban This is now the patient's 4th admission since November at [facility]. D-dimer elevated and VQ ordered (allergic reaction with iodine) 01/27: Heart rate is controlled 70 to 80/min. Still in A-fib. [employer] is consulted.Carvedilol increased to 12.5 mg twice daily. Diltiazem changed to extended release, 20 to 40 mg daily. Empagliflozin 10 mg daily. Lisinopril 2.5 mg daily. On Pravachol. 01/28 heart rate is controlled in A-fib. Patient discharged on Cardizem CD2 40 mg daily, empagliflozin 10 mg daily, carvedilol 12.5 mg twice daily. Lisinopril decreased as patient already on Entresto although dose decreased to half tablet twice daily because her blood pressure runs around systolic 100s. Patient also has positive D-dimer and cannot have CT Because of iodine allergy therefore VQ scan was done which reported normal technetium scan as per PIOPED 2 criteria 2 acute HFrEF exacerbation with mild hypoxia CXR reviewed and shows pulmonary vascular congestion EF 35% on echocardiogram from 01/12/2024. Moderate-severe global hypokinesis. furosemide 01/27: Blood pressure is required 120/76. Will hold diuretic. Continue holding Entresto. 01/28: Blood pressure 100/61, 108/90. On low-dose diuretic 20 mg daily and Entresto. Acute heart failure resolved. Bedbugs no treatment. Precautions Debility Multifactorial given multiple recent hospitalizations, multiple severe medical comorbidities, poor performance status. PT OT Therapy recommending additional therapy. Chronic medical conditions: Insomnia: Continue trazodone at night as needed. GERD: Stable. Continue home PPI. Allergies: Continue home fexofenadine. DVT prophylaxis: not indicated as already anticoagulated. CODE STATUS: Full code, verified Discharge medication reconciliation done. Discharge follow-up instructions completed. Discharge process discussed with the patient and all questions were answered to patient's satisfaction. Follow with PCP in 1 to 2 weeks Total time spent, exact 35 minutes on discharge meds reconciliation, examination, coordination of care with nurses and ancillary staff, review of imaging and blood test and discussion with the patient on follow-up instructions. Medications at Discharge Home Medications epinephrine 0.3 mg/0.3 mL injection, auto-injector 0.3 mg (0.3 mL) IM X1 BEE STINGS #2 syringes 05/03/15 pantoprazole 40 mg tablet,delayed release 40 mg PO DAILY reflux #30 tabs 01/11/24 pravastatin 20 mg tablet 20 mg PO QHS cholesterol #30 tabs 01/11/24 rivaroxaban 20 mg tablet (Xarelto) 20 mg PO DAILY blood thinner #30 tabs 01/11/24 carvedilol 12.5 mg tablet 12.5 mg PO BID 30 days #60 tabs 01/20/24 empagliflozin 10 mg tablet (Jardiance) 10 mg PO DAILY 30 days #30 tabs 01/20/24 trazodone 50 mg tablet 50 mg PO QHS PRN sleep 30 days #30 tabs 01/20/24 spironolactone 25 mg tablet 25 mg PO DAILY diuretic 01/25/24 diltiazem HCl 240 mg capsule,extended release 24 hr 240 mg PO DAILY 30 days #30 caps 01/29/24 furosemide 20 mg tablet 20 mg PO DAILY 30 days #30 tabs 01/29/24 sacubitril 24 mg-valsartan 26 mg tablet (Entresto) 0.5 tab PO BID 30 days #60 tabs 01/29/24 Physical Exam Narrative Seen and examined. No acute complaint. Chest pain and shortness of breath resolved. Patient ready to go home.Heart rate variable from 60s to low 100s. A-fib. Physical exam General: Alert, Oriented x3, Cooperative HEENT: Atraumatic, PERRLA, EOMI, Normocephalic Oral: No Gingival or Mucosal Lesions/ Ulcerations Neck: Supple, No JVD, Negative Carotid Bruits Chest wall/Lungs: Air entry diminished in bilateral lung bases. No crepitation/rhonchi Cardiovascular: Mild tenderness present around xiphisternum. A-fib low 50s, No M/G/R Abdomen: Bowel Sounds Present, Soft, Non Tender, Non-Distended : No dysuria. No renal angle tenderness. No suprapubic tenderness. Extremities: No edema, Capillary Refill Less than 3 Seconds Skin: No rashes, No breakdown Musculoskeletal: No Tenderness to Palpation of Joints or Extremities Neurological: Cranial nerves II-XII grossly intact, DTR 2+/4. No acute focal neurological deficit. Psych/Mental Status: Normal Affect, Appropriate. Weight / BMI Weight Weight: 175 lb 4.28 oz Body Mass Index (BMI) 27.4 ABG / Lab / Microbiology Data 01/27/24 06:09 01/29/24 04:50 Laboratory: Laboratory Results - last 24 hr 01/29/24 04:50: Sodium 136, Potassium 3.2 L, Chloride 101, Carbon Dioxide 27.0, Anion Gap 8, BUN 12, Creatinine 0.51 L, Estim Creat Clear Calc 62.91, Est GFR (MDRD) Af Amer 151, Est GFR (MDRD) Non-Af 124, BUN/Creatinine Ratio 23.6 H, Glucose 96, Calcium 9.3 Radiography Diagnostic Testing: Radiology Impression Lung Scan-VQ AL 01/29/24 11:00 IMPRESSION: 1. NORMAL 99m Tc MAA pulmonary perfusion imaging examination, according to PIOPED II interpretive criteria. (Sotsman et al, Radiology 246: 941, 2008 Sonusrat et al, J Nucl Med 49: 1741, 2008). 2. Central clumping of the aerosol may be secondary to obstructive airway mechanics and or clinical tachypnea. Electronically Signed: Mitchel Alejandre DO at 12:23 EDT , D/C Instructions Discharge Diet: 2000 mg Sodium Diet Weight Bearing Status: Weight bearing as tolerated Call your doctor if you observe: Fever of 101 or Higher, Coldness, Increased Pain, Numbness or Tingling, Change in Color, Inability to urinate, Inability to have a bowel movement, Using more than 1 pad per hour, Shortness of breath, Dizziness, Fainting spells, Swelling in the ankles, Chest pain, Prolonged hiccupping, Increased palpitations (irregular heartbeat) and Calf discomfort When: IN 2 WEEKS Meaningful Use Info Meaningful Use Meaningful Use Diagnoses (Choose all that apply): CHF CHF REGINA/ARB ordered at discharge?: Yes Documented LVEF (%): 35 Ischemic Stroke Statin Dosing Therapy Reference: STATIN DOSE THERAPY REFERENCE: * Patients > 75 years receive moderate or high dose statin therapy. * Patients 75 years or YOUNGER should receive HIGH intensity statin dose unless contraindicated. You will be required to document reason for non-treatment if statin daily dose does not meet guidelines. HIGH DOSE STATIN THERAPY DAILY Atorvastatin > than or = to 40 mg Rosuvastatin > than or = to 20 mg Amlodipine + Atorvastatin > than or = to 2.5/40 mg Ezetimibe + Simvastatin 10/80 mg Simvastatin 80mg Discharge Plan Admission Admit Date/Time: 01/25/24 14:51 Primary Reason for Your Visit: New onset A-fib with RVR Attending Provider: Mahin Rothman [facility] Consult[facility] Providers: Ed Cao; Bebo Waite; Jesse Mahmood Instructions Additional Instructions / Restrictions: Advised to watch out for bleeding bruise patient on Xarelto and diltiazem. Discharge Orders/Prescriptions Prescriptions: New diltiazem HCl 240 mg Capsule,Extended Release 24hr 240 mg PO DAILY 30 Days Qty: 30 3RF Rx Instructions: Hold for heart less than 50 or systolic blood pressure less than 120 mmHg. furosemide 20 mg Tablet 20 mg PO DAILY 30 Days Qty: 30 0RF Continued epinephrine 0.3 MG syringe 0.3 mg IM X1 Qty: 2 0RF pantoprazole 40 mg Tablet,Delayed Release (Dr/Ec) 40 mg PO DAILY Qty: 30 0RF pravastatin 20 mg Tablet 20 mg PO QHS Qty: 30 0RF Xarelto 20 mg tablet 20 mg PO DAILY Qty: 30 0RF Patient Comments: pt states was not taking at right time so adjusted to taking at bedtime Rx Instructions: must administer with evening meal carvedilol 12.5 mg Tablet 12.5 mg PO BID 30 Days Qty: 60 2RF Jardiance 10 mg Tablet 10 mg PO DAILY 30 Days Qty: 30 2RF trazodone 50 mg tablet 50 mg PO QHS PRN (Reason: sleep) 30 Days Qty: 30 0RF spironolactone 25 mg tablet 25 mg PO DAILY Changed Entresto 24-26 mg Tablet 0.5 tab PO BID 30 Days Qty: 60 2RF Discontinued fexofenadine [Judith Allergy] 60 mg tablet 60 mg PO Q24H potassium chloride 20 mEq tablet,ER particles/crystals 20 meq PO DAILY furosemide [Lasix] 20 mg tablet 20 mg PO DAILY 30 Days Qty: 30 0RF lisinopril 5 mg tablet 5 mg PO DAILY metoprolol tartrate 25 mg tablet 12.5 mg PO BID Referrals / Follow Up: Hilario Soria MD [Med Staff - Active Staff] - Within 1 Month [facility]Violetta Laird [Primary Care Provider] - 02/05/24 4:00 pm (It is very important that you show up to this appointment, they will not schedule with you again if you miss this appointment. ) Disposition Disposition (needs filled in before D/C Order can be placed): Home, Self Care Charges/Coding Visit Charges Inpatient E&M: 68965 Disch Hosp >30min
--- NOTE | 2024-01-29 14:37 | CHAPLAIN ---
Type of Pastoral Visit _x__ Initial Visit ___ Follow-up Visit ___ On-call Visit ___ General Patient Visit ___ Spiritual Assessment ___ Family Conference ___ Bereavement ___ Rapid Response ___ Code Blue ___ Other (describe below) Pastoral Care Referral From _x__ Patient ___ Family ___ Nurse ___ Physician ___ Web Press Operator Assistant ___ Oncology Radiation Physician ___ Other (describe below) Sacrament/Intervention _x__ Active listening ___ Anointing ___ Sabianism ___ Bereavement ___ Communion ___ Larissa exploration ___ ___ Life review _x__ Prayer ___ Reconciliation ___ Sacrament of Sick ___ Supportive presence ___ Wedding ___ Other (describe below) Pastoral Comments patient expects to be discharged and states improved condition; however admission as well by patient that she needs to have changes, can't keep coming back here, and that motivation will be an issue but necessary to find; offer of support but pt says just say a prayer for me; prayer and presence given
[2024-01-29 15:08] VITALS: BP 93/67; PULSE 98; RESP 17; TEMP 36.8; O2SAT 96
--- NOTE | 2024-01-29 15:08 | CASEMGMT ---
Patient has order for discharge. RN CM updated [facility] of discharge, resumption of care planned for tomorrow. RN CM in to discuss needs at discharge. RN CM reminded patient the importance of attending follow-up appt with PCP, patient voiced understanding. Patient denied further need or concerns at this time
== END 2024-01-29 16:21 | disposition home health service (06) | DRG 308 ==
LOC: ED 15:02 → PCU 15:13
PROVIDERS: Internal Medicine Cardiovascular Disease; Physician Assistant; Admitting Provider Hospitalist; Emergency Provider Emergency Medicine; Visit Provider Internal Medicine
DX: I48.91 Unspecified atrial fibrillation (principal); I50.23 Acute on chronic systolic (congestive) heart failure; I24.89 Other forms of acute ischemic heart disease; F17.210 Nicotine dependence, cigarettes, uncomplicated; G47.00 Insomnia, unspecified; B88.2 Other arthropod infestations; I11.0 Hypertensive heart disease with heart failure; J44.9 Chronic obstructive pulmonary disease, unspecified; K21.9 Gastro-esophageal reflux disease without esophagitis; R09.02 Hypoxemia; R53.81 Other malaise; Z79.01 Long term (current) use of anticoagulants; Z79.84 Long term (current) use of oral hypoglycemic drugs; Z79.899 Other long term (current) drug therapy
CPT/HCPCS: 36415; 71046; 78452; 78582; 80048; 80053; 83690; 83735; 83880; 84484; 85025; 85027; 85379; 93005; 93017; 94668; 97110; 97162; 97166; 97530; 97535; 99285; A9500; A9540; A9567; J7030; A4216; J2405; J2785

== ENCOUNTER 2024-02-19 12:51 | Outpatient (RCR) | payer MEDICARE, BC, OTHER, SELFPAY ==
[2024-02-19 13:20] LABS: Hematocrit 39.1 % (37-47); Hemoglobin 13.1 g/dL (12.0-15.0); Mean Corp Hgb Conc 33.5 g/dL (32-36); Mean Corpuscular Volume 101.6 fL (81-99); Mean Platelet Vol. 11.1 fl (6.2-12.0); POSITIVE MORPHOLOGY YES; Platelet Count 199 K/mm3 (150-450); RBC Distribution Width CV 17.6 % (11.6-14.6); RBC Distribution Width SD 65.7 fl (35.1-43.9); Red Blood Count 3.85 M/mm3 (4.2-5.4); White Blood Count 5.6 K/mm3 (4.4-11.0)
[2024-02-19 13:21] LABS: Scan Indicated on CBC? Y/N YES- FLAGS NOTED
[2024-02-19 13:46] LABS: Differential Comment SCANNED
[2024-02-19 14:15] LABS: Anion Gap 9 (5-15); BUN 14 mg/dL (7-18); Calcium,Total 9.6 mg/dL (8.5-10.1); Chloride 96 mmol/L (98-107); EST Glomerular Filtration Rate 86 mL/min (>60); Est Glom Filt Rate - Afr Amer 104 mL/min (>60); Glucose 93 mg/dL (74-106); Potassium 3.5 mmol/L (3.5-5.1); Sodium Level 131 mmol/L (136-145)
== END 2024-02-19 18:00 | disposition home or self-care (01) ==
LOC: HHLAB 12:51
PROVIDERS: Internal Medicine Cardiovascular Disease; Visit Provider Nurse Practitioner Family
DX: I48.91 Unspecified atrial fibrillation (principal); I11.0 Hypertensive heart disease with heart failure; I50.21 Acute systolic (congestive) heart failure; I27.20 Pulmonary hypertension, unspecified
CPT/HCPCS: 80048; 85027

== ENCOUNTER 2024-03-10 07:33 | Inpatient (IN) | payer MEDICARE, BC, OTHER, SELFPAY ==
[2024-03-10] VITALS (10 sets, daily range): BP systolic 99–150; BP diastolic 76–107; PULSE 64–147; RESP 16–29; TEMP 36.4–37.6; O2SAT 92–97; BMI 22.6
--- NOTE | 2024-03-10 07:50 | EDS_ITS ---
HPI History of Present Illness Chief Complaint: Shortness of Breath Informant: patient Onset/Context/Timing Onset: Today Quality: Positive for Aching Location: Substernal Current Severity: Mild Maximum Severity: Moderate Worsened By: Breathing and Coughing Narrative Narrative: Patient presents via EMS secondary to shortness of breath and chest pain. She states symptoms were present when she woke this morning but she felt well when she went to bed last evening. She was noted to be in A-fib RVR with EMS. She has a history of similar. She states she did take her morning medications including diltiazem and Xarelto. Patient does report some mild cough and congestion recently. No fever. [facility] Medical History COPD (chronic obstructive pulmonary disease) Chronic anticoagulation Congestive heart failure Noncompliance with medication regimen Hypomagnesemia Chest pain Heart failure with reduced ejection fraction Atrial fibrillation with RVR Back pain Vision impairment Hearing difficulty Acid reflux Hypertension Home Medications ?Medication ?Instructions ?Recorded ?Last Taken ?Type epinephrine 0.3 mg/0.3 mL 0.3 mg (0.3 mL) IM X1 BEE STINGS 05/03/15 01/16/18 Rx injection, auto-injector #2 syringes pantoprazole 40 mg tablet,delayed 40 mg PO DAILY reflux #30 tabs 01/11/24 01/25/24 Rx release pravastatin 20 mg tablet 20 mg PO QHS cholesterol #30 tabs 01/11/24 Unknown Rx rivaroxaban 20 mg tablet (Xarelto) 20 mg PO DAILY blood thinner #30 01/11/24 01/24/24 21:00 Rx tabs carvedilol 12.5 mg tablet 12.5 mg PO BID 30 days #60 tabs 01/20/24 01/25/24 Rx empagliflozin 10 mg tablet 10 mg PO DAILY 30 days #30 tabs 01/20/24 01/25/24 Rx (Jardiance) trazodone 50 mg tablet 50 mg PO QHS PRN sleep 30 days #30 01/20/24 01/24/24 Rx tabs spironolactone 25 mg tablet 25 mg PO DAILY diuretic 01/25/24 01/25/24 History diltiazem HCl 240 mg 240 mg PO DAILY 30 days #30 caps 01/29/24 Unknown Rx capsule,extended release 24 hr sacubitril 24 mg-valsartan 26 mg 0.5 tab PO BID 30 days #60 tabs 01/29/24 Unknown Rx tablet (Entresto) furosemide 20 mg tablet 20 mg PO DAILY #90 tabs 03/04/24 Unknown Rx Allergy/AdvReac Type Severity Reaction Status Date / Time iodine Allergy Hives Verified 03/10/24 07:36 venom-honey bee (bee venom Allergy Shortness Verified 03/10/24 07:36 (honey bee)) of breath Social History household members: none Smoking Status: Current every day smoker tobacco type: cigarettes ROS ROS ED Constitutional Constitutional ED: Denies chills or fever(s) Eyes Eyes: Denies discharge from eye(s) ENT ENT ED: Denies discharge from eye(s), rhinorrhea or sore throat Cardiovascular Cardiovascular: Reports chest pain and palpitations Respiratory/Chest Respiratory/Chest: Reports cough and dyspnea Gastrointestinal Gastrointestinal: Denies abdominal pain, nausea or vomiting Musculoskeletal Musculoskeletal: Denies back pain or extremity pain Integumentary Denies Abrasions or rash Neurologic Neurologic: Denies headache(s) or weakness Psychiatric Psychiatric: Denies anxiety or depression Allergic/Immunologic Allergic/Immunologic ED: Denies lip swelling or urticaria EXAM Physical Exam Const Vital Signs: 03/10/24 07:36 03/10/24 07:36 03/10/24 07:36 Temperature 99.6 F H Temperature Source Temporal Pulse Rate 147 H Respiratory Rate 29 H Respiratory Effort Short of Breath Labored Short of Breath Labored Respiratory Depth Normal Respiratory Pattern Tachypnea Tachypnea Blood Pressure 140/106 H Blood Pressure Mean 117 Pulse Ox 94 Oxygen Delivery Method Room Air Room Air 03/10/24 08:14 03/10/24 08:24 03/10/24 09:00 Temperature Temperature Source Pulse Rate 128 H 108 H 112 H Respiratory Rate 18 Respiratory Effort Respiratory Depth Respiratory Pattern Blood Pressure 137/82 H 121/82 H Blood Pressure Mean 100 95 Pulse Ox 92 Oxygen Delivery Method Room Air Positive well nourished and well developed General Appearance ED: well developed HEENT Reports moist mucous membranes Eyes EOMs intact bilaterally Chest Wall inspection of chest normal and palpation of chest normal Resp Resp Narrative: Mild tachypnea with diminished breath sounds at the bilateral bases. Cardio Rate: tachycardic Rhythm: abnormal rhythm irregularly irregular GI soft to palpation and non-tender Extremity normal to inspection Neuro oriented x3 and no sensory deficits noted Motor Exam: strength 5/5 throughout Psych mental status grossly normal Skin no rashes or lesions noted MDM MDM MDM Narrative Medical decision making narrative: Patient placed on telemetry monitor. IV line initiated. Labwork obtained to evaluate for leukocytosis, anemia, and electrolyte derangement. Chest x-ray obtained to evaluate for acute lung pathology, cardiac size, or mediastinal abnormality. 10 mg of IV Cardizem will be given for rate control. History & Record Review Discussion w/independent historian: Patient Lab Data Attestation: I reviewed the patient's lab results. Labs: Laboratory Results - last 24 hr 03/10/24 07:48 WBC 11.9 H RBC 4.27 Hgb 14.7 Hct 43.3 MCV 101.4 H MCH 34.4 H MCHC 33.9 RDW Std Deviation 59.4 H RDW Coeff of Bessie 15.9 H Plt Count 274 MPV 9.6 Immature Gran % (Auto) 0.400 Neut % (Auto) 76.6 H Lymph % (Auto) 11.0 L [place] % (Auto) 11.4 H Eos % (Auto) 0.2 Baso % (Auto) 0.4 Absolute Neuts (auto) 9.1 H Absolute Lymphs (auto) 1.30 Nucleated RBC % 0 Sodium 137 Potassium 3.1 L Chloride 101 Carbon Dioxide 27.0 Anion Gap 9 BUN 17 Creatinine 0.62 Est GFR (MDRD) Af Amer 121 Est GFR (MDRD) Non-Af 100 BUN/Creatinine Ratio 27.6 H Glucose 106 Calcium 8.9 Troponin I High Sens 14 B-Natriuretic Peptide 592.6 H Radiography Chest X-Ray - ED: 1 View, Read by ED Physician and Chronic Changes (Cardio megaly) Diagnostic Testing: Clinical Impression(s) from Imaging Studies Chest X-Ray 03/10/24 07:55 IMPRESSION: 1. Improving aeration of left lower lobe resolving small left pleural effusion. 2. Stable mild cardiomegaly. Electronically Signed: Darien Holder MD at 8:21 EDT , EKG Initial EKG: Attestation: I personally reviewed and interpreted this EKG as follows: Interpretation: Atrial Fibrillation (A-fib RVR with ventricular rate of 140. No significant ST change.) Treatment and Re-Evaluation :: Patient's recent hospitalization was reviewed. She did have a stress test performed at that time that revealed no evidence of ischemia. EF was estimated at 35%. CBC and chemistry studies today reveal white count 11.9 with 76% neutrophils. Hemoglobin is 14.7. Potassium is low at 3.1. Renal function is unremarkable. Troponin is normal at 14 and BNP is elevated at 592. Portable chest x-ray per my interpretation reveals cardiomegaly and chronic changes. No focal infiltrate. Radiology interpretation reviewed and agrees. Patient has received 2 separate doses of Cardizem 10 mg each. She reported did take her oral Cardizem this morning. Her heart rate will come down to 105 but then slowly increase back up to 120-130. At this time 10 mg of Cardizem has been ordered along with initiation of Cardizem drip. Oral potassium replacement has been ordered. I will speak with hospitalist regarding admission. Discharge Plan Triage Chief Complaint: Shortness of Breath Other Complaint: Chest Pain ED Provider: Mell Koenig Dx/Rx/DC Orders Clinical Impression: Atrial fibrillation with RVR, Chest pain, Hypokalemia Prescriptions: No Action epinephrine 0.3 MG syringe 0.3 mg IM X1 Qty: 2 0RF pantoprazole 40 mg Tablet,Delayed Release (Dr/Ec) 40 mg PO DAILY Qty: 30 0RF pravastatin 20 mg Tablet 20 mg PO QHS Qty: 30 0RF Xarelto 20 mg tablet 20 mg PO DAILY Qty: 30 0RF Patient Comments: pt states was not taking at right time so adjusted to taking at bedtime Rx Instructions: must administer with evening meal carvedilol 12.5 mg Tablet 12.5 mg PO BID 30 Days Qty: 60 2RF Jardiance 10 mg Tablet 10 mg PO DAILY 30 Days Qty: 30 2RF trazodone 50 mg tablet 50 mg PO QHS PRN (Reason: sleep) 30 Days Qty: 30 0RF spironolactone 25 mg tablet 25 mg PO DAILY diltiazem HCl 240 mg Capsule,Extended Release 24hr 240 mg PO DAILY 30 Days Qty: 30 3RF Rx Instructions: Hold for heart less than 50 or systolic blood pressure less than 120 mmHg. Entresto 24-26 mg Tablet 0.5 tab PO BID 30 Days Qty: 60 2RF furosemide 20 mg tablet 20 mg PO DAILY Qty: 90 3RF Primary Care Provider: Violetta Jaquez Referrals: Violetta Jaquez [Primary Care Provider] - Print Language: Occitan Disposition Disposition: Acute Care Hospital [facility]
[2024-03-10] MEDS: dilTIAZem 25 MG/5 ML Vial 10 MG IV BOLUS ×3 (07:54→09:46)
--- NOTE | 2024-03-10 07:55 | RAD_ITS ---
EXAM: XR CHEST, 1 VIEW CLINICAL INDICATION: sob TECHNIQUE: Frontal view of the chest. COMPARISON: XR Chest dated 01/25/2024 FINDINGS: LUNGS AND PLEURAL SPACES: Resolution of the small left pleural effusion and left lower lobe opacity. HEART: Stable mild cardiomegaly. MEDIASTINUM: No mediastinal or hilar mass. BONES/JOINTS: No acute abnormality. RAD/Chest 1 View (Portable) IMPRESSION: 1. Improving aeration of left lower lobe resolving small left pleural effusion. 2. Stable mild cardiomegaly. Electronically Signed: Darien Holder MD at 8:21 EDT ,
[2024-03-10 07:58] LABS: Absolute Neutrophil Count 9.1 X10^3/uL (2.0-7.7); Basophil# 0.05 X10^3/uL; Basophil% 0.4 % (0-1); Eosinophil# 0.02 X10^3/uL; Eosinophils% 0.2 % (0-5); Hematocrit 43.3 % (37-47); Hemoglobin 14.7 g/dL (12.0-15.0); Mean Corp Hgb Conc 33.9 g/dL (32-36); Mean Corpuscular Hgb 34.4 pg (27.0-32.0); Mean Corpuscular Volume 101.4 fL (81-99); Mean Platelet Vol. 9.6 fl (6.2-12.0); Monocyte# 1.35 X10^3/uL; Monocyte% 11.4 % (0-10); NRBC Flagged by Analyzer 0 % (0-5); Neutrophil # 9.08 X10^3/uL (2.7-7.7); Neutrophil % 76.6 % (47-70); Platelet Count 274 K/mm3 (150-450); RBC Distribution Width CV 15.9 % (11.6-14.6); RBC Distribution Width SD 59.4 fl (35.1-43.9); Red Blood Count 4.27 M/mm3 (4.2-5.4); White Blood Count 11.9 K/mm3 (4.4-11.0)
[2024-03-10 08:44] LABS: Anion Gap 9 (5-15); BUN 17 mg/dL (7-18); BUN/Creat Ratio 27.6 RATIO (10-20); Calcium,Total 8.9 mg/dL (8.5-10.1); Chloride 101 mmol/L (98-107); Creatinine, Serum 0.62 mg/dL (0.55-1.02); EST Glomerular Filtration Rate 100 mL/min (>60); Est Glom Filt Rate - Afr Amer 121 mL/min (>60); Glucose 106 mg/dL (74-106); Potassium 3.1 mmol/L (3.5-5.1); Sodium Level 137 mmol/L (136-145); Troponin-I HS (w/2H Reflex) 14 pg/mL (3.0-54.0)
[2024-03-10 08:49] LABS: BNP,B-Type NATRIURETIC PEPTIDE 592.6 pg/mL (0-100)
[2024-03-10] MEDS: Potassium Chloride Oral Tablet 20 MEQ 40 MEQ PO (09:47)
[2024-03-10] MEDS: Diltiazem 125 MG in Dextrose 5%-Water (100mL Bag) 100 ML CONT INF (09:47)
[2024-03-10 09:52] LABS: Reflex Troponin-HS? (from REC) Y
[2024-03-10] MEDS: Metoclopramide 10 MG/2 ML Vial 5 MG IV (09:58)
[2024-03-10] MEDS: DiphenhydrAMINE 50 MG/ML Syringe 12.5 MG IV (09:59)
--- NOTE | 2024-03-10 10:08 | HP.PCM.HOS_ITS ---
[facility] - General General Date of Admission: 03/10/24 Date of Service: 03/10/24 HPI Narrative JULIO HERNANDEZ, is a 78 F who presented to [facility] ED on 03/10/2024 with concern for recurrent A-fib with RVR. Saw patient at bedside in the ED, friend present. Patient was sitting up comfortably in bed, conversing normally, in no acute distress. Patient has been hospitalized here four times since November. 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 Since then, she has been admitted for recurrent A-fib with RVR and mild heart failure exacerbations. Last admission was from 01/24-01/28. Had stress test done during that hospitalization that was negative for ischemia. Was suspected that her recurrent A-fib with RVR and mild heart failure exacerbation was due to medication nonadherence. Patient states today that she was in her normal state of health last night. When she woke up this morning, she had fairly acute onset shortness of breath and chest pain similar to previous times with A-fib with RVR so she called EMS. Was found to be in A-fib with RVR by EMS. In the ED, EKG showed A-fib with RVR with rate around 140. Was given a bolus of IV Cardizem 10 mg with improvement in rate to the low 100s. However, rate slowly worsened again to the 120s to 130s so she was given another IV Cardizem bolus with the same outcome. She was then placed on a Cardizem drip and hospitalist was contacted for admission. On my encounter, patient remained in A-fib with RVR with rates in the 110s. She appeared comfortable on exam and did not appear volume overloaded. She was breathing comfortably on room air at rest and denied any shortness of breath. Stated she felt improved with improvement in her heart rate, denied any chest pain or discomfort at this time. She otherwise denies any other acute pain or discomfort. Denies any fevers or chills. No other acute concerns. Vitals in ED notable for A-fib with RVR as noted above, was otherwise normotensive, afebrile and satting well on room air. Labs notable for WBC count 11.9, potassium 3.1, otherwise unremarkable. BNP 592, decreased from previous values. Troponin negative x 2. Chest x-ray showed stable mild cardiomegaly with improved aeration of lungs compared to prior x-ray last month, no other concerning findings. [facility] Medical History COPD (chronic obstructive pulmonary disease) Chronic anticoagulation Congestive heart failure Noncompliance with medication regimen Hypomagnesemia Chest pain Heart failure with reduced ejection fraction Atrial fibrillation with RVR Back pain Vision impairment Hearing difficulty Acid reflux Hypertension Home Medications ?Medication ?Instructions ?Recorded ?Last Taken ?Type epinephrine 0.3 mg/0.3 mL 0.3 mg (0.3 mL) IM X1 BEE STINGS 05/03/15 01/16/18 Rx injection, auto-injector #2 syringes pantoprazole 40 mg tablet,delayed 40 mg PO DAILY reflux #30 tabs 01/11/24 03/10/24 Rx release pravastatin 20 mg tablet 20 mg PO QHS cholesterol #30 tabs 01/11/24 03/10/24 Rx rivaroxaban 20 mg tablet (Xarelto) 20 mg PO DAILY blood thinner #30 01/11/24 03/10/24 Rx tabs carvedilol 12.5 mg tablet 12.5 mg PO BID 30 days #60 tabs 01/20/24 03/10/24 Rx empagliflozin 10 mg tablet 10 mg PO DAILY 30 days #30 tabs 01/20/24 03/10/24 Rx (Jardiance) trazodone 50 mg tablet 50 mg PO QHS PRN sleep 30 days #30 01/20/24 03/10/24 Rx tabs spironolactone 25 mg tablet 25 mg PO DAILY diuretic 01/25/24 03/10/24 History diltiazem HCl 240 mg 240 mg PO DAILY 30 days #30 caps 01/29/24 03/10/24 Rx capsule,extended release 24 hr sacubitril 24 mg-valsartan 26 mg 0.5 tab PO BID 30 days #60 tabs 01/29/24 03/10/24 Rx tablet (Entresto) furosemide 20 mg tablet 20 mg PO DAILY #90 tabs 03/04/24 03/10/24 Rx apixaban 5 mg tablet (Eliquis) 5 mg PO BID 03/10/24 Unknown History cyclobenzaprine 5 mg tablet 5 mg PO BID PRN PRN muscle pain 03/10/24 Unknown History Allergy/AdvReac Type Severity Reaction Status Date / Time iodine Allergy Hives Verified 03/10/24 07:36 venom-honey bee (bee venom Allergy Shortness Verified 03/10/24 07:36 (honey bee)) of breath Social History household members: none Smoking Status: Current every day smoker tobacco type: cigarettes ROS Constitutional Constitutional: Denies chills, fatigue or fever(s) Eyes Eyes: Denies change in vision Cardiovascular Cardiovascular: Reports palpitations and rapid heart rate; Denies chest pain, dyspnea on exertion or edema Respiratory/Chest Respiratory/Chest: Denies cough, shortness of breath at rest or wheezing Gastrointestinal Gastrointestinal: Denies abdominal pain, nausea or vomiting Musculoskeletal Musculoskeletal: Denies arthralgias or myalgias Vital Signs Vital Signs Vital Signs: 03/10/24 07:36 03/10/24 07:36 03/10/24 07:36 Temperature 99.6 F H Temperature Source Temporal Pulse Rate 147 H Respiratory Rate 29 H Respiratory Effort Short of Breath Labored Short of Breath Labored Respiratory Depth Normal Respiratory Pattern Tachypnea Tachypnea Blood Pressure 140/106 H Blood Pressure Mean 117 Blood Pressure Source Pulse Ox 94 Oxygen Delivery Method Room Air Room Air 03/10/24 08:14 03/10/24 08:24 03/10/24 09:00 Temperature Temperature Source Pulse Rate 128 H 108 H 112 H Respiratory Rate 18 Respiratory Effort Respiratory Depth Respiratory Pattern Blood Pressure 137/82 H 121/82 H Blood Pressure Mean 100 95 Blood Pressure Source Pulse Ox 92 Oxygen Delivery Method Room Air 03/10/24 09:47 03/10/24 09:56 03/10/24 10:00 Temperature 97.8 F Temperature Source Pulse Rate 121 H 114 H 111 H Respiratory Rate 18 18 Respiratory Effort Respiratory Depth Respiratory Pattern Blood Pressure 150/107 H 150/107 H 141/94 H Blood Pressure Mean 121 121 109 Blood Pressure Source Monitor Pulse Ox 95 97 Oxygen Delivery Method Room Air Physical Exam Const alert, oriented x3, no apparent distress and average body habitus Constitutional Narrative: Elderly female, somewhat chronically ill-appearing, otherwise sitting up comfortably in bed, conversing normally, no acute distress. General Appearance: cooperative and comfortable HEENT normocephalic, head/scalp atraumatic, hearing grossly normal bilaterally, nasal mucous membranes and turbinates normal and moist oral mucous membranes Eyes PERRL, EOMs intact bilaterally and conjunctivae normal Neck full ROM Chest inspection of chest normal Resp normal respiratory effort, normal air movement, no use of accessory muscles and clear to auscultation bilaterally Cardio no murmurs and peripheral pulses 2+ throughout Cardio Narrative: A-fib with RVR. GI normal to inspection, nondistended, normoactive bowel sounds, soft to palpation, non-tender and non-distended Back/Spine normal ROM Extremity normal to inspection, full ROM and no pedal edema Skin no rashes or lesions noted Neuro moves all extremities and no focal motor deficits Speech: speech normal Psych mental status grossly normal Results Lab / Micro Data 03/10/24 07:48 03/10/24 07:48 Labs: Laboratory Results - last 24 hr 03/10/24 07:48: WBC 11.9 H, RBC 4.27, Hgb 14.7, Hct 43.3, MCV 101.4 H, MCH 34.4 H, MCHC 33.9, RDW Std Deviation 59.4 H, RDW Coeff of Bessie 15.9 H, Plt Count 274, MPV 9.6, Immature Gran % (Auto) 0.400, Neut % (Auto) 76.6 H, Lymph % (Auto) 11.0 L, Sutton % (Auto) 11.4 H, Eos % (Auto) 0.2, Baso % (Auto) 0.4, Absolute Neuts (auto) 9.1 H, Absolute Lymphs (auto) 1.30, Nucleated RBC % 0, Sodium 137, P otassium 3.1 L, Chloride 101, Carbon Dioxide 27.0, Anion Gap 9, BUN 17, Creatinine 0.62, Est GFR (MDRD) Af Amer 121, Est GFR (MDRD) Non-Af 100, B UN/Creatinine Ratio 27.6 H, Glucose 106, Calcium 8.9, Troponin I High Sens 14, B -Natriuretic Peptide 592.6 H Imaging Radiology Impression Chest X-Ray 03/10/24 07:55 IMPRESSION: 1. Improving aeration of left lower lobe resolving small left pleural effusion. 2. Stable mild cardiomegaly. Electronically Signed: Darien Holder MD at 8:21 EDT , Assessment & Plan Assessment/Plan (1) Atrial fibrillation with RVR: (2) Hypokalemia: PLAN: Plan Patient is a 78-year-old female who presented [facility] ED on 03/10/2024 with recurrent A-fib with RVR. 1. Recurrent A-fib with RVR ? Admit under inpatient status to PCU. Unclear etiology for recurrent A-fib with RVR; previously has been suspected due to medication nonadherence but patient reports taking all home medications as prescribed. Hypokalemia and mild hypomagnesemia likely playing a role. Reported mild URI symptoms over the last few days, could be contributing. Respiratory PCR panel and COVID testing negative. Had improvement in rate to 100s to 110s on diltiazem drip in the ED. Restarted home p.o. diltiazem 240 mg daily and carvedilol 12.5 mg twice daily on admit and it appears patient converted back to normal sinus rhythm on the floor. Continue cardiac monitoring. Will hold on cardiology consult for now. Continue home Xarelto. 2. HFrEF not in acute exacerbation ? Recently diagnosed in November, suspected tachycardia mediated with EF 35%. Not in acute exacerbation on this admission. BNP 592 but lower than previous values, chest x-ray with no signs of volume overload and patient breathing comfortably on room air. Can continue home Coreg, diltiazem, Entresto, spironolactone and Lasix. 3. Hypokalemia ?Potassium 3.1 on admit. Magnesium 1.7, phosphorus 2.7. Goal potassium 4.0, magnesium 2.0. Replete as needed. 4. Recent history of bedbug infestation ? Patient reports bedbugs have been eradicated from her home since prior admission when they were discovered here. Chronic medical conditions: ? History of medication nonadherence ? Insomnia: Continue home trazodone as needed. ? GERD: Continue home PPI. ? Hyperlipidemia: Continue home statin. DVT prophylaxis: Not indicated, on therapeutic Eliquis CODE STATUS: Full code, verified Expected disposition: Home, 2 to 3 days Total clinical time spent by myself addressing the patient's medical issues, reviewing all the data, and collaborating with patient's care team: 55 minutes. Charges/Coding Visit Charges Inpatient E&M: 41213 Init Hosp L2
[2024-03-10 10:18] LABS: Troponin-I HS 15 pg/mL (3.0-54.0)
--- NOTE | 2024-03-10 10:28 | NURSING ---
PCU MOSTELLER AFIB W RVR, CP
[2024-03-10 10:29] LABS: Magnesium 1.7 mg/dL (1.6-2.6); Phosphorus 2.7 mg/dL (2.5-4.9)
[2024-03-10] MEDS: Magnesium Sulfate 2 GM in Dextrose 5%-Water (100mL Bag) 100 ML IV (13:00)
[2024-03-10] MEDS: dilTIAZem CD 240 MG Capsule PO (13:01)
[2024-03-10] MEDS: Carvedilol 12.5 MG Tablet PO ×2 (13:01→22:12)
[2024-03-10] MEDS: Furosemide 20 MG Tablet PO (13:02)
[2024-03-10] MEDS: 0.9% Saline Lock 10 ML Syringe IV ×2 (16:51→22:19)
[2024-03-10] MEDS: Pravastatin 20 MG Tablet PO (22:12)
[2024-03-10] MEDS: SACUBITRIL/VALSARTAN 24/26 MG TABLET 1 EACH PO (22:12)
[2024-03-10] MEDS: traZODone 50 MG Tablet PO (22:19)
[2024-03-11 04:52] VITALS: BP 101/69; PULSE 94; RESP 16; TEMP 36.9; O2SAT 96
[2024-03-11 06:06] LABS: Hematocrit 36.9 % (37-47); Hemoglobin 12.5 g/dL (12.0-15.0); Mean Corp Hgb Conc 33.9 g/dL (32-36); Mean Corpuscular Hgb 34.2 pg (27.0-32.0); Mean Corpuscular Volume 101.1 fL (81-99); Mean Platelet Vol. 9.9 fl (6.2-12.0); Platelet Count 194 K/mm3 (150-450); RBC Distribution Width CV 15.6 % (11.6-14.6); RBC Distribution Width SD 58.5 fl (35.1-43.9); Red Blood Count 3.65 M/mm3 (4.2-5.4); White Blood Count 8.9 K/mm3 (4.4-11.0)
[2024-03-11 06:34] LABS: Anion Gap 6 (5-15); BUN 13 mg/dL (7-18); BUN/Creat Ratio 29.1 RATIO (10-20); Calcium,Total 8.9 mg/dL (8.5-10.1); Chloride 102 mmol/L (98-107); Creatinine, Serum 0.45 mg/dL (0.55-1.02); EST Glomerular Filtration Rate 145 mL/min (>60); Est Glom Filt Rate - Afr Amer 175 mL/min (>60); Estimated Creatinine Clearance 56.36 ml/min; Glucose 112 mg/dL (74-106); Potassium 3.1 mmol/L (3.5-5.1); Sodium Level 134 mmol/L (136-145)
[2024-03-11 07:44] VITALS: O2SAT 96; BMI 22.4
[2024-03-11] MEDS: Furosemide 20 MG Tablet PO (08:36)
[2024-03-11] MEDS: Spironolactone 25 MG Tablet PO (08:37)
[2024-03-11] MEDS: Pantoprazole Sodium 40 MG Tablet PO (08:37)
[2024-03-11] MEDS: dilTIAZem CD 240 MG Capsule PO (08:37)
[2024-03-11] MEDS: Carvedilol 12.5 MG Tablet PO (08:37)
[2024-03-11] MEDS: SACUBITRIL/VALSARTAN 24/26 MG TABLET 1 EACH PO (08:37)
[2024-03-11] MEDS: Potassium Chloride Oral Tablet 20 MEQ 60 MEQ PO (08:42)
[2024-03-11] MEDS: Acetaminophen 325 MG Tablet 650 MG PO (08:42)
[2024-03-11 10:00] VITALS: O2SAT 94
[2024-03-11] MEDS: cycloBENZAPRine HCl 5 MG TABLET PO (10:19)
[2024-03-11 10:50] VITALS: BP 112/72; PULSE 92; RESP 14; TEMP 36.9; O2SAT 95
--- NOTE | 2024-03-11 11:33 | PCM.DC.SUM ---
Providers Date of Admission: 03/10/24 Date of Discharge: 03/12/24 Primary Care Physician: Violetta [facility] Reason For Visit: RECURRENT AFIB WITH RVR Diagnosis Discharge Diagnosis (1) Atrial fibrillation with RVR: Status: Acute Code(s): I48.91 - Unspecified atrial fibrillation (2) Hypokalemia: Status: Acute Code(s): E87.6 - Hypokalemia Medications at Discharge Home Medications epinephrine 0.3 mg/0.3 mL injection, auto-injector 0.3 mg (0.3 mL) IM X1 BEE STINGS #2 syringes 05/03/15 pantoprazole 40 mg tablet,delayed release 40 mg PO DAILY reflux #30 tabs 01/11/24 pravastatin 20 mg tablet 20 mg PO QHS cholesterol #30 tabs 01/11/24 rivaroxaban 20 mg tablet (Xarelto) 20 mg PO DAILY blood thinner #30 tabs 01/11/24 carvedilol 12.5 mg tablet 12.5 mg PO BID blood pressure, heart rate 30 days #60 tabs 01/20/24 empagliflozin 10 mg tablet (Jardiance) 10 mg PO DAILY unknown 30 days #30 tabs 01/20/24 trazodone 50 mg tablet 50 mg PO QHS PRN sleep 30 days #30 tabs 01/20/24 spironolactone 25 mg tablet 25 mg PO DAILY diuretic 01/25/24 diltiazem HCl 240 mg capsule,extended release 24 hr 240 mg PO DAILY afib 30 days #30 caps 01/29/24 sacubitril 24 mg-valsartan 26 mg tablet (Entresto) 0.5 tab PO BID heart failure 30 days #60 tabs 01/29/24 furosemide 20 mg tablet 20 mg PO DAILY heart failure #90 tabs 03/04/24 cyclobenzaprine 5 mg tablet 5 mg PO BID PRN PRN muscle pain 03/10/24 Hospital Course Operations None Procedures EKG and - (Chest x-ray) Summary of Care Provided Minutes Spent on Discharge: 35 Hospital Course: Patient is a 78-year-old female who presented [facility] ED on 03/10/2024 with recurrent A-fib with RVR. Short hospital course as noted below. Patient discharged home in stable condition on 03/11. 1. Recurrent A-fib with RVR, improved ? Unclear etiology for recurrent A-fib with RVR; previously has been suspected due to medication nonadherence but patient reports taking all home medications as prescribed. Hypokalemia and mild hypomagnesemia likely playing a role. Reported mild URI symptoms over the last few days, could be contributing. Respiratory PCR panel and COVID testing negative. Had improvement in rate on diltiazem drip in the ED and then converted back to normal sinus rhythm on the evening of admission. Remained in sinus rhythm for remainder of admission. Continue home diltiazem and carvedilol on discharge. Continue home Xarelto. Outpatient follow-up with cardiology as previously scheduled. 2. HFrEF not in acute exacerbation ? Recently diagnosed in November, suspected tachycardia mediated with EF 35%. Not in acute exacerbation on this admission. BNP 592 but lower than previous values, chest x-ray with no signs of volume overload and patient breathing comfortably on room air. Continue home Coreg, diltiazem, Entresto, spironolactone and Lasix. 3. Hypokalemia ?Potassium 3.1 on admit. Magnesium 1.7, phosphorus 2.7. Goal potassium 4.0, magnesium 2.0. Repleted with good improvement. 4. Recent history of bedbug infestation ? Patient reports bedbugs have been eradicated from her home since prior admission when they were discovered here. No further management needed. Chronic medical conditions: ? History of medication nonadherence ? Insomnia: Continue home trazodone as needed. ? GERD: Continue home PPI. ? Hyperlipidemia: Continue home statin. *Patient notably was admitted under inpatient status but recovered more quickly than expected and was able to be discharged home in stable condition on hospital day 2. Total clinical time spent by myself addressing the patient's medical issues, reviewing all the data, and collaborating with patient's care team: 35 minutes. Physical Exam Const alert, oriented x3, no apparent distress and average body habitus Constitutional Narrative: Elderly female, somewhat chronically ill-appearing, otherwise sitting up comfortably in bed, conversing normally, no acute distress. Stable. General Appearance: cooperative and comfortable HEENT normocephalic, head/scalp atraumatic, hearing grossly normal bilaterally, nasal mucous membranes and turbinates normal and moist oral mucous membranes Eyes PERRL, EOMs intact bilaterally and conjunctivae normal Neck full ROM Chest inspection of chest normal Resp normal respiratory effort, normal air movement, no use of accessory muscles and clear to auscultation bilaterally Cardio regular rate, regular rhythm, no murmurs and peripheral pulses 2+ throughout GI normal to inspection, nondistended, normoactive bowel sounds, soft to palpation, non-tender and non-distended Back/Spine normal ROM Extremity normal to inspection, full ROM and no pedal edema Skin no rashes or lesions noted Neuro moves all extremities and no focal motor deficits Speech: speech normal Psych mental status grossly normal Weight / BMI Weight Weight: 65 kg Body Mass Index (BMI) 22.4 ABG / Lab / Microbiology Data 03/11/24 05:33 03/11/24 11:45 Laboratory: Laboratory Results - last 24 hr 03/11/24 05:33: WBC 8.9, RBC 3.65 L, Hgb 12.5, Hct 36.9 L, MCV 101.1 H, MCH 34.2 H, MCHC 33.9, RDW Std Deviation 58.5 H, RDW Coeff of Bessie 15.6 H, Plt Count 194, MPV 9.9, Sodium 134 L, Potassium 3.1 L, Chloride 102, Carbon Dioxide 26.0, Anion Gap 6, BUN 13, Creatinine 0.45 L, Estim Creat Clear Calc 56.36, Est GFR (MDRD) Af Amer 175, Est GFR (MDRD) Non-Af 145, BUN/Creatinine Ratio 29.1 H, Glucose 112 H, Calcium 8.9 Microbiology: Microbiology 03/10/24 11:44 Mucosa - Nasopharyngeal Coronavirus COVID-19 PCR - Final 03/10/24 11:44 Mucosa - Nasopharyngeal Respiratory Panel (PCR) - Final Meaningful Use Info Meaningful Use Meaningful Use Diagnoses (Choose all that apply): None applicable Ischemic Stroke Statin Dosing Therapy Reference: STATIN DOSE THERAPY REFERENCE: * Patients > 75 years receive moderate or high dose statin therapy. * Patients 75 years or YOUNGER should receive HIGH intensity statin dose unless contraindicated. You will be required to document reason for non-treatment if statin daily dose does not meet guidelines. HIGH DOSE STATIN THERAPY DAILY Atorvastatin > than or = to 40 mg Rosuvastatin > than or = to 20 mg Amlodipine + Atorvastatin > than or = to 2.5/40 mg Ezetimibe + Simvastatin 10/80 mg Simvastatin 80mg Discharge Plan Admission Admit Date/Time: 03/10/24 10:08 Primary Reason for Your Visit: Recurrent A-fib with RVR Attending Provider: Bebo Waite [facility] Inst[facility] Additional Instructions / Restrictions: Continue all home medications as normal. We will not be starting you on a potassium supplement at this time, as your potassium level came up very well with replacement here and the spironolactone medication will help to keep your potassium level normal going forward. Discharge Orders/Prescriptions Prescriptions: Continued epinephrine 0.3 MG syringe 0.3 mg IM X1 Qty: 2 0RF pantoprazole 40 mg Tablet,Delayed Release (Dr/Ec) 40 mg PO DAILY Qty: 30 0RF pravastatin 20 mg Tablet 20 mg PO QHS Qty: 30 0RF Xarelto 20 mg tablet 20 mg PO DAILY Qty: 30 0RF Patient Comments: pt states was not taking at right time so adjusted to taking at bedtime Rx Instructions: must administer with evening meal carvedilol 12.5 mg Tablet 12.5 mg PO BID 30 Days Qty: 60 2RF Jardiance 10 mg Tablet 10 mg PO DAILY 30 Days Qty: 30 2RF trazodone 50 mg tablet 50 mg PO QHS PRN (Reason: sleep) 30 Days Qty: 30 0RF cyclobenzaprine 5 mg tablet 5 mg PO BID PRN PRN (Reason: muscle pain) spironolactone 25 mg tablet 25 mg PO DAILY diltiazem HCl 240 mg Capsule,Extended Release 24hr 240 mg PO DAILY 30 Days Qty: 30 3RF Rx Instructions: Hold for heart less than 50 or systolic blood pressure less than 120 mmHg. Entresto 24-26 mg Tablet 0.5 tab PO BID 30 Days Qty: 60 2RF furosemide 20 mg tablet 20 mg PO DAILY Qty: 90 3RF Discontinued Eliquis 5 mg tablet 5 mg PO BID Referrals / Follow Up: [facility] Violetta Pillai [Primary Care Provider] - Disposition Disposition (needs filled in before D/C Order can be placed): Home, Self Care Charges/Coding Visit Charges Inpatient E&M: 85140 Disch Hosp >30min
--- NOTE | 2024-03-11 12:29 | CASEMGMT ---
Patient does not have a Healthcare Power of Engraver Letter or Healthcare Living Will. Per admission questions patient is not interested in documents. Tiffanie BROTHERS
[2024-03-11 12:47] LABS: Anion Gap 5 (5-15); BUN 16 mg/dL (7-18); BUN/Creat Ratio 29.7 RATIO (10-20); Chloride 102 mmol/L (98-107); Creatinine, Serum 0.54 mg/dL (0.55-1.02); EST Glomerular Filtration Rate 116 mL/min (>60); Est Glom Filt Rate - Afr Amer 141 mL/min (>60); Estimated Creatinine Clearance 56.36 ml/min; Glucose 116 mg/dL (74-106); Potassium 4.2 mmol/L (3.5-5.1); Sodium Level 133 mmol/L (136-145)
[2024-03-11 13:47] VITALS: BP 110/78; PULSE 78; RESP 14; TEMP 36.7; O2SAT 97
[2024-03-11 13:56] VITALS: BP 110/78; PULSE 88; RESP 12; TEMP 36.6; O2SAT 96
--- NOTE | 2024-03-11 14:21 | PHA.DC.MR.R ---
Pharmacy [place] Med Reconciliation Pharmacy Service has performed discharge medication reconciliation for this patient. The patient's discharge medication list was reviewed for discrepancies and discrepancies were resolved. Medications at Discharge Home Medications epinephrine 0.3 mg/0.3 mL injection, auto-injector 0.3 mg (0.3 mL) IM X1 BEE STINGS #2 syringes 05/03/15 pantoprazole 40 mg tablet,delayed release 40 mg PO DAILY reflux #30 tabs 01/11/24 pravastatin 20 mg tablet 20 mg PO QHS cholesterol #30 tabs 01/11/24 rivaroxaban 20 mg tablet (Xarelto) 20 mg PO DAILY blood thinner #30 tabs 01/11/24 carvedilol 12.5 mg tablet 12.5 mg PO BID 30 days #60 tabs 01/20/24 empagliflozin 10 mg tablet (Jardiance) 10 mg PO DAILY 30 days #30 tabs 01/20/24 trazodone 50 mg tablet 50 mg PO QHS PRN sleep 30 days #30 tabs 01/20/24 spironolactone 25 mg tablet 25 mg PO DAILY diuretic 01/25/24 diltiazem HCl 240 mg capsule,extended release 24 hr 240 mg PO DAILY 30 days #30 caps 01/29/24 sacubitril 24 mg-valsartan 26 mg tablet (Entresto) 0.5 tab PO BID 30 days #60 tabs 01/29/24 furosemide 20 mg tablet 20 mg PO DAILY #90 tabs 03/04/24 cyclobenzaprine 5 mg tablet 5 mg PO BID PRN PRN muscle pain 03/10/24
--- NOTE | 2024-03-11 14:44 | CASEMGMT ---
BALJIT BOJORQUEZ Assessment Face to Face with patient for initial transition planning/care coordination assessment. BALJIT BOJORQUEZ introduced self and role at [facility], pt voices understanding. Pt is A&Ox4 and is resting comfortably in bed and is calm. Pt SO at bedside. Care providers, pharmacy, and demographics verified. Admitting dx: AFIB with RVR PCP: Violetta Laird Specialists: Judy (ENT) Preferred Pharmacy: [facility] Insurance: [employer] A/B, [employer] Prescription Benefit: Yes LNOK: Vlad Bennett (SO), Danielle Barney (Friend) Living Arrangements: Pt lives alone in a 2 story home with 3 steps to enter in the front and 1 step to enter in the back ADLs/IADLs: Ind Transportation: Self, SO DME: Shower chair, grab bars, FWW, Rollator, BP Cuff, Pulse Ox HHC/SNF: Hx with [facility] HH. Denies SNF Hx or needs Pt?s goal: Home Plan: DC order placed. Pt denies the need for HHC or OP Tx. Pt denies further needs at home.Pt states that she feels safe discharging home today with no additional needs. Nii Mckinney RN, CM
--- NOTE | 2024-03-11 16:02 | CHAPLAIN ---
Type of Pastoral Visit _x__ Initial Visit ___ Follow-up Visit ___ On-call Visit ___ General Patient Visit ___ Spiritual Assessment ___ Family Conference ___ Bereavement ___ Rapid Response ___ Code Blue ___ Other (describe below) Pastoral Care Referral From _x__ Patient ___ Family ___ Nurse ___ Physician ___ Closet Organizer ___ Balance Staff Staker ___ Other (describe below) Sacrament/Intervention _x__ Active listening ___ Anointing ___ Rastafarian ___ Bereavement ___ Communion ___ Larissa exploration ___ ___ Life review _x__ Prayer ___ Reconciliation ___ Sacrament of Sick _x__ Supportive presence ___ Wedding ___ Other (describe below) Pastoral Comments patient was seen recently in the hospital; pt is feeling better and yet this was a new issue; pt shares disappointment that she could not see her friend that came to visit her from [place]; pt seeks prayer support but states no other concerns at this time
== END 2024-03-11 14:50 | disposition home or self-care (01) | DRG 309 ==
LOC: ED 10:25 → PCU 10:46
PROVIDERS: Admitting Provider Hospitalist; Emergency Provider Emergency Medicine; Visit Provider Hospitalist
DX: I48.91 Unspecified atrial fibrillation (principal); I50.22 Chronic systolic (congestive) heart failure; I11.0 Hypertensive heart disease with heart failure; E78.5 Hyperlipidemia, unspecified; J44.9 Chronic obstructive pulmonary disease, unspecified; E87.6 Hypokalemia; K21.9 Gastro-esophageal reflux disease without esophagitis; F17.210 Nicotine dependence, cigarettes, uncomplicated; Z11.52 Encounter for screening for COVID-19; G47.00 Insomnia, unspecified; Z79.84 Long term (current) use of oral hypoglycemic drugs; Z79.01 Long term (current) use of anticoagulants; Z79.899 Other long term (current) drug therapy
CPT/HCPCS: 71045; 80048; 83735; 83880; 84100; 84484; 85025; 85027; 87633; 87635; 93005; 99285; A4216

== ENCOUNTER 2024-03-25 20:59 | Inpatient (IN) | payer MEDICARE, BC, OTHER, SELFPAY ==
[2024-03-25 21:00] VITALS: BP 78/53; PULSE 92; RESP 22; TEMP 36.2; O2SAT 95; BMI 23.6
[2024-03-25 21:28] VITALS: BP 84/60; PULSE 88; RESP 16; O2SAT 95
--- NOTE | 2024-03-25 21:42 | EKG12_ITS ---
Test Reason : CP Blood Pressure : / mmHG Vent. Rate : 089 BPM Atrial Rate : 000 BPM P-R Int : 000 ms QRS Dur : 104 ms QT Int : 466 ms P-R-T Axes : 000 -03 181 degrees QTc Int : 566 ms Critical Test Result: Long QTc Atrial fibrillation Incomplete right bundle branch block ST & Marked T wave abnormality, consider anterolateral ischemia Prolonged QT Abnormal ECG Confirmed by Arron Jay ([id number]), multimedia editor ANGIE NIELSON ([id number]) on 03/26/2024 12:57:50 PM Referred By: SHAISTA Confirmed By:Arron Jay
--- NOTE | 2024-03-25 21:45 | EDS_ITS ---
HPI History of Present Illness Chief Complaint: Chest Pain Informant: patient Onset/Context/Timing Onset: Today and Hours Activity at onset: sudden Timing: Continuous Quality: Positive for Sharp Location: Left Chest Worsened By: Nothing Relieved By: Nothing Associated Symptoms: Positive for Nausea, Vomiting, Diaphoresis, Dyspnea and Lightheadedness; Negative for Cough, Fever, Acid Reflux or Palpitations Narrative Narrative: Patient presents with chest pain that began a few hours prior to arrival. Patient states it began rather suddenly. Patient states it is constant. Patient describes it as sharp. Patient states it is over the left lower chest. Patient states it is different from previous episodes of chest pain and that is mainly on the left side. Patient states before it was all the way across her lower chest. Patient states nothing makes it better and nothing makes it worse. Patient admits to some nausea and vomiting. Patient denies any shortness of breath and diaphoresis. Patient also admits to some lightheadedness. Patient denies any fevers or chills. CVD Risk Factors: Positive for Hypertension and Hypercholesterolemia; Negative for Diabetes, Family History 1' </=55 or Smoking PE Risk Factors: Negative for Recent Travel/Surgery, Recent Immobilization, Prior DVT or PE, Cancer or OCP + Smoking + >/=35 [facility] Medical History (Updated 03/26/24 @ 00:[address] Jesse Singh, DO) Chest pain Heart failure with reduced ejection fraction Alcohol abuse Anxiety Depression Osteoporosis Former smoker COPD (chronic obstructive pulmonary disease) Atrial fibrillation COPD (chronic obstructive pulmonary disease) Chronic anticoagulation Congestive heart failure Noncompliance with medication regimen Hypomagnesemia Atrial fibrillation with RVR Back pain Vision impairment Hearing difficulty Acid reflux Hypertension Home Medications ?Medication ?Instructions ?Recorded ?Last Taken ?Type epinephrine 0.3 mg/0.3 mL 0.3 mg (0.3 mL) IM X1 BEE STINGS 05/03/15 01/16/18 Rx injection, auto-injector #2 syringes pantoprazole 40 mg tablet,delayed 40 mg PO DAILY reflux #30 tabs 01/11/24 03/10/24 Rx release pravastatin 20 mg tablet 20 mg PO QHS cholesterol #30 tabs 01/11/24 03/10/24 Rx rivaroxaban 20 mg tablet (Xarelto) 20 mg PO DAILY blood thinner #30 01/11/24 03/10/24 Rx tabs carvedilol 12.5 mg tablet 12.5 mg PO BID blood pressure, 01/20/24 03/10/24 Rx heart rate 30 days #60 tabs empagliflozin 10 mg tablet 10 mg PO DAILY unknown 30 days #30 01/20/24 03/10/24 Rx (Jardiance) tabs trazodone 50 mg tablet 50 mg PO QHS PRN sleep 30 days #30 01/20/24 03/10/24 Rx tabs spironolactone 25 mg tablet 25 mg PO DAILY diuretic 01/25/24 03/10/24 History diltiazem HCl 240 mg 240 mg PO DAILY afib 30 days #30 01/29/24 03/10/24 Rx capsule,extended release 24 hr caps sacubitril 24 mg-valsartan 26 mg 0.5 tab PO BID heart failure 30 01/29/24 03/10/24 Rx tablet (Entresto) days #60 tabs furosemide 20 mg tablet 20 mg PO DAILY heart failure #90 03/04/24 03/10/24 Rx tabs cyclobenzaprine 5 mg tablet 5 mg PO BID PRN PRN muscle pain 03/10/24 Unknown History Allergy/AdvReac Type Severity Reaction Status Date / Time iodine Allergy Hives Verified 03/10/24 07:36 venom-honey bee (bee venom Allergy Shortness Verified 03/10/24 07:36 (honey bee)) of breath Social History household members: none Smoking Status: Former smoker ROS ROS ED Constitutional Constitutional ED: Denies chills or fever(s) Eyes Eyes: Denies blurry vision or change in vision ENT ENT ED: Denies rhinorrhea or sore throat Cardiovascular Cardiovascular: Reports chest pain and palpitations Respiratory/Chest Respiratory/Chest: Reports dyspnea; Denies cough Gastrointestinal Gastrointestinal: Reports nausea and vomiting; Denies abdominal pain Genitourinary Genitourinary ED: Denies dysuria or hematuria Musculoskeletal Musculoskeletal: Reports neck pain; Denies back pain Integumentary Denies abscess or rash Neurologic Neurologic: Reports headache(s); Denies weakness Allergic/Immunologic Allergic/Immunologic ED: Denies mouth swelling or urticaria EXAM Physical Exam Const Vital Signs: 03/25/24 21:00 03/25/24 21:28 03/25/24 21:42 Temperature 97.1 F L Temperature Source Tympanic Pulse Rate 92 88 Respiratory Rate 22 H 16 Blood Pressure 78/53 L 84/60 L Blood Pressure Mean 61 68 Pulse Ox 95 95 Oxygen Delivery Method Room Air Room Air Room Air 03/25/24 22:00 03/25/24 23:00 03/26/24 00:00 Temperature Temperature Source Pulse Rate 81 87 88 Respiratory Rate 16 16 23 H Blood Pressure 90/57 L 89/58 L 83/55 L Blood Pressure Mean 68 68 64 Pulse Ox 96 96 94 Oxygen Delivery Method Room Air Room Air Positive well nourished and well developed General Appearance ED: well developed and NAD HEENT Reports moist mucous membranes Neck supple and no JVD Resp normal respiratory effort and clear to auscultation bilaterally Cardio regular rate Rhythm: abnormal rhythm irregularly irregular GI soft to palpation, non-tender and non-distended Extremity normal to inspection Neuro oriented x3, CN's II-XII intact bilaterally and no sensory deficits noted Sensorium / Orientation: awake and alert Motor Exam: strength 5/5 throughout Psych mental status grossly normal Heart Score History: Moderately Suspicious ECG: Nonspecific Repolarization Age: >/= 65 years Risk Factors: >/= 3 Risk Factors or History of CAD Troponin: </= Normal Limit Score: 6 MDM MDM MDM Narrative Medical decision making narrative: Differential diagnosis includes cardiac dysrhythmia, cardiac ischemia, electrolyte abnormality, congestive heart failure, pneumonia, pneumothorax, GERD, and musculoskeletal pain. Patient is on Xarelto and is not tachycardic. I do not think this is from a pulmonary embolism. EKG will be obtained to assess for cardiac dysrhythmia and cardiac ischemia. Chest x-ray will be obtained to assess for pneumonia, congestive heart failure, and pneumothorax. CBC will be obtained to assess for leukocytosis and anemia. Basic metabolic profile will be obtained to assess for electrolyte abnormality and renal function. High-sensitivity troponin will be obtained to assess for cardiac ischemia. 2-hour repeat high-sensitivity troponin will be obtained to assess for ongoing cardiac ischemia. PT was INR and PTT will be obtained to assess for coagulopathy. BNP will be obtained to assess for congestive heart failure. History & Record Review Discussion w/independent historian: Patient and Family Additional record(s) reviewed:: Prior labs Lab Data Attestation: I reviewed the patient's lab results. Lab results narrative: CBC was reviewed and was essentially within normal limits. PT with INR and PTT were reviewed. Pro time was 19.9 and INR was 1.7. PTT was normal at 35.5. Basic metabolic profile was reviewed. Potassium was low at 3.0. Sodium was slightly low at 134 and chloride was slightly low at 97. BUN was slightly elevated at 30 and creatinine was mildly elevated at 1.36 these are increased from previous results. High-sensitivity troponin was reviewed and was normal at 43. BNP was reviewed and was mildly elevated at 649.3. This is consistent with previous results. Labs: Laboratory Results - last 24 hr 03/25/24 21:22 WBC 7.5 RBC 4.00 L Hgb 13.7 Hct 40.1 MCV 100.3 H MCH 34.3 H MCHC 34.2 RDW Std Deviation 57.5 H RDW Coeff of Bessie 15.6 H Plt Count 227 MPV 10.9 Immature Gran % (Auto) 0.300 Neut % (Auto) 53.6 Lymph % (Auto) 33.5 [place] % (Auto) 10.7 H Eos % (Auto) 1.1 Baso % (Auto) 0.8 Absolute Neuts (auto) 4.0 Absolute Lymphs (auto) 2.51 Nucleated RBC % 0 PT 19.9 H INR 1.7 APTT 35.5 Sodium 134 L Potassium 3.0 L Chloride 97 L Carbon Dioxide 26.0 Anion Gap 11 BUN 30 H Creatinine 1.36 H Estim Creat Clear Calc 33.15 Est GFR (MDRD) Af Amer 48 L Est GFR (MDRD) Non-Af 40 L BUN/Creatinine Ratio 22.1 H Glucose 92 Calcium 8.7 Troponin I High Sens 43 B-Natriuretic Peptide 649.3 H Radiography Chest X-Ray - ED: 1 View, Read by ED Physician, Read by Radiologist, No Acute Disease and Cardiomegaly Diagnostic Testing: Portable chest x-ray was obtained. There is 1 view. On my independent in terpretation, there is no acute cardiopulmonary process noted. There is no evidence of congestive heart failure. There is cardiomegaly noted. Bony thorax is normal. Radiologist also interpreted the x-rays and agrees. EKG Initial EKG: Attestation: I personally reviewed and interpreted this EKG as follows: Interpretation: Atrial Fibrillation (89) and Inverted T-Waves Comments: EKG was obtained. On my independent interpretation, it shows atrial fibrillation with a rate of 89. QRS interval was normal at 104 ms. QTc interval was slightly prolonged at 566 ms. [place] was normal at -3. There are T wave inversions noted in V3 through V6, I, aVL, and II. These are new compared to previous EKG dated 03/10/2024. Prior EKG tracings: available for review Prior: Changed (T wave inversions are new compared to previous EKG dated 03/10/2024.) Treatment and Re-Evaluation :: Patient was given aspirin here. Patient was given 500 cc bolus of normal saline. Patient's blood pressure did improve to 90/60. Due to the patient's blood pressure, nitroglycerin was unable to be ordered. Patient is resting comfortably on reevaluation. Patient was advised of her findings. Patient was advised of the need for hospitalization and further evaluation due to the changes in her EKG. Case was discussed with the hospitalist. He will admit the patient to his service. Case was discussed with Dr. Jay from cardiology. He recommended starting the patient on a heparin drip in case the patient will need to be taken for a cardiac catheterization tomorrow. This was ordered. Patient understood and was agreeable with the plan. All questions were answered. Discharge Plan Triage Chief Complaint: Chest Pain ED Provider: Jesse Singh Dx/Rx/DC Orders Clinical Impression: Chest pain, Acute hypokalemia, Acute kidney injury Prescriptions: No Action epinephrine 0.3 MG syringe 0.3 mg IM X1 Qty: 2 0RF pantoprazole 40 mg Tablet,Delayed Release (Dr/Ec) 40 mg PO DAILY Qty: 30 0RF pravastatin 20 mg Tablet 20 mg PO QHS Qty: 30 0RF Xarelto 20 mg tablet 20 mg PO DAILY Qty: 30 0RF Patient Comments: pt states was not taking at right time so adjusted to taking at bedtime Rx Instructions: must administer with evening meal carvedilol 12.5 mg Tablet 12.5 mg PO BID 30 Days Qty: 60 2RF Jardiance 10 mg Tablet 10 mg PO DAILY 30 Days Qty: 30 2RF trazodone 50 mg tablet 50 mg PO QHS PRN (Reason: sleep) 30 Days Qty: 30 0RF cyclobenzaprine 5 mg tablet 5 mg PO BID PRN PRN (Reason: muscle pain) spironolactone 25 mg tablet 25 mg PO DAILY diltiazem HCl 240 mg Capsule,Extended Release 24hr 240 mg PO DAILY 30 Days Qty: 30 3RF Rx Instructions: Hold for heart less than 50 or systolic blood pressure less than 120 mmHg. Entresto 24-26 mg Tablet 0.5 tab PO BID 30 Days Qty: 60 2RF furosemide 20 mg tablet 20 mg PO DAILY Qty: 90 3RF Primary Care Provider: Violetta Jaquez Referrals: [facility] Violetta Pillai [Primary Care Provider] - Print Language: Chadian Disposition Disposition: Acute Care Hospital [facility]
--- NOTE | 2024-03-25 21:50 | RAD_ITS ---
INDICATION: chest pain EXAMINATION/TECHNIQUE: X-RAY - XR Chest 1 View COMPARISON: 03/10/2024 chest radiograph. FINDINGS: 2 frontal views of the chest. LUNG PARENCHYMA: No acute focal airspace disease or mass lesion. PLEURA: No pleural effusion. No pneumothorax. HEART/GREAT VESSELS: Cardiomediastinal silhouette is borderline enlarged in this portable examination. BONES: Osseous structures are unremarkable for age. RAD/Chest 1 View (Portable) IMPRESSION: Chest with no acute disease. Electronically Signed: Solo Rodríguez MD at 22:13 EDT ,
[2024-03-25 21:51] LABS: Absolute Lymphocyte Count 2.51 X10^3/uL (0.83-4.51); Basophil# 0.06 X10^3/uL; Basophil% 0.8 % (0-1); Eosinophil# 0.08 X10^3/uL; Eosinophils% 1.1 % (0-5); Hematocrit 40.1 % (37-47); Hemoglobin 13.7 g/dL (12.0-15.0); Lymphocyte # 2.51 X10^3/ul (0.83-4.51); Lymphocyte % 33.5 % (19-41); Mean Corp Hgb Conc 34.2 g/dL (32-36); Mean Corpuscular Hgb 34.3 pg (27.0-32.0); Mean Corpuscular Volume 100.3 fL (81-99); Mean Platelet Vol. 10.9 fl (6.2-12.0); Monocyte% 10.7 % (0-10); NRBC Flagged by Analyzer 0 % (0-5); Neutrophil # 4.02 X10^3/uL (2.7-7.7); Neutrophil % 53.6 % (47-70); Platelet Count 227 K/mm3 (150-450); RBC Distribution Width CV 15.6 % (11.6-14.6); RBC Distribution Width SD 57.5 fl (35.1-43.9); White Blood Count 7.5 K/mm3 (4.4-11.0)
[2024-03-25] MEDS: 0.9% Normal Saline (500mL Bag) 500 ML 999 ML IV (21:54)
[2024-03-25] MEDS: Aspirin 81 MG TAB.CHEW 324 MG PO (21:54)
[2024-03-25 22:00] VITALS: BP 90/57; PULSE 81; RESP 16; O2SAT 96
[2024-03-25 22:00] LABS: International Normalized Ratio 1.7; Prothrombin Time (Protime)PT. 19.9 SECONDS (11.7-14.9)
[2024-03-25 22:01] LABS: Partial Thromboplast Time 35.5 Seconds (24.1-36.2)
[2024-03-25 22:16] LABS: BNP,B-Type NATRIURETIC PEPTIDE 649.3 pg/mL (0-100)
[2024-03-25 22:20] LABS: Anion Gap 11 (5-15); BUN 30 mg/dL (7-18); BUN/Creat Ratio 22.1 RATIO (10-20); Calcium,Total 8.7 mg/dL (8.5-10.1); Chloride 97 mmol/L (98-107); Creatinine, Serum 1.36 mg/dL (0.55-1.02); EST Glomerular Filtration Rate 40 mL/min (>60); Est Glom Filt Rate - Afr Amer 48 mL/min (>60); Estimated Creatinine Clearance 33.15 ml/min; Glucose 92 mg/dL (74-106); Sodium Level 134 mmol/L (136-145); Troponin-I HS (w/2H Reflex) 43 pg/mL (3.0-54.0)
[2024-03-25 23:00] VITALS: BP 89/58; PULSE 87; RESP 16; O2SAT 96
[2024-03-25 23:48] LABS: Reflex Troponin-HS? (from REC) Y
[2024-03-26] VITALS (12 sets, daily range): BP systolic 83–118; BP diastolic 55–86; PULSE 69–124; RESP 16–23; TEMP 36.4–36.8; O2SAT 94–99; BMI 22.4
--- NOTE | 2024-03-26 00:07 | HP.PCM_ITS ---
HPI - General General Date of Admission: 03/26/24 Date of Service: 03/26/24 Chief Complaint: chest pain HPI Narrative JULIO HERNANDEZ, is a 78 F who presents to the emergency room with chief complaint of chest pain. Onset of symptoms began this evening when she woke up feeling a heaviness and tightness in the mid chest that was nonradiating. The pain got worse so she came to the emergency room. Patient has significant past medical history of congestive heart failure and had a stress test done in January 2024. EKG shows ST depressions in the lateral leads. This is a new EKG finding from her previous. She continues to be hypotensive despite a 500 cc bolus normal saline given in the emergency room and therefore will reluctant to give pain medications that might cause worsening of her hypotension. She describes her pain as less at this time it is more of a pressure instead of pain. Patient will be admitted to the progressive care unit for further cycling of cardiac enzymes and cardiology will be consulted. [facility] Medical History (Updated 03/26/24 @ 00:[address] Jesse Singh, DO) Chest pain Heart failure with reduced ejection fraction Alcohol abuse Anxiety Depression Osteoporosis Former smoker COPD (chronic obstructive pulmonary disease) Atrial fibrillation COPD (chronic obstructive pulmonary disease) Chronic anticoagulation Congestive heart failure Noncompliance with medication regimen Hypomagnesemia Atrial fibrillation with RVR Back pain Vision impairment Hearing difficulty Acid reflux Hypertension Home Medications ?Medication ?Instructions ?Recorded ?Last Taken ?Type epinephrine 0.3 mg/0.3 mL 0.3 mg (0.3 mL) IM X1 BEE STINGS 05/03/15 01/16/18 Rx injection, auto-injector #2 syringes pantoprazole 40 mg tablet,delayed 40 mg PO DAILY reflux #30 tabs 01/11/24 03/10/24 Rx release pravastatin 20 mg tablet 20 mg PO QHS cholesterol #30 tabs 01/11/24 03/10/24 Rx rivaroxaban 20 mg tablet (Xarelto) 20 mg PO DAILY blood thinner #30 01/11/24 03/10/24 Rx tabs carvedilol 12.5 mg tablet 12.5 mg PO BID blood pressure, 01/20/24 03/10/24 Rx heart rate 30 days #60 tabs empagliflozin 10 mg tablet 10 mg PO DAILY unknown 30 days #30 01/20/24 03/10/24 Rx (Jardiance) tabs trazodone 50 mg tablet 50 mg PO QHS PRN sleep 30 days #30 01/20/24 03/10/24 Rx tabs spironolactone 25 mg tablet 25 mg PO DAILY diuretic 01/25/24 03/10/24 History diltiazem HCl 240 mg 240 mg PO DAILY afib 30 days #30 01/29/24 03/10/24 Rx capsule,extended release 24 hr caps sacubitril 24 mg-valsartan 26 mg 0.5 tab PO BID heart failure 30 01/29/24 03/10/24 Rx tablet (Entresto) days #60 tabs furosemide 20 mg tablet 20 mg PO DAILY heart failure #90 03/04/24 03/10/24 Rx tabs cyclobenzaprine 5 mg tablet 5 mg PO BID PRN PRN muscle pain 03/10/24 Unknown History Allergy/AdvReac Type Severity Reaction Status Date / Time iodine Allergy Hives Verified 03/10/24 07:36 venom-honey bee (bee venom Allergy Shortness Verified 03/10/24 07:36 (honey bee)) of breath Social History household members: none Smoking Status: Former smoker ROS Constitutional Constitutional: Denies chills or fever(s) Eyes Eyes: Denies blurry vision ENT HEENT: Denies abnormal hearing Cardiovascular Cardiovascular: Reports chest pain Respiratory/Chest Respiratory/Chest: Denies cough or shortness of breath at rest Gastrointestinal Gastrointestinal: Denies abdominal pain Genitourinary Genitourinary: Denies dysuria Musculoskeletal Musculoskeletal: Denies back pain Integumentary Integumentary: Denies dry skin Neurologic Neurologic: Denies abnormal speech Psychiatric Psychiatric: Denies anxiety Vital Signs Vital Signs Vital Signs: 03/25/24 21:00 03/25/24 21:28 03/25/24 21:42 Temperature 97.1 F L Temperature Source Tympanic Pulse Rate 92 88 Respiratory Rate 22 H 16 Blood Pressure 78/53 L 84/60 L Blood Pressure Mean 61 68 Pulse Ox 95 95 Oxygen Delivery Method Room Air Room Air Room Air 03/25/24 22:00 03/25/24 23:00 Temperature Temperature Source Pulse Rate 81 87 Respiratory Rate 16 16 Blood Pressure 90/57 L 89/58 L Blood Pressure Mean 68 68 Pulse Ox 96 96 Oxygen Delivery Method Room Air Weight Weight: 151 lb 0.266 oz Body Mass Index (BMI) 23.6 Physical Exam Const alert and oriented x3 General Appearance: cooperative and well developed HEENT normocephalic and head/scalp atraumatic Neck no lymphadenopathy Lymph Lymphatic: no lymphadenopathy noted Resp normal respiratory effort, normal air movement and clear to auscultation bilaterally Cardio regular rate, regular rhythm, S1 normal heart sound, S2 normal heart sound and no murmurs GI normal to inspection, nondistended, normoactive bowel sounds Extremity normal capillary refill Skin General Skin Exam: no breakdown Neuro no focal motor deficits and no sensory deficits noted Psych thought process normal, cooperative and affect normal Results Lab / Micro Data 03/25/24 21:22 03/25/24 21:22 Labs: Laboratory Results - last 24 hr 03/25/24 21:22: WBC 7.5, RBC 4.00 L, Hgb 13.7, Hct 40.1, MCV 100.3 H, MCH 34.3 H , MCHC 34.2, RDW Std Deviation 57.5 H, RDW Coeff of Bessie 15.6 H, Plt Count 227, MPV 10.9, Immature Gran % (Auto) 0.300, Neut % (Auto) 53.6, Lymph % (Auto) 33.5, [place] % (Auto) 10.7 H, Eos % (Auto) 1.1, Baso % (Auto) 0.8, Absolute Neuts (auto) 4.0, Absolute Lymphs (auto) 2.51, Nucleated RBC % 0, PT 19.9 H, INR 1.7, APTT 35.5, Sodium 134 L, Potassium 3.0 L, Chloride 97 L, Carbon Dioxide 26.0, Anion Gap 11, BUN 30 H, Creatinine 1.36 H, Estim Creat Clear Calc 33.15, Est GFR (MDRD) Af Amer 48 L, Est GFR (MDRD) Non-Af 40 L, BUN/Creatinine Ratio 22.1 H, Glucose 92, Calcium 8.7, Troponin I High Sens 43, B-Natriuretic Peptide 649.3 H Assessment & Plan Assessment/Plan (1) Heart failure with reduced ejection fraction: (2) Chest pain: (3) Acute hypokalemia: PLAN: Plan 1 chest pain?new EKG changes noted (ST depressions in lateral leads)?admit patient to progressive care unit continue cycling cardiac markers, consult cardiology, make patient n.p.o. pending decision for heart catheterization by cardiology and will give IV normal saline running at 75 cc/h. Repeat CBC BMP in the morning 2. Hypotension due to congestive heart failure will do gentle hydration with IV fluids to try to maintain blood pressure elevated above his current level to maintain a mean arterial blood pressure 65 3. Hypokalemia?replace potassium 4. DVT prophylaxis?low molecular weight heparin Charges/Coding Visit Charges Inpatient E&M: 18899 Init Hosp L2
[2024-03-26 00:27] LABS: Troponin-I HS 38 pg/mL (3.0-54.0)
[2024-03-26] MEDS: 0.9% Normal Saline (500mL Bag) 500 ML 999 ML IV (00:41)
[2024-03-26] MEDS: Heparin Injection (Vial) 5,000 UNIT/ML VIAL 4500 UNIT IV (00:42)
[2024-03-26] MEDS: Potassium Chloride Oral Tablet 20 MEQ 40 MEQ PO (00:43)
[2024-03-26] MEDS: HEPARIN/D5w 25,000 UNITS 25,000 UNITS/250 ML IV.SOLN. 10 UNITS CONT INF (00:45)
[2024-03-26] MEDS: 0.9% Normal Saline (1000mL) 1,000 ML 75 ML IV ×2 (01:43→13:52)
--- NOTE | 2024-03-26 02:18 | EKG12_ITS ---
Test Reason : CP Blood Pressure : / mmHG Vent. Rate : 090 BPM Atrial Rate : 000 BPM P-R Int : 000 ms QRS Dur : 104 ms QT Int : 456 ms P-R-T Axes : 000 017 215 degrees QTc Int : 557 ms Critical Test Result: Long QTc Atrial fibrillation Incomplete right bundle branch block ST & Marked T wave abnormality, consider anterolateral ischemia Prolonged QT Abnormal ECG When compared with ECG of 25-MAR-2024 21:03, T wave inversion more evident in Inferior leads Confirmed by Arron Jay ([id number]), scientific editor RADHA MEZA ([id number]) on 03/28/2024 2:19:41 PM Referred By: SILVIA Confirmed By:Arron Jay
[2024-03-26] MEDS: predniSONE 20 MG Tablet 50 MG PO ×3 (02:43→07:57)
[2024-03-26 03:19] LABS: Absolute Lymphocyte Count 2.99 X10^3/uL (0.83-4.51); Absolute Neutrophil Count 2.7 X10^3/uL (2.0-7.7); Basophil# 0.07 X10^3/uL; Eosinophil# 0.12 X10^3/uL; Eosinophils% 1.8 % (0-5); Hematocrit 39.1 % (37-47); Hemoglobin 13.4 g/dL (12.0-15.0); Lymphocyte # 2.99 X10^3/ul (0.83-4.51); Lymphocyte % 44.6 % (19-41); Mean Corp Hgb Conc 34.3 g/dL (32-36); Mean Corpuscular Hgb 34.3 pg (27.0-32.0); Mean Platelet Vol. 10.5 fl (6.2-12.0); Monocyte# 0.85 X10^3/uL; Monocyte% 12.7 % (0-10); NRBC Flagged by Analyzer 0 % (0-5); Neutrophil # 2.65 X10^3/uL (2.7-7.7); Neutrophil % 39.5 % (47-70); Platelet Count 210 K/mm3 (150-450); RBC Distribution Width CV 15.7 % (11.6-14.6); RBC Distribution Width SD 57.4 fl (35.1-43.9); Red Blood Count 3.91 M/mm3 (4.2-5.4); White Blood Count 6.7 K/mm3 (4.4-11.0)
[2024-03-26 03:51] LABS: International Normalized Ratio 1.8
[2024-03-26 04:01] LABS: Troponin-I HS 33 pg/mL (3.0-54.0)
[2024-03-26 05:01] LABS: Anion Gap 11 (5-15); BUN 33 mg/dL (7-18); BUN/Creat Ratio 33.2 RATIO (10-20); Calcium,Total 8.4 mg/dL (8.5-10.1); Chloride 101 mmol/L (98-107); Creatinine, Serum 0.99 mg/dL (0.55-1.02); EST Glomerular Filtration Rate 57 mL/min (>60); Est Glom Filt Rate - Afr Amer 69 mL/min (>60); Estimated Creatinine Clearance 45.54 ml/min; Glucose 93 mg/dL (74-106); Potassium 3.6 mmol/L (3.5-5.1); Sodium Level 134 mmol/L (136-145)
[2024-03-26 07:21] LABS: Partial Thromboplast Time 239.2 Seconds (24.1-36.2)
--- NOTE | 2024-03-26 07:30 | PCM.CONS.C ---
Assessment & Plan Assessment/Plan (1) Chest pain: QUALIFIERS: Chest pain type: precordial pain Qualified Code(s): R07.2 - Precordial pain PLAN: Patient's chest comfort described as left-sided it was associated with atrial fibrillation and new deep T wave inversions across the precordium. Her troponins were negative x 2 sets. She has a known ejection fraction of 35% with global LV dysfunction documented on echocardiogram 01/12/2024. She had a pharmacologic stress test that showed LV dysfunction with no definitive ischemia January 26, 2024. Given her recurrent atrial fibrillation and new ischemic T wave changes I would recommend she undergo a left heart catheterization. The procedure risk/benefit and alternatives were explained to the patient in detail she voiced understanding and agrees to proceed. She will be premedicated for iodine allergy and she has been off the Xarelto for at least 36 hours. There is also some question she was taking the Xarelto at home. I we will discuss the timing of the catheterization either this morning or tomorrow with Dr. Cao. (2) Atrial fibrillation: QUALIFIERS: Atrial fibrillation type: paroxysmal Qualified Code(s): I48.0 - Paroxysmal atrial fibrillation PLAN: The patient's atrial fibrillation is less than optimally controlled. We will alter medications once we have the results of the left heart catheterization. The patient has not been receiving any of her medications since admission and her blood pressures been running in the 95-100 systolic range. I feel that we should get better rate control prior to proceeding with heart catheterization. She also has a history of spontaneously converting to sinus rhythm on previous admissions with diltiazem. But given her LV dysfunction EF of 35% we will trial to convert her with metoprolol 25 mg twice daily. I am concerned about purposely trying to chemically cardiovert her to sinus rhythm given the unknown status of her Xarelto and uncertain duration of this atrial fibrillation. She does have a history of spontaneously converting on her previous hospitalizations. (3) Cardiomyopathy: QUALIFIERS: Cardiomyopathy type: dilated Qualified Code(s): I42.0 - Dilated cardiomyopathy PLAN: She has a history of a dilated cardiomyopathy of an unknown etiology. She does have a history of alcohol use and recurrent atrial fibrillation with rapid ventricular response as to possible etiologies. She had an negative pharmacologic nuclear stress test February 03, 2024. However her admission EKG shows significant T wave changes consistent with anterior lateral ischemia on this admission. Given the fact she is borderline hypotensive on admission and has not received any of her vasoactive medications since admission I recommend we try to better control her atrial fibrillation prior to proceeding with an elective/urgent left heart catheterization. Her troponins are negative x 2 sets. PLAN: Plan 1. Plan left heart catheterization to definitively rule out coronary artery disease. We will defer this until we can better control her atrial fibrillation and hemodynamic status. 2. Will need to address rate control with medication adjustment based on her blood pressure response to the Coreg. This may require switching her to metoprolol. I actually added metoprolol 25 mg twice daily she is on no other vasoactive meds at this time. We will reinstitute them as blood pressure and heart rate tolerate. 3. Will tentatively schedule left heart catheterization tomorrow 03/27/2024. HPI Consult Data Date of Consult: 03/26/24 HPI Narrative HPI Narrative: JULIO HERNANDEZ, is a 78 F who presents with recurrent paroxysmal atrial fibrillation and left-sided chest discomfort. Her EKG initially showed deep inverted T waves in the anterior lateral leads. The deep T wave changes are new compared to an EKG from 03/10/2024. Her heart rate at that time was approximately 100 bpm. Troponins were negative x 2 sets. BNP was 649 her previous admission the BNP was 711. Her initial creatinine was 1.36 but after hydration it is down to 0.99. Patient has a history of admissions in December, January, and February for paroxysmal atrial fibs. The patient apparently has a history of the inability to comply with her medical therapy in her home environment but she is adamant that she was taking her Xarelto which she describes as a red tablet. The patient reports that she gets short of breath and tired very quickly when she is in atrial fibrillation. It is difficult to pin her down exactly when she first noticed this but it was sometime within the last 2 to 3 days. The patient's chest discomfort has resolved. Telemetry shows that she remains in atrial fibrillation with a heart rates between 80 and 120. The patient has a history of an echocardiogram January 12, 2024 that showed an LVEF of to 35% with moderate biatrial enlargement trace to mild mitral regurgitation 2+ tricuspid regurgitation and pulmonary artery pressures estimated 40. Patient has no family history of coronary disease, she does smoke quit 1 month ago. She does not know her lipid status she is on pravastatin. The patient is also hypertensive. The patient is not diabetic. The patient has a history of a topical iodine allergy. However she reports she has received CT scans without incident but she does not know if she was prepped or not. [facility] Medical History (Updated 03/26/24 @ 08:[address] Arron Jay MD) Chest pain Heart failure with reduced ejection fraction Alcohol abuse Anxiety Depression Osteoporosis Former smoker COPD (chronic obstructive pulmonary disease) Atrial fibrillation COPD (chronic obstructive pulmonary disease) Chronic anticoagulation Congestive heart failure Noncompliance with medication regimen Hypomagnesemia Atrial fibrillation with RVR Back pain Vision impairment Hearing difficulty Acid reflux Hypertension Home Medications ?Medication ?Instructions ?Recorded ?Last Taken ?Type epinephrine 0.3 mg/0.3 mL 0.3 mg (0.3 mL) IM X1 BEE STINGS 05/03/15 01/16/18 Rx injection, auto-injector #2 syringes pantoprazole 40 mg tablet,delayed 40 mg PO DAILY reflux #30 tabs 01/11/24 03/10/24 Rx release pravastatin 20 mg tablet 20 mg PO QHS cholesterol #30 tabs 01/11/24 03/10/24 Rx rivaroxaban 20 mg tablet (Xarelto) 20 mg PO DAILY blood thinner #30 01/11/24 03/10/24 Rx tabs carvedilol 12.5 mg tablet 12.5 mg PO BID blood pressure, 01/20/24 03/10/24 Rx heart rate 30 days #60 tabs empagliflozin 10 mg tablet 10 mg PO DAILY unknown 30 days #30 01/20/24 03/10/24 Rx (Jardiance) tabs trazodone 50 mg tablet 50 mg PO QHS PRN sleep 30 days #30 01/20/24 03/10/24 Rx tabs spironolactone 25 mg tablet 25 mg PO DAILY diuretic 01/25/24 03/10/24 History diltiazem HCl 240 mg 240 mg PO DAILY afib 30 days #30 01/29/24 03/10/24 Rx capsule,extended release 24 hr caps sacubitril 24 mg-valsartan 26 mg 0.5 tab PO BID heart failure 30 01/29/24 03/10/24 Rx tablet (Entresto) days #60 tabs furosemide 20 mg tablet 20 mg PO DAILY heart failure #90 03/04/24 03/10/24 Rx tabs cyclobenzaprine 5 mg tablet 5 mg PO BID PRN PRN muscle pain 03/10/24 Unknown History Allergy/AdvReac Type Severity Reaction Status Date / Time iodine Allergy Hives Verified 03/10/24 07:36 venom-honey bee (bee venom Allergy Shortness Verified 03/10/24 07:36 (honey bee)) of breath Social History household members: none Smoking Status: Former smoker ROS Constitutional Constitutional: Reports as per HPI Eyes Eyes: Reports systems reviewed and no addt'l complaints, except as documented ENT HEENT: Reports systems reviewed and no addt'l complaints, except as documented Cardiovascular Cardiovascular: Reports as per HPI Respiratory/Chest Respiratory/Chest: Reports as per HPI Gastrointestinal Gastrointestinal: Reports systems reviewed and no addt'l complaints, except as documented Genitourinary Genitourinary: Reports systems reviewed and no addt'l complaints, except as documented Musculoskeletal Musculoskeletal: Reports systems reviewed and no addt'l complaints, except as documented Integumentary Integumentary: Reports systems reviewed and no addt'l complaints, except as documented Neurologic Neurologic: Reports systems reviewed and no addt'l complaints, except as documented Psychiatric Psychiatric: Reports systems reviewed and no addt'l complaints, except as documented Endocrine Endocrinology: Reports systems reviewed and no addt'l complaints, except as documented Hematologic/Lymphatic Hematologic/Lymphatic: Reports systems reviewed and no addt'l complaints, except as documented Allergic/Immunologic Allergic/Immunologic: Reports as per HPI Physical Exam Const alert and oriented x3 HEENT normocephalic Eyes EOMs intact bilaterally Neck no JVD and no carotid bruits Chest inspection of chest normal Resp normal respiratory effort Auscultation: diminished lung sounds left lower Cardio Rate: regular rate Rhythm: abnormal rhythm irregularly irregular Heart Sounds: S1 normal and S2 normal; Negative for click, gallop or murmur Peripheral Pulses: radial pulses present bilateral 1+, femoral pulses present bilateral 3+ and dorsalis pedis pulses present bilateral 2+ GI normal to inspection, nondistended, normoactive bowel sounds Extremity no pedal edema Neuro Neuro Narrative: Alert and oriented x 3. Moderate hearing deficit. Psych mental status grossly normal Risk Stratification Risk Stratification Applicable: Yes Age >/= 65: Yes >/= 3 CAD Risk Factors (HTN, HLD, DM, family hx of CAD, or current smoker): Yes Aspirin Use in the Past 7 Days: No Severe Angina (>/= episodes in 24 hours): Yes EKG ST Changes >/= 0.5mm: No Positive Cardiac Marker: No REYES Risk Stratification Score: 3 REYES % Risk: 13% Risk Charges/Coding Visit Charges Inpatient E&M: 45189 Init Hosp L3 Objective Data Vital Signs: Vital Signs Temp Pulse Resp BP Pulse Ox O2 Del Method 97.9 F 71 18 98/66 94 Room Air 03/26/24 06:17 03/26/24 06:17 03/26/24 06:17 03/26/24 06:17 03/26/24 06:17 03/26/24 06:17 Oxygen Delivery Method Room Air Weight: 142 lb 13.753 oz Body Mass Index (BMI) 22.4 Intake & Output: Intake and Output for Last 24 Hours 03/24/24 03/25/24 03/26/24 23:59 23:59 23:59 Intake Total 500 / 500 567 / 567 Balance 500 / 500 567 / 567 Lab / Micro Data Attestation: I reviewed the patient's lab results. 03/26/24 03:05 03/26/24 03:05 Labs: Laboratory Results - last 24 hr 03/25/24 21:22: WBC 7.5, RBC 4.00 L, Hgb 13.7, Hct 40.1, MCV 100.3 H, MCH 34.3 H, MCHC 34.2, RDW Std Deviation 57.5 H, RDW Coeff of Bessie 15.6 H, Plt Count 227, MPV 10.9, Immature Gran % (Auto) 0.300, Neut % (Auto) 53.6, Lymph % (Auto) 33.5, [place] % (Auto) 10.7 H, Eos % (Auto) 1.1, Baso % (Auto) 0.8, Absolute Neuts (auto) 4.0, Absolute Lymphs (auto) 2.51, Nucleated RBC % 0, PT 19.9 H, INR 1.7, APTT 35.5, Sodium 134 L, Potassium 3.0 L, Chloride 97 L, Carbon Dioxide 26.0, Anion Gap 11, BUN 30 H, Creatinine 1.36 H, Estim Creat Clear Calc 33.15, Est GFR (MDRD) Af Amer 48 L, Est GFR (MDRD) Non-Af 40 L, BUN/Creatinine Ratio 22.1 H, Glucose 92, Calcium 8.7, Troponin I High Sens 43, B-Natriuretic Peptide 649.3 H 03/25/24 23:23: Troponin I High Sens 38 03/26/24 03:05: WBC 6.7, RBC 3.91 L, Hgb 13.4, Hct 39.1, MCV 100.0 H, MCH 34.3 H, MCHC 34.3, RDW Std Deviation 57.4 H, RDW Coeff of Bessie 15.7 H, Plt Count 210, MPV 10.5, Immature Gran % (Auto) 0.400, Neut % (Auto) 39.5 L, Lymph % (Auto) 44.6 H, [place] % (Auto) 12.7 H, Eos % (Auto) 1.8, Baso % (Auto) 1.0, Absolute Neuts (auto) 2.7, Absolute Lymphs (auto) 2.99, Nucleated RBC % 0, PT 21.0 H, INR 1.8, Sodium 134 L, Potassium 3.6, Chloride 101, Carbon Dioxide 22.0, Anion Gap 11, BUN 33 H, Creatinine 0.99, Estim Creat Clear Calc 45.54, Est GFR (MDRD) Af Amer 69, Est GFR (MDRD) Non-Af 57 L, BUN/Creatinine Ratio 33.2 H, Glucose 93, Calcium 8.4 L, Troponin I High Sens 33 03/26/24 06:40: APTT 239.2 H* Rhythm Strip Rhythm Strip: A-fib Rate: 100 Cardiology Labs/Tests 03/25/24 21:22: WBC 7.5, RBC 4.00 L, Hgb 13.7, Hct 40.1, MCV 100.3 H, MCH 34.3 H, MCHC 34.2, Plt Count 227, MPV 10.9, Immature Gran % (Auto) 0.300, Neut % (Auto) 53.6, Lymph % (Auto) 33.5, [place] % (Auto) 10.7 H, Eos % (Auto) 1.1, Baso % (Auto) 0.8, Absolute Neuts (auto) 4.0, Nucleated RBC % 0, PT 19.9 H, INR 1.7, APTT 35.5, Sodium 134 L, Potassium 3.0 L, Chloride 97 L, Carbon Dioxide 26.0, Anion Gap 11, BUN 30 H, Creatinine 1.36 H, Est GFR (MDRD) Af Amer 48 L, Est GFR (MDRD) Non-Af 40 L, BUN/Creatinine Ratio 22.1 H, Glucose 92, Calcium 8.7, B-Natriuretic Peptide 649.3 H 03/26/24 03:05: WBC 6.7, RBC 3.91 L, Hgb 13.4, Hct 39.1, MCV 100.0 H, MCH 34.3 H, MCHC 34.3, Plt Count 210, MPV 10.5, Immature Gran % (Auto) 0.400, Neut % (Auto) 39.5 L, Lymph % (Auto) 44.6 H, [place] % (Auto) 12.7 H, Eos % (Auto) 1.8, Baso % (Auto) 1.0, Absolute Neuts (auto) 2.7, Nucleated RBC % 0, PT 21.0 H, INR 1.8, Sodium 134 L, Potassium 3.6, Chloride 101, Carbon Dioxide 22.0, Anion Gap 11, BUN 33 H, Creatinine 0.99, Est GFR (MDRD) Af Amer 69, Est GFR (MDRD) Non-Af 57 L, BUN/Creatinine Ratio 33.2 H, Glucose 93, Calcium 8.4 L 03/26/24 06:40: APTT 239.2 H* Rhythm: EKG: ECHO: Stress Test: Cardiac Cath: PCI: CT Surgery: Holter monitor: EPS: PPM: CXR: Chest CT Scan: Radiography Diagnostic Testing: Radiology Impression Chest X-Ray 03/25/24 21:50 IMPRESSION: Chest with no acute disease. Electronically Signed: Solo Rodríguez MD at 22:13 EDT ,
[2024-03-26] MEDS: DiphenhydrAMINE 25 MG Capsule 50 MG PO (07:57)
[2024-03-26] MEDS: Metoprolol Tartrate 25 MG Tablet PO ×3 (10:06→20:53)
--- NOTE | 2024-03-26 10:35 | CASEMGMT ---
BALJIT BOJORQUEZ Readmission Note Previous Admission: 03/10/24-03/11/24 Diagnosis: Recurrent AFIB with RVR DC Disposition: Home Current Admission: Admitted 03/26/24 Current Diagnosis: Chest Pain Pt admitted with chest pain. Pt states she has been compliant with taking medications. States trying to stick with cardiac diet, admits been non-compliant a couple of days. Pt states has F/U appointment with [facility] tomorrow, pt will call to reschedule appointment with them. Pt states interested in going to a facility or Assisted Living. Informed pt will see how therapy goes to determine if appropriate for SNF. Also discussed HHC services with pt, will follow therapy and provide list of SNF or HHC based on therapy recommendations. Pt also interested in learning about transportation options, states car and does not have finances to purchase a new car. Notified THELMA.
--- NOTE | 2024-03-26 11:55 | PCM.PN.HOSP ---
Reason for Visit Reason for Visit: Diagnoses Hypokalemia (03/26/24) Dilated cardiomyopathy (03/26/24) Paroxysmal atrial fibrillation (03/26/24) Unspecified systolic (congestive) heart failure (03/26/24) Precordial pain (03/26/24) Chest pain, unspecified (03/26/24) Subjective Subjective Saw patient at bedside this morning. Patient was sitting up comfortably in bed, conversing normally, in no acute distress. Patient was admitted overnight for chest pain and recurrent A-fib with RVR. She was seen by cardiology this morning with plan for improved rate control for A-fib prior to undergoing left heart catheterization for ischemic workup. Patient states that she feels significantly improved this morning compared to yesterday. She denies any chest pain currently. No other new concerns at this time. Objective Data Objective Data Vital Signs: Vital Signs Temp Pulse Resp BP Pulse Ox O2 Del Method 98.2 F 118 H 16 96/64 98 Room Air 03/26/24 11:45 03/26/24 11:45 03/26/24 11:45 03/26/24 11:45 03/26/24 11:45 03/26/24 11:45 Oxygen Delivery Method Room Air Weight: 64.8 kg Body Mass Index (BMI) 22.4 Intake & Output: Intake and Output for Last 24 Hours 03/24/24 03/25/24 03/26/24 23:59 23:59 23:59 Intake Total 500 / 500 567 / 567 Balance 500 / 500 567 / 567 Lab / Micro Data 03/26/24 03:05 03/26/24 03:05 Labs: Laboratory Results - last 24 hr 03/25/24 21:22: WBC 7.5, RBC 4.00 L, Hgb 13.7, Hct 40.1, MCV 100.3 H, MCH 34.3 H, MCHC 34.2, RDW Std Deviation 57.5 H, RDW Coeff of Bessie 15.6 H, Plt Count 227, MPV 10.9, Immature Gran % (Auto) 0.300, Neut % (Auto) 53.6, Lymph % (Auto) 33.5, [place] % (Auto) 10.7 H, Eos % (Auto) 1.1, Baso % (Auto) 0.8, Absolute Neuts (auto) 4.0, Absolute Lymphs (auto) 2.51, Nucleated RBC % 0, PT 19.9 H, INR 1.7, APTT 35.5, Sodium 134 L, Potassium 3.0 L, Chloride 97 L, Carbon Dioxide 26.0, Anion Gap 11, BUN 30 H, Creatinine 1.36 H, Estim Creat Clear Calc 33.15, Est GFR (MDRD) Af Amer 48 L, Est GFR (MDRD) Non-Af 40 L, BUN/Creatinine Ratio 22.1 H, Glucose 92, Calcium 8.7, Troponin I High Sens 43, B-Natriuretic Peptide 649.3 H 03/25/24 23:23: Troponin I High Sens 38 03/26/24 03:05: WBC 6.7, RBC 3.91 L, Hgb 13.4, Hct 39.1, MCV 100.0 H, MCH 34.3 H, MCHC 34.3, RDW Std Deviation 57.4 H, RDW Coeff of Bessie 15.7 H, Plt Count 210, MPV 10.5, Immature Gran % (Auto) 0.400, Neut % (Auto) 39.5 L, Lymph % (Auto) 44.6 H, [place] % (Auto) 12.7 H, Eos % (Auto) 1.8, Baso % (Auto) 1.0, Absolute Neuts (auto) 2.7, Absolute Lymphs (auto) 2.99, Nucleated RBC % 0, PT 21.0 H, INR 1.8, Sodium 134 L, Potassium 3.6, Chloride 101, Carbon Dioxide 22.0, Anion Gap 11, BUN 33 H, Creatinine 0.99, Estim Creat Clear Calc 45.54, Est GFR (MDRD) Af Amer 69, Est GFR (MDRD) Non-Af 57 L, BUN/Creatinine Ratio 33.2 H, Glucose 93, Calcium 8.4 L, Troponin I High Sens 33 03/26/24 06:40: APTT 239.2 H* Radiography Diagnostic Testing: Radiology Impression Chest X-Ray 03/25/24 21:50 IMPRESSION: Chest with no acute disease. Electronically Signed: Solo Rodríguez MD at 22:13 EDT , Rhythm Strip Rhythm Strip: A-fib Rate: 100 Physical Exam Const alert, oriented x3, no apparent distress and average body habitus Constitutional Narrative: Elderly female, thin and somewhat chronically ill-appearing, otherwise sitting up comfortably in bed, conversing normally, no acute distress. General Appearance: cooperative and comfortable HEENT normocephalic, head/scalp atraumatic, hearing grossly normal bilaterally, nasal mucous membranes and turbinates normal and moist oral mucous membranes Eyes PERRL, EOMs intact bilaterally and conjunctivae normal Neck full ROM Chest inspection of chest normal Resp normal respiratory effort, normal air movement, no use of accessory muscles and clear to auscultation bilaterally Cardio no murmurs and peripheral pulses 2+ throughout Cardio Narrative: A-fib, rate controlled. GI normal to inspection, nondistended, normoactive bowel sounds, soft to palpation, non-tender and non-distended Back/Spine normal ROM Extremity normal to inspection, full ROM and no pedal edema Skin no rashes or lesions noted Neuro moves all extremities and no focal motor deficits Speech: speech normal Psych mental status grossly normal Assessment & Plan Assessment/Plan (1) Chest pain: QUALIFIERS: Chest pain type: precordial pain Qualified Code(s): R07.2 - Precordial pain (2) Atrial fibrillation: QUALIFIERS: Atrial fibrillation type: paroxysmal Qualified Code(s): I48.0 - Paroxysmal atrial fibrillation (3) Acute kidney injury: (4) Heart failure with reduced ejection fraction: (5) Acute hypokalemia: PLAN: Plan Patient is a 78-year-old female who presented [facility] ED on 03/25/2024 with chest pain and recurrent A-fib with RVR. 1. Chest pain/recurrent A-fib with RVR/history of dilated cardiomyopathy ? Follows with [facility]. Initially diagnosed with A-fib with RVR and dilated cardiomyopathy in November 2023, echo showed EF 35% with moderate to severe global hypokinesis of the left ventricle at that time. Stress test at that time was negative for ischemia. Suspected to be either tachycardia mediated cardiomyopathy versus possibly related to alcohol use. ? This is unfortunately the patient's sixth hospitalization for cardiac issues since November. Patient notably does have somewhat difficult home situation with previous bedbug infestation and her medication compliance has been questionable. ? Presented on this admit with acute onset chest pain that was substernal to left-sided in nature. Patient noted that this chest pain felt different and worse compared to prior chest pain related to her A-fib with RVR. Found to be in recurrent A-fib with RVR and EKG showed new deep T wave inversions across the precordium. Troponins were negative x 2 sets. Chest x-ray nonacute. BNP 649, consistent with previous values, not in acute heart failure exacerbation. ? Cardiology following. May be related to recurrent A-fib with RVR but cannot rule out ischemic etiology. Blood pressures borderline low on admit so home medications were held. Initiated on Lopressor 25 mg twice daily on 03/26 with plan for improved rate control prior to likely left heart cath on 03/27. Continue cardiac monitoring. N.p.o. at midnight. Holding home Xarelto for now. 2. MARTHA, improving ? Creatinine 1.36 on admit, baseline 0.4-0.7. Presumed prerenal etiology secondary to hypotension in setting of recurrent A-fib with RVR. Given gentle IV fluid resuscitation admission with improvement in blood pressures and kidney function. Improving, most recent creatinine 0.99 on 03/26. Has a good urine output. Continue to monitor daily BMP and urine output. 3. Hypokalemia, resolved ? Potassium 3.0 on admit. Resolved with repletion. Chronic medical conditions: ? History of medication nonadherence ? Insomnia: Continue home trazodone as needed. ? GERD: Continue home PPI. ? Hyperlipidemia: Continue home statin. DVT prophylaxis: SCDs CODE STATUS: Full code, verified Expected disposition: Home, 2 to 3 days Total clinical time spent by myself addressing the patient's medical issues, reviewing all the data, and collaborating with patient's care team: 35 minutes. Charges/Coding Visit Charges Inpatient E&M: 27062 Subs Hosp L2
--- NOTE | 2024-03-26 13:47 | CASEMGMT ---
Insurance review for hospitals In-network with?MCR insurance if transfer is recommended is as follows: [facility], [facility], [facility], [facility], [facility], [facility] ([facility]), [facility], [facility], and . Annamarie Loo, Discharge Planning Asst
--- NOTE | 2024-03-26 14:21 | CASEMGMT ---
SW was informed that patient was interested in assisted living and transportation resources. SW met with patient. Introduced self and role at [facility]. SW provided patient with transportation resources including [employer] and [employer]. SW also spoke with patient about assisted living and that it is private pay unless on Medicaid. THELMA told patient THLEMA can make a referral to [facility] and someone will come out and do an assessment to determine if she would be eligible for the assisted living waiver. THELMA told patient SW will make the referral and someone from [facility] will call her to arrange an appt. Tiffanie BROTHERS
--- NOTE | 2024-03-26 15:18 | CHAPLAIN ---
Type of Pastoral Visit _x__ Initial Visit ___ Follow-up Visit ___ On-call Visit ___ General Patient Visit ___ Spiritual Assessment ___ Family Conference ___ Bereavement ___ Rapid Response ___ Code Blue ___ Other (describe below) Pastoral Care Referral From _x__ Patient ___ Family ___ Nurse ___ Physician ___ Contact Lens Polisher ___ Thread Clipper ___ Other (describe below) Sacrament/Intervention _x__ Active listening ___ Anointing ___ Mu-Ism ___ Bereavement ___ Communion ___ Larissa exploration ___ ___ Life review _x__ Prayer ___ Reconciliation ___ Sacrament of Sick ___ Supportive presence ___ Wedding ___ Other (describe below) Pastoral Comments repeat patient who has been seen recently and is back for testing; pt asks about the seed expert and his life; pt gives brief description of her current status and waiting for more tests; pt asks for a Bible to read and one is provided for her; prayer is welcomed
--- NOTE | 2024-03-26 15:28 | CASEMGMT ---
BALJIT BOJORQUEZ reviewed therapy notes, no therapy recommended at DC. Into pt room to discuss DC plan, pt agreeable to [facility] services. Pt states would like to use [facility] again, denies wanting a list of local agencies. Called [facility] to see if willing to accept pt. Melissa will call back and notify if able to accept.
--- NOTE | 2024-03-26 16:08 | EKG12_ITS ---
Test Reason : AM EKG Blood Pressure : / mmHG Vent. Rate : 120 BPM Atrial Rate : 000 BPM P-R Int : 000 ms QRS Dur : 114 ms QT Int : 400 ms P-R-T Axes : 000 016 243 degrees QTc Int : 565 ms Critical Test Result: Long QTc Atypical Atrial Flutter with 2:1 conduction Incomplete right bundle branch block Nonspecific ST abnormality Abnormal ECG When compared with ECG of 27-MAR-2024 05:32, MANUAL COMPARISON REQUIRED, DATA IS UNCONFIRMED Confirmed by Arron Jay ([id number]), department editor ANGIE NIELSON ([id number]) on 03/29/2024 6:20:05 AM Referred By: Confirmed By:Arron Jay
[2024-03-26 16:36] LABS: Partial Thromboplast Time 57.7 Seconds (24.1-36.2)
[2024-03-26 22:32] LABS: Partial Thromboplast Time 55.6 Seconds (24.1-36.2)
[2024-03-27] VITALS (23 sets, daily range): BP systolic 93–139; BP diastolic 56–109; PULSE 57–125; RESP 14–20; TEMP 36.3–36.6; O2SAT 91–99
[2024-03-27] MEDS: Metoprolol Tartrate 25 MG Tablet PO ×2 (01:56→06:43)
[2024-03-27] MEDS: 0.9% Normal Saline (1000mL) 1,000 ML 75 ML IV ×2 (02:03→18:21)
[2024-03-27 05:05] LABS: Partial Thromboplast Time 66.5 Seconds (24.1-36.2)
[2024-03-27 05:10] LABS: Anion Gap 8 (5-15); BUN 30 mg/dL (7-18); BUN/Creat Ratio 35.3 RATIO (10-20); Calcium,Total 8.4 mg/dL (8.5-10.1); Chloride 101 mmol/L (98-107); Creatinine, Serum 0.85 mg/dL (0.55-1.02); EST Glomerular Filtration Rate 69 mL/min (>60); Est Glom Filt Rate - Afr Amer 83 mL/min (>60); Estimated Creatinine Clearance 53.04 ml/min; Glucose 140 mg/dL (74-106); Potassium 4.1 mmol/L (3.5-5.1); Sodium Level 131 mmol/L (136-145)
--- NOTE | 2024-03-27 05:55 | EKG12_ITS ---
Test Reason : AM EKG Blood Pressure : / mmHG Vent. Rate : 122 BPM Atrial Rate : 000 BPM P-R Int : 000 ms QRS Dur : 106 ms QT Int : 374 ms P-R-T Axes : 000 -08 227 degrees QTc Int : 532 ms PROBABLE AFLUTTER WITH 2:1 CONDUCTION Incomplete right bundle branch block Marked ST abnormality, possible anterolateral subendocardial injury Abnormal ECG Confirmed by Arron aJy ([id number]), editorial writer RADHA MEZA ([id number]) on 03/28/2024 2:15:06 PM Referred By: Confirmed By:Arron Jay
--- NOTE | 2024-03-27 08:52 | PN.CARD_ITS ---
Subjective Subjective Patient spontaneously converted to normal sinus rhythm yesterday. Heart rate initially was 190 to 100 bpm and is drifted up to the 125 range in sinus tachycardia this morning. The patient complains of a headache and some mild diaphoresis. She is afebrile and blood pressure is stable. She denies any chest pain and has no nausea or vomiting. Objective Data Vital Signs: Vital Signs Temp Pulse Resp BP Pulse Ox O2 Del Method 97.4 F L 125 H 18 118/83 H 99 Room Air 03/27/24 08:45 03/27/24 08:33 03/27/24 06:42 03/27/24 08:33 03/27/24 06:42 03/27/24 06:42 Oxygen Delivery Method Room Air Weight: 142 lb 13.753 oz Body Mass Index (BMI) 22.4 Intake & Output: Intake and Output for Last 24 Hours 03/25/24 03/26/24 03/27/24 23:59 23:59 23:59 Intake Total 500 / 500 2358.25 / 2358.25 1047.92 / 1047.92 Balance 500 / 500 2358.25 / 2358.25 1047.92 / 1047.92 Lab / Micro Data Attestation: I reviewed the patient's lab results. 03/26/24 03:05 03/27/24 04:30 Labs: Laboratory Results - last 24 hr 03/26/24 16:04: APTT 57.7 H 03/26/24 22:00: APTT 55.6 H 03/27/24 04:30: APTT 66.5 H, Sodium 131 L, Potassium 4.1, Chloride 101, Carbon Dioxide 22.0, Anion Gap 8, BUN 30 H, Creatinine 0.85, Estim Creat Clear Calc 53.04, Est GFR (MDRD) Af Amer 83, Est GFR (MDRD) Non-Af 69, BUN/Creatinine Ratio 35.3 H, Glucose 140 H, Calcium 8.4 L Rhythm Strip Rhythm Strip: Sinus Tach Rate: 125 Cardiology Labs/Tests 03/26/24 16:04: APTT 57.7 H 03/26/24 22:00: APTT 55.6 H 03/27/24 04:30: APTT 66.5 H, Sodium 131 L, Potassium 4.1, Chloride 101, Carbon Dioxide 22.0, Anion Gap 8, BUN 30 H, Creatinine 0.85, Est GFR (MDRD) Af Amer 83, Est GFR (MDRD) Non-Af 69, BUN/Creatinine Ratio 35.3 H, Glucose 140 H, Calcium 8.4 L Rhythm: EKG: ECHO: Stress Test: Cardiac Cath: PCI: CT Surgery: Holter monitor: EPS: PPM: CXR: Chest CT Scan: Physical Exam Const alert and oriented x3 HEENT normocephalic Eyes EOMs intact bilaterally Neck no JVD Chest inspection of chest normal Resp normal respiratory effort Auscultation: diminished lung sounds left lower Cardio Rate: tachycardic Rhythm: regular rhythm Heart Sounds: S1 normal and S2 normal; Negative for click, gallop or murmur Extremity no pedal edema Skin General Skin Exam: ecchymosis Psych mental status grossly normal Assessment & Plan Assessment/Plan (1) Atrial fibrillation: QUALIFIERS: Atrial fibrillation type: paroxysmal Qualified Code(s): I48.0 - Paroxysmal atrial fibrillation PLAN: The patient spontaneously converted to sinus rhythm yesterday on metoprolol 25 mg every 6 hours. Her blood pressure is improved and 118/83 this morning. However she is complaining of a headache and some diaphoresis. She is afebrile. We are checking a CBC and will treat her headache with Tylenol. Her heparin will be interrupted for heart catheterization later this morning. She is following the cast should be reinstituted on her Xarelto in anticipation of long-term oral anticoagulation therapy. (2) Cardiomyopathy: QUALIFIERS: Cardiomyopathy type: dilated Qualified Code(s): I42.0 - Dilated cardiomyopathy PLAN: The patient has a history of a dilated cardiomyopathy of an unknown etiology in December 2023 she had an echocardiogram performed. She had a negative stress test January 26, 2024 which was pharmacologic nuclear. However, on this admission with chest discomfort she had ST segment changes consistent with ischemia in the anterior lateral distribution. Recommend that she undergo a left heart catheterization to define her coronary anatomy and will measure her left ventricular and diastolic pressure to assist in determining her volume status. Her BUN and creatinine ratio suggest that she is dry. (3) Chest pain: QUALIFIERS: Chest pain type: precordial pain Qualified Code(s): R 07.2 - Precordial pain PLAN: Patient's had no recurrence of her chest discomfort her enzymes were negative x 2 sets. She will undergo a left heart catheterization to definitively rule out significant coronary artery disease. PLAN: Plan 1. Check a CBC prior to left heart catheterization today. 2. Will treat her headache with Tylenol. 3. Will proceed with coronary angiography today. Charges/Coding Visit Charges Inpatient E&M: 06663 Subs Hosp L2
[2024-03-27 09:06] LABS: Absolute Lymphocyte Count 1.37 X10^3/uL (0.83-4.51); Absolute Neutrophil Count 6.9 X10^3/uL (2.0-7.7); Basophil# 0.03 X10^3/uL; Basophil% 0.3 % (0-1); Eosinophil# 0.01 X10^3/uL; Eosinophils% 0.1 % (0-5); Hematocrit 35.1 % (37-47); Hemoglobin 11.9 g/dL (12.0-15.0); Lymphocyte # 1.37 X10^3/ul (0.83-4.51); Lymphocyte % 14.1 % (19-41); Mean Corp Hgb Conc 33.9 g/dL (32-36); Mean Corpuscular Hgb 33.8 pg (27.0-32.0); Mean Corpuscular Volume 99.7 fL (81-99); Mean Platelet Vol. 11.3 fl (6.2-12.0); Monocyte# 1.37 X10^3/uL; Monocyte% 14.1 % (0-10); NRBC Flagged by Analyzer 0 % (0-5); Neutrophil # 6.86 X10^3/uL (2.7-7.7); Neutrophil % 70.7 % (47-70); POSITIVE COUNT YES; RBC Distribution Width CV 15.8 % (11.6-14.6); RBC Distribution Width SD 57.4 fl (35.1-43.9); Red Blood Count 3.52 M/mm3 (4.2-5.4); White Blood Count 9.7 K/mm3 (4.4-11.0)
[2024-03-27] MEDS: Ondansetron 4 MG/2 ML Vial IV (09:11)
[2024-03-27] MEDS: Acetaminophen 325 MG Tablet PO (09:12)
[2024-03-27] MEDS: 0.9% Saline Lock 10 ML Syringe IV ×2 (09:12→18:05)
--- NOTE | 2024-03-27 09:20 | NURSING ---
Report called to BALJIT Holland in [facility]
--- NOTE | 2024-03-27 09:35 | CASEMGMT ---
BALJIT BOJORQUEZ received call from [facility] and they are not able to accept patient as she does not have a skillable need. BALJIT CM in to update patient, patient currently at [facility]. BALJIT BOJORQUEZ will follow-up with patient regarding HHC and discuss CCN with patient. CM will continue to follow this patient and plan for a safe discharge.
[2024-03-27 09:59] LABS: Differential Indicated SCAN CRITERIA MET; Platelet Estimate ADEQUATE (ADEQ)
--- NOTE | 2024-03-27 10:39 | CL.D_ITS ---
Patient Name: JULIO HERNANDEZ Study Date: 03/27/2024 Performing: Ed Cao MD Ht: 67 inches 170.18 cm : 1945 Wt: 143 lbs 64.8 kg Age: 78 Gender: female BSA: 1.75 PROCEDURE(S) PERFORMED [id number])LHC/COR/LV CLINICAL PROFILE AND INDICATIONS Indications: Cardiac Arrythmia Heart Failure: NYHA Class: 3, Newly Diagnosed: Yes, Heart Failure Type: Systolic Stress/Imaging Stress/Image Study Performed: No CAD Presentations: Other: sob CONCLUSIONS Normal coronary arteries Cardiomyopathy: Dilated Mitral Valve Insufficiency Severe RECOMMENDATIONS Guideline directed therapy for dilated cardiomyopathy, control heart rate, and reevaluate left ventricular systolic function and mitral valve apparatus. DESCRIPTION OF PROCEDURE The patient arrived to the procedure lab. The risks and benefits of the procedure as well as a full description of our services here and current unavailability of surgical backup were fully explained to the patient and/or their significant other prior to the catheterization. The Timeout was completed, verifying the correct patient and procedure. The patient's procedural site was prepped and draped in the usual fashion. Local anesthetic was given subcutaneously to right radial region with Lidocaine 2%. Using a modified Seldinger technique, arterial access was obtained via the right radial artery, a 6Fr sheath was inserted. Left Coronary Artery selective angiography was performed in multiple views using a 5 Fr. 4.0 Sheffield catheter. Right Coronary Artery selective angiography was then performed in multiple views using a 5 Fr. 4.0 Sheffield catheter. Left Ventriculography was performed in DAVIS projection using a 5 Fr. Pigtail catheter. LV to AO pullback pressures were then recorded.The arterial sheath was pulled and a TR Band was applied for hemostasis CORONARY ANGIOGRAPHY DOMINANCE: Left Dominant LEFT HEART ASSESSMENT Left Ventricular Ejection Fraction: by LV Gram 25 % Global Hypokinesis - Severe Depressed Left Ventricular systolic function LEFT MAIN: Angiographically normal LEFT ANTERIOR DESCENDING ARTERY: Angiographically normal CIRCUMFLEX ARTERY: Angiographically normal RAMUS: Angiographically normal RIGHT CORONARY ARTERY: Angiographically normal VALVE FINDINGS: Mitral Valve Insufficiency - Grade 3 COMPLICATIONS No Complications PROCEDURE MEDICATIONS Fentanyl 50 mcg IV Versed 1 mg IV Oxygen: 2 L/min via nasal cannula Benadryl 50 mg IV @ 03/27/2024 09:47:45 Cardizem 25 mg IV 03/27/2024 09:47:55 Heparin given IA 03/27/2024 10:23:12 Solu-medrol 125 mg IV 03/27/2024 09:47:55 SUMMARY OF HEMODYNAMIC DATA Time AIR REST ECG 09:56:50 AO 134/106 (118) SA 10:24:28 LV 133/15, 17 10:28:40 LV 134/15, 17 10:28:48 LV 135/16, 16 10:29:36 LV 133/15, 15 10:29:40 LVp 132/15, 15 10:29:43 AOp 136/92 (111) 10:29:50 Signed By Ed Cao MD On 04/01/2024 08:59:28 Signed By Ed Cao MD On 03/27/2024 10:38:17 Ed Cao MD
--- NOTE | 2024-03-27 11:25 | ECHOL_ITS ---
Reason For Study: MITRAL REGURGITATION Procedure This was a limited 2D transthoracic echocardiogram. The study was technically difficult. Exam performed portable in patient room. Left Ventricle Mildly dilated left ventricle. The left ventricular ejection fraction is 25 %. There is moderate to severe global hypokinesis of the left ventricle. Right Ventricle Mildly dilated right ventricle. Normal systolic function. Atria The left atrium is mildly enlarged. The right atrium is mildly enlarged. Mitral Valve Bileaflet diffuse mitral valve thickening. Moderately severe (3+) eccentric mitral valve insufficiency. Tricuspid Valve Normal tricuspid valve. Mild (1+) tricuspid valve insufficiency. Pulmonary artery systolic pressure is 38 mmHg. Aortic Valve Trisinus/trileaflet aortic valve. Trivial aortic valve insufficiency. Pericardium/Pleural No pericardial effusion. MMode/2D Measurements & Calculations LVIDd: 5.8 cm IVSd: 0.75 cm Ao root diam: 3.1 cm LVIDs: 4.0 cm LVPWd: 0.79 cm FS: 31.9 % LAV(MOD-bp): 77.1 ml LVAd ap4: 20.6 cm2 LVAd ap2: 23.6 cm2 LAV(MOD-bp) Indexed: 44.0 ml/m2 LVLd ap4: 6.7 cm LVLd ap2: 6.7 cm LAV(MOD-sp2): 103.0 ml EDV(MOD-sp4): 53.7 ml EDV(MOD-sp2): 69.5 ml LAV(MOD-sp4): 56.3 ml EDV(sp4-el): 53.6 ml EDV(sp2-el): 70.9 ml LVAs ap4: 15.4 cm2 LVAs ap2: 18.0 cm2 LVLs ap4: 6.2 cm LVLs ap2: 6.3 cm ESV(MOD-sp4): 32.9 ml ESV(MOD-sp2): 43.8 ml ESV(sp4-el): 32.4 ml ESV(sp2-el): 43.6 ml EF(MOD-sp4): 38.8 % EF(MOD-sp2): 36.9 % EF(sp4-el): 39.6 % SV(MOD-sp4): 20.8 ml SV(MOD-sp2): 25.6 ml SV(sp4-el): 21.3 ml LA A4 area: 21.3 cm2 LA dimension(2D): 4.3 cm RA A4 area: 20.7 cm2 Doppler Measurements & Calculations TR max rashmi: 294.0 cm/sec TR max P.6 mmHg ECHO/Echo, Limited Study Interpretation Summary The left ventricular ejection fraction is 25 %. Bileaflet diffuse mitral valve thickening. Moderately severe (3+) eccentric mitral valve insufficiency. Mildly dilated left ventricle. The left atrium is mildly enlarged. Ordering Physician: Ed Cao Performed By: Alicia Gonsalez RDCS
[2024-03-27] MEDS: Amiodarone 360 MG in Dextrose 5% Viaflo Bag 192.8 ML 33.3 MG CONT INF (11:39)
[2024-03-27] MEDS: Diltiazem 125 MG in Dextrose 5%-Water (100mL Bag) 100 ML CONT INF (11:42)
--- NOTE | 2024-03-27 11:53 | PN.HOSP_ITS ---
Reason for Visit Reason for Visit: Diagnoses Hypokalemia (03/26/24) Dilated cardiomyopathy (03/26/24) Paroxysmal atrial fibrillation (03/26/24) Unspecified systolic (congestive) heart failure (03/26/24) Acute kidney failure, unspecified (03/26/24) Precordial pain (03/26/24) Chest pain, unspecified (03/26/24) Subjective Subjective Patient was down having left heart catheterization done this morning so I saw her at bedside this afternoon. Patient was laying comfortably in bed, conversing normally, in no acute distress. She was about to have an echo done when I saw her. She stated that she tolerated the heart catheterization without issue. Denies any current chest pain or discomfort. Notably, patient's heart rate appears to be normal sinus rhythm at this time. No other new concerns today. Objective Data Objective Data Vital Signs: Vital Signs Temp Pulse Resp BP Pulse Ox O2 Del Method 97.4 F L 74 18 111/89 H 99 Room Air 03/27/24 08:45 03/27/24 11:39 03/27/24 11:39 03/27/24 11:39 03/27/24 06:42 03/27/24 08:45 Oxygen Delivery Method Room Air Weight: 64.8 kg Body Mass Index (BMI) 22.4 Intake & Output: Intake and Output for Last 24 Hours 03/25/24 03/26/24 03/27/24 23:59 23:59 23:59 Intake Total 500 / 500 2358.25 / 2358.25 1620.25 / 1620.25 Balance 500 / 500 2358.25 / 2358.25 1620.25 / 1620.25 Lab / Micro Data 03/27/24 04:30 03/27/24 04:30 Labs: Laboratory Results - last 24 hr 03/26/24 16:04: APTT 57.7 H 03/26/24 22:00: APTT 55.6 H 03/27/24 04:30: WBC 9.7, RBC 3.52 L, Hgb 11.9 L, Hct 35.1 L, MCV 99.7 H, MCH 33.8 H, MCHC 33.9, RDW Std Deviation 57.4 H, RDW Coeff of Bessie 15.8 H, Plt Count , MPV 11.3, Immature Gran % (Auto) 0.700, Neut % (Auto) 70.7 H, Lymph % (Auto) 14.1 L, [place] % (Auto) 14.1 H, Eos % (Auto) 0.1, Baso % (Auto) 0.3, Absolute Neuts (auto) 6.9, Absolute Lymphs (auto) 1.37, Nucleated RBC % 0, Platelet Estimate ADEQUATE, APTT 66.5 H, Sodium 131 L, Potassium 4.1, Chloride 101, Carbon Dioxide 22.0, Anion Gap 8, BUN 30 H, Creatinine 0.85, Estim Creat Clear Calc 53.04, Est GFR (MDRD) Af Amer 83, Est GFR (MDRD) Non-Af 69, BUN/Creatinine Ratio 35.3 H, Glucose 140 H, Calcium 8.4 L Rhythm Strip Rhythm Strip: Sinus Tach Rate: 125 Physical Exam Const alert, oriented x3, no apparent distress and average body habitus Constitutional Narrative: Elderly female, thin and somewhat chronically ill-appearing, otherwise sitting up comfortably in bed, conversing normally, no acute distress. Stable. General Appearance: cooperative and comfortable HEENT normocephalic, head/scalp atraumatic, hearing grossly normal bilaterally, nasal mucous membranes and turbinates normal and moist oral mucous membranes Eyes PERRL, EOMs intact bilaterally and conjunctivae normal Neck full ROM Chest inspection of chest normal Resp normal respiratory effort, normal air movement, no use of accessory muscles and clear to auscultation bilaterally Cardio regular rate, regular rhythm, no murmurs and peripheral pulses 2+ throughout GI normal to inspection, nondistended, normoactive bowel sounds, soft to palpation, non-tender and non-distended Back/Spine normal ROM Extremity normal to inspection, full ROM and no pedal edema Skin no rashes or lesions noted Neuro moves all extremities and no focal motor deficits Speech: speech normal Psych mental status grossly normal Assessment & Plan Assessment/Plan (1) Chest pain: QUALIFIERS: Chest pain type: precordial pain Qualified Code(s): R 07.2 - Precordial pain (2) Atrial fibrillation: QUALIFIERS: Atrial fibrillation type: paroxysmal Qualified Code(s): I48.0 - Paroxysmal atrial fibrillation (3) Acute kidney injury: (4) Heart failure with reduced ejection fraction: (5) Acute hypokalemia: PLAN: Plan Patient is a 78-year-old female who presented [facility] ED on 03/25/2024 with chest pain and recurrent A-fib with RVR. 1. Chest pain/recurrent A-fib with RVR/history of dilated cardiomyopathy ? Follows with [facility]. Initially diagnosed with A-fib with RVR and dilated cardiomyopathy in November 2023, echo showed EF 35% with moderate to severe global hypokinesis of the left ventricle at that time. Stress test at that time was negative for ischemia. Suspected to be either tachycardia mediated cardiomyopathy versus possibly related to alcohol use. ? This is unfortunately the patient's sixth hospitalization for cardiac issues since November. Patient notably does have somewhat difficult home situation with previous bedbug infestation and her medication compliance has been questionable. ? Presented on this admit with acute onset chest pain that was substernal to left-sided in nature. Patient noted that this chest pain felt different and worse compared to prior chest pain related to her A-fib with RVR. Found to be in recurrent A-fib with RVR and EKG showed new deep T wave inversions across the precordium. Troponins were negative x 2 sets. Chest x-ray nonacute. BNP 649, consistent with previous values, not in acute heart failure exacerbation. ? Had left heart cath done on 03/27, showed normal coronary arteries but continued severe LV global hypokinesis with estimated EF 25% and grade 3 mitral valve insufficiency. ? Cardiology following. Coronary disease ruled out as cause of chest pain, most likely related to recurrent A-fib. Did have conversion to normal sinus rhythm on 03/26 on Lopressor 25 mg every 6 hours. However, given heart cath findings of severe LV dysfunction and suspected recurrent A-fib, started on amiodarone drip and Cardizem drip after heart cath on 03/27. Continue cardiac monitoring. Xarelto was held for left heart cath, resumed on 03/27. Appreciate further cardiology recommendations. 2. MARTHA, improving ? Creatinine 1.36 on admit, baseline 0.4-0.7. Presumed prerenal etiology secondary to hypotension in setting of recurrent A-fib with RVR. Given gentle IV fluid resuscitation admission with improvement in blood pressures and kidney function. Improving, most recent creatinine 0.85 on 03/27. Has a good urine output. Continue to monitor daily BMP and urine output. 3. Hypokalemia, resolved ? Potassium 3.0 on admit. Resolved with repletion. 4. Mild hyponatremia, stable ? Sodium has ranged from 131-134 during hospitalization. No need for any intervention at this time, continue to monitor BMP daily. Chronic medical conditions: ? History of medication nonadherence ? Insomnia: Continue home trazodone as needed. ? GERD: Continue home PPI. ? Hyperlipidemia: Continue home statin. DVT prophylaxis: Not indicated, on Xarelto CODE STATUS: Full code, verified Expected disposition: Home, 1 to 2 days Total clinical time spent by myself addressing the patient's medical issues, reviewing all the data, and collaborating with patient's care team: 35 minutes. Charges/Coding Visit Charges Inpatient E&M: 64215 Subs Hosp L2
[2024-03-27] MEDS: Amiodarone 360 MG in Dextrose 5% Viaflo Bag 192.8 ML 16.7 MG CONT INF (18:04)
[2024-03-27] MEDS: Rivaroxaban 20 MG Tablet PO (18:26)
--- NOTE | 2024-03-27 21:23 | NURSING ---
This RN was notified that patient had pulled out her IV around 1944. This RN entered room and placed another IV in her left forearm. Less than an hour later, I was again notified that she had removed that IV,. Her amio has been paused now for the last hour while attempting to get a new IV. A different RN attempted IV insertion and it is now being attempted by a 3rd RN with Ultrasound.
[2024-03-28] VITALS (28 sets, daily range): BP systolic 103–147; BP diastolic 76–120; PULSE 108–131; RESP 16–25; TEMP 36.1–36.6; O2SAT 95–100
[2024-03-28 06:41] LABS: Anion Gap 6 (5-15); BUN 19 mg/dL (7-18); BUN/Creat Ratio 31.5 RATIO (10-20); Calcium,Total 8.8 mg/dL (8.5-10.1); Chloride 106 mmol/L (98-107); EST Glomerular Filtration Rate 102 mL/min (>60); Est Glom Filt Rate - Afr Amer 123 mL/min (>60); Estimated Creatinine Clearance 56.36 ml/min; Glucose 134 mg/dL (74-106); Potassium 4.2 mmol/L (3.5-5.1); Sodium Level 133 mmol/L (136-145)
--- NOTE | 2024-03-28 08:20 | PCM.PN.CARD ---
Subjective Subjective The patient had episodes of confusion after catheterization and sedation yesterday. She is better this morning she is resting comfortably in the bed she denies any chest symptoms or shortness of breath. Her blood pressure in the [employer] yesterday was 134/106 and her left ventricular pressures were 133/15 consistent with euvolemia. She did have 3+ mitral regurgitation and an ejection fraction of 25% documented. Her coronary arteries were normal. This is consistent with a nonischemic dilated cardiomyopathy most probably related to a combination of tachyarrhythmias and less than optimal medical compliance. The patient has intermittently had some runs of normal sinus rhythm, atrial flutter with 2-1 conduction, and now appears to be in atrial fibrillation with a heart rate of 100-120. She was started on IV amiodarone yesterday with the diltiazem drip and her heart rate dropped into the 30 to 40 bpm range. The diltiazem was discontinued. Objective Data Vital Signs: Vital Signs Temp Pulse Resp BP Pulse Ox O2 Del Method O2 Flow Rate 97.8 F 122 H 18 147/100 H 98 Room Air 3 03/28/24 08:00 03/28/24 08:00 03/28/24 08:00 03/28/24 08:06 03/28/24 08:00 03/28/24 08:00 03/27/24 11:15 Oxygen Flow Rate (L/min) 3 Oxygen Delivery Method Room Air Weight: 142 lb 13.753 oz Body Mass Index (BMI) 22.4 Intake & Output: Intake and Output for Last 24 Hours 03/26/24 03/27/24 03/28/24 23:59 23:59 23:59 Intake Total 2358.25 / 2358.25 2698.50 / 2715.20 116.9 / 116.9 Balance 2358.25 / 2358.25 2698.50 / 2715.20 116.9 / 116.9 Lab / Micro Data Attestation: I reviewed the patient's lab results. 03/27/24 04:30 03/28/24 05:24 Labs: Laboratory Results - last 24 hr 03/27/24 04:30: WBC 9.7, RBC 3.52 L, Hgb 11.9 L, Hct 35.1 L, MCV 99.7 H, MCH 33.8 H, MCHC 33.9, RDW Std Deviation 57.4 H, RDW Coeff of Bessie 15.8 H, Plt Count , MPV 11.3, Immature Gran % (Auto) 0.700, Neut % (Auto) 70.7 H, Lymph % (Auto) 14.1 L, [place] % (Auto) 14.1 H, Eos % (Auto) 0.1, Baso % (Auto) 0.3, Absolute Neuts (auto) 6.9, Absolute Lymphs (auto) 1.37, Nucleated RBC % 0, Platelet Estimate ADEQUATE 03/28/24 05:24: Sodium 133 L, Potassium 4.2, Chloride 106, Carbon Dioxide 21.0, Anion Gap 6, BUN 19 H, Creatinine 0.60, Estim Creat Clear Calc 56.36, Est GFR (MDRD) Af Amer 123, Est GFR (MDRD) Non-Af 102, BUN/Creatinine Ratio 31.5 H, Glucose 134 H, Calcium 8.8 Rhythm Strip Rhythm Strip: A-fib Rate: 120 Cardiology Labs/Tests 03/27/24 04:30: WBC 9.7, RBC 3.52 L, Hgb 11.9 L, Hct 35.1 L, MCV 99.7 H, MCH 33.8 H, MCHC 33.9, Plt Count , MPV 11.3, Immature Gran % (Auto) 0.700, Neut % (Auto) 70.7 H, Lymph % (Auto) 14.1 L, [place] % (Auto) 14.1 H, Eos % (Auto) 0.1, Baso % (Auto) 0.3, Absolute Neuts (auto) 6.9, Nucleated RBC % 0 03/28/24 05:24: Sodium 133 L, Potassium 4.2, Chloride 106, Carbon Dioxide 21.0, Anion Gap 6, BUN 19 H, Creatinine 0.60, Est GFR (MDRD) Af Amer 123, Est GFR (MDRD) Non-Af 102, BUN/Creatinine Ratio 31.5 H, Glucose 134 H, Calcium 8.8 Rhythm: EKG: ECHO: Stress Test: Cardiac Cath: PCI: CT Surgery: Holter monitor: EPS: PPM: CXR: Chest CT Scan: Radiography Diagnostic Testing: Radiology Impression Echocardiogram 03/27/24 11:25 Interpretation Summary The left ventricular ejection fraction is 25 %. Bileaflet diffuse mitral valve thickening. Moderately severe (3+) eccentric mitral valve insufficiency. Mildly dilated left ventricle. The left atrium is mildly enlarged. Ordering Physician: Ed Cao Performed By: Alicia Gonsalez [facility] Physical Exam Const alert Constitutional Narrative: Seems to be oriented x 3 but is confused about location of her purse. HEENT normocephalic Eyes EOMs intact bilaterally Neck no JVD Chest inspection of chest normal Resp normal respiratory effort and clear to auscultation bilaterally Cardio Rate: tachycardic Rhythm: abnormal rhythm irregularly irregular Heart Sounds: S1 normal, S2 normal and murmur systolic II/ soft; Negative for click or gallop GI soft to palpation Extremity no pedal edema Neuro Neuro Narrative: Alert and appears to be oriented x 3. Psych mental status grossly normal Assessment & Plan Assessment/Plan (1) Cardiomyopathy: QUALIFIERS: Cardiomyopathy type: dilated Qualified Code(s): I42.0 - Dilated cardiomyopathy PLAN: Patient has a nonischemic dilated cardiomyopathy with normal coronary arteries on cath. Her LV function ejection fraction is 25% with a dilated left ventricle. She has mitral regurgitation of 3+. The presumption is that this is related to a combination of persistent tachycardia and a less than optimal compliance with her medical regimen. I spoke with care managers yesterday about obtaining intensive in-home health care however given the patient's confusion consideration may be given for extended care facility placement in the interim. In order to control the heart rate diltiazem had been added but she became bradycardic she is on IV amiodarone for the atrial fibrillation. We will continue to load her orally as outlined below. I have reinstituted the Coreg to 12.5 mg twice daily blood pressure was higher in her central circulation then measured peripherally. We will tolerate a peripheral measured systolic of 90 as we titrate her vasoactive medications for her cardiomyopathy. If she tolerates the Coreg the spironolactone should be added as she has normal renal function she does not need aggressive loop diuretics as her LVEDP measured at 15 and she has no overt signs of congestion. The last thing I would add would be the Entresto due to its vasoactive affect and this could be added in the outpatient setting if she is not tolerating it prior to discharge. (2) Atrial fibrillation: QUALIFIERS: Atrial fibrillation type: paroxysmal Qualified Code(s): I48.0 - Paroxysmal atrial fibrillation PLAN: The patient is now on IV amiodarone her heart rate is in the 100 120 bpm range she has not atrial fibrillation she was in atrial flutter 2-1 yesterday. She did transiently block down with diltiazem IV. It was discontinued. We instituted Coreg 12.5 mg twice daily and will add an oral loading dose of amiodarone to the completion of the IV Amio load. Will start amiodarone 200 mg p.o. 3 times daily with hold parameters for heart rate. This should be continued for 5 days and then decrease to 200 mg daily as heart rate tolerates it. The patient was reinstituted on Xarelto 20 mg daily yesterday. When discharged the patient should follow-up in [facility] office within 7 to 10 days. If she is transferred to an extended care facility an EKG can be performed there and transmitted to the [facility] and lieu of an in office visit in 7 to 10 days. (3) Mitral valve regurgitation: QUALIFIERS: Cardiac valve disease etiology: nonrheumatic Qualified Code(s): I34.0 - Nonrheumatic mitral (valve) insufficiency PLAN: The patient's mitral regurgitation is probably secondary to annular dilatation with the nonischemic dilated cardiomyopathy. This is probably irritating the left atrium and precipitating some of the persistence of the atrial fibrillation which historically has spontaneously converted back in December and January when she was hospitalized. The patient's mitral regurg will be reevaluated when she is aggressively treated and rate is controlled for at least 3 months. PLAN: Plan 1. Complete IV amiodarone loading. 2. Will add Coreg 12.5 mg twice daily hold for blood pressure less than 90 and heart rate less than 55. 3. Add amiodarone 200 mg 3 times daily for 5 days or until discharge. At discharge the patient's amiodarone dose should be 200 mg daily. 4. Would consider extended care facility placement due to the patient's transient confusion, her medical noncompliance, and questionable ability to care for herself in her home environment given her multiple medical comorbidities. 5. The patient should follow-up in the [facility] office in 7 to 10 days for an EKG. If the patient is in extended-care facility EKG can be performed there and transmitted via fax to the [facility] at [phone]. 6. Would attempt to restart spironolactone 25 mg every morning to her medical regiment prior to discharge. 7. Entresto can be reintroduced in the ambulatory setting after she is seen in the [facility] in [address] Soto will be covering in the hospital tomorrow. Charges/Coding Visit Charges Inpatient E&M: 49949 [facility] Hosp L3
[2024-03-28] MEDS: 0.9% Normal Saline (1000mL) 1,000 ML 75 ML IV ×2 (08:50→21:09)
[2024-03-28] MEDS: Amiodarone 360 MG in Dextrose 5% Viaflo Bag 192.8 ML 16.7 MG CONT INF ×2 (08:50→23:55)
[2024-03-28] MEDS: Carvedilol 12.5 MG Tablet PO ×2 (08:55→15:59)
--- NOTE | 2024-03-28 09:39 | CASEMGMT ---
RN CM in to discuss discharge planning with patient. RN CM updated patient and [facility] not able to accept due to patient not having a skillable need for HHC, patient voiced understanding. RN CM provided information regarding [facility], patient agreeable to referral. Patient denies further needs or questions. CM made referral to [facility].
--- NOTE | 2024-03-28 10:53 | PN.HOSP_ITS ---
Reason for Visit Reason for Visit: Diagnoses Hypokalemia (03/26/24) Nonrheumatic mitral (valve) insufficiency (03/26/24) Dilated cardiomyopathy (03/26/24) Paroxysmal atrial fibrillation (03/26/24) Unspecified systolic (congestive) heart failure (03/26/24) Acute kidney failure, unspecified (03/26/24) Precordial pain (03/26/24) Chest pain, unspecified (03/26/24) Subjective Subjective Saw patient at bedside this morning. Sitting up comfortably in bed, conversing normally, in no acute distress. Notably patient was more confused yesterday after cath but this was presumed related to several medications she was given prior to and during the cath; appears back to her baseline mental status today. Her heart rate continues to be consistently in the 110s to 120s in A-fib this morning. She denies any chest pain or shortness of breath. She has been tolerating the medication changes for rate/rhythm control without issue. She states she actually prefers to be in the hospital for these medication changes as she hopes it her A-fib issues can be completely figured out during this hospitalization so she does not continue to have hospital readmissions going forward. No other new concerns this morning. Objective Data Objective Data Vital Signs: Vital Signs Temp Pulse Resp BP Pulse Ox O2 Del Method O2 Flow Rate 97.5 F L 121 H 18 113/76 97 Room Air 3 03/28/24 10:00 03/28/24 10:00 03/28/24 10:00 03/28/24 10:00 03/28/24 10:00 03/28/24 10:00 03/27/24 11:15 Oxygen Flow Rate (L/min) 3 Oxygen Delivery Method Room Air Weight: 64.8 kg Body Mass Index (BMI) 22.4 Intake & Output: Intake and Output for Last 24 Hours 03/26/24 03/27/24 03/28/24 23:59 23:59 23:59 Intake Total 2358.25 / 2358.25 2698.50 / 2715.20 869.81 / 869.81 Balance 2358.25 / 2358.25 2698.50 / 2715.20 869.81 / 869.81 Lab / Micro Data 03/27/24 04:30 03/28/24 05:24 Labs: Laboratory Results - last 24 hr 03/28/24 05:24: Sodium 133 L, Potassium 4.2, Chloride 106, Carbon Dioxide 21.0, Anion Gap 6, BUN 19 H, Creatinine 0.60, Estim Creat Clear Calc 56.36, Est GFR (MDRD) Af Amer 123, Est GFR (MDRD) Non-Af 102, BUN/Creatinine Ratio 31.5 H, G lucose 134 H, Calcium 8.8 Radiography Diagnostic Testing: Radiology Impression Echocardiogram 03/27/24 11:25 Interpretation Summary The left ventricular ejection fraction is 25 %. Bileaflet diffuse mitral valve thickening. Moderately severe (3+) eccentric mitral valve insufficiency. Mildly dilated left ventricle. The left atrium is mildly enlarged. Ordering Physician: Ed Cao Performed By: Alicia Gonsalez [facility] Rhythm Strip Rhythm Strip: A-fib Rate: 120 Physical Exam Const alert, oriented x3, no apparent distress and average body habitus Constitutional Narrative: Elderly female, thin and somewhat chronically ill-appearing, otherwise sitting up comfortably in bed, conversing normally, no acute distress. Stable. General Appearance: cooperative and comfortable HEENT normocephalic, head/scalp atraumatic, hearing grossly normal bilaterally, nasal mucous membranes and turbinates normal and moist oral mucous membranes Eyes PERRL, EOMs intact bilaterally and conjunctivae normal Neck full ROM Chest inspection of chest normal Resp normal respiratory effort, normal air movement, no use of accessory muscles and clear to auscultation bilaterally Cardio regular rate, regular rhythm, no murmurs and peripheral pulses 2+ throughout GI normal to inspection, nondistended, normoactive bowel sounds, soft to palpation, non-tender and non-distended Back/Spine normal ROM Extremity normal to inspection, full ROM and no pedal edema Skin no rashes or lesions noted Neuro moves all extremities and no focal motor deficits Speech: speech normal Psych mental status grossly normal Assessment & Plan Assessment/Plan (1) Chest pain: QUALIFIERS: Chest pain type: precordial pain Qualified Code(s): R 07.2 - Precordial pain (2) Atrial fibrillation: QUALIFIERS: Atrial fibrillation type: paroxysmal Qualified Code(s): I48.0 - Paroxysmal atrial fibrillation (3) Acute kidney injury: (4) Heart failure with reduced ejection fraction: (5) Acute hypokalemia: PLAN: Plan Patient is a 78-year-old female who presented [facility] ED on 03/25/2024 with chest pain and recurrent A-fib with RVR. 1. Chest pain/recurrent A-fib with RVR/history of dilated cardiomyopathy ? Follows with [facility]. Initially diagnosed with A-fib with RVR and dilated cardiomyopathy in November 2023, echo showed EF 35% with moderate to severe global hypokinesis of the left ventricle at that time. Stress test at that time was negative for ischemia. Suspected to be either tachycardia mediated cardiomyopathy versus possibly related to alcohol use. ? This is unfortunately the patient's sixth hospitalization for cardiac issues since November. Patient notably does have somewhat difficult home situation with previous bedbug infestation and her medication compliance has been questionable. ? Presented on this admit with acute onset chest pain that was substernal to left-sided in nature. Patient noted that this chest pain felt different and worse compared to prior chest pain related to her A-fib with RVR. Found to be in recurrent A-fib with RVR and EKG showed new deep T wave inversions across the precordium. Troponins were negative x 2 sets. Chest x-ray nonacute. BNP 649, consistent with previous values, not in acute heart failure exacerbation. ? Had left heart cath done on 03/27, showed normal coronary arteries but continued severe LV global hypokinesis with estimated EF 25% and grade 3 mitral valve insufficiency. ? Cardiology following. Coronary disease ruled out as cause of chest pain, most likely related to recurrent A-fib. Did have conversion to normal sinus rhythm on 03/26 on Lopressor 25 mg every 6 hours. However, given heart cath findings of severe LV dysfunction and suspected recurrent A-fib, started on amiodarone drip and Cardizem drip after heart cath on 03/27. Amiodarone and Cardizem drips together caused bradycardia to the 30s-40s, Cardizem discontinued on 03/28 and patient started on Coreg 12.5 mg twice daily and de-escalated to p.o. amiodarone 200 mg 3 times daily. Planning for 5 days of this amiodarone dose, followed by amiodarone 200 mg daily going forward. Continue home Xarelto. Continue cardiac monitoring. Appreciate further cardiology recommendations. 2. MARTHA, resolved ? Creatinine 1.36 on admit, baseline 0.4-0.7. Presumed prerenal etiology secondary to hypotension in setting of recurrent A-fib with RVR. Given gentle IV fluid resuscitation admission with improvement in blood pressures and kidney function. MARTHA resolved by 03/27 and patient with good urine output. No need to monitor further BMPs or urine output. 3. Hypokalemia, resolved ? Potassium 3.0 on admit. Resolved with repletion. 4. Mild hyponatremia, stable ? Sodium has ranged from 131-134 during hospitalization. No need for any intervention at this time. Chronic medical conditions: ? History of medication nonadherence ? Insomnia: Continue home trazodone as needed. ? GERD: Continue home PPI. ? Hyperlipidemia: Continue home statin. DVT prophylaxis: Not indicated, on Xarelto CODE STATUS: Full code, verified Expected disposition: Home, 1 to 2 days Total clinical time spent by myself addressing the patient's medical issues, reviewing all the data, and collaborating with patient's care team: 35 minutes. Charges/Coding Visit Charges Inpatient E&M: 00055 Subs Hosp L2
[2024-03-28] MEDS: Amiodarone 200 MG Tablet PO (13:40)
--- NOTE | 2024-03-28 14:00 | NURSING ---
Upon entering the patients room this RN could smell cigarette smoke. The patient has her purse in lap and was trying to brush her teeth. This RN asked the patient if she smokes and patient responded I used to, not very much. This RN told the patient that it smells like cigarettes in her room and openly asked the patient if she has been smoking in room. Patient said oh no. This RN explained to the patients the dangers of smoking in a hospital. This RN asked patient about items in her purse. Patient pulled out several personal items but to note an epi pen, remedial reading teacher, cigarettes and a pocket knife. The RN explained to the patient that she could not have certain items at bedside. The remedial reading teacher, pocket knife and epi pen were secured. master [place] Wilma notified. AN EMPLOYEE SPONSOR [employer] ADVOCATE AND Jennyfer notified.
--- NOTE | 2024-03-28 15:08 | NURSING ---
Upon entering patient room this RN could smell cigarette smoke. Patient had her purse in her lap and attempting to brush her teeth. This RN had Jennyfer, SUPERVISOR [employer] also come to bedside who also thought it smelled like cigarettes. This RN asked the patient if she smokes and patient responded I used to:
[2024-03-28] MEDS: Rivaroxaban 20 MG Tablet PO (15:59)
[2024-03-28] MEDS: Amiodarone 200 MG Tablet 400 MG PO (21:09)
--- NOTE | 2024-03-28 22:35 | NURSING ---
RN called to room by aide for patient not able to follow commands
--- NOTE | 2024-03-28 22:35 | NURSING ---
RN called to room for patient not being able to follow commands. Stroke alert was called due to patient having left facial droop and left arm weakness.
--- NOTE | 2024-03-28 22:53 | CT_ITS ---
We are attempting to reach an attending provider to discuss findings. An addendum with communication details will be sent when the communication is complete. EXAM: CT HEAD WITHOUT INTRAVENOUS CONTRAST CLINICAL INDICATION: STROKE TECHNIQUE: Multiple axial images were obtained of the head without intravenous contrast. This CT exam was performed using one or more of the following dose reduction techniques: automated exposure control, adjustment of the mA and/or kV according to patient size, and/or use of iterative reconstruction technique. COMPARISON: No relevant prior studies available. FINDINGS: BRAIN AND EXTRA-AXIAL SPACES: Right holohemispheric subdural hematoma measuring up to approximately 2.4 cm in maximal thickness with mass effect upon the right cerebral hemisphere, hemispheric sulcal effacement, asymmetric narrowing of the right lateral ventricle, and approximately 1 cm of leftward shift of the midline structures at the level of the septum pellucidum. The subdural mostly overlies the peripheral brain extending along the floor of the anterior cranial fossa, floor of the middle cranial fossa, along the interhemispheric falx, and along the tentorium on the right. No evidence of acute infarct. No intraventricular hemorrhage or intraparenchymal hemorrhage is identified. BONES/JOINTS: No significant abnormality. No discrete lytic or blastic abnormalities. VASCULATURE: Arteriosclerosis. SINUSES: Mucosal thickening in the sphenoid sinuses. MASTOID AIR CELLS: No significant effusion. ORBITS: Bilateral ocular lens extraction presumptively for the treatment of cataracts. Otherwise, no acute orbital pathology. CT/STROKE Brain/Head without Cont IMPRESSION: 1. Right side holohemispheric subdural hematoma measuring up to 2.4 cm in maximal thickness with approximately 1 cm leftward shift and asymmetric narrowing of the right lateral ventricle. 2. No evidence of acute infarct or parenchymal hematoma. ASPECTS: 10. Electronically Signed: Glen Mims DO at 23:08 EDT ,
[2024-03-28 22:54] LABS: Bedside Glucose 123 mg/dL (74-106)
--- NOTE | 2024-03-28 23:08 | NURSING ---
Called Vlad Bennett re transfer to ICU informed of situation and transfer to another hospital once bed available
--- NOTE | 2024-03-28 23:13 | PCM.HOSP.N ---
Hospitalist Note STROKE ALERT: Stroke alert initiated at 10:45 PM with last known well at 10 PM. Nurse noted upon evaluation of patient left-sided facial droop as well as left upper extremity weakness and slight drift. Upon evaluation this was again confirmed although patient did able to correct a little bit with smile but still had a left facial droop and also left upper extremity difficulty with grasp but could keep her arm up with no drift initially. During the evaluation she had rapid lateral eye movements and turns her head to the left and upwards appearing as if she was having seizure-like activity however this eventually resolved prior to giving any Ativan. Patient was immediately taken to the CT scanner with plans at that time for CT head and CTA head and neck however upon CTA being obtained it was obvious that patient had a significant right-sided bleed. Patient did report having a right-sided headache but had much difficulty describing this. She was able to still converse and stay where she was in events that were going on but was pausing quite a lot in between the conversation. Immediately discussed case with [facility] neurology who requested that patient be administered 60 mg/kg loading dose of Keppra given concerns for seizure and findings on CT, TXA, Kcentra, vitamin K 10 mg IV x 1. CT imaging did result with noted Right side holohemispheric subdural hematoma measuring up to 2.4 cm in maximal thickness with approximately 1 cm leftward shift and asymmetric narrowing of the right lateral ventricle which was reviewed with radiology directly. Given these findings discussed transport with [facility] and [facility] who noted planned evacuation within a 20-minute timeline of 11:15 PM. Patient was taken immediately from the CT scanner to the ICU. Given plan of care will attempt to maintain blood pressure less than 140/90 and will continue on amiodarone drip to assure that patient heart rate remains more appropriate given underlying PAF with RVR. Cardiology Dr. Jay was updated on these events and plan of transfer.
--- NOTE | 2024-03-28 23:24 | NURSING ---
Vlad-patient's significant other notified the transfer is to [facility] for stroke.
--- NOTE | 2024-03-28 23:25 | EKG12_ITS ---
Test Reason : rhythm check Blood Pressure : / mmHG Vent. Rate : 120 BPM Atrial Rate : 120 BPM P-R Int : 144 ms QRS Dur : 108 ms QT Int : 384 ms P-R-T Axes : 000 -27 194 degrees QTc Int : 542 ms Sinus tachycardia Incomplete right bundle branch block ST & T wave abnormality, consider inferior ischemia ST & T wave abnormality, consider anterolateral ischemia Prolonged QT Abnormal ECG When compared with ECG of 26-MAR-2024 02:17, MANUAL COMPARISON REQUIRED, DATA IS UNCONFIRMED Confirmed by LENNOX BIRD, JOSÉ LUIS ([id number]), scientific editor ANGIE NIELSON ([id number]) on 04/03/2024 10:58:31 A M Referred By: Confirmed By:TERRIE HIGH MD
[2024-03-28] MEDS: Phytonadione (Vit K) 10 MG in 0.9% Normal Saline (50mL Bag) 50 ML 153 MG IV (23:31)
[2024-03-28] MEDS: levETIRAcetam IV 1,000 MG/100 ML BAG 4000 MG IV (23:31)
[2024-03-28] MEDS: HUM PROTHROMBIN CPLX LANS IV (23:36)
[2024-03-28] MEDS: VIAFLEX IV (23:36)
--- NOTE | 2024-03-28 23:45 | DS.PCM_ITS ---
Providers Date of Admission: 03/26/24 Date of Discharge: 03/28/24 Primary Care Physician: [facility] Consultations 03/26/24 00:58 Consult: Cardiology Routine Consulting Provider: Arron Jay Reason for Consult: Chest pain EMERGENT Consult: Yes MD Notified: Yes Date Notified: 03/26/24 Time Notified: 00:20 Method of Notification: ED Physician Initiated Reason For Visit: CHEST PAIN Diagnosis Discharge Diagnosis (1) Chest pain: Status: Acute Code(s): R07.9 - Chest pain, unspecified Qualifiers: Chest pain type: precordial pain Qualified Code(s): R07.2 - Precordial pain (2) Atrial fibrillation: Status: Acute Code(s): I48.91 - Unspecified atrial fibrillation Qualifiers: Atrial fibrillation type: paroxysmal Qualified Code(s): I48.0 - Paroxysmal atrial fibrillation (3) Acute kidney injury: Status: Acute Code(s): N17.9 - Acute kidney failure, unspecified (4) Heart failure with reduced ejection fraction: Status: Acute Code(s): I50.20 - Unspecified systolic (congestive) heart failure (5) Acute hypokalemia: Status: Acute Code(s): E87.6 - Hypokalemia Plan Discharge diagnoses: #1. Acute hemorrhagic stroke with significant right-sided holohemispheric subdural hematoma with approximately 1 cm leftward midline shift with resulting narrowing of the right lateral ventricle with suspected seizure activity #2. Recurrent atrial fibrillation with RVR #3. 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 Acute kidney injury, resolved #5. Hypokalemia, resolved #6. Stable chronic mild hyponatremia, unclear etiology #7. Hyperlipidemia #8. Chronic insomnia #9. Former tobacco use #10. GERD Medications at Discharge Home Medications epinephrine 0.3 mg/0.3 mL injection, auto-injector 0.3 mg (0.3 mL) IM X1 BEE STINGS #2 syringes 05/03/15 pantoprazole 40 mg tablet,delayed release 40 mg PO DAILY reflux #30 tabs 01/11/24 pravastatin 20 mg tablet 20 mg PO QHS cholesterol #30 tabs 04/25/24 rivaroxaban 20 mg tablet (Xarelto) 20 mg PO DAILY blood thinner #30 tabs 01/11/24 carvedilol 12.5 mg tablet 12.5 mg PO BID blood pressure, heart rate 30 days #60 tabs 01/20/24 empagliflozin 10 mg tablet (Jardiance) 10 mg PO DAILY unknown 30 days #30 tabs 01/20/24 trazodone 50 mg tablet 50 mg PO QHS PRN sleep 30 days #30 tabs 01/20/24 spironolactone 25 mg tablet 25 mg PO DAILY diuretic 01/25/24 diltiazem HCl 240 mg capsule,extended release 24 hr 240 mg PO DAILY afib 30 days #30 caps 01/29/24 sacubitril 24 mg-valsartan 26 mg tablet (Entresto) 0.5 tab PO BID heart failure 30 days #60 tabs 01/29/24 furosemide 20 mg tablet 20 mg PO DAILY heart failure #90 tabs 03/04/24 cyclobenzaprine 5 mg tablet 5 mg PO BID PRN PRN muscle pain 03/10/24 Hospital Course Operations None Procedures 2-D Echocardiogram and Cardiac catheterization Summary of Care Provided Minutes Spent on Discharge: 45 Hospital Course: Patient was admitted to the [facility] on 03/26/2024 with chief complaint of chest discomfort specifically reporting heaviness and tightness in the mid chest nonradiating with EKG demonstrating ST depressions in the lateral leads which is new from previously. Patient was admitted to the PCU with cardiac enzymes cycling, cardiology consultation and consideration of cardiac catheterization at that time. Patient was evaluated by cardiology and decision for cardiac catheterization to rule out coronary disease with addition of metoprolol 25 mg twice daily. Patient during presentation also with atrial fibrillation with RVR and despite metoprolol initial regimen was transitioned to every 6 hours regimen but given ongoing RVR eventually transition to amiodarone drip with eventual order for oral transition per cardiology service. Cardiac catheterization with noted normal-appearing coronary arteries and Echocardiogram with EF 25% with 3+ mitral regurgitation thus presentation felt likely consistent with nonischemic dilated cardiopathy probably related to combination of tachyarrhythmia and noncompliance with medical therapy. On 03/28/2024 Stroke alert initiated at 10:45 PM with last known well at 10 PM. Nurse noted upon evaluation of patient left-sided facial droop as well as left upper extremity weakness and slight drift. Upon evaluation this was again confirmed although patient did able to correct a little bit with smile but still had a left facial droop and also left upper extremity difficulty with grasp but could keep her arm up with no drift initially. During the evaluation she had rapid lateral eye movements and turns her head to the left and upwards appearing as if she was having seizure-like activity however this eventually resolved prior to giving any Ativan. Patient was immediately taken to the CT scanner with plans at that time for CT head and CTA head and neck however upon CTA being obtained it was obvious that patient had a significant right-sided bleed. Patient did report having a right-sided headache but had much difficulty describing this. She was able to still converse and stay where she was in events that were going on but was pausing quite a lot in between the conversation. Immediately discussed case with [facility] neurology who requested that patient be administered 60 mg/kg loading dose of Keppra given concerns for seizure and findings on CT, TXA, Kcentra, vitamin K 10 mg IV x 1. CT imaging did result with noted Right side holohemispheric subdural hematoma measuring up to 2.4 cm in maximal thickness with approximately 1 cm leftward shift and asymmetric narrowing of the right lateral ventricle which was reviewed with radiology directly. Given these findings discussed transport with [facility] and [facility] who noted planned evacuation within a 20-minute timeline of 11:15 PM. Patient was taken immediately from the CT scanner to the ICU. Given plan of care will attempt to maintain blood pressure less than 140/90 and will continue on amiodarone drip to assure that patient heart rate remains more appropriate given underlying PAF with RVR. Cardiology Dr. Jay was updated on these events and plan of transfer. Weight / BMI Weight Weight: 142 lb 13.753 oz Body Mass Index (BMI) 22.4 ABG / Lab / Microbiology Data 03/27/24 04:30 03/28/24 05:24 Laboratory: Laboratory Results - last 24 hr 03/28/24 05:24: Sodium 133 L, Potassium 4.2, Chloride 106, Carbon Dioxide 21.0, Anion Gap 6, BUN 19 H, Creatinine 0.60, Estim Creat Clear Calc 56.36, Est GFR (MDRD) Af Amer 123, Est GFR (MDRD) Non-Af 102, BUN/Creatinine Ratio 31.5 H, G lucose 134 H, Calcium 8.8 03/28/24 22:34: POC Glucose 123 H Radiography Diagnostic Testing: Radiology Impression Brain CT 03/28/24 22:53 IMPRESSION: 1. Right side holohemispheric subdural hematoma measuring up to 2.4 cm in maximal thickness with approximately 1 cm leftward shift and asymmetric narrowing of the right lateral ventricle. 2. No evidence of acute infarct or parenchymal hematoma. ASPECTS: 10. Electronically Signed: Glen Mims DO at 23:08 EDT , ADDENDUM: 03/28/24 2321 IMPRESSION: 1. Right side holohemispheric subdural hematoma measuring up to 2.4 cm in maximal thickness with approximately 1 cm leftward shift and asymmetric narrowing of the right lateral ventricle. 2. No evidence of acute infarct or parenchymal hematoma. ASPECTS: 10. N.B. : The above Results were Read Back by Glen Mims DO to Grecia Ludwig MD, and understanding confirmed on 03/28/2024 23:14:26 (ET). Electronically Signed: Glen Mims DO at 23:08 EDT , Meaningful Use Info Meaningful Use Meaningful Use Diagnoses (Choose all that apply): Hemorrhagic CVA CVA Therapy Assessed for PT,OT and/or ST?: Yes Ischemic Stroke Statin Dosing Therapy Reference: STATIN DOSE THERAPY REFERENCE: * Patients > 75 years receive moderate or high dose statin therapy. * Patients 75 years or YOUNGER should receive HIGH intensity statin dose unless contraindicated. You will be required to document reason for non-treatment if statin daily dose does not meet guidelines. HIGH DOSE STATIN THERAPY DAILY Atorvastatin > than or = to 40 mg Rosuvastatin > than or = to 20 mg Amlodipine + Atorvastatin > than or = to 2.5/40 mg Ezetimibe + Simvastatin 10/80 mg Simvastatin 80mg Discharge Plan Admission Admit Date/Time: 03/26/24 00:18 Attending Provider: Bebo Waite [facility] Providers: Arron Jay; Kirk Jaramillo Discharge Orders/Prescriptions Prescriptions: No Action epinephrine 0.3 MG syringe 0.3 mg IM X1 Qty: 2 0RF pantoprazole 40 mg Tablet,Delayed Release (Dr/Ec) 40 mg PO DAILY Qty: 30 0RF pravastatin 20 mg Tablet 20 mg PO QHS Qty: 30 0RF Xarelto 20 mg tablet 20 mg PO DAILY Qty: 30 0RF Patient Comments: pt states was not taking at right time so adjusted to taking at bedtime Rx Instructions: must administer with evening meal carvedilol 12.5 mg Tablet 12.5 mg PO BID 30 Days Qty: 60 2RF Jardiance 10 mg Tablet 10 mg PO DAILY 30 Days Qty: 30 2RF trazodone 50 mg tablet 50 mg PO QHS PRN (Reason: sleep) 30 Days Qty: 30 0RF cyclobenzaprine 5 mg tablet 5 mg PO BID PRN PRN (Reason: muscle pain) spironolactone 25 mg tablet 25 mg PO DAILY diltiazem HCl 240 mg Capsule,Extended Release 24hr 240 mg PO DAILY 30 Days Qty: 30 3RF Rx Instructions: Hold for heart less than 50 or systolic blood pressure less than 120 mmHg. Entresto 24-26 mg Tablet 0.5 tab PO BID 30 Days Qty: 60 2RF furosemide 20 mg tablet 20 mg PO DAILY Qty: 90 3RF [facility] - Charges/Coding Visit Charges Inpatient E&M: 34818 Disch Hosp >30min
--- NOTE | 2024-03-29 04:57 | NURSING ---
2255- Nursing supervisor fusing room called this studio operations engineer in charge phone to inform this RN that ICU will be receiving a patient originally from [facility] w/ a brain hemorrhage. 2301- [facility] called to ICU unit for report on pt and to inform that they would be landing in 25 mins, Dr. Mckoy to floor and discussed pt w/ [facility] 2304- Pt arrived to unit. Pt A+Ox3 and talking appropriately to this RN and other staff. Pt hooked up to monitor and assessed. Nursing supervisor fusing room and pt's SUPERVISOR FILTRATION w/ pt. Dr. Mckoy informed this RN to call pharmacy to expedite meds ordered Pt w/ x1 IV, an additional 20G IV was placed in pt's R antecubital. This RN was instructed by Dr. Mckoy to get all IV meds ordered in/ hung by the time [facility] arrives. Pt A+Ox3, mild facial droop. Experiencing a severe headache behind her R eye. Able to answer questions and converse appropriately 2344- [facility] to floor, report given by SUPERVISOR FILTRATION and Dr. Mckoy. Meds infused/ given that were ordered by Dr. Mckoy, pt left unit @ 0015
--- NOTE | 2024-04-01 08:53 | CCN.REFER ---
VM LEFT 03/28 AND 04/01 W/ NO RETURNED CALL YET TO DISCUSS CCN AND ARRANGING A HOME VISIT.
--- NOTE | 2024-04-03 09:30 | CCN.REFER ---
PATIENT NOT RETURNING ANY CALLS TO ARRANGE CCN HOME VISITS.
== END 2024-03-29 00:15 | disposition other institution (70) | DRG 286 ==
LOC: ED 03-26 00:16 → PCU 03-26 00:37 → ICU 03-28 23:12
PROVIDERS: Internal Medicine Cardiovascular Disease; Admitting Provider Family Medicine; Emergency Provider Emergency Medicine; Visit Provider Hospitalist
DX: I48.0 Paroxysmal atrial fibrillation (principal); I62.01 Nontraumatic acute subdural hemorrhage; E87.1 Hypo-osmolality and hyponatremia; N17.9 Acute kidney failure, unspecified; I50.22 Chronic systolic (congestive) heart failure; I42.0 Dilated cardiomyopathy; I11.0 Hypertensive heart disease with heart failure; I95.9 Hypotension, unspecified; J44.9 Chronic obstructive pulmonary disease, unspecified; R56.9 Unspecified convulsions; G83.24 Monoplegia of upper limb affecting left nondominant side; I34.0 Nonrheumatic mitral (valve) insufficiency; E78.00 Pure hypercholesterolemia, unspecified; E87.6 Hypokalemia; K21.9 Gastro-esophageal reflux disease without esophagitis; I25.10 Atherosclerotic heart disease of native coronary artery without angina pectoris; R29.810 Facial weakness; F51.04 Psychophysiologic insomnia; Z88.9 Allergy status to unspecified drugs, medicaments and biological substances; Z91.199 Patient's noncompliance with other medical treatment and regimen due to unspecified reason; Z79.84 Long term (current) use of oral hypoglycemic drugs; Z79.01 Long term (current) use of anticoagulants; Z79.899 Other long term (current) drug therapy; Z87.891 Personal history of nicotine dependence
CPT/HCPCS: 36415; 70450; 71045; 80048; 80299; 82962; 83880; 84484; 85025; 85610; 85730; 93005; 93308; 93458; 97110; 97162; 97166; 97530; 97802; 99152; 99153; 99284; 99406; J7030; J7040; Q9967; A4216; C1769; C1894; C9159; J2405; J3490